=== PATIENT | male | born 1955 | race Hispanic/Latino ===

== ENCOUNTER 2020-09-18 20:52 | Emergency (ER) | payer OTHER ==
--- OUTSIDE RECORDS SUMMARY | 2020-09-18 20:58 | XMS REPORT | Continuity of Care Document ---
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 CHEST 1 VW PORTABLE 2020-04-02 12:15:00 Fabi Harveyist Aiden Olivares HC COMPLETE BLD COUNT 2020-04-02 11:36:00 Amelie Harvey [facility] W/AUTO DIFF Aiden Olivares PROTHROMBIN TIME WITH INR 2020-04-02 11:36:00 Rashel Harvey COMPREHENSIVE METABOLIC 2020-04-02 11:36:00 Lane Harvey PANEL Aiden Olivares TROPONIN 2020-04-02 11:36:00 Earle Harvey LIPASE LEVEL 2020-04-02 11:36:00 Earle Harvey B NATRIURETIC PEPTIDE 2020-04-02 11:36:00 Amelie Harvey ESTIMATED GFR 2020-04-02 11:36:00 Earle Harvey ECG ED PRELIMINARY 2020-04-02 11:29:05 Earle Harvey ethodist INTERPRETATION Aiden Olivares ECG 12-LEAD 2020-04-02 11:26:30 Earle Harvey COVID-19 ANTI-SPIKE IGG 2020-03-24 14:19:00 Efren Sepulveda ANTIBODY TITER HC COMPLETE BLD COUNT 2020-03-24 14:19:00 Efren Sepulveda [facility] W/AUTO DIFF DONOR SPECIFIC ANTIBODY 2020-03-24 14:19:00 Efren Sepulveda [facility] CBC WITH PLATELET AND 2019-12-31 09:56:00 Laya Turner [facility] DIFFERENTIAL COMPREHENSIVE METABOLIC 2019-12-31 09:56:00 Yue, Laya Og [facility] PANEL HEMOGLOBIN A1C 2019-12-31 09:56:00 Yue, Laya Og [facility] T4, FREE 2019-12-31 09:56:00 Yue, Laya Og [facility] THYROID STIMULATING HORMONE 2019-12-31 09:56:00 Laya Turner [place] [facility] VITAMIN D 25 HYDROXY LEVEL 2019-12-31 09:56:00 Yue, Laya sierra Og [facility] PARATHYROID HORMONE 2019-12-31 09:56:00 Laya Turner [facility] PROSTATE SPECIFIC ANTIGEN 2019-10-21 13:16:00 Lucy Torres [facility] CBC WITH PLATELET AND 2019-09-20 11:06:00 Lucy Torres n [facility] DIFFERENTIAL COMPREHENSIVE METABOLIC 2019-09-20 11:06:00 Lucy Torres [facility] PANEL HEMOGLOBIN A1C 2019-09-20 11:06:00 Lucy Torres odtere LIPID PANEL 2019-09-20 11:06:00 Lucy Torres odtere THYROID STIMULATING HORMONE 2019-09-20 11:06:00 Lucy Torres MICROALBUMIN / CREATININE 2019-09-20 11:06:00 Lucy Torres [facility] URINE RATIO PROSTATE SPECIFIC ANTIGEN 2019-09-20 11:06:00 Lucy Torres [facility] T4, FREE 2019-09-20 11:06:00 Lucy Torres odtere CBC WITH PLATELET AND 2019-09-20 11:03:00 Laya Turner [facility] DIFFERENTIAL COMPREHENSIVE METABOLIC 2019-09-20 11:03:00 Laya Turner [facility] PANEL FRUCTOSAMINE 2019-09-20 11:03:00 Laya Turner [facility] HEMOGLOBIN A1C 2019-09-20 11:03:00 Laya Turner [facility] LIPID PANEL 2019-09-20 11:03:00 Laya Turner MICROALBUMIN / CREATININE 2019-09-20 11:03:00 Laya Turner URINE RATIO T4, FREE 2019-09-20 11:03:00 Kei Turnerana Costa Da Silva THYROID STIMULATING HORMONE 2019-09-20 11:03:00 Laya Turner minaleah Da Silva Plan of Care Planned Activity Planned Date Details Comments Source Future Scheduled 2027-02-28 COLONOSCOPY Og [facility] Test 00:00:00 SCREENING [code = COLONOSCOPY SCREENING] Future Scheduled 2022-07-16 DIABETES: RETINAL [place] [facility] Test 00:00:00 EYE EXAM [code = DIABETES: RETINAL EYE EXAM] Future Scheduled 2021-06-21 SHINGLES VACCINES Postponed from [place] [facility] Test 00:00:00 (#1) [code = 2003 (Not SHINGLES VACCINES Indicated) (#1)] Future Scheduled 2020-10-20 DIABETIC FOOT EXAM [place] [facility] Test 00:00:00 [code = DIABETIC FOOT EXAM] Future Scheduled 2020-09-27 INFLUENZA VACCINE [place] [facility] Test 00:00:00 [code = INFLUENZA VACCINE] Encounters Start End Encounter Admission Attending Care Care Encounter Source Date/Time Date/Time Type Type Clinicians Facility Department ID 2020-09-18 2020-09-18 Outpatient ELO, [facility] [id number] [place] 00:00:00 00:00:00 LUCY [address] 2020-08-25 2020-08-25 Outpatient SALOMÓN, [facility] [id number] [place] 00:00:00 00:00:00 EFREN [address] 2020-08-19 2020-08-19 Outpatient CHANDLER, [facility] [id number] [place] 00:00:00 00:00:00 LAYA [address] 2020-08-19 2020-08-19 Outpatient VIVEK, [facility] [id number] [place] 00:00:00 00:00:00 PRITESH [address] 2020-08-19 2020-08-19 Outpatient LUCRECIA, [facility] [id number] [place] 00:00:00 00:00:00 RENETTA [address] 2020-08-19 2020-08-19 Outpatient GALATI, [facility] [id number] [place] 00:00:00 00:00:00 PRITESH 833 Method i 2020-08-19 2020-08-19 Outpatient GALATI, [facility] [id number] [place] 00:00:00 00:00:00 PRITESH 214 [facility] i 2020-08-19 2020-08-19 Outpatient GALATI, [facility] [id number] [place] 00:00:00 00:00:00 PRITESH 269 [facility] i 2020-08-19 2020-08-19 Outpatient SADHU, [facility] [id number] [place] 00:00:00 00:00:00 LAYA 709 Method i 2020-08-03 2020-08-03 Outpatient GALATI, [facility] [id number] [place] 00:00:00 00:00:00 PRITESH 335 [facility] i 2020-08-03 2020-08-03 Outpatient GALATI, [facility] [id number] [place] 00:00:00 00:00:00 PRITESH 204 Method i 2020-08-03 2020-08-03 Outpatient GALATI, [facility] [id number] [place] 00:00:00 00:00:00 PRITESH 206 Method i 2020-08-03 2020-08-03 Outpatient GALATI, [facility] [id number] [place] 00:00:00 00:00:00 PRITESH 207 Method i 2020-07-06 2020-07-06 Office MILY Momin [id number] 12:46:59 13:35:30 Visit Claudio Post AMBULATOR 350.1.13.21 Y [id number] [id number] 2020-04-22 2020-04-22 Outpatient ELO, [facility] [id number] [place] 00:00:00 00:00:00 LUCY 806 Method i 2020-04-17 2020-04-17 Outpatient SALOMÓN, [facility] [id number] [place] 00:00:00 00:00:00 RAFIK 810 Method i 2020-04-17 2020-04-17 Outpatient SALOMÓN, [facility] [id number] [place] 00:00:00 00:00:00 RAFIK 807 Method i 2020-04-02 2020-04-04 Outpatient TABITHA, [facility] [id number] [place] 00:00:00 00:00:00 SINCERE [address] 2020-04-02 2020-04-02 Outpatient CASTLE-VAREL [facility] [id number] [place] 00:00:00 00:00:00 RENETTA Flores 928 Met hodi 2020-03-26 2020-03-26 Outpatient SALOMÓN, [facility] [id number] [place] 00:00:00 00:00:00 RAFIK 086 Method i 2020-03-24 2020-03-24 Outpatient SALOMÓN, [facility] [id number] [place] 00:00:00 00:00:00 RAFIK 353 Method i 2020-03-24 2020-03-24 Outpatient SALOMÓN, [facility] [id number] [place] 00:00:00 00:00:00 RAFIK 082 Method i 2020-01-06 2020-01-06 Outpatient SADHU, [facility] [id number] [place] 00:00:00 00:00:00 LAYA 183 Method i 2019-11-06 2019-11-06 Outpatient WOODY, [facility] [id number] [place] 00:00:00 00:00:00 JAMAL 429 Method i 2019-10-21 2019-10-21 Outpatient ELO, [facility] [id number] [place] 00:00:00 00:00:00 LUCY 598 Method i 2019-10-21 2019-10-21 Outpatient ELO, [facility] [id number] [place] 00:00:00 00:00:00 LUCY 893 Method i 2019-09-30 2019-09-30 Outpatient SADHU, [facility] [id number] [place] 00:00:00 00:00:00 LAYA 285 Method i 2019-07-17 2019-07-17 Outpatient WOODY, [facility] [id number] [place] 00:00:00 00:00:00 JAMAL 920 Method i 2019-04-26 2019-04-26 Outpatient ELO [facility] [id number] [place] 00:00:00 00:00:00 LUCY [address] 2019-04-26 2019-04-26 Outpatient ELO [facility] [id number] [place] 00:00:00 00:00:00 LUCY [address] 2019-04-26 2019-04-26 Outpatient ELO [facility] [id number] [place] 00:00:00 00:00:00 LUCY [address] Results Test Description Test Time Test Comments Results Result Sourc e Comments CT Abdomen 2020-07-29 [facility], [place] Pelvis Wo [address] Contrast 14:43:38 Incoming - 08/25/2020 2:46 PM CDT EXAMINATION: CT ABDOMEN PELVIS WO CONTRASTCLINICAL HISTORY: Z94.4 Liver transplant status, 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 Sagittal and coronal computerized reformatted images were also obtained. All CT images were acquired using radiation dose lowering technique with automated exposure control and / or iterative reconstruction.COMPAR BREN: MRI abdomen 08/19/[address] 02/06/2018IMPRESSION: ABDOMEN:Evaluation of solid abdominal organs is limited without IV contrast.1. The finding seen on the MRI corresponds to a small focus of fat necrosis along the posterior margin of hepatic segment 6, 1.9 cm in size. Retrospectively, this has been present even from old exams back to 2017, though it is more discrete since that time, as expected with the passage of time. Transplant liver shows no focal lesion on this noncontrast CT.2.AICD wires partially seen. The heart upper normal. Lung bases are clear.3.Gallbladder absent post transplant. Pancreas grossly unremarkable. Splenic artery tortuous and calcified. The spleen mildly enlarged. Perisplenic and paraesophageal collaterals, and embolization coils in the gastrohepatic ligament. Adrenals, abdominal aorta grossly unremarkable without contrast. The kidneys are atrophic indicating end-stage renal disease. No hydronephrosis.4.A right iliac fossa transplant kidney with no hydronephrosis or fluid collection. The cortical thickness is well-maintained.PELVI S:1. Spontaneous splenorenal shunt, as before. No free fluid or definite lymphadenopathy detected in the abdomen or pelvis on this limited noncontrast study. Sensitivity for detection is decreased due to the paucity of intra-abdominal fat.2.Prostate upper normal. Seminal vesicles grossly unremarkable. The urinary bladder is incompletely distended otherwise unremarkable.3.Coloni c diverticulosis most pronounced distally. Bowel loops including the appendix show no evidence of obstruction or acute inflammation otherwise grossly unremarkable without contrast.4.Focal zones of reticulation of the superficial subcutaneous fat in the abdominal pannus has been present back to 2017, though has gradually increased since prior. This suggest a chronic inflammatory condition.5.Visualize d bones show no suspicious lesion.SUMMARY:Small focus of fat necrosis corresponds to the MRI. No suspicious liver lesion detected.Incidental findings as [id number] Cv stress test 2020-08-20 05:38:01 Test Item Value Reference Range Interpretation Comme nts Resting HR (test code = 0561768919) 83 Resting BP (test code = 4746116739) 125&58 Peak MET Achieved (test code = 3 8056936869) Protocol Name (test code = 5492299311) DOBUT/ECHO Time in Exercise Phase (test code = 00:08:40 0735099487) Max Systolic BP (test code = 155 7124969522) Max Diastolic BP (test code = 55 6380155926) Max Heart Rate (test code = 196 6153364195) Max Predicted Heart Rate (test code = 153 4317107044) Target HR Formula (test code = (220 - Age)*100% 6830784271) Test Indication (test code = A.S 2001159993) Arrhy During Ex (test code = 5002020361) ECG Interp Before EX (test code = 5199185042) ECG Interp During Ex (test code = 5963460866) Ex Summary Comment (test code = 4662813050) Overall HR Response to Exercise (test code = 5504997426) Overall BP Response To Exercise (test code = 1461056473) Reason for Termination (test code = Protocol Complete 4708068548) Stress Test Impression (test code = Waveform interpreted in report associated 0766761848) with image study. No interpretation is provided as part of this Stress ECG report.-Electronically Signed By Clem Castro MD ([id number]), purchase request editor Aurea Casey ([id number]) on 08/20/2020 5:37:57 AM [place] MethodistTransthoracic Echocardiogram Stress, (w Doppler, w Contrast if needed)2020-08-19 19:41:00Interface, Radiology Results In - 08/19/2020 7:42 PM CDT Stress Echocardiography Report [address], [address], [place], [place] [address] Stress ECG tracings are available in [employer] and [employer] All ECG interpretations are included in this report Pat.Name: ALONZO FIGUEROA Pat.ID: [id number] St.Date: 08/19/2020 Refer.MD: RENETTA SINGER MDExam Time: 10:33:00 AM Study Type:Stress Echo Height: 70in Weight: 212lb BSA: 2.14 m2 Age: 12 1955,65Y Sex: MALE BP: 125/58 HR: 82 bpm Sonogrphr: ERYN De La Torre, RD, Raquel MOSLEY, [facility]; MD Falguni; Tom Dolan. Stat.:Outpatient Room: [facility] 16 Study Status:Final Echo Event ID:[id number] Order ID: [id number] Reason for Study:Chronic Valvular Disease (Asymptomatic) - Moderateaortic stenosis; EVal aortic stenosis and LV FunctionHistory / Clinical:Diabetes, Congestive Heart Failure, Hyperlipidemia,Hypertension, CKD, Shortness of Breath, Hepatitis CProcedures: Stress Echo/Dobutamine and Colorflow DopplerRace: Z [place] MMARY: Low flow, low gradient, severe aortic valve stenosis. Meangradientincreased to 42.6 from 23.4 mmHg with 10mcg/min of Dobutamine Diastolic dysfunction Grade II(Moderate): Impaired relaxation withelevated LV filling pressures. -FINDINGS: Resting FindingsLV: There is severe eccentric LVhypertrophy. LV EF is severely depressed. Estimated EF is 25-29%.RV: A pacemaker wireis seen in the RV. RV systolic function is normal. LA: LA volume is severely enlarged.RA: RA size is normal.AO: Aortic root diameter is normal.JANEL: No pericardial effusion.AV: Moderate thickening and calcification of AV leaflets. Mild aortic regurgitation. Low flow, low gradient, severe aortic valve stenosis. Mean gradient increased to 42.6 from23.4 mmHg with 10mcg/min of DobutaminneMV: Mild calcification of mitral leaflets. Thickened and/or calcified chordae. Mild to moderate mitral regurgitation.PV: No structural PV abnormalities noted. A trace of pulmonic regurgitation. TV: No structural TV abnormalities noted.Butler: Diastolic dysfunction Grade II (Moderate): Impaired relaxation with elevated LV filling pressures.Stress FindingsLV: LV EF is moderately to severely depressed. E stimated EF is 30-34%. STRESS: Baseline Vital Signs: Intervention DobutamineECG Normal sinus Peak Dose 10 mcg/kg/minHR 82 Atropine 0Rest BP: 125/58 Duration 11:11Stress Test Results:Max HR 93 Target HR 153 % Target: 61 % MaxBP 127/59 Max RPP 00817 Symptoms and Complications:Arrhythmias SVT, PVCsReason for Stopping Test: positive test and patient developedventricular bigeminy and SVTsSymptoms headacheComplications noneStress ECG Interp Normal Blood Pressure response to Stress, NormalStress ECG. No ST changes occurred during stress., runs of SVT in [id number] CAIKZFTRMIOF: 2DParasternal Long [place] Ao An 2.4 cm LVPWd 0.8 cm Ao Rtd 3 cm Index 1.4 cm/m2 LADs 5.2 cm IVSd 1.4 cm RWT 0.3 LVIDd6.5 cm Index 3 cm/m2 LV Mass 328.4 g (122-174)* LVIDs 6.1 cm LVOT 2.2 cm LV%fs 6.3 % Left VentricleLVM Index 153.5 g/m2 LA Sng Plane LA Area 32.2 cm2 (8.8-23.4)* LA Vol 126.9 ml Index 59.3 ml/m2 LA LngAx 6.9 cm LVOT LVOT Area 3.7 cm2 DOPPLERAV For Flow/DARRIN AV pkVel 408.3 cm/s (100-170)* AV AC/ET 0.2 AV mnVel 304.4 cm/s AV TVI 69.1 cm AV pkPG 66.7 mmHg AVpkAcRt 20064.6 cm/s2 AV Mean G 42.6 mmHg AV DeRt 1797.2 cm/s2 AV ET 227 msec AV AC 53 msec (83-118)*Aortic Valve AV DI 0.3 AV Area 1.2 cm2 (3-5)*LVOT For Flow LVOT TVI 22.1 cm LVOTmnPG 3 mmHg LVOTpkVel 112.9 cm/s HR 92 bpm LVOTpkPG 5.1 mmHg LVOT LVOT SV 81.6 ml LVOT CO 7.5 l/min SVi 38.1 ml/m2 LVOT CI 3.5 l/m/m2 WALL MOTION: RESTING WALL MOTION:Basal Inferoseptal, Basal Inferior,Basal Inferolateral, Mid Inferior,Mid Inferolateral larson are akinetic. Basal Anterior, BasalAnteroseptal, Basal Anterolateral, Mid Anterior, Mid Anteroseptal, MidInferoseptal, Mid Anterolateral, Apical Anterior, Apical Septal,Apical Inferior, Apical Lateral, Apical larson are hypokinetic. Wall Index= 2.3STRESS WALL MOTION:Basal Inferoseptal, Basal Inferior, Basal Inferolateral, Mid Inferior,Mid Inferolateral larson are akinetic. Basal Anterior, BasalAnteroseptal, Basal Anterolateral, Mid Anterior, Mid Anteroseptal, MidInferoseptal, Mid Anterolateral, Apical Anterior, Apical Septal,Apical Inferior, Apical Lateral, Apical larson are hypokinetic. Stress Wall Index = 2.3Signed 08/19/2020 07:41 PMGerry Norris M.D.[place] MethodistMRI Abdomen Wo [id number] 13:55:58Hm Interface, Radiology Results 08/19/2020 1:59 PM CDT EXAMINATION: MRI ABDOMEN WO CONTRASTCLINICAL HISTORY: Z85.05 Personal history of malignant neoplasm of liver, Z94.4 Liver transplant status, hcc screening post transplantTECHNIQUE: Multiplanar multisequence MR images of the abdomen were obtained without contrast.COMPARISON: MRI abdomen 09/30/[address] 02/06/2018IMPRESSION:Evaluation of solid abdominal organs limited without IV contrast.1.Motion artifact degrades image quality and decreases sensitivity of exam. Interval development of a 0.9 cm cystic lesion in the uncinate process of pancreas, series 9 image 21. The relationship to the main PD is difficult to determine, due to the marked motion artifact. This may be postinflammatory or a branch duct IPMN.2.A 1.1 cm cyst along the anterior margin of the tail of pancreasis unchanged from 2017, and likely postinflammatory3.The pancreas atrophic otherwise grossly remarkable on motion limited noncontrast exam4.Status post liver transplant. Atrophy of the lateral left hepatic lobe as before, without definite focal hepatic lesion detected.5.A exophytic 1.9 cm focus along the posterior margin of hepatic segment 6, is seen only on the single shot images, series 8 image 23 and series 9 image 10. This is likely artifactual, though sensitivity is reduced by the substantial motion artifact. Confirmation with a noncontrast CT abdomen is advised.6.Gallbladder absent. Bile ducts are nondilated. The spleen enlarged to prior without focal lesion. Perisplenic collaterals and paraesophageal varices.7.Adrenals, abdominal aorta grossly unremarkable without contrast. The bill moore's slough kidneys are atrophic from end-stage renal disease. Right iliac fossa transplant kidney with mild fullnessof the renal collecting system partially seen. No adjacent fluid collection8.No free fluid or definite lymphadenopathy detected on motion limited noncontrast exam. Upper normal periaortic lymph nodes are likely reactive.9.Visualized bones show no suspicious lesion.SUMMARY: Exophytic 1.9 cm focus along the posterior subcapsular margin of hepatic segment 6 only seen on the SSFSE images, suggests that it is motion artifact. Confirmation with a noncontrast CT abdomen is advised.A 0.9 cm cystic lesion in the uncinate process of pancreas is new from prior, though expected to demonstrate long-term stability. 6-12 month follow-up MRI is advised.No definite suspicious lesion is identified. Details and other findings as [id number] [facility]CT Chest Wo [id number] 17:54:58Hm Interface, Radiology Results 08/03/2020 5:58 PM CDT EXAMINATION: CT CHEST WO CONTRASTCLINICAL HISTORY: Z48.23 Encounter for aftercare following liver transplant, Z94.4 Liver transplant status, post transplant HCC recurrence screeningTECHNIQUE: Axial images of the chest were obtained without intravenous contrast. The lack of intravenous contrast reduces the sensitivity of the exam and evaluating vasculature. CT imaging was performed with iterative reconstruction technique and/or automated exposure control to reduce radiation dose.COMPARISON: 01/11/2017 CT.FINDINGS:Lungs and airways: No acute airspace disease or suspicious pulmonary nodules. A 2 mm apical right upper lobe nodule is unchanged since 09/06/2013 CT, considered benign. Tiny peripheral nodule at the left lung base is unchanged and compatible with the sequela of previous inflammatory disease. Minimal subsegmental atelectasis bibasally.Pleura: No pleural effusionor pneumothorax.Mediastinum and lymph nodes: No lymphadenopathy. Multiple paraesophageal varices, similar to 2017. Atrophic thyroid.Cardiovascular: Prior coronary arterial bypass. Heart size is normal w ith left ventricular dilatation. Aortic valvular and mitral valvular calcifications. Aortic arch andaortic calcifications, no aneurysm. Redemonstrated left subclavian approach cardiac device with leadterminating in the right ventricle.Upper abdomen: Redemonstrated partially imaged transplant liver with anastomotic clips in the IVC, splenomegaly, varices and embolization coils and prominent gastrohepatic nodes without significant change since 2017 CT.Musculoskeletal: Prior sternotomy. Osseous structures are intact otherwise, without suspicious lesion.Soft tissues: Gynecomastia.IMPRESSION:1.No evidence of metastatic disease.2.Status post CABG. Mild left ventricular dilatation. Aortic and mitral valvular disease.3.Partly imaged transplant liver and stigmata of portal hypertension.[facility]-[id number] and approved by vice president digital strategist/fellow: Kena Jesus, Khoa Barajas MD, personally reviewed the images and resident's/fellow's findings and agree with the final report.Og Roman CatholicAK Bone Scan Whole [id number] 13:02:05Hm Interface, Radiology Results 08/03/2020 1:05 PM CDTFormatting of this note might be di fferent from the original.PROCEDURE: NM BONE SCAN WHOLE BODYINDICATION: Status post liver transplant. Malignant neoplasm of liver. COMPARISON: Bone scan on 09/06/2013, MRI bone survey 09/30/2016, chest CT performed on same day. TECHNIQUE: Approximately three hours after the IV administration of 25 mCi of Tc-99m labeled MDP, routine whole body planar bone scanning was performed in the anterior and posterior projections. FINDINGS: No suspicious uptake is seen to suggest the presence of osseous metastatic disease. Prior midline sternotomy. Transplant kidney in the right pelvis. DJD in the shoulders and knees. IMPRESSION: 1. No scintigraphic evidence of osseous metastatic disease.[facility]-[id number] MethodistMicroalbumin / creatinine urine ratio 2020-04-23 19:51:00 Test Item Value Reference Interpretation Comments Range Creatinine, urine, 18 mg/dL 20-320 L random (test code = 2161-8) Microalbumin, urine 0.3 mg/dL See Note: Referenc e (test code = Range:Reference 10894-2) RangeNot establ ished Microalbumin/creati 17 See_Comment The ADA defines nine ratio (test abnormaliti es in code = 9318-7) albuminexcret ion as follows: Catego ry Result (mc g/mg creatinine) Nor mal <30Microalbumin uria 30-299 Clinical albumi rodolfo > OR = 300 Th e ADA recommends that at least two of threespecimens collected withi n a 3-6 month perio d beabnormal befo re considering a patient to bewi thin a diagnostic category. [Automated mess age] The system [employer] generated this result transmit anthony reference range : <30 mcg/mg creat. T he reference range was not used to interpret this result as normal/abnormal . RAC (test code = Performing RAC) Organization Information: Site ID: [id number] [facility] Address: [address] [place] [id number] Director: [place] [facility]ling [facility] Interpretation Abnormal (test code = 88275-4) [facility] (COVID-19) IgG+IgM Ab [Presence] in Serum or Plasma by [id number] 18:46:00 Test Item Value Reference Range Interpretation Comments SARS-CoV-2 (COVID-19) IgG+IgM Ab Not detected [Presence] in Serum or Plasma by Immunoassay (test code = 77146-4) SARS-CoV-2 (COVID-19) IgG Ab [Presence] in Serum or Plasma by Immunoassay 2020-04-17 18:46:00 Test Item Value Reference Range Interpretation Comments SARS-CoV-2 (COVID-19) IgG Ab Not detected [Presence] in Serum or Plasma by Immunoassay (test code = 09129-7) CV pacemaker defib or ilr [id number] 06:09:00Interface, Radiology Results In - 04/06/2020 5:09 PM CSTFormatting of this note might be different f rom the original.Authorization Number [id number] Physician: JOSS CORNEJO;Provider ID: ;: [id number]: 0Date Processed: 1Esign: 1Device Model: Visia AF MRI VR [id number] [employer] Director: MedtronicDevice Serial Number: [id number] Type: ICDImplant Physician: Dr. Cornejo 713Implant Date: [id number] Date: 2020-04-03 14:24:16Session Type: ProgrammerReason Interrogated: Device CheckupAtrial Indication: nullAVNode Indication: nullVentricular Indication: nullPatient Substrate: nullEF Method: nullPresenting Rhythm: VSPacemaker Dependent: NoBattery Life: 7.8 yearsBattery Last Measured Date: 1446-59-28[place] Voltage: 3.00Battery Magnet Rate: nullBattery Longevity Remaining: nullCapacitor Reform Charge Energy: nullPace Impedance RA: nullPace Threshold Amplitude RA: nullPace Threshold PulseWidth RA: nullIntrinsic Amplitude RV: 16.5Pace Impedance RV: 380Pace Threshold Amplitude RV: 0.625Pace Threshold PulseWidth RV: 0.40Shock Impedance: 57SVC Shock Impedance: NoneIntrin sic Amplitude LV: nullPace Threshold Amplitude LV: nullPace Threshold PulseWidth LV: nullBrady Mode:VVILower Rate Limit: 40Pacing Polarity RA: nullPacing Sensitivity RA: nullPacing Polarity RV: nullPacing Sensitivity RV: 0.30Pacing Amplitude RV: 2.00Pacing Pulse Width RV: 0.40Pacing Polarity LV: nullPacing Sensitivity LV: nullPacing Amplitude LV: nullPacing Pulse Width LV: nullPercent Paced RA: nullPercent Paced RV: 0.0Percent Paced LV: nullShocks Delivered: nullShock Diverted: 0Minimum Duration: nullATR Switch Mode: nullBrady Counter Clear Date: nullTachy Counter Clear Date: nullRecent VF Episodes: 0Recent VT1 Episodes: 0Recent NonSustained Episodes: 12Tachy Mode: nullHook-up Pot Maker: Tsering Coker;Hook-up Pot Maker: Tsering Coker;Treating Physician: TEETEE FAJARDO;Diagnostic comments for Reports Bedside interrogation done in [place] [address]. Since last device check 04/02/20-- 12 VT-NS episodes. OptiVol is low. RV capture and sensing threshold testing performed. Capture and sensing thresholds have adequate safety margins. Histogram shows QUALITY REVIEWER <0.1%. Lead impedance is stable. Battery status good@ 3.0V with a charge time of 3.8 seconds and an estimated longevity of 7.8 years. No changes made this session.City: [facility] Name: Marsha Fitzpatrick Type: ICD FollowupMR #: [id number] Name: Melia Ioubytu: [address] [facility] FState: TXGender: MaleZip: [id number]: [address] MethodistCv cta coronary arteries w contrast and ffr if iwkqpb9344-18-44 07:57:00Interface, Radiology Results In - 04/04/2020 7:58 AM CST [facility] [address] [place] [address] Department Number: [phone] CTA Coronary Arteries ReportPat.Name: ALONZO FIGUEROA.ID: [id number] St.Date: 04/03/2020 Refer.MD: GURVINDER ABAD MD Exam Time: 4:36:00 PM Study Type:CTA Coronary Arteries Height: 70in Weight: 210lb BSA: 2.13 m2 Age: 12 1955,65Y Sex: MALE BP: 130/71 HR: 60 bpm Nuclear Tech:Roxanna Grossman,RT(R)(CT),BS,MSPat. Stat.:Inpatient Tape Vol: 31.13, CPT - 4: CTA Coronary Arteries - 83021 (Please add FFR Charges ifPerformed)Nuclear Event ID:[id number] Order ID: [id number] Reason for Study:CAD, prior CABG History / Clinical:Diabetes, HypertensionProcedures: CT Prospective (Intervals), CT Flash Mode with PlanningScanRace: SUMMARY: Technique: IV contrast was administered and sequential 0.[address] cutswere obtained through the chest using the Siemens Somatom Force CTscanner. Image post-processing consisting of multiplanar and 3Dreconstructions were performed using the Idea Deviceworkstation. Interactive image viewing, volumetric display andanalysis were also performed. 3D coronary artery calcium scoring wasdone in accordance with a standardized protocol.CTA RESULTSLeft Main: A normal sized 4.8 mm artery which arises normally from the left sinusof Valsalva and divides into the left anterior descending andcircumflex coronary arteries. No significant atherosclerotic plaqueis present.Left anterior descending (LAD): A normal sized 4.5 mm artery which wraps around the apex and gives offthree diagonal branches. Severe calcified and non-calcifiedatherosclerotic plaque is present in the proximal and mid segmentswith subtotal occlusion in the mid segment followed by subtotalocclusion more distally prior to the left internal mammary arterygraft insertion. Patent left internal mammary graft to the distal left anteriordescending coronary artery which has a widely patent anastomosis andno significant stenosis beyond the graft insertion. The first diagonal is a small 1.5 mm artery which has severe subtotalostial occlusion.The second diagonal is a 1.5 mm artery which has no significantatherosclerotic plaque present. The third diagonal is a 1.7 mm artery which has no significantatherosclerotic plaque present.Left circumflex: A normal sized 4.5 mm non-dominant artery which arises normally fromthe left main and gives off three major obtuse marginal arteriesb efore terminating in the AV groove. Moderate calcified andnon-calcified atherosclerotic plaque is present in the proximal andmid segments with moderate approximately 60% proximal and mild 40%distal stenosis.The first obtuse marginal is a <1.5 mm artery which has no significantatherosclerotic plaquepresent. The second obtuse marginal is a 1.5 mm bifurcating artery which has nosignificant atherosclerotic plaque present.The third obtuse marginal is a 2 mm quadfurcated artery which hassevere calcified and non-calcified atherosclerotic plaque present withtotal occlusion prior to insertion of the saphenous vein graft. Patent saphenous vein graft to the third obtuse marginal coronaryartery which has a widely patent anastomosis and no significantstenosis beyond the graft insertion. Right coronary artery: A normal sized 4.2 mm dominant artery which arises normally from theright sinus of Valsalva and gives off several right ventricularbranches, the posterior descending artery and the posterolateralartery. Severe calcified and non-calcified atherosclerotic plaque ispresent in the proximal, mid and distal segments with subtotal vs.total occlusion along its entire length.Occluded saphenous vein graft to the distal right coronary artery.The posterior descending is a 1.8 mm bifurcating artery which hassevere calcified and non-calcified atherosclerotic plaque present withsubtotal vs. total ostial occlusion and only very faint distalcollateral filling.The posterolateral is a 1.7 mm artery which has no s ignificantatherosclerotic plaque present and fills retrograde via collaerals. Ramus: None Stents:None.Bypass Grafts: Patent left internal mammary graft to the distal left anteriordescending coronary artery which has a widely patent anastomosis andno significant stenosis beyond the graft insertion.Patent saphenous vein graft to the third obtuse marginal coronaryartery which has a widely patent anastomosis and no significantstenosis beyond the graft insertion. Occluded saphenous vein graft to thedistal right coronary artery.Pulmonary Arteries:Normal pulmonary artery sizes with no proximal thrombus identified.Left Atrial and Pulmonary Vein Dimensions:Left atrial size (A-P diameter) 4.7 cm.Left atrial volume 124 ml.Variant PV anatomy Left superior PV 19 mm. Left inferior PV 19 mm. Right superior PV 19 mm. Right middle PV 9 mm. Right inferior PV 17 mm.There is no evidence of the left atrial appendage clot.There is a patent foramen ovale.Left Ventricular Valve Morphology/Function:Aortic booker ve is tri-leaflet with mild calcification and mild aorticstenosis (DARRIN 1.55 cm2.).Mitral valve is normal without evidence of significant regurgitation. Thoracic Aortic Dimensions:No aortic aneurysm or dissection is seen. Aortic root 3.5 cm.Sinotubular junction 2.7 cm.Mid ascending aorta 3.0 cm.Distal ascending aorta 2.6 cm.Aortic arch 2.5 cm. There is normal takeoff of the great vesselsexcept for the left carotid which arises from the rightbrachiocephalic trunk as a variant; there is mild 30% ostial stenosisof the left subclavian artery. Aortic Isthmus 2.4 cm. Descending thoracic aorta 2.6 cm.Pericardium:No pericardial effusion or pericardial thickening.Non-Cardiac Findings:Gynecomastia.Singlechamber pacemaker with lead in the right ventricular apex.Prominent gastroesophageal varices.CONCLUSIONCoronary CTA shows severe coronary atherosclerosis with: subtotalocclusion of the left anterior descending and first diagonal coronaryarteries; moderate stenosis of the circumflex coronary artery;occlusion of the third obtuse marginal coronary artery; and subtotalvs. total occlusion of the rightand posterior descending coronaryarteries. Patent left internal mammary graft to the distal left ante riordescending coronary artery which has a widely patent anastomosis andno significant stenosis beyond the graft insertion. Patent saphenous vein graft to the third obtuse marginal coronaryartery whichhas a widely patent anastomosis and no significantstenosis beyond the graft insertion. Occluded saphenous vein graft to the distal right coronary artery.No aortic aneurysm or dissection is seen. The left carotid arises from the right brachiocephalic trunk as avariant; there is mild 30% ostial stenosis of the left subclavianartery. Aortic valve is tri-leaflet with mild calcification and mild aorticstenosis (DARRIN 1.55 cm2.).Mitral valve is normal without evidence of significant regurgitation. VariantPV anatomy. There is no evidence of the left atrial appendage clot.There is a patent foramen ovale.Please refer to the separate radiology report in [facility] for anyadditional non-cardiovascular findings. STUDY QUALITYThe study quality is good.COMMENTSNone. FINDINGS:----- Signed 04/04/2020 07:57 Emeka Garcia MD [facility] Cardiac [id number] 17:40:13Hm Interface, Radiology Results Incoming - 04/03/2020 5:43 PM CSTFormatting of this note might be di fferent from the original.EXAMINATION: CT CARDIAC OVERREADCLINICAL HISTORY: Radiology overread of imaging performed in the cardiology department. Only extracardiac structures are assessed. cad TECHNIQUE: Please refer to cardiology note for details on the acquisition technique.COMPARISON: None.FINDINGS: Extracardiac findings:Lungs and airways: No acute airspace disease or suspicious pulmonary nodules. Pleura: No pleural effusion or pneumothorax.Mediastinum and lymph nodes: No lymphadenopathy. Smallnoncontrast incidentally noted azygous veinUpper abdomen: No suspicious abnormalities. Embolization coils are noted in the upper abdomen with large gastroesophageal varices. Cirrhotic configuration theliver noted.Musculoskeletal: No suspicious osseous lesions. Moderate bilateral gynecomastia is present. Left-sided pacing device noted with lead extending to the right ventricle. 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 Other incidental findings as described.[place] [facility] 12 [id number] 16:32:37 Test Item Value Reference Range Interpretation Comments Ventricular rate 83 (test code = 253) Atrial rate (test 75 code = 255) [place] interval (test 160 code = 266) QRSD interval (test 112 code = 260) QT interval (test 394 code = 264) QTC interval (test 462 code = 265) P axis 1 (test code 56 = 267) QRS axis 1 (test 73 code = 268) T wave axis (test 122 code = 270) EKG impression (test Sinus rhythm with code = 273) premature supraventricular complexes-Nonspecific T wave abnormality-Prolonged QT-Abnormal ECG-In automated comparison with ECG of 02-APR-2020 20:50,-premature ventricular complexes are no longer present-premature supraventricular complexes are now present- [place] MethodistTransthoracic Echocardiogram Complete, (w Contrast, Strain and 3D if needed)2020-04-03 10:43:00Interface, Radiology Results In - 04/03/2020 10:43 AM CST Echocardiography Report [address]Name: ALONZO FIGUEROA [facility].ID: [id number] .Date: 04/03/2020 Refer.MD: NIGEL MARTELL MD Exam Time: 6:03:00 AM Study Type:Routine Echo Height: 70in Weight: 210lb BSA: 2.13 m2 Age: 12 1955,65Y Sex: MALE BP: 135/71 HR: 72 bpm Sonogrphr: Guillermina Mcguire RDCS, RVTPat. Stat.:Inpatient Room: [facility] Study Status:Final Echo Event ID:[id number] Order ID: [id number] Reason for Study:Syncope and Collapse; HF - Re-eval of known HF(systolic or diastolic) to guide therapyHistory / Clinical:Diabetes, Congestive Heart Failure, Hyperlipidemia,Hypertension, CKD, Shortness of Breath, Hepatitis CProcedures: 2D Echo, Colorflow Doppler, Portable, Intravenous DefinityContrastRace: Z FINDINGS: LV: LV size is upper limits of normal. There is mild concentric LV hypertrophy. LV EF is moderately to severely depressed. Estimated EF is 30-34%.RV: RV size is normal. RV systolic function is normal.LA: LA volume is severely enlarged.RA: RA size is normal.AO: Aortic root diameter is normal.JANEL: No pericardial effusion.AV: Moderate thickening and calcification of AV leaflets. A trace of aortic regurgitation. Moderate aortic valve stenosis. Estimated mean aortic valve gradient 18 mmHg with a valve area of 1.0 cm2.MV: Mild mitral annular calcification. Mild mitral regurgitation. PV: No structural PV abnormalities noted.TV: No structural TV abnormalities noted. Mild tricuspid regurgitation Butler: LV relaxation is impaired. LV filling pressure is elevated, mean PCWP is 15-20mmHg.Other: Estimated PA systolic pressure is 47 mmHg, assuming a mean RAP of 10 mmHg. -------MEASUREMENTS: 2DParasternal Long [place] IVSd 1.3 cm LV Mass 325.9 g (122-174) LVIDd5.5 cm Index 2.6 cm/m2 LVM Index 153 g/m2 LVPWd 1.4 cm LVOT 2 cm RWT 0.5 LA Sng Plane LA Area 34.1 cm2 (8.8- 23.4) LA Vol 131.8 ml Index 61.9 ml/m2 LA LngAx 7.4 cm LVOT For Flow LVOT 2 cm LVOT Area 3.1 cm2 LVOT LVOT Area 3 cm2 DOPPLERAV For Flow/DARRIN AV pkVel 269.2 cm/s (100-170) AV TVI 62 cm AV mnVel 197.1 cm/s AVpkAcRt 7631.4 cm/s2 AVpkPG 29 mmHg AV DeRt 856.2 cm/s2 AV Mean G 17.8 mmHg AV Area 1 cm2 (3-5) AV ET 314 msec AV AC 120 msec (83-118) AV AC/ET 0.4 Aortic Valve AV DI 0.3 LVOT For Flow LVOT TVI 19.5 cm LVOT CI 2.2 l/m/m2 LVOT SV 61.4 ml LVOTpkPG 2.7 mmHg LVOTpkVel 82.5 cm/s LVOTmnPG 1.5 mmHg LVOT CO 4.6 l/min HR 75 bpm LVOT SVi 28.8 ml/m2 WALL MOTION: RESTING WALL MOTION:Basal Inferoseptal, Basal Inferior, Basal Inferolateral, MidInferoseptal, Mid Inferior, Mid Inferolateral, Apical Anterior, ApicalSeptal, Apical Inferior, Apical Lateral, Apical larson are akinetic. Normal wall motion in all other larson.Wall Index = 2.3Signed 04/03/2020 10:43 Harshad Canas [facility] SARS-CoV-2 (COVID-19) RNA [Presence] in Respiratory specimen by RUDDY with probe [id number] 04:51:37 Test Item Value Reference Range Interpretation Comments SARS-CoV-2 (COVID-19) RNA Not detected Not-Detected [Presence] in Respiratory specimen by RUDDY with probe detection (test code = 33630-4) CT Head Wo [id number] 22:47:19Hm Interface, Radiology Results 04/02/2020 10:50 PM CST EXAMINATION: CT HEAD WO CONTRASTCLINICAL HISTORY: Dizziness non-specificCOMPARISON: CT brain dated May 13, 2012TECHNIQUE: Noncontrast enhanced images of the brain were obtained from the skull base to the vertex. Both soft tissue and bone reconstruction algorithms were performed. CT imaging was performed with iterative reconstruction technique and/or automated exposure control to reduce radiation dose.FINDINGS:The brain parenchyma has no acute lesion. The lewis-white matter differentiation is preserved. No evidence of acute intra or extra-axial hemorrhage, mass, mass effect or acute territorial infarction. There is no acute hydrocephalus. Basal cisterns are patent. There are atherosclerotic calcifications in the carotid siphons and vertebral arteries. Sulci and ventricles are prominent from age-related volume loss. There is a chronic insult in the right middle frontal gyrus measuring 2 cm. This has developed since the 2013 exam but appears chronic with encephalomalacia. No acute parenchymal changes are identified.No acute soft tissue hematoma or laceration.Paranasal sinuses shows no acute air-fluid levels. Mastoid air cells are clear. No skull fractures or aggressive bony lesions. IMPRESSION:There are involutional changes as detailed above with no acute intracranial abnormality.HMRM-WPHYJWPHouston MethodistECG ED Preliminary Interpretation - Not an [id number] 21:43:56Cheng Kohler MD 04/03/2020 3:46 AMECG ED Preliminary Interpretation - Not an OrderPerformed by: Cheng Kohler MDAuthorized by: Cheng Kohler MD ECG reviewed by ED Physician in the absence of a turntable worker: yes Interpretation: Interpretation: normal Rate:ECG rate: 76 ECG rate assessment: normal Rhythm: Rhythm: sinus rhythm Ectopy: Ectopy: none QRS: QRS axis: NormalConduction: Conduction: normal ST segments: ST segments: NormalT waves: T waves: normalHouston MethodistXR Chest 1 Vw [id number] 12:21:40Hm Interface, Radiology Results Incoming - 04/02/2020 12:24 PM CST Study:XR CHEST 1 VW PORTABLEHistory: chest painCOMPARISON: 04/26/2019IMPRESSION:A single view of the chest. Left chest pacer and lead in stable position. Cardiac silhouette is n ormal. Visualized osseous structures are stable.[id number] [facility] SARS-CoV-2 (COVID-19) IgG+IgM Ab [Presence] in Serum or Plasma by Immunoassay 2020-03-25 06:44:00 Test Item Value Reference Range Interpretation Comments SARS-CoV-2 (COVID-19) IgG+IgM Ab Not detected [Presence] in Serum or Plasma by Immunoassay (test code = 54245-8) SARS-CoV-2 (COVID-19) IgG Ab [Presence] in Serum or Plasma by Immunoassay 2020-03-25 06:44:00 Test Item Value Reference Range Interpretation Comments SARS-CoV-2 (COVID-19) IgG Ab Not detected [Presence] in Serum or Plasma by Immunoassay (test code = 57843-4) Parathyroid [id number] 09:33:00 Test Item Value Reference Interpretation Comments Range PTH (test 42 pg/mL 14-64 Interpretive G uide Intact code = PTH 2731-8) Calcium-------- -------Normal P arathyroid Normal NormalHypoparat hyroidism Low or Low Norm al LowHyperparathy roidism Primary Normal or High High Secondary High Normal or Low Tertiary High HighNon-Parathy roid Hypercalcemia Low or Low Normal High NILDA (test FASTING:YESFASTIN code = G: YES NILDA) RAC (test Performing code = Organization RAC) Information: Site ID: [id number] Name: [facility] Address: [address] [place] [id number] Director: Dr. Boston Og MethodistProstate specific [id number] 08:34:00 Test Item Value Reference Range Interpretation Comments PSA (test 0.6 ng/mL See_Comment The total PSA v alue code = from this assay system 2857-1) is standardized against the WHO standar d. The test result ojhn l be approximately 2 0% lower when compared t o the equimolar-stand ardized total PSA (Reclip.It Nancy). Benjy rison of serial PSA resu lts should be inter preted with this fact in mind. This test was p erformed using the [employer] chemiluminescen t method. Values obtained from different assay methods cannot be usedinterchange ably. PSA levels, reg ardless ofvalue, should not be interpreted as absoluteevidenc e of the presence or abs ence of disease. [Auto mated message] The sy stem which generated this result transmit anthony reference range : < OR = 4.0. The refere nce range was not u sed to interpret this result as normal/abnor mal. RAC (test Performing code = RAC) Organization Information: Site ID: [id number] Name: [facility] Address: [address] [place] [id number] Director: Boston Da Silva
--- NOTE | 2020-09-19 00:20 | EDPHYS ---
Physician Documentation [facility] Name: Bay Montano Age: 65 yrs Sex: Male : 1955 Arrival Date: 09/18/2020 Time: 20:55 Bed 17 Private MD: SIRI Physician Jack Chau HPI: 09/18 23:58 This 65 yrs old Male presents to ER via Ambulatory with complaints of Cough, kb Fever. 23:58 The patient or guardian reports cough, that is intermittent, described as mild, flu kb symptoms, low-grade fever. Onset: The symptoms/episode began/occurred 3 day(s) ago. Severity of symptoms: At their worst the symptoms were mild, in the emergency department the symptoms are unchanged. Modifying factors: The symptoms are alleviated by nothing, the symptoms are aggravated by nothing. Associated signs and symptoms: Pertinent positives: fever, Pertinent negatives: chest pain, diarrhea, ear ache, nausea, rhinorrhea, sore throat, vomiting. The patient has not experienced similar symptoms in the past. The patient has not recently seen a physician. Patient reports cough since Monday, fever started yesterday and slight fever this morning. Patient called his transplant doctor at [facility] and told them about symptoms. Patient was advised to come to the ER for Covid test and chest x-ray. Patient states he feels ok.. Historical: - Allergies: 21:47 Iodine; kg 21:47 Latex, Natural Rubber; kg 21:49 hypothroid; kg - PMHx: 21:47 Diabetes mellitus; Hypertensive disorder; kg 21:49 CHF; Aortic Stenosis; kg - PSHx: 21:49 defibulator; Coronary artery bypass graft; kidney transplant; liver transplant; kg - Immunization history:: Adult Immunizations up to date, Client reports receiving the 2nd dose of the Covid vaccine. - Social history:: Smoking status: Patient denies any tobacco usage or history of. ROS: 23:57 Abdomen/GI: Negative for abdominal pain, nausea, vomiting, diarrhea, and constipation. kb 23:57 Constitutional: Positive for fever, Negative for body aches, chills, fatigue, malaise, poor PO intake, weight loss. 23:57 Respiratory: Positive for cough, Negative for dyspnea on exertion, hemoptysis, orthopnea, pleurisy, shortness of breath, sputum production, wheezing. 23:57 All other systems are negative. Exam: 23:58 Constitutional: This is a well developed, well nourished patient who is awake, alert, kb and in no acute distress. Head/Face: Normocephalic, atraumatic. ENT: Moist Mucous membranes Respiratory: Respirations even and unlabored. No increased work of breathing, no retractions or nasal flaring. Abdomen/GI: Soft, non-tender. No distention Skin: Warm, dry with normal turgor. Normal color. MS/ Extremity: Pulses equal, no cyanosis. Neurovascular intact. Full, normal range of motion. Neuro: Awake and alert, GCS 15, oriented to person, place, time, and situation. Moves all extremities. Normal gait. Psych: Awake, alert, with orientation to person, place and time. Behavior, mood, and affect are within normal limits. 23:58 Cardiovascular: Rate: normal, Heart sounds: murmur, S1, S2. Vital Signs: 21:42 BP 118 / 65; Pulse 84; Resp 20; Temp 98.3(O); Pulse Ox 99% on R/A; Weight 95.25 kg (R); kg Height 5 ft. 10 in. (177.80 cm) (R); Pain 0/10; 21:42 Body Mass Index 30.13 (95.25 kg, 177.80 cm) kg MDM: 23:18 Patient medically screened. kb 23:57 Data reviewed: vital signs, nurses notes. Data interpreted: Pulse oximetry: on room air kb is 99 %. Interpretation: normal. Counseling: I had a detailed discussion with the patient and/or guardian regarding: the historical points, exam findings, and any diagnostic results supporting the discharge/admit diagnosis, lab results, radiology results, the need for outpatient follow up, a family practitioner, to return to the emergency department if symptoms worsen or persist or if there are any questions or concerns that arise at home. 09/18 21:49 Order name: Flu; Complete Time: 23:17 kg 09/18 23:34 Order name: SARS-COV-2 RT PCR; Complete Time: 23:34 EDMS 09/18 23:38 Order name: Chest Single View XRAY kb Administered Medications: No medications were administered Disposition Summary: 09/19/20 00:20 Discharge Ordered Location: Home kb Condition: Stable kb Diagnosis - Coronavirus infection, unspecified kb Followup: kb - With: Emergency Department - When: As needed - Reason: Worsening of condition Followup: kb - With: Private Physician - When: 2 - 3 days - Reason: Recheck today's complaints, Continuance of care, Re-evaluation by your physician Discharge Instructions: - Discharge Summary Sheet kb - Viral Respiratory Infection, [id number]-Tczy kb - COVID-19 kb Forms: - Medication Reconciliation Form kb - Thank You Letter kb - Antibiotic Education kb - Prescription Opioid Use kb Addendum: 09/20/2020 05:55 Co-signature as Attending Physician, Jack Chau MD. [facility] Signatures: Dispatcher [employer] EDMS Denice Prince, SHELTERED WORKSHOP WORKER-C SHELTERED WORKSHOP WORKER-Jack Solomon MD MD [id number] Lola Zeng RN RN kg Corrections: (The following items were deleted from the chart) 09/18 22:14 21:50 CORONAVIRUS+MR.LAB.BRZ ordered. EDMS EDMS 23:46 21:50 Chest Pa And Lat (2 Views)+RAD.RAD.BRZ ordered. EDMS EDMS
--- NOTE | 2020-09-19 00:20 | ER ---
Nurse's Notes [facility] [place], [place] Name: Bay Montano Age: 65 yrs Sex: Male : 1955 Arrival Date: 09/18/2020 Time: 20:55 Bed 17 Private MD: Diagnosis: Coronavirus infection, unspecified Presentation: 09/18 21:42 Chief complaint: Patient states: Pt stated, " My Dr. at [facility] told me to kg come to ER. I've been coughing and they wanted me to me to get a chest x-ray and get checked for covid." Pt stated I've had a Cough since Monday and fever of 101.5. 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 Coronavirus screen: Client denies travel out of the [place] in the last 14 days. At this time, unable to obtain information related to travel outside the [place] At this time, the client does not indicate any symptoms associated with coronavirus-19. Ebola Screen: Patient negative for fever greater than or equal to 101.5 degrees Fahrenheit, and additional compatible Ebola Virus Disease symptoms Patient denies exposure to infectious person. Patient denies travel to an Ebola-affected area in the 21 days before illness onset. Initial Sepsis Screen: Does the patient meet any 2 criteria? No. Patient's initial sepsis screen is negative. Does the patient have a suspected source of infection? No. Patient's initial sepsis screen is negative. Risk Assessment: Do you want to hurt yourself or someone else? Patient reports no desire to harm self or others. Onset of symptoms was September 16, 2020. 21:42 Method Of Arrival: Ambulatory kg 21:42 Acuity: ELIO 4 kg Historical: - Allergies: 21:47 Iodine; kg 21:47 Latex, Natural Rubber; kg 21:49 hypothroid; kg - PMHx: 21:47 Diabetes mellitus; Hypertensive disorder; kg 21:49 CHF; Aortic Stenosis; kg - PSHx: 21:49 defibulator; Coronary artery bypass graft; kidney transplant; liver transplant; kg - Immunization history:: Adult Immunizations up to date, Client reports receiving the 2nd dose of the Covid vaccine. - Social history:: Smoking status: Patient denies any tobacco usage or history of. Screenin:46 Abuse screen: Denies threats or abuse. Denies injuries from another. Nutritional kg screening: No deficits noted. Tuberculosis screening: No symptoms or risk factors identified. Fall Risk None identified. No fall in past 12 months (0 pts). No secondary diagnosis (0 pts). No IV (0 pts). Ambulatory Aid- None/Bed Rest/Nurse Assist (0 pts). Gait- Normal/Bed Rest/Wheelchair (0 pts) Mental Status- Oriented to own ability (0 pts). Total Yanez Fall Scale indicates No Risk (0-24 pts). Assessment: 09/19 00:30 Reassessment: Patient and/or family updated on plan of care and expected duration. Pain ea level reassessed. Patient is alert, oriented x 3, equal unlabored respirations, skin warm/dry/pink. Discharge instruction given to patient verbalized the understanding of instruction. Pt left ED ambulatory tolerating well. Vital Signs: 09/18 21:42 BP 118 / 65; Pulse 84; Resp 20; Temp 98.3(O); Pulse Ox 99% on R/A; Weight 95.25 kg (R); kg Height 5 ft. 10 in. (177.80 cm) (R); Pain 0/10; 21:42 Body Mass Index 30.13 (95.25 kg, 177.80 cm) kg ED Course: 20:55 Patient arrived in ED. ds1 21:46 Triage completed. kg 21:46 Patient has correct armband on for positive identification. kg 21:46 No provider procedures requiring assistance completed. kg 23:12 Shannen Jonas RN is Primary Nurse. zb 23:17 Denice Prince FNP-C [facility]. kb 23:17 Jack Chau MD is Attending Physician. kb 23:48 Chest Single View XRAY In Process Unspecified. EDMS Administered Medications: No medications were administered Outcome: 09/19 00:20 Discharge ordered by . kb 00:31 Discharged to home ambulatory. ea 00:31 Condition: stable 00:31 Discharge instructions given to patient, Instructed on discharge instructions, follow up and referral plans. Demonstrated understanding of instructions, follow-up care. 00:31 Patient left the ED. ea Signatures: Dispatcher [employer] EDMS Denice Prince FNP-C FNP-Ckb Sanford, Demi ds1 Milka Fuentes RN RN ea Brown, Shannen, RN RN zb Lola Zeng, RN RN kg
[2020-09-19 01:06] VITALS: BP 118/65; TEMP 98.3; O2SAT 99
--- NOTE | 2020-09-19 04:57 | RAD REPORT ---
EXAM DESCRIPTION: [place] Single View09/18/2020 11:49 pm CLINICAL HISTORY: Cough COMPARISON: 2011 FINDINGS: The lungs appear clear of acute infiltrate. The heart is normal size. Pacemaker leads in place. Postsurgical changes involve chest IMPRESSION: No acute abnormalities displayed
== END 2020-09-19 00:31 | disposition home or self-care (01) ==
LOC: ER 20:52
DX: U07.1 COVID-19 (principal); I10 Essential (primary) hypertension; I50.9 Heart failure, unspecified; Z94.0 Kidney transplant status; Z94.4 Liver transplant status; Z95.1 Presence of aortocoronary bypass graft; Z95.810 Presence of automatic (implantable) cardiac defibrillator; Z91.040 Latex allergy status; Z91.048 Other nonmedicinal substance allergy status
CPT/HCPCS: 87804 ×2; 71045; 99283; U0003

== ENCOUNTER 2021-10-14 07:58 | Emergency (ER) | payer OTHER ==
--- OUTSIDE RECORDS SUMMARY | 2021-10-14 08:07 | XMS REPORT | Continuity of Care Document ---
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 [facility] day. BD 2020- No USE 6 Methodi ULTRA-FINE 09-24 07-[address] HODAN PEN 00:00: 00:00 DAY Hospita NEEDLE 32 00 :00 l gauge x 5/32" needle pen needle, 2020- No USE 6 Meth walter diabetic 09-24 02-[address] (BD 00:00: 00:00 DAILY Hospita ULTRA-FINE 00 :00 l HODAN PEN NEEDLE) 32 gauge x 5/32" needle atorvastati 2020- No TAKE 1 [place] avril n (LIPITOR) 06-25 05-10 TABLET BY Co llege 80 MG 00:00: 00:00 MOUTH of tablet 00 :00 EVERY DAY Medicin e olmesartan 2020- No TAKE 1 [facility] (BENICAR) 5 4-23 05-10 TABLET BY Co llege MG tablet 00:00: 00:00 MOUTH of 00 :00 EVERY DAY Medicin e olmesartan 2020- No TAKE 1 Meth walter (BENICAR) 5 06-19 02-[address] MG tablet 00:00: 00:00 MOUTH Hospit a 00 :00 EVERY DAY l furosemide Yes 40mg Take 1 Tab B aylor (LASIX) 40 1-14 by mouth Colle ge MG tablet 00:00: two times of 00 daily. Medicin e furosemide 2020- No 40mg Take 1 Tab Mekhi (LASIX) 40 1-14 12-16 by mouth Lacho ege MG tablet 00:00: 00:00 two times of 00 :00 daily. Medicin e flash 2017-02 Yes [id number] 1{devic 1 Device Methodi glucose 1-12 e} as needed st scanning 00:00: (scan as Hospi ta reader 00 needed). l (FREESTYLE TIERNEY 10 DAY READER) misc tamsulosin Yes 1{tbl} QD Take 1 Met hodi (FLOMAX) 3-[address] 0.4 mg 00:00: mouth Hospita capsule,ext 00 daily. l ended release 24hr blood-gluco 2016-02 Yes Use as Meth walter se meter 0-[address] (ACCU-CHEK 00:00: Dx:Dm Type H ospita VEDA PLUS 00 2 Dx l METER) mis Code:E11.9 metoprolol Yes 1{tbl} QD Take 1 Met hodi succinate 5-[address] XL 00:00: mouth Hospita (TOPROL-XL) 00 daily. l 50 mg 24 hr tablet furosemide Yes .5{tbl} QD Take 0.5 Methodi (LASIX) 40 5-[address] mg tablet 00:00: mouth Hospita 00 daily. l digOXIN 2020- No 1{tbl} QD Take 1 Metho di (LANOXIN) 5-09 06-[address] 125 mcg 00:00: 00:00 mouth Hospita tablet 00 :00 daily. l Immunizations Ordered Immunization Filled Immunization Date Status Commen ts Source Name Name PFIZER COVID-19 MRNA 2020-04-17 Completed [facility] VACCINATION 00:00:00 [facility] PFIZER COVID-19 MRNA 2020-03-26 Completed [facility] VACCINATION 00:00:00 Hospital Influenza 2019-11-11 Completed [facility] Quadrivalent 3YRS+ 00:00:00 of Med icine Influenza 2019-11-11 Completed [facility] Quadrivalent 3YRS+ 00:00:00 of Med icine Influenza 2019-11-11 Completed [facility] Quadrivalent 3YRS+ 00:00:00 of Med icine FLUZONE QUAD 2019-11-11 [facility]pleted [facility] Pneumococcal 2019-04-26 Completed [facility] Colle ge Polysaccharide 00:00:00 of Medicin e Pneumococcal 2019-04-26 Completed [facility] Colle ge Polysaccharide 00:00:00 of Medicin e Pneumococcal 2019-04-26 Completed [facility] Colle ge Polysaccharide 00:00:00 of Medicin e Pneumococcal 2019-04-26 Completed [facility] Polysaccharide 00:00:00 Hospital FLUZONE QUAD PF 2019-01-15 Completed [facility] 00:[facility]:00 Hospital Pneumococcal 2018-02-06 Completed [facility] ge 13-valent Conjugate 00:00:00 of Me dicine Vaccine Pneumococcal 2018-02-06 Completed [facility] ge 13-valent Conjugate 00:00:00 of Me dicine Vaccine Pneumococcal 2018-02-06 Completed [facility] ge 13-valent Conjugate 00:00:00 of Me dicine Vaccine Pneumococcal 2018-02-06 Completed [facility] Conjugate 13-Valent 00:00:00 Hospi [place] Influenza 2017-12-13 Completed [facility] Quadrivalent 3YRS+ 00:00:00 of Med icine Influenza 2017-12-13 Completed [facility] Quadrivalent 3YRS+ 00:00:00 of Med icine Influenza 2017-12-13 Completed [facility] Quadrivalent 3YRS+ 00:00:00 of Med icine FLUZONE QUAD 2017-12-13 Completed [facility] 00:[facility] Influenza 2017-12-12 Completed [facility] Quadrivalent 3YRS+ 00:00:00 of Med icine Influenza (whole) 2017-12-12 Completed [facility] 00:00:00 of Medicine Influenza 2017-12-12 Completed [facility] Quadrivalent 3YRS+ 00:00:00 of Med icine Influenza (whole) 2017-12-12 Completed [facility] 00:00:00 of Medicine Influenza 2017-12-12 Completed [facility] Quadrivalent 3YRS+ 00:00:00 of Med icine Influenza (whole) 2017-12-12 Completed [facility] 00:00:00 of Medicine FLUZONE QUAD 2017-12-12 Completed [facility] Influenza 2016-11-15 Completed [facility] Quadrivalent 3YRS+ 00:00:00 of Med icine Influenza 2016-11-15 Completed [facility] Quadrivalent 3YRS+ 00:00:00 of Med icine Influenza 2016-11-15 Completed [facility] Quadrivalent 3YRS+ 00:00:00 of Med icine FLUZONE QUAD 2016-11-15 Completed [facility] 00:[facility]:00 Hospital Influenza 2016 Completed [facility] Quadrivalent 3YRS+ 00:00:00 of Med icine Influenza 2016 Completed [facility] Quadrivalent 3YRS+ 00:00:00 of Med icine Influenza 2016 Completed [facility] Quadrivalent 3YRS+ 00:00:00 of Med icine FLUZONE QUAD 2016 Completed [facility] 00:[facility] Influenza Trivalent 2014-12-02 Completed [facility] 00:00:00 Hospital Influenza, 2014-03-23 Completed [facility] Unspecified 00:00:00 Hospital Influenza Trivalent 2007-12-12 Completed [facility] 00:00:00 Hospital Influenza Trivalent 2007-11-28 Completed [facility] 00:00:00 Hospital Vital Signs Vital Name Observation Time Observation Value Comments Source Systolic blood 2021-07-05 19:00:00 121 mm[Hg] [facility] Medicine Diastolic blood 2021-07-05 19:00:00 71 mm[Hg] [facility] Heart rate 2021-07-05 19:00:00 75 /min [facility] Body height 2021-07-05 19:00:00 177.8 cm [facility] Body weight 2021-07-05 19:00:00 99.791 kg [facility] BMI 2021-07-05 19:00:00 31.57 kg/m2 [facility] Systolic blood 2021-02-11 17:28:00 104 mm[Hg] [facility] Medicine Diastolic blood 2021-02-11 17:28:00 64 mm[Hg] [facility] Medicine Heart rate 2021-02-11 17:28:00 76 /min [facility] Respiratory rate 2021-02-11 17:28:00 16 /min [facility] Systolic blood 2020-07-06 18:06:00 118 mm[Hg] [facility] Medicine Diastolic blood 2020-07-06 18:06:00 74 mm[Hg] [facility] Medicine Heart rate 2020-07-06 18:06:00 69 /min [facility] Body temperature 2020-07-06 18:06:00 36.56 Francesca [facility] Respiratory rate 2020-07-06 18:06:00 17 /min [facility] Systolic blood 2020-07-06 18:06:00 118 mm[Hg] [facility] pressure Medicine Diastolic blood 2020-07-06 18:06:00 74 mm[Hg] [facility] Medicine Heart rate 2020-07-06 18:06:00 69 /min [facility] Body temperature 2020-07-06 18:06:00 36.56 Francesca [facility] Respiratory rate 2020-07-06 18:06:00 17 /min [facility] Systolic blood 2020-12-14 17:30:00 113 mm[Hg] [facility] pressure Diastolic blood 2020-12-14 17:30:00 61 mm[Hg] [facility] pressure Heart rate 2020-12-14 17:30:00 65 /min [facility] Respiratory rate 2020-12-14 17:30:00 16 /min [facility] Body height 2020-10-20 13:44:00 177.8 cm [facility] Body weight 2020-10-20 13:44:00 95.528 kg [facility] BMI 2020-10-20 13:44:00 30.22 kg/m2 [facility] Oxygen saturation in 2020-10-20 13:44:00 98 /min [facility] Arterial blood by Pulse oximetry Body temperature 2020-09-24 17:49:00 36.56 Francesca [facility] Procedures Procedure Date / Time Performing Clinician Source Performed URINALYSIS W REFLEX MICRO 2021-07-05 16:29:37 [facility] SATISH,POST-VOID 2021-07-05 00:00:00 Tory Burris [facility] Co llege of [facility],,NON-IMG Medicine SATISH,POST-VOID 2021-07-05 00:00:00 [facility] Colle samara of [facility],US,NON-IMG Medicine POCT URINALYSIS DIPSTICK 2021-07-05 00:00:00 [facility] AMYLASE LEVEL 2021-03-25 16:16:00 [facility] CBC WITH PLATELET AND 2021-03-25 16:16:00 [facility] DIFFERENTIAL COMPREHENSIVE METABOLIC 2021-03-25 16:16:00 [facility] PANEL HEMOGLOBIN A1C 2021-03-25 16:16:00 [facility] LIPASE LEVEL 2021-03-25 16:16:00 [facility] LIPID PANEL 2021-03-25 16:16:00 [facility] MICROALBUMIN / CREATININE 2021-03-25 16:16:00 [facility] URINE RATIO T4, FREE 2021-03-25 16:16:00 [facility] THYROID STIMULATING HORMONE 2021-03-25 16:16:00 [facility] VITAMIN D 25 HYDROXY LEVEL 2021-03-25 16:16:00 [facility] POCT URINALYSIS DIPSTICK 2021-02-11 00:00:00 Tory Burris [facility] UROFLOWMETRY 2021-02-11 00:00:00 Tory Burris [facility] CBC WITH PLATELET AND 2020-11-13 14:07:00 [facility] DIFFERENTIAL COMPREHENSIVE METABOLIC 2020-11-13 14:07:00 [facility] PANEL HEMOGLOBIN A1C 2020-11-13 14:07:00 [facility] LIPASE LEVEL 2020-11-13 14:07:00 [facility] AMYLASE LEVEL 2020-11-13 14:07:00 [facility] MICROALBUMIN / CREATININE 2020-11-13 14:07:00 [facility] URINE RATIO T4, FREE 2020-11-13 14:07:00 [facility] THYROID STIMULATING HORMONE 2020-11-13 14:07:00 [facility] VITAMIN D 25 HYDROXY LEVEL 2020-11-13 14:07:00 [facility] PROSTATE SPECIFIC ANTIGEN 2020-10-20 14:16:00 Lucy Torres [facility] CT ABDOMEN PELVIS WO 2020-08-25 17:05:00 CocoEfren lizarraga [facility] CONTRAST BONE DENSITY 2020-08-19 19:41:11 Michaelaimee Laya [facility] MRI ABDOMEN WO CONTRAST 2020-08-19 18:39:00 [facility] CV STRESS TEST 2020-08-19 16:42:30 [facility] TTE STRESS DOBUTAMINE 2020-08-19 16:42:30 [facility] ([id number]) MISCELLANEOUS REFERRAL TEST 2020-08-03 19:13:00 [facility] NM BONE SCAN WHOLE BODY 2020-08-03 17:58:31 [facility] CT CHEST WO CONTRAST 2020-08-03 15:46:01 Clarissa [facility] HC COMPLETE BLD COUNT 2020-08-03 15:00:00 [facility] W/AUTO DIFF COMPREHENSIVE METABOLIC 2020-08-03 15:00:00 [facility] PANEL MAGNESIUM LEVEL 2020-08-03 15:00:00 [facility] HEMOGLOBIN A1C 2020-08-03 15:00:00 [facility] LIPID PANEL 2020-08-03 15:00:00 [facility] ALPHA FETOPROTEIN 2020-08-03 15:00:00 [facility] CARCINOEMBRYONIC ANTIGEN 2020-08-03 15:00:00 [facility] (CEA) VITAMIN D 1,25 DIHYDROXY 2020-08-03 15:00:00 [facility] LEVEL, SERUM CYTOMEGALOVIRUS BY PCR 2020-08-03 15:00:00 [facility] VITAMIN D 25 HYDROXY LEVEL 2020-08-03 15:00:00 [facility] THYROID STIMULATING HORMONE 2020-08-03 15:00:00 [facility] ALCOHOL LEVEL, BLOOD 2020-08-03 15:00:00 [facility] GGT 2020-08-03 15:00:00 [facility] PROTEIN, URINE, RANDOM 2020-08-03 15:00:00 [facility] CREATININE LEVEL, URINE, 2020-08-03 15:00:00 [facility] RANDOM [id number] TACROLIMUS LEVEL, 2020-08-03 15:00:00 [facility] RANDOM HEPATOCELLULAR CARCINOMA 2020-08-03 15:00:00 [facility] MARKER PANEL CANCER ANTIGEN 19-9 2020-08-03 15:00:00 [facility] ESTIMATED GFR 2020-08-03 15:00:00 [facility] POCT URINALYSIS DIPSTICK 2020-07-06 00:00:00 Tory Burris [facility] MICROALBUMIN / CREATININE 2020-04-22 17:36:00 Lucy Torres [facility] URINE RATIO [id number] N 2020-04-17 21:14:00 [facility] (NUCLEOCAPSID PROTEIN) ANTIBODY HC COMPLETE BLD COUNT 2020-04-17 21:14:00 [facility] W/AUTO DIFF DONOR SPECIFIC ANTIBODY 2020-04-17 21:14:00 [facility] POC GLUCOSE 2020-04-04 16:17:00 [facility] POC GLUCOSE 2020-04-04 14:04:00 Nigel Lopez [facility] POC GLUCOSE 2020-04-04 11:28:00 Jessica Nigel [facility] POC GLUCOSE 2020-04-04 05:49:00 Jessica Nigel [facility] POC GLUCOSE 2020-04-03 23:44:00 [facility] CV CTA CORONARY ARTERIES W 2020-04-03 23:12:46 Gurvinder Perez [facility] CONTR[facility] CT CARDIAC OVERREAD 2020-04-03 22:17:11 Gurvinder Perez [facility] POC GLUCOSE 2020-04-03 22:08:00 [facility] DEFIB[facility]LLATOR 2020-04-03 19:27:51 Maddie [facility] PROGRAMMING SINGLE POC GLUCOSE 2020-04-03 18:31:00 [facility] POC GLU[facility]SE 2020-04-03 14:30:00 [facility] TTE COMPLETE, W CONTRAST, W 2020-04-03 12:45:00 [facility] DOPPLER ([id number]) TROPONIN 2020-04-03 12:00:00 [facility] ECG 12-LEAD 2020-04-03 11:35:06 [facility] Michael LIPID PANEL 2020-04-03 10:00:00 [facility] THYROID STIMULATING HORMONE 2020-04-03 10:00:00 [facility] T4, FREE 2020-04-03 10:00:00 [facility] ESTIMATED GFR 2020-04-03 10:00:00 [facility] Silva spital COMPREHENSIVE METABOLIC 2020-04-03 10:00:00 [facility] PANEL BILIRUBIN DIRECT 2020-04-03 10:00:00 Alejandro Hunterkiera Da Silva ospital HC COMPLETE BLD COUNT 2020-04-03 09:30:00 [facility] W/AUTO DIFF [id number] TACROLIMUS LEVEL, 2020-04-03 09:30:00 [facility] TROUGH DIGOXIN LEVEL 2020-04-03 09:02:00 [facility] TROPONIN 2020-04-03 09:00:00 [facility] Michael POC GLUCOSE 2020-04-03 08:09:00 [facility] TROPONIN, I-STAT 2020-04-03 05:50:00 [facility] Michael CT HEAD WO CONTRAST 2020-04-03 04:38:05 [facility] Michael ECG ED PRELIMINARY 2020-04-03 03:43:56 [facility] INTERPRETATION Michael COVID-19 QUALITATIVE RT-PCR 2020-04-03 03:00:00 [facility] Michael COMPREHENSIVE METABOLIC 2020-04-03 03:00:00 [facility] PANEL Michael B NATRIURETIC PEP, I-STAT 2020-04-03 03:00:00 [facility] Michael TROPONIN, I-STAT 2020-04-03 03:00:00 [facility] Michael HC COMPLETE BLD COUNT 2020-04-03 03:00:00 [facility] W/AUTO DIFF Michael ESTIMATED GFR 2020-04-03 03:00:00 [facility] Michael ECG 12-LEAD 2020-04-03 02:50:19 [facility] Michael XR CHEST 1 VW PORTABLE 2020-04-02 18:15:00 [facility] Aiden Olivares HC COMPLETE BLD COUNT 2020-04-02 17:36:00 [facility] W/AUTO DIFF Aiden Olivares PROTHROMBIN TIME WITH INR 2020-04-02 17:36:00 Paige [facility] Aiden Olivares COMPREHENSIVE METABOLIC 2020-04-02 17:36:00 Paige [facility] PANEL Aiden Olivares TROPONIN 2020-04-02 17:36:00 Rekha Harvey LIPASE LEVEL 2020-04-02 17:36:00 Rekha Harvey B NATRIURETIC PEPTIDE 2020-04-02 17:36:00 [facility] Aiden Olivares ESTIMATED GFR 2020-04-02 17:36:00 Rekha Harvey ECG ED PRELIMINARY 2020-04-02 17:29:05 Rekha Harvey [facility] INTERPRETATION Aiden Marshall ECG 12-LEAD 2020-04-02 17:26:30 Rekha Harvey Ho spital Aiden Olivares Plan of Care Planned Activity Planned Date Details Comments Source Future Scheduled 2021-07-05 TETANUS SHOT [facility] [employer] Test 14:22:46 (ADULT) [code = of Medicine TETANUS SHOT (ADULT)] Future Scheduled 2021-07-05 ZOSTER VACCINE (1 [facility] College Test 14:22:46 of 2) [code = of Medicine ZOSTER VACCINE (1 of 2)] Future Scheduled 2021-07-05 MEDICARE AWV [facility] Test 14:22:46 (Initial) [code = of Medicin e MEDICARE AWV (Initial)] Future Scheduled 2021-07-05 FALL SCREEN [code = [employer] Test 14:22:46 FALL SCREEN] of Medicine Future Scheduled 2021-07-05 COVID-19 Vaccine (3 [employer] Test 14:22:46 - Booster for of Medicine Pfizer series) [code = COVID-19 Vaccine (3 - Booster for Pfizer series)] Future Scheduled 2021-07-05 FLU VACCINE > 6 [facility] C [facility]lege Test 14:22:46 MONTHS [code = FLU of Medici ne VACCINE > 6 MONTHS] Future Scheduled 2021-07-05 Screening for [facility] Col lege Test 14:22:46 malignant neoplasm of Medici ne of colon (procedure) [code = 644830032] Future Scheduled 2021-03-29 COVID-19 VACCINE (3 Meth [facility]ist Test 08:58:26 - Pfizer risk Hospital 4-dose series) [code = COVID-19 VACCINE (3 - Pfizer risk 4-dose series)] Future Scheduled 2021-03-29 INFLUENZA VACCINE Method ist Test 08:58:26 [code = INFLUENZA Hospital VACCINE] Future Scheduled 2021-03-29 SHINGLES VACCINES Postponed from [facility]ist Test 08:58:26 (#1) [code = 2003 (Not Hospital SHINGLES VACCINES Indicated) (#1)] Future Scheduled 2021-03-29 DIABETIC FOOT EXAM [facility] Test 08:58:26 [code = DIABETIC Hospital FOOT EXAM] Future Scheduled 2021-03-29 DIABETES: RETINAL Method ist Test 08:58:26 EYE EXAM [code = Hospital DIABETES: RETINAL EYE EXAM] Future Scheduled 2021-03-29 COLONOSCOPY [facility] Test 08:58:26 SCREENING [code = Hospital COLONOSCOPY SCREENING] Future Scheduled 2021-02-11 Screening for [facility] Col lege Test 12:30:49 malignant neoplasm of Medici ne of colon (procedure) [code = 778320718] Future Scheduled 2021-02-11 TETANUS SHOT Mekhi [facility] Test 12:30:49 (ADULT) [code = of Medicine TETANUS SHOT (ADULT)] Future Scheduled 2021-02-11 ZOSTER VACCINE (1 [facility] [employer] Test 12:30:49 of 2) [code = of Medicine ZOSTER VACCINE (1 of 2)] Future Scheduled 2021-02-11 MEDICARE AWV Mekhi [facility] Test 12:30:49 (Initial) [code = of Medicin e MEDICARE AWV (Initial)] Future Scheduled 2021-02-11 FALL SCREEN [code = [employer] Test 12:30:49 FALL SCREEN] of Medicine Future Scheduled 2021-02-11 FLU VACCINE > 6 [facility] C [facility]lege Test 12:30:49 MONTHS [code = FLU of Medici ne VACCINE > 6 MONTHS] Future Scheduled 2021-02-11 COVID-19 Vaccine (3 [employer] Test 12:30:49 - Booster for of Medicine Pfizer series) [code = COVID-19 Vaccine (3 - Booster for Pfizer series)] Future Scheduled 2021-02-11 VIDEO URODYNAMICS 1 Occurrences [employer] Test 12:04:01 [code = 43710] starting of Medicine 02/11/2021 until 02/11/2022 Future Scheduled 2021-02-11 CYSTOSCOPY [code = 1 Occurrences [employer] Test 12:04:01 [id number]] starting of Medicine 02/11/2021 until 02/11/2022 Future Scheduled 2020-07-06 Screening for [facility] Col [facility]ge Test 17:53:45 malignant neoplasm of Medici ne of colon (procedure) [code = 498901146] Future Scheduled 2020-07-06 TETANUS SHOT [facility] [employer] Test 17:53:45 (ADULT) [code = of Medicine TETANUS SHOT (ADULT)] Future Scheduled 2020-07-06 ZOSTER VACCINE (1 [facility] [employer] Test 17:53:45 of 2) [code = of Medicine ZOSTER VACCINE (1 of 2)] Future Scheduled 2020-07-06 MEDICARE AWV [facility] [employer] Test 17:53:45 (Initial) [code = of Medicin e MEDICARE AWV (Initial)] Future Scheduled 2020-07-06 FALL SCREEN [code = [employer] Test 17:53:45 FALL SCREEN] of Medicine Future Scheduled 2020-07-06 FLU VACCINE > 6 [facility] C [facility]lege Test 17:53:45 MONTHS [code = FLU of Medici ne VACCINE > 6 MONTHS] Future Scheduled 2020-07-06 URINALYSIS W REFLEX Ordered: [employer] Test 13:23:19 MICRO [code = 07/06/2020 of Medicine NOCPT] Encounters Start End Encounter Admission Attending Care Care Encounter Source Date/Time Date/Time Type Type Clinicians Facility Department ID 2021-09-28 2021-09-28 Outpatient [facility] [id number] [address] 00:00:00 00:00:00 LAYA 922 Method i 2021-09-22 2021-09-22 [facility] [id number] [address] 00:00:00 00:00:00 PRITESH 706 Method i 2021-09-03 2021-09-03 [facility] [id number] [address] [place] 00:00:00 00:00:00 PRITESH 315 Method i 2021-09-03 2021-09-03 [facility] [id number] 7[address] [place] 00:00:00 00:00:00 PRITESH 141 Method i 2021-09-03 2021-09-03 [facility] [id number] 791 [place] 00:00:00 00:00:00 PRITESH 139 Method i 2021-09-03 2021-09-03 [facility] [id number] 791 [place] 00:00:00 00:00:00 PRITESH 140 Method i 2021-08-24 2021-08-24 Outpatient [facility] [id number] 119 [place] 00:00:00 00:00:00 LAYA 805 Method i 2021-07-21 2021-07-21 Outpatient [facility] [id number] 873 [place] 00:00:00 00:00:00 452 Method i 2021-07-05 2021-07-05 Office DANIEL BURRIS 1.2.840.114 [id number] 76 [facility] 13:04:53 14:02:13 Visit TORY AMBULATOR 350.1.13.21 College Y 0.2.7.2.686 of [id number] [facility] 300 e 2021-06-09 2021-06-09 Outpatient ELO, [facility] [id number] 090 [place] 00:00:00 00:00:00 LUCY [address] 2021-04-20 2021-04-20 [facility] [id number] 059 [place] 00:00:00 00:00:00 LUCY [address] 2021-04-14 2021-04-14 Outpatient [facility], [facility] [id number] 280 [place] 00:00:00 00:00:00 LAYA [address] 2021-03-14 2021-03-14 Refill [facility], 1.2.840.1 [id number] 9723 [facility]i 00:00:00 00:00:[address] [place] 3.430.2.7 Hospit a .3.737349 l .8 2021-03-12 2021-03-12 Refill [facility], 1.2.840.1 [id number] 4050 Methodi 00:00:00 00:00:[address] [place] 3.430.2.7 Hospit a .3.243504 l .8 2021-03-09 2021-03-09 Refill Elo, 1.2.840.1 [id number] 1089 Methodi 00:00:00 00:00:[address] 3.430.2.7 Hospit a .3.174897 l .8 2021-02-23 2021-02-23 Orders Savage, 1.2.840.1 [id number] 880999 2975 Methodi 00:00:00 00:00:00 Only Kym 12972.1.[address] 3.430.2.7 Hospit a .3.209040 l .8 2021-02-11 2021-02-11 Office DANIEL Burris 1.2.840.114 [id number] 23 [facility] 11:15:00 12:09:37 Visit Tory Post AMBULATOR 350.1.13.21 College Y 0.2.7.2.686 of 940.2618178 Medi [facility] 300 e 2021-02-01 2021-02-01 Refill Yue, 1.2.840.1 [id number] 1583 Methodi 00:00:00 00:00:[address] [place] 3.430.2.7 Hospit a .3.813467 l .8 2021-02-01 2021-02-01 Orders Savage, 1.2.840.1 [id number] 2020 Methodi 00:00:00 00:00:00 Only Kym 63723.1.[address] 3.430.2.7 Hospit a .3.698814 l .8 2021-02-01 2021-02-01 Orders Savage, 1.2.840.1 [id number] 693503 8524 Methodi 00:00:00 00:00:00 Only Kym 00719.1.[address] 3.430.2.7 Hospit a .3.711099 l .8 2021-01-29 2021-01-29 Orders Savage, 1.2.840.1 [id number] 036679 3364 Methodi 00:00:00 00:00:00 Only Kym 31724.1.[address] 3.430.2.7 Hospit a .3.195817 l .8 2021-01-29 2021-01-29 Orders Savage, 1.2.840.1 [id number] 0889 Methodi 00:00:00 00:00:00 Only Kym 74379.1.[address] 3.430.2.7 Hospit a .3.651416 l .8 2020-12-30 2020-12-30 Patient Stephen, 1.2.840.1 [id number] 2100 003593 Methodi 00:00:00 00:00:00 Outreach Jocelynn 57929.1.[address] 3.430.2.7 Hospit a .3.380860 l .8 2020-12-23 2020-12-23 Patient Stephen, 1.2.840.1 [id number] 2100 [id number] Methodi 00:00:00 00:00:00 Outreach Jocelynn 97308.1.[address] 3.430.2.7 Hospit a .3.841402 l .8 2020-12-16 2020-12-16 Patient Stephen, 1.2.840.1 [id number] 2100 708497 Methodi 00:00:00 00:00:00 Outreach Jocelynn 57440.1.[address] 3.430.2.7 Hospit a .3.623076 l .8 2020-12-15 2020-12-15 Patient Junaid, 1.2.840.1 [id number] Methodi 00:00:00 00:00:00 Outreach Renee 93514.1.[address] 3.430.2.7 Hospit a .3.550330 l .8 2020-12-14 2020-12-14 Infusion 1.2.840.1 [id number] 14946 Methodi 11:29:30 11:59:[address] 3.430.2.7 Hospit a .3.889293 l .8 2020-12-14 2020-12-14 Travel 1.2.840.1 1.2.540.219 6744 438549 Methodi 00:00:00 00:00:[address] 3.430.2.7 0.2.7.3.698 Ho spita .3.730161 084.8 l .8 2020-12-09 2020-12-09 Patient Stephen, 1.2.840.1 [id number] Methodi 00:00:00 00:00:00 Outreach Jocelynn 92161.1.[address] 3.430.2.7 Hospit a .3.291888 l .8 2020-12-03 2020-12-03 Refill Yue, 1.2.840.1 [id number] 771374 5472 [facility]i 00:00:00 00:00:[address] [place] 3.430.2.7 Hospit a .3.946624 l .8 2020-12-02 2020-12-02 Patient Stephen, 1.2.840.1 [id number] 2099 [id number] Methodi 00:00:00 00:00:00 Outreach Jocelynn 96742.1.[address] 3.430.2.7 Hospit a .3.199717 l .8 2020-11-27 2020-11-27 Orders Savage, 1.2.840.1 [id number] 6817 Methodi 00:00:00 00:00:00 Only Kym 30740.1.[address] 3.430.2.7 Hospit a .3.340496 l .8 2020-11-25 2020-11-25 Patient Stephen, 1.2.840.1 [id number] 2099 825619 Methodi 00:00:00 00:00:00 Outreach Jocelynn 23473.1.[address] 3.430.2.7 Hospit a .3.049941 l .8 2020-11-20 2020-11-20 Telephone Sayago, 1.2.840.1 [id number] 2100 586493 Methodi 00:00:00 00:00:[address] 3.430.2.7 Hospit a .3.038951 l .8 2020-11-19 2020-11-19 Orders Sayago, 1.2.840.1 [id number] 811454 7159 Methodi 00:00:00 00:00:00 Only Kaila 26840.1.[address] 3.430.2.7 Hospit a .3.057392 l .8 2020-11-18 2020-11-18 Telemedici [facility], 1.2.840.1 [id number] 638 [id number] Methodi 08:17:31 10:34:48 ne Laya 91985.1.[address] [place] 3.430.2.7 Hospit a .3.205153 l .8 2020-11-18 2020-11-18 Patient Stephen, 1.2.840.1 [id number] 2100 059742 Methodi 00:00:00 00:00:00 Outreach Jocelynn 82136.1.[address] 3.430.2.7 Hospit a .3.745903 l .8 2020-11-11 2020-11-11 Patient Stephen, 1.2.840.1 [id number] 2100 288309 Methodi 00:00:00 00:00:00 Outreach Jocelynn 72900.1.[address] 3.430.2.7 Hospit a .3.221842 l .8 2020-11-10 2020-11-10 Refill Michaelaimee, 1.2.840.1 [id number] 983087 4853 Methodi 00:00:00 00:00:[address] [place] 3.430.2.7 Hospit a .3.079079 l .8 2020-10-28 2020-10-28 Patient Stephen, 1.2.840.1 [id number] 2100 940610 Methodi 00:00:00 00:00:00 Outreach Jocelynn 79556.1.[address] 3.430.2.7 Hospit a .3.478616 l .8 2020-10-21 2020-10-21 Patient Stephen, 1.2.840.1 [id number] 2100 862382 Methodi 00:00:00 00:00:00 Outreach Jocelynn 76309.1.[address] 3.430.2.7 Hospit a .3.920219 l .8 2020-10-20 2020-10-20 Office Elo, 1.2.840.1 [id number] 004771 6635 Methodi 08:37:17 09:13:19 Visit Lucy 75550.1.[address] 3.430.2.7 Hospit a .3.034352 l .8 2020-10-20 2020-10-20 Travel 1.2.840.1 1.2.119.970 2073 081578 Methodi 00:00:00 00:00:[address] 3.430.2.7 0.2.7.3.698 Ho spita .3.603554 084.8 l .8 2020-10-14 2020-10-14 Patient Stephen, 1.2.840.1 [id number] 2100 647596 Methodi 00:00:00 00:00:00 Outreach Jocelynn 76596.1.[address] 3.430.2.7 Hospit a .3.172307 l .8 2020-10-07 2020-10-07 Patient Junaid, 1.2.840.1 [id number] 248 Methodi 00:00:00 00:00:00 Outreach Renee 06615.1.[address] 3.430.2.7 Hospit a .3.002848 l .8 2020-10-07 2020-10-07 Patient Stephen, 1.2.840.1 [id number] 2100 968198 Methodi 00:00:00 00:00:00 Outreach Jocelynn 11584.1.[address] 3.430.2.7 Hospit a .3.073737 l .8 2020-10-05 2020-10-05 Refill Yue, 1.2.840.1 [id number] [id number] 1912 Methodi 00:00:00 00:00:[address] [place] 3.430.2.7 Hospit a .3.403193 l .8 2020-09-24 2020-09-24 Infusion Elo, 1.2.840.1 [id number] 02665 Methodi 10:00:24 12:50:[address] 3.430.2.7 Hospit a .3.864651 l .8 2020-09-24 2020-09-24 Travel 1.2.840.1 1.2.665.524 1009 381453 Methodi 00:00:00 00:00:[address] 3.430.2.7 0.2.7.3.698 Ho spita .3.910185 084.8 l .8 2020-09-23 2020-09-23 Orders Elo, 1.2.840.1 [id number] 7318 Methodi 00:00:00 00:00:00 Only Lucy 04570.1.[address] 3.430.2.7 Hospit a .3.208641 l .8 2020-09-23 2020-09-23 Travel 1.2.840.1 1.2.618.474 3893 673323 Methodi 00:00:00 00:00:[address] 3.430.2.7 0.2.7.3.698 Ho spita .3.062731 084.8 l .8 2020-09-21 2020-09-21 Orders Elo, 1.2.840.1 [id number] 056629 7572 Methodi 00:00:00 00:00:00 Only Lucy 35610.1.[address] 3.430.2.7 Hospit a .3.733105 l .8 2020-09-18 2020-09-18 Telemedici lEo, 1.2.840.1 [id number] 309 [id number] Methodi 14:15:22 14:27:25 ne Lucy 30427.1.[address] 3.430.2.7 Hospit a .3.739554 l .8 2020-09-17 2020-09-17 Travel 1.2.840.1 1.2.728.025 4904 725211 Methodi 00:00:00 00:00:[address] 3.430.2.7 0.2.7.3.698 Ho spita .3.626204 084.8 l .8 2020-09-05 2020-09-05 Refill [facility], 1.2.840.1 [id number] 167425 3313 [facility]i 00:00:00 00:00:[address] [place] 3.430.2.7 Hospit a .3.951113 l .8 2020-09-05 2020-09-05 Refill [facility], 1.2.840.1 [id number] 120558 0774 Methodi 00:00:00 00:00:[address] [place] 3.430.2.7 Hospit a .3.035994 l .8 2020-08-25 2020-08-25 [facility], 1.2.840.1 [id number] 362 [id number] Methodi 10:41:55 23:59:00 Encounter Efren Ng 29404.1.[address] 3.430.2.7 Hospit a .3.939456 l .8 2020-08-25 2020-08-25 Travel 1.2.840.1 1.2.033.641 6609 097639 Methodi 00:00:00 00:00:[address] 3.430.2.7 0.2.7.3.698 Ho spita .3.275644 084.8 l .8 2020-08-20 2020-08-20 [facility], 1.2.840.1 [id number] 287190 5272 Methodi 00:00:00 00:00:00 Only Starr 25965.1.[address] 3.430.2.7 Hospit a .3.078355 l .8 2020-08-19 2020-08-19 [facility], 1.2.840.1 [id number] 62388 99983 Methodi 13:41:05 23:59:00 Encounter Pritesh Ko 98177.1.[address] 3.430.2.7 Hospit a .3.632856 l .8 2020-08-19 2020-08-19 [facility], 1.2.840.1 [id number] 965027 0852 Methodi 15:02:40 15:22:40 Visit Laya 55640.1.[address] [place] 3.430.2.7 Hospit a .3.875604 l .8 2020-08-19 2020-08-19 [facility], 1.2.840.1 [id number] 23826 53188 Methodi 13:00:00 13:40:00 Encounter Pritesh Ko 50788.1.[address] 3.430.2.7 Hospit a .3.102558 l .8 2020-08-19 2020-08-19 [facility], 1.2.840.1 [id number] 21377 27446 Methodi 11:40:00 12:59:00 Encounter Pritesh Ko 37189.1.[address] 3.430.2.7 Hospit a .3.721745 l .8 2020-08-19 2020-08-19 [facility], 1.2.840.1 [id number] 28497 Methodi 10:00:00 11:39:00 Encounter Brandin Suero50.1.[address] 3.430.2.7 Hospit a .3.222764 l .8 2020-08-19 2020-08-19 [facility], 1.2.840.1 [id number] 920405 9740 Methodi 07:43:04 07:58:04 Visit Pritesh Suero50.1.[address] 3.430.2.7 Hospit a .3.078814 l .8 2020-08-19 2020-08-19 Travel 1.2.840.1 1.2.007.595 7858 569240 Methodi 00:00:00 00:00:[address] 3.430.2.7 0.2.7.3.698 spita .3.403977 084.8 l .8 2020-08-19 2020-08-19 [facility] 1943005 [address] [place] [address] 00:00:00 00:00:00 LAYA [address] 2020-08-11 2020-08-11 [facility], 1.2.840.1 [id number] 2100 055163 Methodi 00:00:00 00:00:00 Orders Brandin Suero50.1.[address] 3.430.2.7 Hospit a .3.122453 l .8 2020-08-07 2020-08-07 [facility], 1.2.840.1 [id number] 1739 Methodi 00:00:00 00:00:[address] [place] 3.430.2.7 Hospit a .3.000646 l .8 2020-08-05 2020-08-05 [facility], 1.2.840.1 [id number] 251226 3795 Methodi 00:00:00 00:00:[address] [place] 3.430.2.7 Hospit a .3.417555 l .8 2020-08-05 2020-08-05 Orders Savage, 1.2.840.1 [id number] 497498 6985 Methodi 00:00:00 00:00:00 Only Kym 23014.1.[address] 3.430.2.7 Hospit a .3.257506 l .8 2020-08-04 2020-08-04 [facility], 1.2.840.1 [id number] 668742 6756 Methodi 00:00:00 00:00:[address] [place] 3.430.2.7 Hospit a .3.495663 l .8 2020-08-03 2020-08-03 [facility], 1.2.840.1 [id number] 98600 38847 Methodi 11:00:00 23:59:00 Encounter Pritesh Ko 89639.1.[address] 3.430.2.7 Hospit a .3.339625 l .8 2020-08-03 2020-08-03 [facility], 1.2.840.1 [id number] 92908 42591 Methodi 09:17:35 10:59:00 Encounter Pritesh Ko 27014.1.[address] 3.430.2.7 Hospit a .3.543608 l .8 2020-08-03 2020-08-03 [facility], 1.2.840.1 [id number] 59698 99742 Methodi 09:00:00 09:16:00 Encounter Pritesh Ko 65213.1.[address] 3.430.2.7 Hospit a .3.315284 l .8 2020-08-03 2020-08-03 Travel 1.2.840.1 1.2.953.987 3068 028674 Methodi 00:00:00 00:00:[address] 3.430.2.7 0.2.7.3.698 Ho spita .3.202491 084.8 l .8 2020-08-03 2020-08-03 Refill Sad, 1.2.840.1 [id number] 330707 3338 Methodi 00:00:00 00:00:[address] [place] 3.430.2.7 Hospit a .3.052155 l .8 2020-08-03 2020-08-03 [facility] [id number] [place] [address] 00:00:00 00:00:00 PRITESH [address] 2020-07-28 2020-07-28 Orders Stephan, 1.2.840.1 [id number] 346 [id number] Methodi 00:00:00 00:00:00 Only Jana 81219.1.[address] 3.430.2.7 Hospit a .3.964955 l .8 2020-07-20 2020-07-20 Orders Brandon, 1.2.840.1 [id number] 929507 8263 Methodi 00:00:00 00:00:00 Only Starr 78144.1.[address] 3.430.2.7 Hospit a .3.371274 l .8 2020-07-15 2020-07-15 Refill [facility], 1.2.840.1 [id number] 478430 4028 Methodi 00:00:00 00:00:[address] [place] 3.430.2.7 Hospit a .3.887473 l .8 2020-07-06 2020-07-06 Office DANIEL Burris 1.2.840.114 [id number] 77 12:46:59 13:35:30 Visit Tory Post AMBULATOR 350.1.13.21 Y 0.2.7.2.686 879.8408943 300 2020-07-06 2020-07-06 Office DANIEL Burris 1.2.840.[address] [place] [address] 12:46:59 13:35:30 Visit Tory Post AMBULATOR 350.1.13.21 College Y 0.2.7.2.686 of 928.9062545 Medi [facility] 300 e 2020-06-08 2020-06-08 Orders Savage, 1.2.840.1 [id number] 067278 0817 Methodi 00:00:00 00:00:00 Only Kym 27909.1.[address] 3.430.2.7 Hospit a .3.316102 l .8 2020-05-08 2020-05-08 Patient Sob[place]esana 1.2.840.1 [id number] 21 [id number] Methodi 00:00:00 00:00:00 Outreach , Deborah 03521.1.[address] 3.430.2.7 Hospit a .3.469131 l .8 2020-04-29 2020-04-29 Patient [place] 1.2.840.1 [id number] 21 [id number] Methodi 00:00:00 00:00:00 Outreach , Deborah 53210.1.[address] 3.430.2.7 Hospit a .3.810847 l .8 2020-04-22 2020-04-22 Office Elo 1.2.840.1 [id number] 167892 6244 Methodi 11:06:19 11:37:30 Visit Lucy 25619.1.[address] 3.430.2.7 Hospit a .3.761044 l .8 2020-04-22 2020-04-22 Travel 1.2.840.1 1.2.484.827 5386 571351 Methodi 00:00:00 00:00:[address] 3.430.2.7 0.2.7.3.698 spita .3.060428 084.8 l .8 2020-04-202020-04-20 Patient Benjamin, 1.2.840.1 [id number] 770081 2283 Methodi 00:00:00 00:00:00 Outreach Reny 82802.1.1 535 s t 3.430.2.7 Hospit a .3.752418 l .8 2020-04-17 2020-04-17 Clinical Coco, 1.2.840.1 [id number] 882 [id number] Methodi 14:55:17 15:10:17 Support Efren Ng 83948.1.1 810 s t 3.430.2.7 Hospit a .3.382216 l .8 2020-04-17 2020-04-17 Outpatient [facility] 86776 18571 [place] 00:00:00 00:00:00 EFREN [address] 2020-04-09 2020-04-09 Patient [place] 1.2.840.1 [id number] 21 [id number] Methodi 00:00:00 00:00:00 Outreach , Deborah 97410.1.[address] 3.430.2.7 Hospit a .3.244844 l .8 2020-04-07 2020-04-07 Patient [place] 1.2.840.1 [id number] 21 [id number] Methodi 00:00:00 00:00:00 Outreach Pawnee 06519.1.[address] 3.430.2.7 Hospit a .3.352471 l .8 2020-04-02 2020-04-04 Emergency Cheng Kohler 1.2.840 .1 [id number] Methodi 20:22:00 13:58:00 Nigel Lopez 49078.1.[address] [facility] 3.430.2.7 Hospita .3.510950 l .8 2020-04-02 2020-04-02 Emergency Aiden Harvey 1.2.840.1 [id number] Methodi 11:23:00 16:44:00 Cornelio Norris 28050.1.[address] 3.430.2.7 Hospit a .3.926846 l .8 2020-03-30 2020-03-30 Refill [facility], 1.2.840.1 [id number] 501372 1649 Methodi 00:00:00 00:00:[address] [place] 3.430.2.7 Hospit a .3.956876 l .8 2020-03-26 2020-03-26 Outpatient COCO, [facility] 55819 96096 [place] 00:00:00 00:00:00 RAFIK [address] 2020-03-24 2020-03-24 Outpatient C[facility], [facility] 95307 81872 [place] 00:00:00 00:00:00 RAFIK [address] 2020-03-24 2020-03-24 Outpatient COCO, [facility] 77291 30536 [place] 00:00:00 00:00:00 RAFIK [address] 2020-01-06 2020-01-06 Outpatient SADHU, [facility] [id number] 357 [place] 00:00:00 00:00:00 LAYA [address] 2019-11-06 2019-11-06 Outpatient CLAREM[place], [facility] [id number] 516 [place] 00:00:00 00:00:00 JAMAL [address] 2019-10-21 2019-10-21 Outpatient ELO, [facility] [id number] 781 [place] 00:00:00 00:00:00 LUCY [address] 2019-10-21 2019-10-21 Outpatient ELO, [facility] [id number] 165 [place] 00:00:00 00:00:00 LUCY [address] 2019-09-30 2019-09-30 Outpatient SADHU, [facility] [id number] 357 [place] 00:00:00 00:00:00 LAYA [address] 2019-07-17 2019-07-17 Outpatient WOODY, [facility] [id number] 763 [place] 00:00:00 00:00:00 JAMAL [address] 2019-04-26 2019-04-26 Outpatient ELO, [facility] [id number] 713 [place] 00:00:00 00:00:00 LUCY [address] 2019-04-26 2019-04-26 Outpatient ELO [facility] [id number] 646 [place] 00:00:00 00:00:00 LUCY [address] 2019-04-26 2019-04-26 Outpatient ELO [facility] [id number] 715 [place] 00:00:00 00:00:00 LUCY [address] Results Test Description Test Time Test Comments Results Result Comments Source SATISH,POST-VOID RES,US,NON-IMG 2021-07-05 00:00:00 Test Item Value Reference Range Interpretation Comme nts PVR (test code = 6116) 13 ml [facility] 21:26:00 Test Item Value Reference Interpretation Comments Range Glucose (test code 167 mg/dL 65-99 H Fasting reference = 2345-7) interval For so meone without known diabetes, a glucosevalue >1 25 mg/dL indicates that they may havediabetes an d this should be confirmed with afollow-up test . BUN (test code = 21 mg/dL 7 3094-0) Creatinine (test 1.03 mg/dL 0.70-1.25 For patient s >49 code = 2160-0) years of age, the reference limit for Creatinine is approximately 1 3% higher for peopleidentifie d as -Malena n. EGFR Non-Afr. See_Comment [Automated me ssage] Kazakh (test code The syst em which = 1125) generated this result transmit anthony reference range : > OR = 60 mL/min/1.73m2. The reference range was not used to interpret this result as normal/abnormal . EGFR See_Comment [Automated mes sawyer] Kazakh (test code The syst em which = 0709) generated this result transmit anthony reference range : > OR = 60 mL/min/1.73m2. The reference range was not used to interpret this result as normal/abnormal . BUN/creatinine NOT APPLICABLE See_Comment [Automated message] ratio (test code = The syste m which 3097-3) generated this result transmit anthony reference range : 6 - 22 (calc). The reference range was not used to interpret this result as normal/abnormal . Sodium (test code = 140 mmol/L 108-208 2161-2) Potassium (test 4.1 mmol/L 3.5-5.3 code = 2823-3) Chloride (test code 104 mmol/L 98-110 = 2075-0) CO2 (test code = 29 mmol/L 20-32 2027-10) Calcium (test code 9.2 mg/dL 8.6-10.3 = 14758-8) Protein (test code 7.0 g/dL 6.1-8.1 = 2885-2) Albumin, S (test 4.4 g/dL 3.6-5.1 code = 1751-7) Globulin, total See_Comment [Automated message] (test code = The [place] h 067[address]-2) generated this result transmit anthony reference range : 1.9 - 3.7 g/dL (jihan c). The reference r ermelinda was not used to interpret this result as normal/abnormal . Albumin/globulin See_Comment [Automated message] ratio (test code = The syste m which 1758-0) generated this result transmit anthony reference range : 1.0 - 2.5 (calc). T he reference range was not used to interpret this result as normal/abnormal . Total bilirubin 1.0 mg/dL 0.2-1.2 (test code = 1974-) Alkaline 103 U/L 35-144 phosphatase (test code = 6768-6) AST (test code = 24 U/L 10-35 1920-8) ALT (test code = 36 U/L 9-46 1742-6) NILDA (test code = FASTING:YES NILDA) FASTING: YES RAC (test code = Performing RAC) Organization Information: Site ID: [facility] Address: [address] [place] [phone] Director: [place] Darling [facility] Interpretation Abnormal (test code = 94351-5) [id number] 21:[facility]00 Test Item Value Reference Interpretation Comments Range Cholesterol, total 109 mg/dL <200 (test code = 2092-3) HDL cholesterol 42 mg/dL See_Comment [Automated (test code = 2084-10) message ] The system which generated this result transmitted reference range : > OR = 40. The reference range was not used to interpret this result as normal/abnormal . Triglycerides (test 212 mg/dL <150 H If a no n-fasting code = 2571-8) specimen was collected, considerrepeat triglyceride testing on a fasting specime nif clinically indicated. Librado garduno al. J. of Cl in. Lipidol. 2015;9:129-169. LDL cholesterol mg/dL (calc) Reference ra nge: calculated (test <100 Desira ble code = 89439-9) range <100 m g/dL for primary prevention; <70 mg/dL for patie nts with CHD or diabetic patien ts with > or = 2 C HD risk factors. L DL-C is now calculat ed using the [place] calculation, wh ich is a validated novel method providing clifton r accuracy than t he Teresa equa tion in the estimati on of LDL-C. Vilma n SS et al. SREEKANTH. 2013;310(19): 1887-0488 ([email or web address]) Cholesterol/HDL See_Comment [Automated ratio (test code = message] The system 9830-1) which generated this result transmitted reference range : <5.0 (calc). Th e reference range was not used to interpret this result as normal/abnormal . Non-HDL cholesterol See_Comment For sharon ents with (test code = diabetes plus 1 43321-2) major ASCVD ris k factor, treatin g to a non-HDL-C goa l of <100 mg/dL (LDL -C of <70 mg/dL) i s considered a therapeutic opt ion. [Automated mess age] The system whic h generated this result transmit anthony reference range : <130 mg/dL (jihan c). The reference r ermelinda was not used to interpret this result as normal/abnormal . NILDA (test code = FASTING:YES NILDA) FASTING: YES RAC (test code = Performing RAC) Organization Information: Site ID: [facility] Address: [address] [place] [phone] Director: [place] Darling [facility] Interpretation Abnormal (test code = 36648-4) [facility] [id number] 21:26:00 Test Item Value Reference Range Interpretation Comments Amylase (test code = 52 U/L 21-101 1798-8) NILDA (test code = FASTING:YES FASTING: YES NILDA) RAC (test code = Performing Organization RAC) Information: [facility] ID: [facility]IDE [facility] Address: [address] [place] [phone] Director: [place] Darling [facility] [id number] 21:26:00 Test Item Value Reference Interpretation Comments Range Hemoglobin A1C See_Comment H For someone w thong (test code = known diabetes, a 4548-4) hemoglobin A1c value between 5.7% an d 6.4% is consist ent withprediabetes and should be confi rmed with a follow-u p test. For someo ne with known diab etes, a value <7%indicates that their diabetes is well controlled . A5ghxephfw shou ld be individualized based on duration ofdiabetes, age , comorbid condit ions, and otherconsiderat ions. This assay resu lt is consistent with an increased risko f diabetes. Curre ntly, no consensus ex ists regarding use ofhemoglobin A1 c for diagnosis of diabetes for children. [Auto mated message] The sy stem which generated this result transmit anthony reference range : <5.7 % of total Hgb. The reference r ermelinda was not used to interpret this result as normal/abnormal . NILDA (test code = FASTING:YES NILDA) FASTING: YES RAC (test code = Performing RAC) Organization Information: [facility] ID: [facility]IDE [facility] Address: [address] [place] [phone] Director: [place] [facility]ling [facility] Interpretation Abnormal (test code = 74525-3) [facility] [id number] 21:26:00 Test Item Value Reference Range Interpretation Comments Lipase (test code = 45 U/L 7-60 3040-3) NILDA (test code = FASTING:YES FASTING: YES NILDA) RAC (test code = Performing Organization RAC) Information: [facility] ID: [facility] Address: [address] [place], [place] [phone] Director: [place] Darling [facility] Rock[facility], [id number] 21:26:00 Test Item Value Reference Range Interpretation Comments T4, free (test code 1.1 ng/dL 0.8-1.8 = 3024-7) NILDA (test code = FASTING:YES FASTING: YES NILDA) RAC (test code = Performing Organization RAC) Information: Site ID: [facility] Address: [address] [place] [address] Director: [place] Darling [facility] RockThyroid stimulating [id number] 21:26:00 Test Item Value Reference Range Interpretation Comments TSH (test code = See_Comment H [Automated 3016-3) message] The system which generated this result transmitted reference range : 0.40 - 4.50 mIU/L. The reference range was not used to interpret this result as normal/abnormal . NILDA (test code = FASTING:YES NILDA) FASTING: YES RAC (test code = Performing RAC) Organization Information: Site ID: [facility] Address: [address] [place] [address] Director: Boston Darling Lab Interpretation Abnormal (test code = 01170-5) [facility] Rock[facility] with platelet and [id number] 21:26:00 Test Item Value Reference Range Interpretation Comments WBC (test code = See_Comment [Automated 1352-2) message] The system which generated this result transmitted reference range : 3.8 - 10.8 Thousand/uL. Th e reference range was not used to interpret this result as normal/abnormal . RBC (test code = See_Comment [Automated 676-8) message] The system which generated this result transmitted reference range : 4.20 - 5.80 Million/uL. The reference range was not used to interpret this result as normal/abnormal . HGB (test code = 16.4 g/dL 13.2-17.1 718-7) HCT (test code = 48.4 % 38.5-50.0 4544-3) MCV (test code = 88.0 fL 80.0-100.0 787-2) MCH (test code = 29.8 pg 27.0-33.0 785-6) MCHC (test code = 33.9 g/dL 32.0-36.0 786-4) RDW (test code = 13.6 % 11.0-15.0 788-0) Platelet count (test See_Comment L [Autom ated code = 777-3) message] The system which generated this result transmitted reference range : 140 - 400 Thousand/uL. Th e reference range was not used to interpret this result as normal/abnormal . MPV (test code = 10.4 fL 7.5-12.5 776-5) Neutrophils, See_Comment [Automated absolute (test code message] The = 751-8) system which generated this result transmitted reference range : 1,500 - 7,800 cells/uL. The reference range was not used to interpret this result as normal/abnormal . Lymphocytes, See_Comment [Automated absolute (test code message] The = 731-0) system which generated this result transmitted reference range : 850 - 3,900 cells/uL. The reference range was not used to interpret this result as normal/abnormal . Monocytes, absolute See_Comment [Automa anthony (test code = 742-7) message] The system which generated this result transmitted reference range : 200 - 950 cells/uL. The reference range was not used to interpret this result as normal/abnormal . Eosinophils, See_Comment [Automated absolute (test code message] The = 711-2) system which generated this result transmitted reference range : 15 - 500 cells/uL. The reference range was not used to interpret this result as normal/abnormal . Basophils, absolute See_Comment [Automa anthony (test code = 704-7) message] The system which generated this result transmitted reference range : 0 - 200 cells/u L. The reference range was not used to interpr et this result as normal/abnormal . Neutrophils (test 73.5 % code = 770-8) Lymphocytes (test 17.3 % code = 736-9) Monocytes (test code 5.9 % = 5905-5) Eosinophils (test 3.0 % code = 713-8) Basophils + RC (test 0.3 % code = 706-2) NILDA (test code = FASTING:YES NILDA) FASTING: YES RAC (test code = Performing RAC) Organization Information: Site ID: RGA Name: [facility] Address: [address] [place] [phone] Director: Boston Darling Lab Interpretation Abnormal (test code = 85841-4) [facility] RockVitamin D 25 hydroxy [id number] 21:26:00 Test Item Value Reference Range Interpretation Comments Vitamin D, 51 ng/mL 30-100 Vitamin D Statu s 25-hydroxy (test 25-OH Vitam in D: code = 1989-) Deficiency: < 20 ng/mLInsufficie ncy : 20 - 29 ng/mLOptimal: > or = 30 ng/mL F or 25-OH Vitamin D testing on patients on D2-supplementat ion and patients fo r whom quantitati on of D2 and D3 fractions is required, the QuestAssureD(TM )25 -OH VIT D, (D2,D3), LC/MS/ MS is recommended: order code 9288 8 (patients >2yrs).See Note 1 Note 1 For additional information, please refer to [email or web address] [email or web address] uestDiagnostics .co m/faq/CGM054 (T his link is being provided for informational/e [place] ational purpose s only.) NILDA (test code = FASTING:YES FASTING: NILDA) YES RAC (test code = Performing RAC) Organization Information: Site ID: [facility]GA [facility] Address: [address] [place] [phone] Director: Boston Darling [facility] RockMicroalbumin / creatinine urine [id number] 21:26:00 Test Item Value Reference Interpretation Comments Range Creatinine, urine 61 mg/dL 20-320 (mg/dL) (test code = 2161-8) Microalbumin, urine 1.8 mg/dL See Note: Referenc e Range: (test code = [place] [address]-9) established Microalbumin/creati See_Comment H The ADA defines nine ratio (test abnormaliti es in code = 9318-7) albuminexcret ion as follows: Albumi rodolfo Category Result (mcg/mg creatin ine) Normal to Mildl y increased <30Moderately increased 30-29 9 Severely increa sed > OR = 300 The AD A recommends that at least two of threespecimens collected withi n a 3-6 month perio d beabnormal befo re considering a patient to bewi thin a diagnostic category. [Auto mated message] The sy stem which generated this result transmit anthony reference range : <30 mcg/mg creat. T he reference range was not used to interpret this result as normal/abnormal . NILDA (test code = FASTING:YES NILDA) FASTING: YES RAC (test code = Performing RAC) Organization Information: Site ID: [facility]GA Name: [facility] Address: [address] [place] [phone] Director: Boston Darling Lab Interpretation Abnormal (test code = 67124-2) [facility] [id number] 00:00:00 Test Item Value Reference Range Interpretation Comments PVR (test code = 6116) cc/ml PEAK FLOW (test code = 6120) cc/sec VOIDED VOLUME (test code = 6144) 76t cc [facility] [id number] 00:00:00 Test Item Value Reference Range Interpretation Comments COLOR UA (test code = 5778-6) Yellow YELLOW/STRAW CLARITY UA (test code = 07363-7) Clear CLEAR GLUCOSE UA (test code = 5792-7) 4+ NEGATIVE BILIRUBIN UA (test code = 5770-3) Negative NEGATIVE KETONES UA (test code = 50930-4) Negative NEGATIVE SPECIFIC GRAVITY UA (test code = 1.005-1.035 5811-5) BLOOD UA (test code = 5794-3) Negative NEGATIVE PH UA (test code = 5803-2) 5-9 PROTEIN UA (test code = 5804-0) Negative NEGATIVE UROBILINOGEN UA (test code = 0.02 E.U/DL NORMAL MG/DL 5818-0) LEUKOCYTE ESTERASE UA (test code Negative NEGATIVE = 5799-2) NITRITE UA (test code = 5802-4) Negative NEGATIVE REDUCING SUBSTANCES URINE (test code = 10515-2) [facility] specific [id number] 06:35:00 Test Item Value Reference Range Interpretation Comments PSA (test 0.5 ng/mL See_Comment The total PSA v alue code = from this assay system 2857-1) is standardized against the WHO standar d. The test result john l be approximately 2 0% lower when compared t o the equimolar-stand ardized total PSA ([employer] Nancy). Benjy rison of serial PSA resu lts should be inter preted with this fact in mind. This test was p erformed using the [employer] ns chemiluminescen t method. Values obtained from different assay methods cannot be usedinterchange ably. PSA levels, reg ardless ofvalue, should not be interpreted as absoluteevidenc e of the presence or abs ence of disease. [Autom ated message] The sy stem which generated this result transmit anthony reference range : < OR = 4.0. The refere nce range was not u sed to interpret this result as normal/abnor mal. RAC (test Performing code = RAC) Organization Information: Site ID: [facility]GA [facility] Address: [address] [place] [phone] Director: Boston WeaverMount [facility] HospitalCv stress [id number] 10:38:01 Test Item Value Reference Range Interpretation Comments Resting HR (test code = 9523792664) Resting BP (test code 125&58 = 5686296627) Peak MET Achieved (test code = 4617623629) Protocol Name (test DOBUT/ECHO code = 6270800983) Time in Exercise 00:08:40 Phase (test code = 6206248788) Max Systolic BP (test code = 7803128993) Max Diastolic BP (test code = 6148871917) Max Heart Rate (test code = 9331727429) Max Predicted Heart Rate (test code = 0909122621) Target HR Formula (220 - Age)*100% (test code = 7563819102) Test Indication (test A.S code = 3903884018) Arrhy During Ex (test code = 1729210269) ECG Interp Before EX (test code = 3998705581) ECG Interp During Ex (test code = 6356629562) Ex Summary Comment (test code = 7741499864) Overall HR Response to Exercise (test code = 1100785607) Overall BP Response To Exercise (test code = 8537268845) Reason for Protocol Complete Termination (test code = 9449665562) Stress Test Waveform interpreted in Impression (test code report associated with = 9276551735) image study. No interpretation is provided as part of this Stress ECG report.-Electronically Signed By Clem Castro MD ([id number]), film and video editor Aurea Casey ([id number]) on 08/20/2020 5:37:57 AM [facility] URINALYSIS [id number] 00:00:00 Test Item Value Reference Range Interpretation Comments COLOR UA (test code = 5778-6) Yellow YELLOW/STRAW CLARITY UA (test code = Clear CLEAR 42990-9) GLUCOSE UA (test code = Negative NEGATIVE 5792-7) BILIRUBIN UA (test code = Negative NEGATIVE 5770-3) KETONES UA (test code = Negative NEGATIVE 93631-9) SPECIFIC GRAVITY UA (test 1.005-1.035 code = 5811-5) BLOOD UA (test code = 5794-3) Hemolyzed Trace NEGATIVE PH UA (test code = 5803-2) 5.0-9.0 PROTEIN UA (test code = Negative NEGATIVE 5804-0) UROBILINOGEN UA (test code = 0.02 E.U/DL NORMAL MG/DL 5818-0) LEUKOCYTE ESTERASE UA (test Negative NEGATIVE code = 5799-2) NITRITE UA (test code = Negative NEGATIVE 5802-4) REDUCING SUBSTANCES URINE (test code = 17990-8) [facility] IgG+IgM Ab [Presence] in Serum or Plasma by [id number] 18:46:00 Test Item Value Reference Range Interpretation Comments SARS-CoV-2 (COVID-19) IgG+IgM Ab Not detected [Presence] in Serum or Plasma by Immunoassay (test code = 85577-9) SARS-CoV-2 (COVID-19) IgG Ab [Presence] in Serum or Plasma by Immunoassay 2020-04-17 18:46:00 Test Item Value Reference Range Interpretation Comments SARS-CoV-2 (COVID-19) IgG Ab Not detected [Presence] in Serum or Plasma by Immunoassay (test code = 37405-1) ECG 12 [id number] 22:32:37 Test Item Value Reference Range Interpretation Comments Ventricular rate (test code = 253) Atrial rate (test code = 255) MA interval (test code = 266) QRSD interval (test code = 260) QT interval (test code = 264) QTC interval (test code = 265) P axis 1 (test code = 267) QRS axis 1 (test code = 268) T wave axis (test code = 270) EKG impression (test Sinus rhythm with code = 273) premature supraventricular complexes-Nonspecific T wave abnormality-Prolonged QT-Abnormal ECG-In automated comparison with ECG of 02-APR-2020 20:50,-premature ventricular complexes are no longer present-premature supraventricular complexes are now present- [facility]-CoV-2 (COVID-19) RNA [Presence] in Respiratory specimen by RUDDY with probe [id number] 04:51:37 Test Item Value Reference Range Interpretation Comments SARS-CoV-2 (COVID-19) RNA Not detected Not-Detected [Presence] in Respiratory specimen by RUDDY with probe detection (test code = 82783-4) SARS-CoV-2 (COVID-19) IgG+IgM Ab [Presence] in Serum or Plasma by Immunoassay 2020-03-25 06:44:00 Test Item Value Reference Range Interpretation Comments SARS-CoV-2 (COVID-19) IgG+IgM Ab Not detected [Presence] in Serum or Plasma by Immunoassay (test code = 15963-4) SARS-CoV-2 (COVID-19) IgG Ab [Presence] in Serum or Plasma by Immunoassay 2020-03-25 06:44:00 Test Item Value Reference Range Interpretation Comments SARS-CoV-2 (COVID-19) IgG Ab Not detected [Presence] in Serum or Plasma by Immunoassay (test code = 18268-2)
[2021-10-14 08:52] LABS: Absolute Lymphocytes (CBC) 0.9 K/uL (0.7-4.9); Hematocrit 46.7 % (39.6-49.0); Lymphocytes % 16.8 % (15.3-44.8); MCV 88.8 fL (80-100); MPV 8.1 fL (7.6-11.3); RBC Red Blood Cell Count 5.26 M/uL (4.33-5.43)
--- NOTE | 2021-10-14 08:56 | RAD REPORT ---
EXAM DESCRIPTION: Darby Single View10/14/2021 8:48 am CLINICAL HISTORY: Syncope COMPARISON: 2020 FINDINGS: The lungs appear clear of acute infiltrate. The heart is mildly enlarged. Post surgical c hanges involve chest. Pacemaker leads in place IMPRESSION: No acute abnormalities displayed
[2021-10-14] MEDS ORDERED: METOPROLOL TAR 50 MG TAB ONE (08:59)
[2021-10-14] MEDS ORDERED: METOPROLOL TARTRATE 5 MG/5 ML INJ IV ONE (09:00)
[2021-10-14 09:01] LABS: Protime INR 1.32
[2021-10-14 09:17] LABS: Albumin 3.7 g/dL (3.4-5.0); Bilirubin Direct 0.3 mg/dL (0-0.2); Bilirubin Total 1.3 mg/dL (0.2-1.0); Potassium 3.7 mmol/L (3.5-5.1); Protein, Total 6.9 g/dL (6.4-8.2); Troponin High Sensitivity 22.3 pg/mL (<58.9)
[2021-10-14 09:32] LABS: SARS-CoV-2 Antigen Rapid Res Negative (Negative)
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
[2021-10-14 13:23] VITALS: BP 122/79; TEMP 97.1; O2SAT 99
--- NOTE | 2021-10-18 08:18 | EKG ---
Test Date: 2021-10-14 Test Time: 08:21:36 Collating Machine Operator: GARLAND MEASUREMENT RESULTS: Intervals: Rate: 114 [place]: QRSD: 108 QT: 380 QTc: 523 [place]: P: [place]: QRS: 60 T: -79 INTERPRETIVE STATEMENTS: Atrial fibrillation with rapid ventricular response Possible Inferior infarct, age undetermined Cannot rule out Anterior infarct, age undetermined Prolonged QT Abnormal ECG Compared to ECG 09/18/2014 14:56:27 Myocardial infarct finding now present Prolonged QT interval now present Sinus rhythm no longer present Electronically Signed On 10-18-21 08:07:28 CDT by Vinay Andrews
== END 2021-10-14 13:02 | disposition home or self-care (01) ==
LOC: ER 07:58
DX: R55 Syncope and collapse (principal); I48.19 Other persistent atrial fibrillation; I10 Essential (primary) hypertension; E11.9 Type 2 diabetes mellitus without complications; Z20.822 Contact with and (suspected) exposure to COVID-19; Z95.1 Presence of aortocoronary bypass graft; Z94.4 Liver transplant status; Z94.0 Kidney transplant status; Z95.810 Presence of automatic (implantable) cardiac defibrillator; Z91.040 Latex allergy status; Z91.048 Other nonmedicinal substance allergy status
CPT/HCPCS: 36415; 71045; 80048; 80076; 82550; 83735; 83880; 84484; 85025; 85610; 87811; 93005; 96374; 99284

== ENCOUNTER 2022-04-28 19:39 | Emergency (ER) | payer OTHER ==
--- OUTSIDE RECORDS SUMMARY | 2022-04-28 19:48 | XMS REPORT | Continuity of Care Document ---
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 MOUTH 2 (TWO) TIMES A DAY WITH MEALS. clotrimazol Yes [facility]PL[facility] e-betametha 1-[address] sone 00:00: AREA TWICE Hospita (LOTRISONE) 00 A DAY l 1-0.05 % cream insulin 2020-02 Yes Patient Methodi ASPART 2-[address] (NovoLOG 00:00: ratio. Max Hos jerome Flexpen 00 dose per l U-100 day is 150 Insulin) 100 unit/mL (3 mL) insulin pen Insulin 2020-02 Yes 76U Inject 76 Baylo [...] pen insulin 2020-02 Yes Patient Methodi ASPART 04-[address] (NovoLOG 00:00: ratio. Max Hos jerome Flexpen 00 dose per l U-100 day is 150 Insulin) 100 unit/mL (3 mL) insulin pen insulin 2020-02 2022- No 76U QD Inject Methodi degludec 04-26 07-[address] (Tresiba 00:00: 00:00 (76 Units Hos jerome FlexTouch 00 :00 total) l U-200) 200 under the unit/mL (3 skin mL) daily. subcutaneou s pen Oyster 2020-02 Yes Take by [facility] Shell 500 2-16 mouth. [place] MG TABS 11:36: of 40 Medicin e Multiple 2020-02 Yes Take by [facility] Vitamins-Mi 2-16 mouth. [facility] e nerals 11:36: of (MULTIVITAM 40 Medicin IN ADULT e OR) Ergocalcife 2020-02 Yes Take by [facility] rol 2-16 mouth. [place] (VITAMIN D2 11:36: of OR) 40 Medicin e pregabalin 2020-02 Yes 100mg Take 100 Ba [facility]lor (LYRICA) 2-16 mg by [place] 100 MG 11:36: mouth 3 of capsule 40 times Medicin daily. e digoxin 2020-02 Yes 125ug Take 125 [facility] (LANOXIN) 2-16 mcg by [place] 0.125 MG 11:36: mouth of tablet 40 daily. Medicin e Insulin 2020-02 Yes 40U Inject 40 [facility] r Glargine 2-16 Units into [facility] (LANTUS 11:36: the skin of SOLOSTAR 40 two times Medici n [place]) daily. e Insulin 2020-02 Yes [facility] Aspart 2-16 [place] (NOVOLOG 11:36: of [place]) 40 Medicin e bimatoprost 2020-02 Yes [facility] (LUMIGAN) 2-16 [place] 0.01 % 11:36: of ophthalmic 40 Medicin solution e atorvastati 2020-02 Yes 40mg Take 40 mg [facility] n (LIPITOR) 2-16 by mouth. Col lege 40 MG 11:36: of tablet 40 Medicin e Metoprolol 2020-02 Yes Take by [facility] Tartrate 75 2-16 mouth. Colleg e MG TABS 11:36: of 40 Medicin e aspirin 81 2020-02- No 81mg Take 81 mg [facility] MG tablet 04-1416 by mouth Colle ge 11:36: 00:00 daily. [...] 2 (two) times a day with meals. metFORMIN 2020-02- No 500mg Q.5D Take 1 Meth walter (GLUCOPHAGE 04-04-[address] ) 500 mg 00:00: 00:00 (500 mg Hospi ta tablet 00 :00 total) by l mouth 2 (two) times a day with meals. atorvastati 2020-02- No 80mg QD Take 2 Met hodi n (LIPITOR) 04-04 03-[address] 40 mg 00:00: 00:00 (80 mg Hospita tablet 00 :00 total) by l mouth daily. atorvastati 2020-02- No 40mg QD Take 40 mg Methodi n (LIPITOR) 04-[address] 40 mg 15:52: 00:00 daily. Hospita tablet 53 :00 l metFORMIN 2020-02- No 500mg Q.5D Take 1 Meth walter (GLUCOPHAGE 04-[address] ) 500 mg 00:00: 00:00 [...] mouth l daily. ELIQUIS 5 2020-02 Yes [facility] MG TABS 03-27 College 00:00: of 00 Medicin e ELIQUIS 5 2020-02 Yes [facility] MG TABS 03-27 [place] 00:00: of 00 Medicin e Victoza 2020-02 Yes [id number] INJECT 0.3 Methodi 3-Sha 0.6 0-[address] mg/0.1 mL 00:00: S Hospita (18 mg/3 00 SUBCUTANEO l mL) pen USLY EVERY injector DAY WITH BREAKFAST Victoza 2020-02 No [id number] INJECT 0.3 Methodi 3-Sha 0.6 0-07 08-[address] mg/0.1 mL 00:00: 00:00 S Hospita (18 mg/3 00 :00 SUBCUTANEO l mL) pen USLY EVERY injector DAY WITH BREAKFAST finasteride Yes TAKE 1 [facility] (PROSCAR) 5 11-23 TABLET BY Col lege MG tablet 00:00: MOUTH of 00 EVERY DAY Medicin e levothyroxi Yes [facility] 22 [place] (SYNTHROID) 00:00: of 150 MCG 00 Medicin tablet e levothyroxi Yes [facility] 22 [place] (SYNTHROID) 00:00: of 150 MCG 00 Medicin tablet e levothyroxi Yes 150ug QD Take 1 Met hodi ne 11-[address] (SYNTHROID) 00:00: (150 mcg Ho spita 150 mcg 00 total) by l tablet mouth daily. empaglifloz 2021- No 25mg QD Take 1 Met hodi in 25 mg 11-18- tablet (25 st tablet 00:00: 04:59 mg total) Hospi ta 00 :00 by mouth l daily. empaglifloz 2021- No 25mg QD Take 1 Met hodi in 25 mg -18 06-22 tablet (25 st tablet 00:00: 00:00 mg total) Hospi ta 00 :00 by mouth l daily. levothyroxi 2021- No 150ug QD Take 1 Me thodi ne 11-18 03- tablet st (SYNTHROID) 00:00: 00:00 (150 mcg H ospita 150 mcg 00 :00 total) by l tablet mouth daily. levothyroxi 2020- No 175ug QD Take 1 Me thodi ne -11-[address] (SYNTHROID) 00:00: 00:00 (175 mcg H ospita 175 mcg 00 :00 total) by l tablet mouth daily. CALCIUM Yes 500mg Q.[id number] Take 500 Methodi CARBONATE [id number] (OYSTER 08:44: 3D mouth 3 Hospita SHELL 26 (three) l CALCIUM 500 times a ORAL) day. bimatoprost Yes 1[drp] QD Administer Methodi (LUMIGAN) 10-[address] 0.01 % 08:44: both eyes Hospit a ophthalmic 26 nightly. l drops multivitami Yes 1{tbl} QD Take 1 Me thodi n with 10-[address] minerals 08:44: mouth Hospita tablet 26 daily. l aspirin Yes 81mg QD Take 81 mg Meth walter (ECOTRIN) [address] 81 MG 08:44: daily. Hospita enteric 26 l coated tablet finasteride Yes 5mg QD Take 5 mg M ethodi (PROSCAR) 5 -[address] mg tablet 08:44: daily. Hospit a 26 l pregabalin 2021- No [id number] 100mg Q.[id number] Take 1 Methodi (LYRICA) 10-05 [id number] capsule s t 100 MG 00:00: 04:59 3D (100 mg Hospita capsule 00 :00 total) by l mouth 3 (three) times a day for 363 days. pregabalin 2021- No [id number] 100mg Q.[id number] Take 1 Methodi (LYRICA) 10-05 [id number] capsule s t 100 MG 00:00: 00:00 3D (100 mg Hospita capsule 00 :00 total) by l mouth 3 (three) times a day for 363 days. pen needle, Yes USE 6 Metho di diabetic 7-[address] (BD 00:00: DAY Hospita Ultra-Fine 00 l [place] Pen Needle) 32 gauge x 5/32" needle pen needle, Yes USE 6 Metho di diabetic 7-[address] (BD 00:00: DAY Hospita Ultra-Fine 00 l [place] Pen Needle) 32 gauge x 5/32" needle pregabalin 2020- No [id number] 100mg Q.[id number] Take 1 Methodi (LYRICA) 7-13 08-09 [id number] capsule s t 100 MG 00:00: 00:00 [...] 1 Ba ylor Valsartan 6-23 Tablet by Qoopl (ENTRESTO) 00:00: mouth of 24-26 MG 00 daily. Medicin TABS e Sacubitril- Yes 1{tbl} Take 1 Ba ylor Valsartan 6-23 Tablet by Qoopl (ENTRESTO) 00:00: mouth of 24-26 MG 00 daily. Medicin TABS e sacubitriL- 0 Yes 1{tbl} QD Take 1 Me thodi valsartan 6-[address] (Entresto) 00:00: mouth Hospit a 24-26 mg 00 daily. l tablet per tablet tacrolimus Yes .5mg QD Take 1 Metho di (PROGRAF) 6-[address] 0.5 MG 00:00: (0.5 mg Hospita capsule 00 total) by l mouth every evening. tacrolimus Yes [id number] 1mg QD Take 1 M ethodi (PROGRAF) 1 6-23 capsule (1 st MG capsule 00:00: mg total) Ho spita 00 by mouth l every morning. tacrolimus 2021- No .5mg QD Take 1 Meth walter (PROGRAF) 08-19 08-[address] 0.5 MG 00:00: 00:00 (0.5 mg Hospita capsule 00 :00 total) by l mouth every evening. tacrolimus No [id number] 1mg QD Take 1 Methodi (PROGRAF) 1 08-19 08-03 capsule (1 s t MG capsule 00:00: 00:00 mg total) H ospita 00 :00 by mouth l every morning. sacubitriL- 2021- No 1{tbl} QD Take 1 M ethodi valsartan 08-19 05-[address] (Entresto) 00:00: 00:00 mouth Hospi ta 24-26 mg 00 :00 daily. l tablet per tablet empaglifloz No 10mg QD Take 1 Met hodi in 10 mg 08-19 tablet (10 st tablet 00:00: 00:00 mg total) Hospi ta tablet 00 :00 by mouth l daily. Vascepa 1 No TAKE 2 Metho di gram 08-10 01-[address] capsule 00:00: 00:00 (2 G Hospita 00 :00 TOTAL) BY l MOUTH 2 (TWO) TIMES A DAY WITH MEALS. ezetimibe Yes 10mg QD Take 1 Method i (ZETIA) 10 08-05 tablet (10 st mg tablet 00:00: mg total) Hos jerome 00 by mouth l daily. ezetimibe No 10mg QD Take 1 Metho di (ZETIA) 10 08-05 03-09 tablet (10 st mg tablet 00:00: 00:00 mg total) Ho spita 00 :00 by mouth l daily. insulin 2020- No 150U QD Inject Methodi degludec 08-[address] (Tresiba 00:00: 00:00 (150 Units Ho spita FlexTouch 00 :00 total) l U-200) 200 under the unit/mL (3 skin mL) daily. subcutaneou s pen metFORMIN 2020- No TAKE 1 Metho di (GLUCOPHAGE 6-07 12-[address] ) 500 mg 00:00: 00:00 MOUTH Hospita tablet 00 :00 TWICE A l DAY WITH FOOD levothyroxi 2020- No TAKE 1 Met shell ne 08-03 09-[address] (SYNTHROID) 00:00: 00:00 MOUTH Hosp bucky 175 mcg 00 :00 EVERY DAY l tablet atorvastati 2020- No 80mg QD Take 1 Met shell n (Lipitor) 07-28 tablet (80 s t 80 MG 00:00: 00:00 mg total) Hospit a tablet 00 :00 by mouth l daily. ezetimibe 2020- No TAKE 1 Metho di (ZETIA) 10 20 08-05 TABLET BY mg tablet 00:00: 00:00 MOUTH Hospit a 00 :00 EVERY DAY l Oyster Yes Take by [facility] Shell 500 5-10 mouth. [place] MG TABS 13:06: of 37 Medicin e Multiple Yes Take by [facility] Vitamins-Mi 5-10 mouth. Colleg e nerals 13:06: of (MULTIVITAM 37 Medicin IN ADULT e OR) Ergocalcife Yes Take by [facility] rol 5-10 mouth. [place] (VITAMIN D2 13:06: of OR) 37 Medicin e pregabalin Yes 100mg Take 100 Ba ylor (LYRICA) 5-10 mg by [place] 100 MG 13:06: mouth 3 of capsule 37 times Medicin daily. e digoxin Yes 125ug Take 125 [facility] (LANOXIN) 5-10 mcg by [place] 0.125 MG 13:06: mouth of tablet 37 daily. Medicin e aspirin 81 Yes 81mg Take 81 mg B aylor MG tablet 5-10 by mouth Colleg e 13:06: daily. of 37 Medicin e Insulin Yes 40U Inject 40 [facility] r Glargine 5-10 Units into [facility] (LANTUS 13:06: the skin of SOLOSTAR 37 two times Medici n [place]) daily. e Insulin Yes [facility] Aspart 5-10 [place] (NOVOLOG 13:06: of [place]) 37 Medicin e bimatoprost Yes [facility] (LUMIGAN) 5-10 [place] 0.01 % 13:06: of ophthalmic 37 Medicin solution e atorvastati Yes 40mg Take 40 mg [facility] n (LIPITOR) 5-10 by mouth. Col lege 40 MG 13:06: of tablet 37 Medicin e Linolenic 2020- No Take by [facility] Acid (OMEGA 5-10 05-10 mouth. Colle ge 3 OR) 13:05: 00:00 of 52 :00 Medicin e metoprolol 2020- No 50mg Take 50 mg Mekhi (TOPROL-XL) 5-10 05-10 by mouth Col lege 50 MG XL 13:05: 00:00 daily. of tablet 52 :00 Medicin e Tacrolimus 2020- No Take by Romel avril 1 MG CP24 5-10 05-10 mouth two [place] ege 13:05: 00:00 times of 52 :00 daily. Medicin e Levothyroxi 2020- No Take by Jean Marie rider Sodium 5-10 05-10 mouth. [place] 150 MCG 13:05: 00:00 of CAPS 52 :00 Medicin e Tamsulosin Yes TAKE [...] 1 [facility]l or ne 3-15 TABLET BY [place] (SYNTHROID) 00:00: MOUTH of 175 MCG 00 EVERY DAY Medicin tablet e levothyroxi 2020- No TAKE 1 Hoffman avril ne 3-15 12-16 TABLET BY [place] (SYNTHROID) 00:00: 00:00 MOUTH of 175 MCG [...] No TAKE 1 Metho di (ZETIA) 10 2-02 05-[address] mg tablet 00:00: 00:00 MOUTH Hospit a 00 :00 EVERY DAY l Victoza 2020- No [id number] INJECT 0.3 Methodi 3-Sha 0.6 1-18 10-[address] mg/0.1 mL 00:00: 00:00 S Hospita (18 mg/3 00 :00 SUBCUTANEO l mL) pen USLY EVERY injector DAY WITH BREAKFAST Metoprolol Yes [facility] Succinate 02-27 [place] 50 MG CS24 00:00: of 00 Medicin e Metoprolol 2020- No [facility] Succinate 02-27-16 [place] 50 MG CS24 00:00: 00:00 of 00 :00 Medicin e tacrolimus 2019-02- No [id number] 1mg Q.5D Take 1 Methodi (PROGRAF) 1 04-22-23 capsule (1 s t MG capsule 00:00: 00:00 mg total) H ospita 00 :00 by mouth 2 l (two) times a day. levothyroxi 2019-02- No TAKE 1 Met hodi ne 2-17 06-07 TABLET BY (SYNTHROID) 00:00: 00:00 MOUTH Hosp bucky 175 [...] l Tierney 14 E11.65 Day Sensor) kit flash 2019-02- No 1{piece Q14D 1 Piece Metho di glucose 1-04 06-03 } every 14 st sensor 00:00: 00:00 (fourteen) Hosp bucky (FreeStyle 00 :00 days. DX l Tierney 14 E11.65 Day Sensor) kit ezetimibe 2019-02- No TAKE 1 Metho di (ZETIA) 10 1- 02-[address] mg tablet 00:00: 00:00 MOUTH Hospit a 00 :00 EVERY DAY l Vascepa 1 2019-02- No TAKE 2 Metho di gram 0-28 06-[address] capsule 00:00: 00:00 (2 G Hospita 00 :00 TOTAL) BY l MOUTH 2 (TWO) TIMES A DAY WITH MEALS. Accu-Chek 2019-02 Yes [id number] USE 1 Met hodi SmartView 0-[address] Test Strip 00:00: TIMES A Hosp bucky strip test 00 DAY ( l strips E11.65) Accu-Chek 2019-02- No [id number] USE 1 Me thodi SmartView 0-21 08-[address] Test Strip 00:00: 00:00 TIMES A Hos jerome strip test 00 :00 DAY ( l strips E11.65) atorvastati 2020- No TAKE 1 Met hodi n (LIPITOR) 11-14 02-[address] 80 MG 00:00: 00:00 MOUTH Hospita tablet 00 :00 EVERY DAY l clotrimazol 2020- No Q.5D Apply Meth walter e-betametha 10-20 02-[address] sone 00:00: 00:00 2 (two) Hospita (Lotrisone) 00 :00 times a l 1-0.05 % day. cream metFORMIN 2020- No TAKE 1 Metho di (GLUCOPHAGE 08-18 06-[address] ) 500 mg 00:00: 00:00 MOUTH Hospita tablet 00 :00 TWICE A l DAY WITH FOOD pregabalin 2020- No [id number] TAKE 1 Methodi (LYRICA) 08-11 07-[address] 100 MG 00:00: 00:00 MOUTH 3 Hospita capsule 00 :00 TIMES A l DAY ergocalcife 2020- No TAKE 1 Met hodi rol 07-18 02-[address] (VITAMIN 00:00: 00:00 (50,000 Hospi ta D2) 50,000 00 :00 UNITS l unit TOTAL) BY capsule MOUTH ONCE A WEEK FOR 84 DAYS. TAKE EVERY MONDAY ergocalcife 2020- No [id number] 38926M Q7D Take 1 Methodi rol 07-11-[address] (VITAMIN 00:00: 00:00 (50,000 Hospi ta D2) 50,000 00 :00 Units l unit total) by capsule mouth once a week. insulin 2020- No 25U Q.[id number] Inject 25 Methodi ASPART 2-14 02-[id number] (NovoLOG 00:00: 05:59 3D under the Hos jerome Flexpen 00 :00 skin 3 l U-100 (three) Insulin) times a 100 unit/mL day with (3 mL) meals. insulin pen TRESIBA 2020- No INJECT 150 Met hodi FLEXTOUCH 1-10 06-[address] U-200 200 00:00: 00:00 UNDER THE Ho spita unit/mL (3 00 :00 SKIN l mL) insulin DAILY. pen lancets Yes [id number] DX: E11.65 Methodi (ACCU-CHEK 8-[address] FASTCLIX 00:00: testing 3 Hosp bucky LANCING 00 times a l DEV) [facility] [place]. lancets Yes [id number] DX: E11.65 Methodi (ACCU-CHEK 8-[address] FASTCLIX 00:00: testing 3 Hosp bucky LANCING 00 times a l DEV) [facility] [place] day. BD 2020- No USE 6 Methodi ULTRA-FINE 09-24 07-[address] HODAN PEN 00:00: 00:00 DAY Hospita NEEDLE 32 00 :00 l gauge x 5/32" needle pen needle, 2020- No USE 6 Meth walter diabetic 7-29 02-[address] (BD 00:00: 00:00 DAILY Hospita ULTRA-FINE 00 :00 l HODAN PEN NEEDLE) 32 gauge x 5/32" needle atorvastati 2020- No TAKE 1 [place] varil n (LIPITOR) 06-25 05-10 TABLET BY Co llege 80 MG 00:00: 00:00 MOUTH of tablet 00 :00 EVERY DAY Medicin e olmesartan 2020- No TAKE 1 [facility] (BENICAR) 5 06-19 05-10 TABLET BY Co llege MG tablet 00:00: 00:00 MOUTH of 00 :00 EVERY DAY Medicin e olmesartan 2020- No TAKE 1 Meth walter (BENICAR) 5 06-[address] MG tablet 00:00: 00:00 MOUTH Hospit a 00 :00 EVERY DAY l furosemide Yes 40mg Take 1 Tab B aylor (LASIX) 40 1-14 by mouth Colle ge MG tablet 00:00: two times of 00 daily. Medicin e furosemide 2020- No 40mg Take 1 Tab [facility] (LASIX) 40 1-14 12-16 by mouth [place] ege MG tablet 00:00: 00:00 two times of 00 :00 daily. Medicin e flash 2017-02 Yes [id number] 1{devic 1 Device Methodi glucose 1-12 e} as needed st scanning 00:00: (scan as Hospi ta reader 00 needed). l (FREESTYLE TIERNEY 10 DAY READER) [facility] [place] flash 2017-02- No [id number] 1{devic 1 Device Methodi glucose 1-12 10-03 e} as needed st scanning 00:00: 00:00 (scan as Hosp bucky reader 00 :00 needed). l (FREESTYLE TIERNEY 10 DAY READER) [facility] [place] tamsulosin Yes 1{tbl} QD Take 1 Met hodi (FLOMAX) 3-[address] 0.4 mg 00:00: mouth Hospita capsule,ext 00 daily. l ended release 24hr tamsulosin Yes 1{tbl} QD Take 1 Met hodi (FLOMAX) 3-[address] 0.4 mg 00:00: mouth Hospita capsule,ext 00 daily. l ended release 24hr blood-gluco 2016-02 Yes Use as Meth walter se meter 0-[address] (ACCU-CHEK 00:00: Dx:Dm Type H ospita VEDA PLUS 00 2 Dx l METER) mis Code:E11.9 blood-gluco 2016-02- No Use as Met hodi se meter 0-04 08-[address] (ACCU-CHEK 00:00: 00:00 Dx:Dm Type Hospita VEDA PLUS 00 :00 2 Dx l METER) mis Code:E11.9 metoprolol Yes 1{tbl} QD Take 1 Met hodi succinate -[address] XL 00:00: mouth Hospita (TOPROL-XL) 00 daily. l 50 mg 24 hr tablet metoprolol No 75mg QD Take 75 mg Methodi succinate 07-[address] XL 00:00: 00:00 daily. Hospita (TOPROL-XL) 00 :00 l 50 mg 24 hr tablet furosemide Yes .5{tbl} QD Take 0.5 Methodi (LASIX) 40 5-[address] mg tablet 00:00: mouth Hospita 00 daily. l digOXIN 2020- No 1{tbl} QD Take 1 Metho di (LANOXIN) 5-09 06-[address] 125 mcg 00:00: 00:00 mouth Hospita tablet 00 :00 daily. l furosemide 2015-02 No 40mg QD Take 1 Meth walter (LASIX) 40 0-23 12-23 tablet (40 st MG tablet 00:00: 00:00 mg total) Ho spita 00 :00 by mouth l daily for 30 days. furosemide 2021- No 40mg Q.5D Take 1 Meth walter (LASIX) 40 9-16 12-23 tablet (40 st MG tablet 00:00: 00:00 mg total) Ho spita 00 :00 by mouth 2 l (two) times a day for 30 days. Immunizations Ordered Immunization Filled Immunization Date Status Commen ts Source Name Name FLUZONE HIGH-DOSE PF 2022-01-27 Completed Meth odist 00:00:00 [facility] FLUZONE HIGH-DOSE PF 2021-04-20 Completed [facility] 00:00:00 Hospital PFIZER COVID-19 MRNA 2020-04-17 Completed Meth odist VACCINATION 00:00:00 Hospital PFIZER COVID-19 MRNA 2020-04-17 Completed Meth odist VACCINATION 00:00:00 Hospital PFIZER COVID-19 MRNA 2020-03-26 Completed Meth odist VACCINATION 00:00:00 Hospital PFIZER COVID-19 MRNA 2020-03-26 Completed Meth odist VACCINATION 00:00:00 Hospital FLUZONE QUAD 2019-11-11 Completed [facility] 00:00:00 Hospital Influenza 2019-11-11 Completed [facility] Quadrivalent 3YRS+ 00:00:00 of Med icine Influenza 2019-11-11 Completed [facility] Quadrivalent 3YRS+ 00:00:00 of Med icine Influenza 2019-11-11 Completed [facility] Quadrivalent 3YRS+ 00:00:00 of Med icine FLUZONE QUAD 2019-11-11 Completed [facility] 00:00:00 Hospital Pneumococcal 2019-04-26 Completed [facility] Polysaccharide 00:00:00 Hospital Pneumococcal 2019-04-26 Completed [facility] Colle ge Polysaccharide 00:00:00 of Medicin e Pneumococcal 2019-04-26 Completed [facility] Colle ge Polysaccharide 00:00:00 of Medicin e Pneumococcal 2019-04-26 Completed [facility] Colle ge Polysaccharide 00:00:00 of Medicin e Pneumococcal 2019-04-26 Completed [facility] Polysaccharide 00:00:00 Hospital FLUZONE QUAD PF 2019-01-15 Completed [facility] 00:00:00 Hospital FLUZONE QUAD PF 2019-01-15 Completed [facility] 00:00:00 Hospital Pneumococcal 2018-02-06 Completed [facility] Conjugate 13-Valent 00:00:00 [facility]pi [place] Pneumococcal 2018-02-06 Completed [facility] Colle ge 13-valent Conjugate 00:00:00 of Me dicine Vaccine Pneumococcal 2018-02-06 Completed [facility] Colle ge 13-valent Conjugate 00:00:00 of Me dicine Vaccine Pneumococcal 2018-02-06 Completed [facility] Colle ge 13-valent Conjugate 00:00:00 of Me dicine Vaccine Pneumococcal 2018-02-06 Completed [facility] Conjugate 13-Valent 00:00:00 [facility] [place] FLUZONE QUAD 2017-12-13 Completed [facility] 00:00:00 Hospital Influenza 2017-12-13 Completed [facility] Quadrivalent 3YRS+ 00:00:00 of Med icine Influenza 2017-12-13 Completed [facility] Quadrivalent 3YRS+ 00:00:00 of Med icine Influenza 2017-12-13 Completed [facility] Quadrivalent 3YRS+ 00:00:00 of Med icine FLUZONE QUAD 2017-12-13 Completed [facility] 00:00:00 Hospital FLUZONE QUAD 2017-12-12 Completed [facility] 00:00:00 Hospital Influenza 2017-12-12 Completed [facility] 00:00:00 of Medicine FLUZONE QUAD 2017-12-12 Completed [facility] 00:00:00 Hospital FLUZONE QUAD 2016-11-15 Completed [facility] 00:00:00 Hospital FLUZONE QUAD 2016-11-15 Completed [facility] 00:00:00 Hospital Influenza 2016-11-15 Completed [facility] Quadrivalent 3YRS+ 00:00:00 of Med icine Influenza 2016-11-15 Completed [facility] Quadrivalent 3YRS+ 00:00:00 of Med icine Influenza 2016-11-15 Completed [facility] Quadrivalent 3YRS+ 00:00:00 of Med icine FLUZONE QUAD 2016 Completed [facility] 00:00:00 Hospital FLUZONE QUAD 2016 Completed [facility] 00:00:00 Hospital Influenza 2016 Completed [facility] Quadrivalent 3YRS+ 00:00:00 of Med icine Influenza 2016 Completed [facility] Quadrivalent 3YRS+ 00:00:00 of Med icine Influenza 2016 Completed [facility] Quadrivalent 3YRS+ 00:00:00 of Med icine Influenza Trivalent 2014-12-02 Completed [facility] 00:00:00 Hospital Influenza Trivalent 2014-12-02 Completed [facility] 00:00:00 Hospital Influenza, 2014-03-23 Completed [facility] Unspecified 00:00:00 Hospital Influenza, 2014-03-23 Completed [facility] Unspecified 00:00:00 Hospital FLUZONE QUAD 2014-03-23 Completed [facility] 00:00:00 Hospital Influenza Trivalent 2007-12-12 Completed [facility] 00:00:00 Hospital Influenza Trivalent 2007-12-12 Completed [facility] 00:00:00 Hospital Influenza Trivalent 2007-11-28 Completed [facility] 00:00:00 Hospital Influenza Trivalent 2007-11-28 Completed [facility] 00:00:00 Hospital Vital Signs Vital Name Observation Time Observation Value Comments Source Systolic blood 2021-07-05 19:00:00 121 mm[Hg] [facility] Medicine Diastolic blood 2021-07-05 19:00:00 71 mm[Hg] [facility] Medicine Heart rate 2021-07-05 19:00:00 75 /min [facility] Body height 2021-07-05 19:00:00 177.8 cm [facility] Body weight 2021-07-05 19:00:00 99.791 kg [facility] BMI 2021-07-05 19:00:00 31.57 kg/m2 [facility] Systolic blood 2021-02-11 17:28:00 104 mm[Hg] [facility] Medicine Diastolic blood 2021-02-11 17:28:00 64 mm[Hg] [facility] Medicine Heart rate 2021-02-11 17:28:00 76 /min [facility] Respiratory rate 2021-02-11 17:28:00 16 /min [facility] Systolic blood 2020-07-06 18:06:00 118 mm[Hg] [facility] Medicine Diastolic blood 2020-07-06 18:06:00 74 mm[Hg] [facility] Medicine Heart rate 2020-07-06 18:06:00 69 /min [facility] Body temperature 2020-07-06 18:06:00 36.56 [facility] Respiratory rate 2020-07-06 18:06:00 17 /min [facility] Systolic blood 2020-07-06 18:06:00 118 mm[Hg] [facility] pressure Medicine Diastolic blood 2020-07-06 18:06:00 74 mm[Hg] [facility] Medicine Heart rate 2020-07-06 18:06:00 69 /min [facility] Body temperature 2020-07-06 18:06:00 36.56 [facility] Respiratory rate 2020-07-06 18:06:00 17 /min [facility] Systolic blood 2022-03-23 17:37:00 130 mm[Hg] Method [facility] pressure Diastolic blood 2022-03-23 17:37:00 72 mm[Hg] [facility] pressure Heart rate 2022-03-23 17:37:00 78 /min [facility] Respiratory rate 2022-03-23 17:37:00 16 /min [facility] Body weight 2022-03-23 17:37:00 92.987 kg [facility] BMI 2022-03-23 17:37:00 29.41 kg/m2 [facility] Body height 2022-03-10 16:45:00 177.8 cm [facility] [facility] Oxygen saturation in 2022-03-03 16:56:00 99 /min [facility] Arterial blood by Pulse oximetry Body temperature 2022-01-10 17:10:00 36.11 Francesca [facility] Systolic blood 2020-12-14 17:30:00 113 mm[Hg] Method [facility] pressure Diastolic blood 2020-12-14 17:30:00 61 mm[Hg] [facility] pressure Heart rate 2020-12-14 17:30:00 65 /min [facility] Respiratory rate 2020-12-14 17:30:00 16 /min [facility] Body height 2020-10-20 13:44:00 177.8 cm [facility] Body weight 2020-10-20 13:44:00 95.528 kg [facility] BMI 2020-10-20 13:44:00 30.22 kg/m2 [facility] Oxygen saturation in 2020-10-20 13:44:00 98 /min [facility] Arterial blood by Pulse oximetry Body temperature 2020-09-24 17:49:00 36.56 [facility] Procedures Procedure Date / Time Performing Clinician Source Performed AMYLASE LEVEL 2022-03-18 14:16:00 [facility] HEMOGLOBIN A1C 2022-03-18 14:16:00 [facility] LIPASE LEVEL 2022-03-18 14:16:00 [facility] LIPID PANEL 2022-03-18 14:16:00 [facility] ALBUMIN WITH CREATININE AND 2022-03-18 14:16:00 [facility] RATIO, RANDOM URINE T4, FREE 2022-03-18 14:16:00 [facility] THYROID STIMULATING HORMONE 2022-03-18 14:16:00 [facility] VITAMIN D 25 HYDROXY LEVEL 2022-03-18 14:16:00 [facility] CBC WITH PLATELET AND 2022-03-07 15:06:00 Ramirez [facility] DIFFERENTIAL COMPREHENSIVE METABOLIC 2022-03-07 15:06:00 [facility] PANEL PHOSPHORUS LEVEL 2022-03-07 15:06:00 Ramirez [facility] PARATHYROID HORMONE 2022-03-07 15:06:00 Ramirez [facility] [id number] TACROLIMUS LEVEL, 2022-03-07 15:06:00 [facility] RANDOM POC GLUCOSE 2022-01-10 17:15:00 Renee Mitchell ospital CV RIGHT HEART CATH 2022-01-10 16:55:00 [facility] 2022-01-10 13:45:00 Renee Mitchell [facility] POC PANEL 2022-01-10 13:45:00 Renee Mitchell o[facility]ital COVID-19 QUALITATIVE RT-PCR 2022-01-10 13:28:00 [facility] CBC WITH PLATELET AND 2022-01-10 13:28:00 [facility] DIFFERENTIAL PROTHROMBIN TIME WITH INR 2022-01-10 13:28:00 [facility] CV TREADMILL STRESS TEST 2022-01-07 22:39:32 [facility] CARDIOPULMONARY STRESS 2022-01-05 19:02:26 [facility] EXERCISE ECG 12-LEAD 2021-12-22 20:03:03 [facility] CV PACEMAKER DEFIB ILR 2021-12-22 00:00:00 Nick Flores [facility] INTERROGATION ECG 12-LEAD 2021-12-02 19:42:00 Renetta Perkins [facility] ECG 12-LEAD 2021-11-25 18:42:59 Ankit Felder spital Christian[facility] CBC WITH PLATELET AND 2021-11-24 13:03:00 [facility] DIFFERENTIAL COMPREHENSIVE METABOLIC 2021-11-24 13:03:00 [facility] PANEL PHOSPHORUS LEVEL 2021-11-24 13:03:00 [facility] URINE PROTEIN/CREATININE 2021-11-24 13:03:00 [facility] RATIO, RANDOM PARATHYROID HORMONE 2021-11-24 13:03:00 [facility] [id number] TACROLIMUS LEVEL, 2021-11-24 13:03:00 [facility] RANDOM URINALYSIS, AUTOMATED WITH 2021-11-24 13:03:00 [facility] MICROSCOPY ECG 12-LEAD 2021-11-04 19:55:33 Ankit Felder spital Christian[facility] POC GLUCOSE 2021-10-27 17:12:00 Anay Glasgow [facility] POC GLUCOSE 2021-10-27 12:51:00 Anay Glasgow spital CBC WITH PLATELET AND 2021-10-27 10:50:00 [facility] DIFFERENTIAL COMPREHENSIVE METABOLIC 2021-10-27 10:50:00 Emery Coyle [facility] PANEL MAGNESIUM LEVEL 2021-10-27 10:50:00 Emery Coyle spital AMMONIA LEVEL 2021-10-27 10:50:00 [facility] HEMOGLOBIN A1C 2021-10-27 10:50:00 [facility] VITAMIN B12 LEVEL 2021-10-27 10:50:00 [facility] T4, FREE 2021-10-27 10:50:00 [facility] VITAMIN D 25 HYDROXY LEVEL 2021-10-27 10:50:00 [facility] FOLATE LEVEL 2021-10-27 10:50:00 [facility] ESTIMATED GFR 2021-10-27 10:50:00 Emery Coyle spital POC GLUCOSE 2021-10-27 02:02:00 Anay Glasgowist Ho spital POC GLUCOSE 2021-10-26 23:31:00 Anay Glasgow Ho spital B NATRIURETIC PEPTIDE 2021-10-26 21:39:00 [facility] LACTIC ACID LEVEL 2021-10-26 21:39:00 [facility] HEAD WO CONTRAST 2021-10-26 20:45:12 Noah Garcia [facility] POC GLUCOSE 2021-10-26 18:20:00 Anay Glasgow spital MAGNESIUM LEVEL 2021-10-26 15:59:00 Anay Glasgow [facility] PHOSPHORUS LEVEL 2021-10-26 15:59:00 Anay Glasgow H ospital COMPREHENSIVE METABOLIC 2021-10-26 15:59:00 Anay Glasgow [facility] PANEL CBC WITH PLATELET AND 2021-10-26 15:59:00 Anay Glasgow [facility] DIFFERENTIAL BILIRUBIN DIRECT 2021-10-26 15:59:00 Anay Glasgow H ospital ESTIMATED GFR 2021-10-26 15:59:00 Anay Glasgow [facility] POC GLUCOSE 2021-10-26 02:47:00 Anay Glasgow [facility] POC GLUCOSE 2021-10-25 22:27:00 Anay Glasgow [facility] POC GLUCOSE 2021-10-25 17:35:00 Anay Glasgow [facility] POC GLUCOSE 2021-10-25 13:19:00 Anay Glasgow spital CBC WITH PLATELET AND 2021-10-25 10:48:00 Emery Coyle [facility] DIFFERENTIAL COMPREHENSIVE METABOLIC 2021-10-25 10:48:00 Jonna [facility] PANEL MAGNESIUM LEVEL 2021-10-25 10:48:00 Emery Coyle spital ESTIMATED GFR 2021-10-25 10:48:00 Emery Coyle spital [id number] TACROLIMUS LEVEL, 2021-10-25 10:48:00 Jonna [facility] TROUGH POC GLUCOSE 2021-10-25 03:22:00 Emery Coyle spital POC GLUCOSE 2021-10-24 23:07:00 Emery Coyle spital POC GLUCOSE 2021-10-24 17:43:00 Emery Coyle spital COMPREHENSIVE METABOLIC 2021-10-24 15:11:00 Emery Coyle [facility] PANEL ESTIMATED GFR 2021-10-24 15:11:00 Emery Coyle spital POC GLUCOSE 2021-10-24 14:02:00 Emery Coyle spital CBC WITH PLATELET AND 2021-10-24 11:28:00 Emery Coyle [facility] DIFFERENTIAL COMPREHENSIVE METABOLIC 2021-10-24 11:28:00 Jonna [facility] PANEL MAGNESIUM LEVEL 2021-10-24 11:28:00 Emery Coyle spital ESTIMATED GFR 2021-10-24 11:28:00 Emery Coyle spital [id number] TACROLIMUS LEVEL, 2021-10-24 11:28:00 Jonna [facility] TROUGH POC GLUCOSE 2021-10-24 06:08:00 Emery Coyle spital POC GLUCOSE 2021-10-24 02:11:00 Emery Coyle spital POC GLUCOSE 2021-10-23 22:35:00 Emery Coyle spital POC GLUCOSE 2021-10-23 17:49:00 Emery Coyle spital POC GLUCOSE 2021-10-23 12:54:00 Emery Coyle spital [id number] TACROLIMUS LEVEL, 2021-10-23 10:40:00 Emery Coyle [facility] TROUGH CBC WITH PLATELET AND 2021-10-23 10:37:00 Emery Coyle [facility] DIFFERENTIAL COMPREHENSIVE METABOLIC 2021-10-23 10:37:00 Emery Coyle [facility] PANEL MAGNESIUM LEVEL 2021-10-23 10:37:00 Emery Coyle spital ESTIMATED GFR 2021-10-23 10:37:00 Emery Coyle spital POC GLUCOSE 2021-10-23 02:41:00 Emery Coyle spital POC GLUCOSE 2021-10-22 23:18:00 Emery Coyle spital POC GLUCOSE 2021-10-22 21:09:00 Emery Coyle spital CV STRESS TEST 2021-10-22 20:20:00 Logan Robertson spital TTE STRESS DOBUTAMINE 2021-10-22 20:20:00 Logan Robertson [facility] ([id number]) POC GLUCOSE 2021-10-22 14:10:00 Emery Coyle spital [id number] TACROLIMUS LEVEL, 2021-10-22 10:50:00 Emery Coyle [facility] RANDOM CBC WITH PLATELET AND 2021-10-22 10:41:00 Emery Coyle [facility] DIFFERENTIAL COMPREHENSIVE METABOLIC 2021-10-22 10:41:00 Emery Coyle [facility] PANEL MAGNESIUM LEVEL 2021-10-22 10:41:00 Emery Coyle spital ESTIMATED GFR 2021-10-22 10:41:00 Emery Coyle spital POC GLUCOSE 2021-10-22 03:56:00 Emery Coyle spital ECG 12-LEAD 2021-10-22 02:29:02 Yudelka Dominguez [facility] POC GLUCOSE 2021-10-21 23:32:00 Emery Coyle spital POC GLUCOSE 2021-10-21 17:18:00 GiveEmery pandey Ho spital POC GLUCOSE 2021-10-21 13:14:00 Emery Coyle spital CBC WITH PLATELET AND 2021-10-21 09:44:00 Emery Coyle [facility] DIFFERENTIAL COMPREHENSIVE METABOLIC 2021-10-21 09:44:00 Jonna [facility] PANEL MAGNESIUM LEVEL 2021-10-21 09:44:00 GiveEmery pandey spital PHOSPHORUS LEVEL 2021-10-21 09:44:00 Tashi Ramesh [facility] ESTIMATED GFR 2021-10-21 09:44:00 Emery Coyle spital [id number] TACROLIMUS LEVEL, 2021-10-21 09:44:00 Jonna [facility] TROUGH POC GLUCOSE 2021-10-21 07:48:00 Emery Coyle Ho spital POC GLUCOSE 2021-10-21 06:31:00 Emery Coyle Ho spital POC GLUCOSE 2021-10-21 04:17:00 GiveEmery pandey spital POC GLUCOSE 2021-10-21 02:37:00 GiveEmery pandey Ho spital POC GLUCOSE 2021-10-21 01:51:00 Emery Coyle spital POTASSIUM LEVEL 2021-10-20 [facility] 2021-10-20 22:13:00 GiveEmery pandey Ho spital POC GLUCOSE 2021-10-20 21:09:00 GiveEmery pandey Ho spital POC GLUCOSE 2021-10-20 17:41:00 GiveEmery pandey spital ECG 12-LEAD 2021-10-20 17:20:17 Emery Coyle Ho spital POC GLUCOSE 2021-10-20 14:41:00 Emery Coyle spital CV CTA TAVR WORKUP (CTA 2021-10-20 14:09:13 Logan Robertson [facility] CORONARY,CTA THORACIC AORTA,CTA ABDOMEN PELVIS) W CONTRAST POTASSIUM LEVEL 2021-10-20 12:25:00 [facility] WITH PLATELET AND 2021-10-20 10:17:00 Emery Coyle [facility] DIFFERENTIAL COMPREHENSIVE METABOLIC 2021-10-20 10:17:00 Emery Coyle [facility] PANEL MAGNESIUM LEVEL 2021-10-20 10:17:00 Emery Coyle spital ESTIMATED GFR 2021-10-20 10:17:00 Emery Coyle spital [id number] TACROLIMUS LEVEL, 2021-10-20 10:17:00 Emery Coyle [facility] TROUGH MANUAL DIFFERENTIAL 2021-10-20 10:17:00 Emery Coyle [facility] ECG 12-LEAD 2021-10-20 04:47:19 Emery Coyle spital POC GLUCOSE 2021-10-20 00:45:00 Emery Coyle Ho spital POC GLUCOSE 2021-10-19 22:23:00 Emery Coyle Ho spital POC GLUCOSE 2021-10-19 17:47:00 Emery Coyle spital ECG 12-LEAD 2021-10-19 16:47:14 Emery Coyle Ho spital POC GLUCOSE 2021-10-19 14:25:00 Emery Coyle Ho spital CBC WITH PLATELET AND 2021-10-19 10:43:00 Kaleb Nguyen [facility] DIFFERENTIAL COMPREHENSIVE METABOLIC 2021-10-19 10:43:00 Kaleb Nguyen [facility] PANEL MAGNESIUM LEVEL 2021-10-19 10:43:00 Kaleb Nguyen Ho spital LDH 2021-10-19 10:43:00 Maria Isabel Taylor [facility] [id number] TACROLIMUS LEVEL, 2021-10-19 10:43:00 Maria Isabel Taylor [facility] TROUGH BILIRUBIN DIRECT 2021-10-19 10:43:00 Maria Isabel Taylor [facility] ESTIMATED GFR 2021-10-19 10:43:00 Kaleb Nguyen Ho spital ECG 12-LEAD 2021-10-19 03:47:37 Kaleb Nguyenist Ho spital POC GLUCOSE 2021-10-19 01:44:00 Kaleb Nguyen Ho spital POC GLUCOSE 2021-10-18 22:15:00 NeKaleb barrett [facility] spital POC GLUCOSE 2021-10-18 18:00:00 NeKaleb barrett [facility] ECG 12-LEAD 2021-10-18 15:57:03 NeKaleb barrett [facility] POC GLUCOSE 2021-10-18 14:00:00 NeKaleb barrett [facility]ital MAGNESIUM LEVEL 2021-10-18 09:54:00 Lawrence Carmen Ho spital CBC WITH PLATELET AND 2021-10-18 09:54:00 NeasonKaleb Method [facility] DIFFERENTIAL COMPREHENSIVE METABOLIC 2021-10-18 09:54:00 NeasonKaleb [facility] PANEL [id number] TACROLIMUS LEVEL, 2021-10-18 09:54:00 NeKaleb barrett [facility] RANDOM ESTIMATED GFR 2021-10-18 09:54:00 Kaleb Nguyen [facility] ECG 12-LEAD 2021-10-18 04:13:14 NeKaleb barrett [facility] POC GLUCOSE 2021-10-18 00:53:00 NeasonKaleb [facility] POC GLUCOSE 2021-10-17 22:07:00 NeKaleb barrett [facility] POC GLUCOSE 2021-10-17 17:46:00 NeKaleb barrett [facility] POC GLUCOSE 2021-10-17 13:34:00 NeKaleb barrett [facility] CBC WITH PLATELET AND 2021-10-17 10:57:00 NeKaleb barrett Method [facility] DIFFERENTIAL BASIC METABOLIC PANEL 2021-10-17 10:57:00 Lawrence Carmen [facility] MAGNESIUM LEVEL 2021-10-17 10:57:00 Tashi Ramesh [facility] ESTIMATED GFR 2021-10-17 10:57:00 Lawrence Carmen Ho spital ECG 12-LEAD 2021-10-17 04:18:16 NeKaleb barrett [facility] BASIC METABOLIC PANEL 2021-10-17 03:42:00 Tashi Ramesh [facility] MAGNESIUM LEVEL 2021-10-17 03:42:00 Amado Rameshteresa Ortiz [facility] PHOSPHORUS LEVEL 2021-10-17 03:42:00 Gadiel jayla [facility] ESTIMATED GFR 2021-10-17 03:42:00 GadielTashi granado [facility] POC GLUCOSE 2021-10-16 22:52:00 Kaleb Nguyen spital ECG 12-LEAD 2021-10-16 21:19:46 Anselmo Kay ospital [place] POC GLUCOSE 2021-10-16 17:19:00 Kaleb Nguyen spital BASIC METABOLIC PANEL 2021-10-16 15:53:00 Lawrence Carmen [facility] MAGNESIUM LEVEL 2021-10-16 15:53:00 Lawrence Carmen spital ESTIMATED GFR 2021-10-16 15:53:00 Lawrence Carmen spital TROPONIN T 2021-10-16 15:50:00 Anselmo Kay XR CHEST 1 VW PORTABLE 2021-10-16 15:47:39 Anselmo Kay [facility] [place] ECG 12-LEAD 2021-10-16 15:05:22 Anselmo Kay POC GLUCOSE 2021-10-16 13:48:00 Kaleb Nguyen spital CBC WITH PLATELET AND 2021-10-16 10:09:00 Kaleb Nguyen [facility] DIFFERENTIAL [id number] TACROLIMUS LEVEL, 2021-10-16 10:09:00 Kaleb Nguyen [facility] TROUGH BASIC METABOLIC PANEL 2021-10-16 10:09:00 Nieves Reyes [facility] [place] MAGNESIUM LEVEL 2021-10-16 10:09:00 Andry Reyes PHOSPHORUS LEVEL 2021-10-16 10:09:00 Andry Reyes IONIZED CALCIUM 2021-10-16 10:09:00 Andry Reyes ESTIMATED GFR 2021-10-16 10:09:00 Andry Reyes TTE COMPLETE, W CONTRAST, W 2021-10-16 07:40:00 [facility] DOPPLER ([id number]) LACTIC ACID LEVEL, SEPSIS - 2021-10-16 04:36:00 Rehrer, [facility] NOW AND REPEAT 2X EVERY 3 HOURS TROPONIN T 2021-10-16 04:36:00 Rehrer, [facility] POC GLUCOSE 2021-10-15 23:30:00 [facility] L[facility] ACID LEV[facility], SEPSIS - 2021-10-15 21:58:00 Rehrer, [facility] NOW AND REPEAT 2X EVERY 3 HOURS TROPONIN T 2021-10-15 21:58:00 Rehrer, [facility] COVID-19 QUALITATIVE RT-PCR 2021-10-15 21:54:00 Nhnena [facility] ECG 12-LEAD 2021-10-15 21:12:13 [facility] spital URINE CULTURE 2021-10-15 21:07:00 Rehrer, [facility] URINALYSIS SCREEN AND 2021-10-15 21:07:00 Rehrer, [facility] MICROSCOPY, WITH REFLEX TO CULTURE XR CHEST 1 VW PORTABLE 2021-10-15 20:45:00 Rehrer, [facility] CBC WITH PLATELET AND 2021-10-15 20:29:00 Rehrer, [facility] DIFFERENTIAL PROTHROMBIN TIME WITH INR 2021-10-15 20:29:00 Rehrer, [facility] PARTIAL THROMBOPLASTIN TIME 2021-10-15 20:29:00 Rehrer, [facility] (PTT) COMPREHENSIVE METABOLIC 2021-10-15 20:29:00 Rehrer, [facility] PANEL MAGNESIUM LEVEL 2021-10-15 20:29:00 Rehrer, [facility] PHOSPHORUS LEVEL 2021-10-15 20:29:00 Rehrer, [facility] LACTIC ACID LEVEL, SEPSIS - 2021-10-15 20:29:00 Rehrer, [facility] NOW AND REPEAT 2X EVERY 3 HOURS TROPONIN T 2021-10-15 20:29:00 Rehrer, [facility] B NATRIURETIC PEPTIDE 2021-10-15 20:29:00 Rehrer, [facility] HEMOGLOBIN A1C 2021-10-15 20:29:00 WendyCharissepradip Fay [facility] THYROID STIMULATING HORMONE 2021-10-15 20:29:00 Rehrer, [facility] ESTIMATED GFR 2021-10-15 20:29:00 Rehrer, [facility] VENOUS BLOOD GAS 2021-10-15 20:24:00 Rehrer, [facility] NE CRITICAL CARE 2021-10-15 20:21:52 Rehrer, [facility] ILL/INJURED PATIENT INIT 30-74 MIN ECG ED PRELIMINARY 2021-10-15 20:21:52 Rehrer, [facility] INTERPRETATION ECG 12-LEAD 2021-10-15 18:57:56 Rehrer, [facility] CBC WITH PLATELET AND 2021-09-23 18:28:[address] [facility] DIFFERENTIAL COMPREHENSIVE METABOLIC 2021-09-23 18:28:00 [facility] PANEL HEMOGLOBIN A1C 2021-09-23 18:28:00 [facility] AMYLASE LEVEL 2021-09-23 18:28:00 [facility] LIPASE LEVEL 2021-09-23 18:28:00 [facility] LIPID PANEL 2021-09-23 18:28:00 [facility] MICROALBUMIN / CREATININE 2021-09-23 18:28:00 [facility] URINE RATIO T4, FREE 2021-09-23 18:28:00 [facility] THYROID STIMULATING HORMONE 2021-09-23 18:28:00 [facility][Note 3] Cherie [facility] VITAMIN D 25 HYDROXY LEVEL 2021-09-23 18:28:00 SadLaya yu [facility] US HEPATIC 2021-09-03 15:25:00 [facility] US ABDOMINAL DOPPLER 2021-09-03 15:00:00 Clarissa, [facility] XR CHEST 2 VW 2021-09-03 13:50:00 [facility] CBC WITH PLATELET AND 2021-09-03 12:58:00 [facility], [facility] DIFFERENTIAL COMPREHENSIVE METABOLIC 2021-09-03 12:58:00 [facility] PANEL MAGNESIUM LEVEL 2021-09-03 12:58:00 [facility], [facility] HEMOGLOBIN A1C 2021-09-03 12:58:00 [facility] LIPID PANEL 2021-09-03 12:58:00 [facility] PROTHROMBIN TIME WITH INR 2021-09-03 12:58:00 [facility] CYTOMEGALOVIRUS BY PCR 2021-09-03 12:58:00 [facility] GGT 2021-09-03 12:58:00 [facility] [id number] TACROLIMUS LEVEL, 2021-09-03 12:58:00 [facility], [facility] RANDOM HEPATOCELLULAR CARCINOMA 2021-09-03 12:58:00 [facility], [facility] MARKER PANEL CANCER ANTIGEN 19-9 2021-09-03 12:58:00 [facility], [facility] HEPATITIS C VIRUS (HCV), 2021-09-03 12:58:00 [facility], [facility] QUANTITATIVE PCR ESTIMATED GFR 2021-09-03 12:58:00 [facility], [facility] PHOSPHORUS LEVEL 2021-09-03 12:58:00 [facility], [facility] BONE DENSITY 2021-08-24 16:08:13 Laya Turner [facility] URINALYSIS W REFLEX MICRO 2021-07-05 16:29:37 [facility] SATISH,POST-VOID 2021-07-05 00:00:00 Tory Momin [facility],US,NON-IMG Medicine SATISH,POST-VOID 2021-07-05 00:00:00 [facility],US,NON-IMG Medicine POCT URINALYSIS DIPSTICK 2021-07-05 00:00:00 [facility] AMYLASE LEVEL 2021-03-25 16:16:00 [facility] CBC WITH PLATELET AND 2021-03-25 16:16:[address] [facility] DIFFERENTIAL COMPREHENSIVE METABOLIC 2021-03-25 16:16:00 [facility] PANEL HEMOGLOBIN A1C 2021-03-25 16:16:00 [facility] LIPASE LEVEL 2021-03-25 16:16:00 [facility] LIPID PANEL 2021-03-25 16:16:00 [facility] MICROALBUMIN / CREATININE 2021-03-25 16:16:00 [facility] URINE RATIO T4, FREE 2021-03-25 16:16:00 [facility] THYROID STIMULATING HORMONE 2021-03-25 16:16:00 [facility] VITAMIN D 25 HYDROXY LEVEL 2021-03-25 16:16:00 [facility] POCT URINALYSIS DIPSTICK 2021-02-11 00:00:00 Tory Momin [facility] UROFLOWMETRY 2021-02-11 00:00:00 Tory Momin [facility] CBC WITH PLATELET AND 2020-11-13 14:07:[address] [facility] DIFFERENTIAL COMPREHENSIVE METABOLIC 2020-11-13 14:07:00 [facility] PANEL HEMOGLOBIN A1C 2020-11-13 14:07:00 [facility] LIPASE LEVEL 2020-11-13 14:07:00 [facility] AMYLASE LEVEL 2020-11-13 14:07:00 [facility] MICROALBUMIN / CREATININE 2020-11-13 14:07:00 [facility] URINE RATIO T4, FREE 2020-11-13 14:07:00 [facility] THYROID STIMULATING HORMONE 2020-11-13 14:07:00 [facility] VITAMIN D 25 HYDROXY LEVEL 2020-11-13 14:07:00 [facility] Kristin [facility] PROSTATE SPECIFIC ANTIGEN 2020-10-20 14:16:00 Lucy Torres [facility] CT ABDOMEN PELVIS WO 2020-08-25 17:05:00 Efren Sepulveda [facility] CONTRAST BONE DENSITY 2020-08-19 19:41:11 [facility] MRI ABDOMEN WO CONTRAST 2020-08-19 18:39:00 [facility] CV STRESS TEST 2020-08-19 16:42:30 [facility] TTE STRESS DOBUTAMINE 2020-08-19 16:42:30 [facility] ([id number]) MISCELLANEOUS REFERRAL TEST 2020-08-03 19:13:00 [facility] NM BONE SCAN WHOLE BODY 2020-08-03 17:58:[address] [facility] [address] CHEST WO CONTRAST 2020-08-03 15:46:01 [facility] HC COMPLETE BLD COUNT 2020-08-03 15:00:00 [facility] W/AUTO DIFF COMPREHENSIVE METABOLIC 2020-08-03 15:00:00 [facility] PANEL MAGNESIUM LEVEL 2020-08-03 15:00:00 [facility] HEMOGLOBIN A1C 2020-08-03 15:00:00 [facility] LIPID PANEL 2020-08-03 15:00:00 [facility] ALPHA FETOPROTEIN 2020-08-03 15:00:00 [facility] CARCINOEMBRYONIC ANTIGEN 2020-08-03 15:00:00 [facility] (CEA) VITAMIN D 1,25 DIHYDROXY 2020-08-03 15:00:00 [facility] LEVEL, SERUM CYTOMEGALOVIRUS BY PCR 2020-08-03 15:00:00 [facility] VITAMIN D 25 HYDROXY LEVEL 2020-08-03 15:00:00 [facility] THYROID STIMULATING HORMONE 2020-08-03 15:00:00 [facility] ALCOHOL LEVEL, BLOOD 2020-08-03 15:00:00 [facility] GGT 2020-08-03 15:00:00 [facility] PROTEIN, URINE, RANDOM 2020-08-03 15:00:00 [facility] CREATININE LEVEL, URINE, 2020-08-03 15:00:00 [facility] RANDOM [id number] TACROLIMUS LEVEL, 2020-08-03 15:00:00 [facility] RANDOM HEPATOCELLULAR CARCINOMA 2020-08-03 15:00:00 [facility] MARKER PANEL CANCER ANTIGEN 19-9 2020-08-03 15:00:00 [facility] ESTIMATED GFR 2020-08-03 15:00:00 [facility] POCT URINALYSIS DIPSTICK 2020-07-06 00:00:00 Tory Momin [facility] MICROALBUMIN / CREATININE 2020-04-22 17:36:00 Lucy Torres [facility] URINE RATIO LIVS-BPLK-JGL-2 N 2020-04-17 21:14:00 [facility] (NUCLEOCAPSID PROTEIN) ANTIBODY HC COMPLETE BLD COUNT 2020-04-17 21:14:00 [facility] W/AUTO DIFF DONOR SPECIFIC ANTIBODY 2020-04-17 21:14:00 [facility] POC GLUCOSE 2020-04-04 16:17:00 [facility] GLU[facility] 2020-04-04 14:04:00 Jessica, [facility] POC GLUCOSE 2020-04-04 11:28[facility]00 [facility] 2020-04-04 05:49:00 Jessica [facility] POC GLUCOSE 2020-04-03 23:44:00 [facility] CV CTA CORONARY ARTERIES W 2020-04-03 23:12:46 [facility] CONTRAST CT CARDIAC OVERREAD 2020-04-03 22:17:11 [facility]SE 2020-04-03 22:08:00 [facility] DEFIBRILLATOR 2020-04-03 19:27:51 Madd[facility] [place] [facility] SINGLE POC GLUCOSE 2020-04-03 18:31:00 [facility] POC GLUCOSE 2020-04-03 14:30:00 [facility] TTE COMPLETE, W CONTRAST, W 2020-04-03 12:45:00 [facility] DOPPLER ([id number]) TROPONIN 2020-04-03 12:00:00 [facility] ECG 12-LEAD 2020-04-03 11:35:06 [facility] Michael LIPID PANEL 2020-04-03 10:00:00 [facility] THYROID STIMULATING HORMONE 2020-04-03 10:00:00 [facility] T4, FREE 2020-04-03 10:00:00 [facility] ESTIMATED GFR 2020-04-03 10:00:00 [facility] COMPREHENSIVE METABOLIC 2020-04-03 10:00[facility]00 [facility] PANEL BILIRUBIN DIRECT 2020-04-03 10:00:00 [facility] HC COMPLETE BLD COUNT 2020-04-03 09:30[facility]00 [facility]FF [id number] TACROLIMUS LEVEL, 2020-04-03 09:30:00 [facility] TROUGH DIGOXIN LEVEL 2020-04-03 09:02:00 [facility] TROP[facility]IN 2020-04-03 09:00:00 [facility] Michael POC GLUCOSE 2020-04-03 08:09:00 Nigel Martell [facility] TROPONIN, I-STAT 2020-04-03 05:50:00 [facility] Michael CT HEAD WO CONTRAST 2020-04-03 04:38:05 [facility] Michael ECG ED PRELIMINARY 2020-04-03 03:43:56 [facility] INTERPRETATION Michael COVID-19 QUALITATIVE RT-PCR 2020-04-03 03:00:00 [facility] Michael COMPREHENSIVE METABOLIC 2020-04-03 03:00:00 [facility] PANEL Michael B NATRIURETIC PEP, I-STAT 2020-04-03 03:00:00 [facility] Michael TROPONIN, I-STAT 2020-04-03 03:00:00 [facility] Michael HC COMPLETE BLD COUNT 2020-04-03 03:00:00 [facility] W/AUTO DIFF Michael ESTIMATED GFR 2020-04-03 03:00:00 [facility] Michael ECG 12-LEAD 2020-04-03 02:50:19 [facility] Michael XR CHEST 1 VW PORTABLE 2020-04-02 18:15:00 [facility] Tiff Olivares HC COMPLETE BLD COUNT 2020-04-02 17:36:00 [facility] W/AUTO DIFF Tiff Olivares PROTHROMBIN TIME WITH INR 2020-04-02 17:36:00 [facility] Tiff Olivares [facility] METABOLIC 2020-04-02 17:36:00 Paige Porras [facility] PANEL Tiff Olivares TROPONIN 2020-04-02 17:36:00 [facility] Tiff Olivares LIPASE LEVEL 2020-04-02 17:36:00 [place] [facility] B NATRIURETIC PEPTIDE 2020-04-02 17:36:00 [facility] Tiff Olivares ESTIMATED GFR 2020-04-02 17:36:00 [place] [facility] Tiff [facility] ECG ED PRELIMINARY 2020-04-02 17:29:05 [facility] Tiff Marshall ECG 12-LEAD 2020-04-02 17:26:30 [place] [facility] Tiff Oliv[facility] Plan of Care Planned Activity Planned Date Details Comments Source Future Scheduled 2022-04-25 SHINGLES VACCINES Method ist Test 11:24:09 (1 of 2) [code = Hospital SHINGLES VACCINES (1 of 2)] Future Scheduled 2022-04-25 HEPATITIS B [facility] Test 11:24:09 VACCINES (1 of 3 - Hospital Risk 3-dose series) [code = HEPATITIS B VACCINES (1 of 3 - Risk 3-dose series)] Future Scheduled 2022-04-25 COVID-19 VACCINE (3 Meth odist Test 11:24:09 - Pfizer risk Hospital series) [code = COVID-19 VACCINE (3 - Pfizer risk series)] Future Scheduled 2022-04-25 DIABETIC FOOT EXAM [facility] Test 11:24:09 [code = DIABETIC Hospital FOOT EXAM] Future Scheduled 2022-04-25 DIABETES: RETINAL Method ist Test 11:24:09 EYE EXAM [code = Hospital DIABETES: RETINAL EYE EXAM] Future Scheduled 2022-04-25 COLONOSCOPY [facility] Test 11:24:09 SCREENING [code = Hospital COLONOSCOPY SCREENING] Future Scheduled 2021-07-05 Screening for [facility] Test 14:22:46 malignant neoplasm of Medici ne of colon (procedure) [code = 806615053] Future Scheduled 2021-07-05 TETANUS SHOT [facility]acho [facility] Test 14:22:46 (ADULT) [code = of Medicine TETANUS SHOT (ADULT)] Future Scheduled 2021-07-05 ZOSTER VACCINE (1 [facility] Test 14:22:46 of 2) [code = of Medicine ZOSTER VACCINE (1 of 2)] Future Scheduled 2021-07-05 MEDICARE AWV [facility] Test 14:22:46 (Initial) [code = [...] Future Scheduled 2021-07-05 FLU VACCINE > 6 [facility] Test 14:22:46 MONTHS [code = FLU of Medici ne VACCINE > 6 MONTHS] Future Scheduled 2021-03-29 COVID-19 VACCINE (3 Meth [...] RETINAL EYE EXAM] Future Scheduled 2021-03-29 COLONOSCOPY [facility] Test 08:58:26 SCREENING [code = Hospital COLONOSCOPY SCREENING] Future Scheduled 2021-02-11 Screening for [facility] Test 12:30:49 malignant neoplasm of Medici ne of colon (procedure) [code = 752540618] Future Scheduled 2021-02-11 TETANUS SHOT [facility] Test 12:30:49 (ADULT) [code = of Medicine TETANUS SHOT (ADULT)] Future Scheduled 2021-02-11 ZOSTER VACCINE (1 [facility] Test 12:30:49 of 2) [code = of Medicine ZOSTER VACCINE (1 of 2)] Future Scheduled 2021-02-11 MEDICARE AWV [facility] Test 12:30:49 (Initial) [code = of Medicin e MEDICARE AWV (Initial)] Future Scheduled 2021-02-11 FALL SCREEN [code = [employer] Test 12:30:49 FALL SCREEN] of Medicine Future Scheduled 2021-02-11 FLU VACCINE > 6 [facility] Test 12:30:49 MONTHS [code = FLU of Medici ne VACCINE > 6 MONTHS] Future Scheduled 2021-02-11 COVID-19 Vaccine (3 [employer] Test 12:30:49 - Booster for of Medicine Pfizer series) [code = COVID-19 Vaccine (3 - Booster for Pfizer series)] Future Scheduled 2021-02-11 VIDEO URODYNAMICS 1 Occurrences [employer] Test 12:04:01 [code = 26647] starting of Medicine 02/11/2021 until 02/11/2022 Future Scheduled 2021-02-11 CYSTOSCOPY [code = 1 Occurrences [employer] Test 12:04:01 [id number]] starting of Medicine 02/11/2021 until 02/11/2022 Future Scheduled 2020-07-06 Screening for [facility] Test 17:53:45 malignant neoplasm of Medici ne of colon (procedure) [code = 754140194] Future Scheduled 2020-07-06 TETANUS SHOT [facility] Test 17:53:45 (ADULT) [code = of Medicine TETANUS SHOT (ADULT)] Future Scheduled 2020-07-06 ZOSTER VACCINE (1 [facility] Test 17:53:45 of 2) [code = of Medicine ZOSTER VACCINE (1 of 2)] Future Scheduled 2020-07-06 MEDICARE AWV [facility] Test 17:53:45 (Initial) [code = of Medicin e MEDICARE AWV (Initial)] Future Scheduled 2020-07-06 FALL SCREEN [code = [employer] Test 17:53:45 FALL SCREEN] of Medicine Future Scheduled 2020-07-06 FLU VACCINE > 6 [facility] Test 17:53:45 MONTHS [code = FLU of Medici ne VACCINE > 6 MONTHS] Future Scheduled 2020-07-06 URINALYSIS W REFLEX Ordered: [employer] Test 13:23:19 MICRO [code = 07/06/2020 of Medicine NOCPT] Encounters Start End Encounter Admission Attending Care Care Encounter Source Date/Time Date/Time Type Type Clinicians Facility Department ID 2021-10-15 Hospital Neason, 1.2.840.1 [id number] Methodi 11:33:00 Encounter Kaleb Fay 06118.1.[address] 3.430.2.7 Hospit a .3.318717 l .8 2022-05-05 2022-05-05 Outpatient DANIEL MOMIN [facility] [id number] [address] [place] [address] 00:00:00 00:00:00 TORY Arroyo Medicin e 2022-04-21 2022-04-21 Refill Galati, 1.2.840.1 [id number] Methodi 00:00:00 00:00:00 [address]rit[address] 3.430.2.7 Hospit a .3.953089 l .8 2022-04-14 2022-04-14 Telephone Pritesh, 1.2.840.1 [id number] 2099 [id number] Methodi 00:00:00 00:00:00 Linda Garcia 43201.1.[address] 3.430.2.7 Hospit a .3.996133 l .8 2022-03-30 2022-03-30 Patient Jewel, 1.2.840.1 [id number] 2099 [id number] Methodi 00:00:00 00:00:00 Outreach Salome 60182.1.[address] 3.430.2.7 Hospit a .3.797761 l .8 2022-03-29 2022-03-29 Refill Maddie, 1.2.840.1 [id number] 2100 [id number] Methodi 00:00:00 00:00:00 Renetta FloresMireille [address]22.1.[address] 3.430.2.7 Hospit a .3.985283 l .8 2022-03-23 2022-03-23 Infusion 1.2.840.1 [id number] 66916 Methodi 10:15:00 10:45:[address] 3.430.2.7 Hospit a .3.884684 l .8 2022-03-23 2022-03-[address] [facility], 1.2.840.1 [id number] 773 [id number] Methodi 09:20:00 09:21:19 ne Laya [address]7571.1.[address] [place] 3.430.2.7 Hospit a .3.130645 l .8 2022-03-23 2022-03-23 Travel 1.2.840.1 1.2.067.921 5044 [id number] Methodi 00:00:00 00:00:[address] 3.430.2.7 0.2.7.3.698 Ho spita .3.290845 084.8 l .8 2022-03-23 2022-03-[address] [facility], [facility] [id number] 443 [place] 00:00:00 00:00:00 LAYA [address] 2022-03-23 2022-03-23 Outpatient [facility] [id number] 454 [place] 00:00:00 00:00:[address] 2022-02-16 2022-03-11 Telephone Paula, 1.2.840.1 [id number] 2 [id number] Methodi 16:00:00 10:54:31 Consult Renee 36024.1.[address] 3.430.2.7 Hospit a .3.386312 l .8 2022-03-10 2022-03-10 Office Arin, 1.2.840.5 [id number] [id number] Methodi 10:45:00 11:16:41 Visit Petra Mc 39750.1.1 131 [address] t 3.430.2.7 Hospit a .3.795235 l .8 2022-03-10 2022-03-10 Travel 1.2.840.1 1.2.426.140 5708 [id number] Methodi 00:00:00 00:00:[address] 3.430.2.7 0.2.7.3.698 Ho spita .3.463616 084.8 l .8 2022-03-10 2022-03-10 Outpatient ARIN, [facility] [id number] 673 [place] 00:00:00 00:00:00 PETRA [address] 2022-03-09 2022-03-09 Refill Maddie, 1.2.840.1 [id number] 2099 [id number] Methodi 00:00:00 00:00:00 Renetta FloresMireille [address].1.[address] 3.430.2.7 Hospit a .3.005412 l .8 2022-03-03 2022-03-03 Office Maddie, 1.2.840.1 [id number] 2099 [id number] Methodi 10:20:00 11:24:52 Visit Renetta FloresMireille 93051.1.[address] 3.430.2.7 Hospit a .3.795819 l .8 2022-03-03 2022-03-03 Travel 1.2.840.1 1.2.876.248 2533 [id number] Methodi 00:00:00 00:00:[address] 3.430.2.7 0.2.7.3.698 Ho spita .3.480737 084.8 l .8 2022-03-03 2022-03-03 Outpatient MADDIE, [facility] [id number] 023 [place] 00:00:00 00:00:00 RENETTA [address] 2022-02-16 2022-02-16 Telephone Cedeno, 1.2.840.1 [id number] 2099 [id number] Methodi 00:00:00 00:00:[address] 3.430.2.7 Hospit a .3.695382 l .8 2022-02-16 2022-02-16 Outpatient PAULA, [facility] 2100 [id number] [place] 00:00:00 00:00:00 RENEE [facility] 2022-02-15 2022-02-15 Travel 1.2.840.1 1.2.211.938 1463 360833 Methodi 00:00:00 00:00:[address] 3.430.2.7 0.2.7.3.698 Ho spita .3.782265 084.8 l .8 2022-02-09 2022-02-09 Telephone Yen Desai 1.2.840.5 [id number] 2 [id number] Methodi 00:00:00 00:00:[address] 3.430.2.7 Hospit a .3.796514 l .8 2022-01-27 2022-01-27 Patient Jewel, 1.2.840.1 [id number] 2100 [id number] Methodi 00:00:00 00:00:00 Outreach Salome 67307.1.[address] 3.430.2.7 Hospit a .3.561807 l .8 2022-01-26 2022-01-26 Telemedici Varghesevandana, 1.2.840.1 [id number] Methodi 16:20:00 16:35:38 [address]686.1.[address] 3.430.2.7 Hospit a .3.943093 l .8 2022-01-26 2022-01-26 Outpatient [facility] 2100 [id number] [place] 00:00:00 00:00:00 RENEE [address] 2022-01-17 2022-01-17 Travel 1.2.840.1 1.2.274.838 3301 [id number] Methodi 00:00:00 00:00:[address] 3.430.2.7 0.2.7.3.698 Ho spita .3.359735 084.8 l .8 2022-01-14 2022-01-14 Patient Jewel, 1.2.840.1 [id number] 2100 [id number] Methodi 00:00:00 00:00:00 Outreach Salome 16424.1.[address] 3.430.2.7 Hospit a .3.317466 l .8 2022-01-13 2022-01-13 Patient Jewel, 1.2.840.1 [id number] 2100 [id number] Methodi 00:00:00 00:00:00 Outreach Salome 45611.1.[address] 3.430.2.7 Hospit a .3.059947 l .8 2022-01-12 2022-01-12 Orders Nicolette, 1.2.840.1 [id number] 85391 96337 Methodi 00:00:00 00:00:00 Only Yolanda 71706.1.[address] 3.430.2.7 Hospit a .3.375489 l .8 2022-01-10 2022-01-10 [facility], 1.2.840.1 [id number] 21 [id number] Methodi 06:11:00 13:47:00 Encounter Renee 47105.1.[address] 3.430.2.7 Hospit a .3.840233 l .8 2022-01-10 2022-01-10 [facility], 1.2.840.1 [id number] 846 [id number] Methodi 10:28:00 11:38:[address] 3.430.2.7 Hospit a .3.245602 l .8 2022-01-10 2022-01-10 Travel 1.2.840.1 1.2.765.474 0232 997635 Methodi 00:00:00 00:00:[address] 3.430.2.7 0.2.7.3.698 Ho spita .3.785819 084.8 l .8 2022-01-10 2022-01-10 Outpatient [facility] 021 2099 [id number] [place] 00:00:00 00:00:00 RAYAN [address] 2022-01-07 2022-01-07 Travel 1.2.840.1 1.2.571.118 3900 189781 Methodi 00:00:00 00:00:[address] 3.430.2.7 0.2.7.3.698 Ho spita .3.734026 084.8 l .8 2022-01-07 2022-01-07 Outpatient KEYONNADOC, [facility] 2100 [id number] [place] 00:00:00 00:00:00 RENEE [address] 2022-01-06 2022-01-06 Refill Jason, 1.2.840.1 [id number] 2099 [id number] Methodi 00:00:00 00:00:[address] 3.430.2.7 Hospit a .3.137781 l .8 2022-01-05 2022-01-05 Outpatient KEYONNADOC, [facility] 2100 [id number] [place] 00:00:00 00:00:00 RENEE [address] 2022-01-05 2022-01-05 Travel 1.2.840.1 1.2.621.138 6042 [id number] Methodi 00:00:00 00:00:[address] 3.430.2.7 0.2.7.3.698 Ho spita .3.695231 084.8 l .8 2021-12-31 2021-12-31 Patient Jewel, 1.2.840.1 [id number] 2100 [id number] Methodi 00:00:00 00:00:00 Outreach Salome 44847.1.[address] 3.430.2.7 Hospit a .3.915683 l .8 2021-12-30 2021-12-30 Patient Jewel, 1.2.840.1 [id number] 2100 [id number] Methodi 00:00:00 00:00:00 Outreach Salome 08648.1.[address] 3.430.2.7 Hospit a .3.161761 l .8 2021-12-22 2021-12-23 Office Paula, 1.2.840.1 [id number] Methodi 13:40:00 09:52:29 Visit Renee 06005.1.[address] 3.430.2.7 Hospit a .3.449769 l .8 2021-12-23 2021-12-23 Orders Yousefzai, 1.2.840.1 [id number] 005 [id number] Methodi 00:00:00 00:00:00 Only Renee 46230.1.[address] 3.430.2.7 Hospit a .3.284876 l .8 2021-12-22 2021-12-23 [facility] 2100 [id number] [place] 00:00:00 00:00:00 RAYAN [address] 2021-12-22 2021-12-22 Office Sad, 1.2.840.1 [id number] 1082 Methodi 15:00:00 15:20:00 Visit Laya 29535.1.[address] [place] 3.430.2.7 Hospit a .3.271291 l .8 2021-12-22 2021-12-22 Travel 1.2.840.1 1.2.332.681 3140 026972 Methodi 00:00:00 00:00:[address] 3.430.2.7 0.2.7.3.698 Ho spita .3.617805 084.8 l .8 2021-12-22 2021-12-22 Outpatient [facility] [id number] 065 [place] 00:00:00 00:00:00 LAYA [address] 2021-12-17 2021-12-17 Patient Jewel, 1.2.840.1 [id number] 2099 [id number] Methodi 00:00:00 00:00:00 Outreach Salome 79807.1.[address] 3.430.2.7 Hospit a .3.953570 l .8 2021-12-15 2021-12-15 Refill Sadhu, 1.2.840.1 [id number] 0234 Methodi 00:00:00 00:00:[address] [place] 3.430.2.7 Hospit a .3.188299 l .8 2021-12-15 2021-12-15 Refill Younis, 1.2.840.1 [id number] 2099 046210 Methodi 00:00:00 00:00:00 Ren[address].1.[address] 3.430.2.7 Hospit a .3.793772 l .8 2021-12-10 2021-12-10 Patient Jewel, 1.2.840.1 [id number] 2099 [id number] Methodi 00:00:00 00:00:00 Outreach Salome 02448.1.[address] 3.430.2.7 Hospit a .3.602214 l .8 2021-12-06 2021-12-06 Orders Sayago, 1.2.840.1 [id number] 7502 Methodi 00:00:00 00:00:00 Only Kaila 15453.1.[address] 3.430.2.7 Hospit a .3.075192 l .8 2021-12-03 2021-12-03 Refill Feliciacaleb, 1.2.840.1 [id number] 2099 [id number] Methodi 00:00:00 00:00:00 Ren[address] L[address] 3.430.2.7 Hospit a .3.992204 l .8 2021-12-03 2021-12-03 Orders Savage, 1.2.840.1 [id number] 5743 Methodi 00:00:00 00:00:00 Only Kym 94245.1.[address] 3.430.2.7 Hospit a .3.856869 l .8 2021-12-02 2021-12-02 Office Younis, 1.2.840.1 [id number] 2099 [id number] Methodi 14:00:00 15:58:42 Visit Renetta Loo 23750.1.[address] 3.430.2.7 Hospit a .3.863190 l .8 2021-12-02 2021-12-02 Travel 1.2.840.1 1.2.663.137 4415 [id number] Methodi 00:00:00 00:00:[address] 3.430.2.7 0.2.7.3.698 Ho spita .3.376002 084.8 l .8 2021-12-02 2021-12-02 Outpatient MADDIE, [facility] [id number] 858 [place] 00:00:00 00:00:00 RENETTA [address] 2021-11-30 2021-11-30 Refill Yue, 1.2.840.1 [id number] 6514 Methodi 00:00:00 00:00:[address] [place] 3.430.2.7 Hospit a .3.238031 l .8 2021-11-29 2021-11-29 Office Arin, 1.2.840.7 [id number] 17281 Methodi 09:45:00 10:24:16 Visit Petra Alexandro 45808.1.1 150 [address] 3.430.2.7 Hospit a .3.846432 l .8 2021-11-29 2021-11-29 Travel 1.2.840.1 1.2.203.474 7707 639027 Methodi 00:00:00 00:00:[address] 3.430.2.7 0.2.7.3.698 Ho spita .3.943509 084.8 l .8 2021-11-29 2021-11-29 [facility] [id number] 348 [place] 00:00:00 00:00:00 PETRA Garza [facility] 2021-11-25 2021-11-25 Multidisci Joseph, 1.2.840.1 [id number] 21 [id number] Methodi 13:30:00 14:26:05 plinary Ankit 65785.1.[address] Visit Christiano 3.430.2.7 Hospit a .3.497475 l .8 2021-11-25 2021-11-25 Telephone Nicolette, 1.2.840.1 [id number] 047 [id number] Methodi 00:00:00 00:00:[address] 3.430.2.7 Hospit a .3.379746 l .8 2021-11-25 2021-11-25 Orders Yeh, Selene 1.2.840.1 [id number] 92727 95959 Methodi 00:00:00 00:00:00 Only Ling 30880.1.[address] 3.430.2.7 Hospit a .3.177598 l .8 2021-11-25 2021-11-25 Travel 1.2.840.1 1.2.539.291 5940 952756 Methodi 00:00:00 00:00:[address] 3.430.2.7 0.2.7.3.698 Ho spita .3.835585 084.8 l .8 2021-11-25 2021-11-25 [facility] [id number] 3110 [place] 00:00:00 00:00:00 ANKIT [address] 2021-11-24 2021-11-24 Telephone Raman, 1.2.840.1 [id number] Methodi 00:00:00 00:00:[address] 3.430.2.7 Hospit a .3.654026 l .8 2021-11-24 2021-11-24 Orders Raman, 1.2.840.1 [id number] 2099 [id number] Methodi 00:00:00 00:00:00 Only Caryn 31326.1.[address] 3.430.2.7 Hospit a .3.737458 l .8 2021-11-23 2021-11-23 Orders Hung, 1.2.840.1 [id number] 87910 Methodi 00:00:00 00:00:00 Only Renee 62413.1.[address] 3.430.2.7 Hospit a .3.040865 l .8 2021-11-19 2021-11-19 Orders Chon, 1.2.840.8 [id number] Methodi 00:00:00 00:00:00 Only Mary Jane E 89609.1.[address] 3.430.2.7 Hospit a .3.887732 l .8 2021-11-19 2021-11-19 Telephone Joseph, 1.2.840.1 [id number] 068 [id number] Methodi 00:00:00 00:00:[address] Christiano 3.430.2.7 Hospit a .3.581841 l .8 2021-11-18 2021-11-18 Patient Jewel, 1.2.840.1 [id number] 2099 [id number] Methodi 00:00:00 00:00:00 Outreach Salome 14575.1.[address] 3.430.2.7 Hospit a .3.009956 l .8 2021-11-17 2021-11-17 Refill Yue, 1.2.840.1 [id number] 6196 Methodi 00:00:00 00:00:[address] [place] 3.430.2.7 Hospit a .3.466585 l .8 2021-11-15 2021-11-15 Telephone Hamlet, 1.2.840.1 [id number] 2099 [id number] Methodi 00:00:00 00:00:00 Mel R [address]388.1.[address] 3.430.2.7 Hospit a .3.385270 l .8 2021-11-11 2021-11-11 Telephone Sandra, 1.2.840.1 [id number] 2099 [id number] Methodi 00:00:00 00:00:[address] 3.430.2.7 Hospit a .3.278625 l .8 2021-11-11 2021-11-11 Orders Sandra, 1.2.840.1 [id number] 2720 Methodi 00:00:00 00:00:00 Only Giovanna 03860.1.[address] 3.430.2.7 Hospit a .3.404634 l .8 2021-11-08 2021-11-08 Telemedici Kat, 1.2.840.1 [id number] Methodi 14:15:00 14:15:00 ne Tiff 36760.1.[address] Prit[place] 3.430.2.7 Hospit a .3.271021 l .8 2021-11-08 2021-11-08 Outpatient KAT, [facility] [id number] 2704 [place] 00:00:00 00:00:00 TIFF [address] 2021-11-04 2021-11-04 Multidisci Joseph, 1.2.840.1 [id number] 21 [id number] Methodi 14:30:00 16:09:41 plinary Ankit 55847.1.[address] Visit Christiano 3.430.2.7 Hospit a .3.161169 l .8 2021-11-04 2021-11-04 Telephone Sandra, 1.2.840.1 [id number] 2099 [id number] Methodi 00:00:00 00:00:[address] 3.430.2.7 Hospit a .3.367274 l .8 2021-11-04 2021-11-04 Travel 1.2.840.1 1.2.612.635 7662 [id number] Methodi 00:00:00 00:00:[address] 3.430.2.7 0.2.7.3.698 Ho spita .3.645673 084.8 l .8 2021-11-04 2021-11-04 [facility] [id number] 5490 [place] 00:00:00 00:00:00 ANKIT [address] 2021-10-30 2021-10-30 Orders Elo, 1.2.840.1 [id number] 3700 Methodi 00:00:00 00:00:00 Only Lucy 09747.1.[address] 3.430.2.7 Hospit a .3.076800 l .8 2021-10-29 2021-10-29 Patient Jewel, 1.2.840.1 [id number] 2099 [id number] Methodi 00:00:00 00:00:00 Outreach Salome [address]8412.1.[address] 3.430.2.7 Hospit a .3.691302 l .8 2021-10-29 2021-10-29 Telephone Elo, 1.2.840.1 [id number] 2099 [id number] Methodi 00:00:00 00:00:[address] 3.430.2.7 Hospit a .3.416434 l .8 2021-10-28 2021-10-28 Telephone Joseph, 1.2.840.1 [id number] 914 [id number] Methodi 00:00:00 00:00:[address] Christiano 3.430.2.7 Hospit a .3.836721 l .8 2021-10-28 2021-10-28 Patient Jewel, 1.2.840.1 [id number] 2099 [id number] Methodi 00:00:00 00:00:00 Outreach Salome 83915.1.[address] 3.430.2.7 Hospit a .3.475503 l .8 2021-10-28 2021-10-28 Patient Laurie, 1.2.840.1 [id number] 579689 1192 Methodi 00:00:00 00:00:00 Outreach Bárbara [address]81.1.[address] 3.430.2.7 Hospit a .3.296322 l .8 2021-10-28 2021-10-28 Patient Av Vázquez 1.2.840.1 [id number] 21 [id number] Methodi 00:00:00 00:00:[address] 3.430.2.7 Hospit a .3.695088 l .8 2021-10-28 2021-10-28 Telephone Jonna, 1.2.840.1 [id number] 21 [id number] Methodi 00:00:00 00:00:[address] 3.430.2.7 Hospit a .3.124202 l .8 2021-10-15 2021-10-[facility] 1.2.840.1 104 [id number] Methodi 13:56:00 18:06:00 Encounter Kaleb Nguyen 20996.1.[address] Jonna Emery 3.430.2.7 Ho Seth Foxshon .3.480966 l .8 2021-10-15 2021-10-27 Inpatient PING [facility] 064 [id number] 64 [place] 00:00:00 00:00:[address] 2021-10-24 2021-10-24 Refill Yue, 1.2.840.1 [id number] 3796 Methodi 00:00:00 00:00:[address] [place] 3.430.2.7 Hospit a .3.664411 l .8 2021-10-22 2021-10-22 Telephone Adam 1.2.840.1 [id number] 21 [id number] Methodi 00:00:00 00:00:00 Jacki Brady 88216.1.[address] 3.430.2.7 Hospit a .3.834906 l .8 2021-10-20 2021-10-20 Hospital Logan Robertson 1.2.840.1 [id number] 2 [id number] Methodi 08:32:32 23:59:00 Encounter Ali 44518.1.[address] 3.430.2.7 Hospit a .3.064762 l .8 2021-10-20 2021-10-20 [facility] [facility] 2100 [id number] [place] 00:00:00 00:00:[address] 2021-10-19 2021-10-19 [facility] 1.2.840.1 [id number] 2 [id number] Methodi 23:59:00 23:59:00 Encounter Ali 85994.1.[address] 3.430.2.7 Hospit a .3.583001 l .8 2021-10-19 2021-10-19 Outpatient ROBERTSONLOGAN SANCHEZ [facility] 503 [id number] [place] 00:00:00 00:00:[address] 2021-10-15 2021-10-15 Office Younis, 1.2.840.1 [id number] 2099 [id number] Methodi 10:20:00 11:47:57 Visit Renetta Loo 67868.1.[address] 3.430.2.7 Hospit a .3.219406 l .8 2021-10-15 2021-10-15 Patient Jared, 1.2.840.1 [id number] 456446 7178 Methodi 00:00:00 00:00:00 Outreach Rosalia Ta 08560.1.[address] 3.430.2.7 Hospit a .3.953329 l .8 2021-10-15 2021-10-15 Travel 1.2.840.1 1.2.189.503 9010 440429 Methodi 00:00:00 00:00:[address] 3.430.2.7 0.2.7.3.698 Ho spita .3.939314 084.8 l .8 2021-10-15 2021-10-15 Outpatient YOUN, [facility] [id number] 597 [place] 00:00:00 00:00:00 RENETTA [address] 2021-10-14 2021-10-14 Travel 1.2.840.1 1.2.021.192 1942 952457 Methodi 00:00:00 00:00:[address] 3.430.2.7 0.2.7.3.698 Ho spita .3.283501 084.8 l .8 2021-10-14 2021-10-14 Telephone Maddie, 1.2.840.1 [id number] Methodi 00:00:00 00:00:00 Ren[address] Loo [address]47.1.[address] 3.430.2.7 Hospit a .3.302877 l .8 2021-10-14 2021-10-14 Orders Savage, 1.2.840.1 [id number] 998891 2417 Methodi 00:00:00 00:00:00 Only Kym 95381.1.[address] 3.430.2.7 Hospit a .3.657496 l .8 2021-09-29 2021-09-29 Refill [facility], 1.2.840.1 [id number] 493475 0680 Methodi 00:00:00 00:00:[address] 3.430.2.7 Hospit a .3.432419 l .8 2021-09-28 2021-09-[address] [facility], 1.2.840.1 [id number] 634732 2635 Methodi 11:00:00 11:20:00 Visit Laya 94474.1.[address] [place] 3.430.2.7 Hospit a .3.025635 l .8 2021-09-28 2021-09-28 Travel 1.2.840.1 1.2.309.253 1771 268028 Methodi 00:00:00 00:00:[address] 3.430.2.7 0.2.7.3.698 Ho spita .3.424640 084.8 l .8 2021-09-28 2021-09-[address] [facility], [facility] [id number] [address] [place] [address] 00:00:00 00:00:00 LAYA [address] 2021-09-23 2021-09-[address] [facility], 1.2.840.1 [id number] 2487 Methodi 00:00:00 00:00:[address] [place] 3.430.2.7 Hospit a .3.394657 l .8 2021-09-23 2021-09-23 Orders Savage, 1.2.840.1 [id number] 026431 5231 Methodi 00:00:00 00:00:00 Only Kym 29763.1.[address] 3.430.2.7 Hospit a .3.382192 l .8 2021-09-22 2021-09-22 [facility] [id number] 6837 Methodi 10:30:00 10:45:00 Visit Pritesh Ko 60293.1.[address] 3.430.2.7 Hospit a .3.594414 l .8 2021-09-22 2021-09-22 Travel 1.2.840.1 1.2.817.192 4080 342009 Methodi 00:00:00 00:00:[address] 3.430.2.7 0.2.7.3.698 Ho spita .3.691083 084.8 l .8 2021-09-22 2021-09-22 Outpatient [facility] [id number] 791 [place] 00:00:00 00:00:00 PRITESH [address] 2021-09-14 2021-09-14 [facility], 1.2.840.1 [id number] [id number] 9535 Methodi 00:00:00 00:00:[address] [place] 3.430.2.7 Hospit a .3.960400 l .8 2021-09-03 2021-09-03 [facility], 1.2.840.1 [id number] 63898 89857 Methodi 09:29:39 23:59:00 Encounter Pritesh KeyonMireille 62532.1.[address] 3.430.2.7 Hospit a .3.295884 l .8 2021-09-03 2021-09-03 [facility], 1.2.840.1 [id number] 43582 64458 Methodi 09:29:24 23:59:00 Encounter Pritesh S. 32089.1.[address] 3.430.2.7 Hospit a .3.997483 l .8 2021-09-03 2021-09-03 [facility], 1.2.840.1 [id number] 50414 70142 Methodi 08:19:02 09:28:00 Encounter Pritesh S. 29733.1.[address] 3.430.2.7 Hospit a .3.130114 l .8 2021-09-03 2021-09-03 Travel 1.2.840.1 1.2.157.640 5402 704864 Methodi 00:00:00 00:00:[address] 3.430.2.7 0.2.7.3.698 Ho spita .3.319294 084.8 l .8 2021-09-03 2021-09-03 Outpatient GALATI, [facility] [id number] 791 [place] 00:00:00 00:00:00 PRITESH [address] 2021-09-03 2021-09-03 Outpatient GALATI, [facility] [id number] 791 [place] 00:00:00 00:00:00 PRITESH [address] 2021-09-03 2021-09-03 Outpatient GALATI, [facility] [id number] 791 [place] 00:00:00 00:00:00 PRITESH [address] 2021-09-03 2021-09-03 Outpatient GALATI, [facility] [id number] 791 [place] 00:00:00 00:00:00 PRITESH [address] 2021-08-31 2021-08-31 Yola Lara, 1.2.840.1 [id number] 2100 418351 Methodi 00:00:00 00:00:[address] 3.430.2.7 Hospit a .3.597243 l .8 2021-08-24 2021-08-24 Travel 1.2.840.1 1.2.432.671 3792 019083 Methodi 00:00:00 00:00:[address] 3.430.2.7 0.2.7.3.698 Ho spita .3.809716 084.8 l .8 2021-08-24 2021-08-[address] [facility], [facility] [id number] 119 [place] 00:00:00 00:00:00 LAYA [address] 2021-08-10 2021-08-10 Triston Ray, 1.2.840.1 [id number] 769769 5345 Methodi 00:00:00 00:00:00 Only Margaret 87610.1.[address] 3.430.2.7 Hospit a .3.285662 l .8 2021-08-07 2021-08-07 Refill Coco, 1.2.840.1 [id number] 2099 175321 Methodi 00:00:00 00:00:00 Efren Ng 64396.1.1 804 s t 3.430.2.7 Hospit a .3.550939 l .8 2021-07-30 2021-07-30 Orders Savage, 1.2.840.1 [id number] 359787 5175 Methodi 00:00:00 00:00:00 Only Kym 80467.1.[address] 3.430.2.7 Hospit a .3.505201 l .8 2021-07-21 2021-07-21 Telephone Nery, 1.2.840.1 [id number] 2099 452459 Methodi 09:15:00 09:57:33 Consult Amalia 87780.1.[address] 3.430.2.7 Hospit a .3.062605 l .8 2021-07-21 2021-07-21 Travel 1.2.840.1 1.2.741.661 1315 288715 Methodi 00:00:00 00:00:[address] 3.430.2.7 0.2.7.3.698 Ho spita .3.860230 084.8 l .8 2021-07-21 2021-07-21 Outpatient [facility] [id number] 873 [place] 00:00:00 00:00:[address] 2021-07-14 2021-07-14 Refill Yue, 1.2.840.1 [id number] 996501 6963 Methodi 00:00:00 00:00:[address] [place] 3.430.2.7 Hospit a .3.046891 l .8 2021-07-14 2021-07-14 Refill Maddie, 1.2.840.1 [id number] 2099 815068 Methodi 00:00:00 00:00:00 [address]ireille [address]89.[address] 3.430.2.7 Hospit a .3.326573 l .8 2021-07-08 2021-07-08 Refill Jewel, 1.2.840.1 [id number] 2100 618993 Methodi 00:00:00 00:00:[address] 3.430.2.7 Hospit a .3.330993 l .8 2021-07-08 2021-07-08 Refill Maddie, 1.2.840.1 [id number] 2099 884755 Methodi 00:00:00 00:00:00 Renetta Loo 80004.1.[address] 3.430.2.7 Hospit a .3.822523 l .8 2021-07-05 2021-07-05 Office DANIEL MOMIN 1.2.840.114 [id number] 76 [facility] 13:04:53 14:02:13 Visit [place] AMB[employer] 350.1.13.21 College Y 0.2.7.2.686 of 529.6447967 Medi steve 300 e 2021-06-18 2021-06-18 Refill Yue, 1.2.840.1 [id number] 897242 2499 Methodi 00:00:00 00:00:[address] [place] 3.430.2.7 Hospit a .3.763481 l .8 2021-06-09 2021-06-09 Telemedici Elo, 1.2.840.1 [id number] 102 7618325 Methodi 14:30:00 15:43:14 ne Lucy 43750.1.[address] 3.430.2.7 Hospit a .3.207882 l .8 2021-06-09 2021-06-09 Outpatient ELO, [facility] [id number] 090 [place] 00:00:00 00:00:[address] LUCY [address] 2021-06-08 2021-06-08 Telephone Elo, 1.2.840.1 [id number] 2100 385341 Methodi 00:00:00 00:00:[address] 3.430.2.7 Hospit a .3.800334 l .8 2021-05-18 2021-05-18 Orders Savage, 1.2.840.1 [id number] 802153 9096 Methodi 00:00:00 00:00:00 Only Kym 68141.1.[address] 3.430.2.7 Hospit a .3.499355 l .8 2021-05-18 2021-05-18 Orders Savage, 1.2.840.1 [id number] 952909 4136 Methodi 00:00:00 00:00:00 Only Kym 97145.1.[address] 3.430.2.7 Hospit a .3.344433 l .8 2021-05-11 2021-05-11 Refill Sadhu, 1.2.840.1 [id number] 433898 7394 Methodi 00:00:00 00:00:[address] [place] 3.430.2.7 Hospit a .3.265967 l .8 2021-05-04 2021-05-04 Refill Sadhu, 1.2.840.1 [id number] 011305 5495 Methodi 00:00:00 00:00:[address] [place] 3.430.2.7 Hospit a .3.190118 l .8 2021-04-20 2021-04-20 Outpatient ELO, [facility] [id number] 059 [place] 00:00:00 00:00:00 LUCY [address] 2021-04-14 2021-04-14 Outpatient [facility] [id number] 280 [place] 00:00:00 00:00:00 LAYA [address] 2021-03-14 2021-03-14 Refill Sadhu, 1.2.840.1 [id number] 147808 0625 Methodi 00:00:00 00:00:[address] [place] 3.430.2.7 Hospit a .3.436772 l .8 2021-03-12 2021-03-12 Refill Sadhu, 1.2.840.1 [id number] 040361 3185 Methodi 00:00:00 00:00:[address] [place] 3.430.2.7 Hospit a .3.023323 l .8 2021-03-09 2021-03-09 Refill Elo, 1.2.840.1 [id number] 126417 9195 Methodi 00:00:00 00:00:[address] 3.430.2.7 Hospit a .3.095442 l .8 2021-02-23 2021-02-23 Orders Savage, 1.2.840.1 [id number] 903718 3757 Methodi 00:00:00 00:00:00 Only Kym 81446.1.[address] 3.430.2.7 Hospit a .3.559467 l .8 2021-02-11 2021-02-11 Office Merrill DANIEL 1.2.840.[address] [place] [address] 11:15:00 12:09:37 Visit [employer] AM[employer] 350.1.13.21 College Y 0.2.7.2.686 of 496.3205920 Medi steve 300 e 2021-02-01 2021-02-01 Refill Yue, 1.2.840.1 [id number] 848929 4215 Methodi 00:00:00 00:00:[address] [place] 3.430.2.7 Hospit a .3.011114 l .8 2021-02-01 2021-02-01 Orders Savage, 1.2.840.1 [id number] 170657 2903 Methodi 00:00:00 00:00:00 Only Kym 72649.1.[address] 3.430.2.7 Hospit a .3.657965 l .8 2021-02-01 2021-02-01 Orders Savage, 1.2.840.1 [id number] 462987 7485 Methodi 00:00:00 00:00:00 Only Kym 42760.1.[address] 3.430.2.7 Hospit a .3.914966 l .8 2021-01-29 2021-01-29 Orders Savage, 1.2.840.1 [id number] 168834 6804 Methodi 00:00:00 00:00:00 Only Kym 66005.1.[address] 3.430.2.7 Hospit a .3.800851 l .8 2021-01-29 2021-01-29 Orders Hussein, 1.2.840.1 [id number] 281446 8510 Methodi 00:00:00 00:00:00 Only Kym 74209.1.[address] 3.430.2.7 Hospit a .3.263300 l .8 2020-12-30 2020-12-30 Patient Stephen, 1.2.840.1 [id number] 2100 623448 Methodi 00:00:00 00:00:00 Outreach Jocelynn 37869.1.[address] 3.430.2.7 Hospit a .3.751506 l .8 2020-12-23 2020-12-23 Patient Stephen, 1.2.840.1 [id number] 2100 331083 Methodi 00:00:00 00:00:00 Outreach Jocelynn 56020.1.[address] 3.430.2.7 Hospit a .3.505348 l .8 2020-12-16 2020-12-16 Patient Stephen, 1.2.840.1 [id number] 2100 906533 Methodi 00:00:00 00:00:00 Outreach Jocelynn 39859.1.[address] 3.430.2.7 Hospit a .3.283233 l .8 2020-12-15 2020-12-15 Patient Junaid, 1.2.840.1 [id number] Methodi 00:00:00 00:00:00 Outreach Renee 69477.1.[address] 3.430.2.7 Hospit a .3.155104 l .8 2020-12-14 2020-12-14 Infusion 1.2.840.1 [id number] 24513 Methodi 11:29:30 11:59:[address] 3.430.2.7 Hospit a .3.917857 l .8 2020-12-14 2020-12-14 Travel 1.2.840.1 1.2.548.649 8964 788909 Methodi 00:00:00 00:00:[address] 3.430.2.7 0.2.7.3.698 Ho spita .3.208701 084.8 l .8 2020-12-09 2020-12-09 Patient Stephen, 1.2.840.1 [id number] 2100 264802 Methodi 00:00:00 00:00:00 Outreach Jocelynn 56021.1.[address] 3.430.2.7 Hospit a .3.291752 l .8 2020-12-03 2020-12-03 Refill Yue, 1.2.840.1 [id number] 840036 1939 Methodi 00:00:00 00:00:[address] [place] 3.430.2.7 Hospit a .3.662458 l .8 2020-12-02 2020-12-02 Patient Stephen, 1.2.840.1 [id number] 2100 526128 Methodi 00:00:00 00:00:00 Outreach Jocelynn 23508.1.[address] 3.430.2.7 Hospit a .3.320397 l .8 2020-11-27 2020-11-27 Orders Savage, 1.2.840.1 [id number] 063199 3649 Methodi 00:00:00 00:00:00 Only Kym 32978.1.[address] 3.430.2.7 Hospit a .3.834159 l .8 2020-11-25 2020-11-25 Patient Stephen, 1.2.840.1 [id number] 2100 029425 Methodi 00:00:00 00:00:00 Outreach Jocelynn 34076.1.[address] 3.430.2.7 Hospit a .3.656118 l .8 2020-11-20 2020-11-20 Telephone Shavonne, 1.2.840.1 [id number] 2100 454025 Methodi 00:00:00 00:00:[address] 3.430.2.7 Hospit a .3.414283 l .8 2020-11-19 2020-11-19 Orders [facility], 1.2.840.1 [id number] 867340 2692 Methodi 00:00:00 00:00:00 Only Kaila 80326.1.[address] 3.430.2.7 Hospit a .3.216776 l .8 2020-11-18 2020-11-[address] [facility], 1.2.840.1 [id number] 532 2860382 Methodi 08:17:31 10:34:48 ne Laya 97727.1.[address] [place] 3.430.2.7 Hospit a .3.607283 l .8 2020-11-18 2020-11-18 Patient Stephen, 1.2.840.1 [id number] 2100 314716 Methodi 00:00:00 00:00:00 Outreach Jocelynn 95868.1.[address] 3.430.2.7 Hospit a .3.167065 l .8 2020-11-11 2020-11-11 Patient Stephen, 1.2.840.1 [id number] 2100 524165 Methodi 00:00:00 00:00:00 Outreach Jocelynn 50773.1.[address] 3.430.2.7 Hospit a .3.520972 l .8 2020-11-10 2020-11-[address] [facility], 1.2.840.1 [id number] 512639 4983 Methodi 00:00:00 00:00:[address] [place] 3.430.2.7 Hospit a .3.733841 l .8 2020-10-28 2020-10-28 Patient Stephen, 1.2.840.1 [id number] 2099 276246 Methodi 00:00:00 00:00:00 Outreach Jocelynn 15289.1.[address] 3.430.2.7 Hospit a .3.679448 l .8 2020-10-212020-10-21 Patient Stephen, 1.2.840.1 [id number] 2100 926112 Methodi 00:00:00 00:00:00 Outreach Jocelynn 57833.1.[address] 3.430.2.7 Hospit a .3.115930 l .8 2020-10-20 2020-10-20 Office Elo, 1.2.840.1 [id number] 759689 0276 Methodi 08:37:17 09:13:19 Visit Lucy 81070.1.[address] 3.430.2.7 Hospit a .3.076628 l .8 2020-10-20 2020-10-20 Travel 1.2.840.1 1.2.461.982 8275 033326 Methodi 00:00:00 00:00:[address] 3.430.2.7 0.2.7.3.698 Ho spita .3.350437 084.8 l .8 2020-10-14 2020-10-14 Patient Stephen, 1.2.840.1 [id number] 2100 972529 Methodi 00:00:00 00:00:00 Outreach Jocelynn 93738.1.[address] 3.430.2.7 Hospit a .3.576160 l .8 2020-10-07 2020-10-07 Patient Junaid, 1.2.840.1 [id number] 91967 14340 Methodi 00:00:00 00:00:00 Outreach Renee 81086.1.[address] 3.430.2.7 Hospit a .3.689456 l .8 2020-10-07 2020-10-07 Patient Stephen, 1.2.840.1 [id number] 2100 881506 Methodi 00:00:00 00:00:00 Outreach Jocelynn 44173.1.[address] 3.430.2.7 Hospit a .3.041744 l .8 2020-10-05 2020-10-05 Refill Yue, 1.2.840.1 [id number] 477167 5630 Methodi 00:00:00 00:00:[address] [place] 3.430.2.7 Hospit a .3.955109 l .8 2020-09-24 2020-09-24 Infusion Elo, 1.2.840.1 [id number] 99791 75520 Methodi 10:00:24 12:50:[address] 3.430.2.7 Hospit a .3.473562 l .8 2020-09-24 2020-09-24 Travel 1.2.840.1 1.2.034.111 2946 963304 Methodi 00:00:00 00:00:[address] 3.430.2.7 0.2.7.3.698 Ho spita .3.503332 084.8 l .8 2020-09-23 2020-09-23 Orders Elo, 1.2.840.1 [id number] 259542 9161 Methodi 00:00:00 00:00:00 Only Lucy 03523.1.[address] 3.430.2.7 Hospit a .3.438279 l .8 2020-09-23 2020-09-23 Travel 1.2.840.1 1.2.761.096 1132 536502 Methodi 00:00:00 00:00:[address] 3.430.2.7 0.2.7.3.698 Ho spita .3.093325 084.8 l .8 2020-09-21 2020-09-21 Orders Elo, 1.2.840.1 [id number] 284122 1591 Methodi 00:00:00 00:00:00 Only Lucy 22945.1.[address] 3.430.2.7 Hospit a .3.055138 l .8 2020-09-18 2020-09-18 Telemedici Elo, 1.2.840.1 [id number] 408 4788621 Methodi 14:15:22 14:27:25 ne Lucy 90850.1.[address] 3.430.2.7 Hospit a .3.501801 l .8 2020-09-17 2020-09-17 Travel 1.2.840.1 1.2.683.809 3812 564958 Methodi 00:00:00 00:00:[address] 3.430.2.7 0.2.7.3.698 Ho spita .3.107973 084.8 l .8 2020-09-05 2020-09-05 [facility] 1.2.840.1 [id number] 338661 5807 Methodi 00:00:00 00:00:[address] [place] 3.430.2.7 Hospit a .3.881435 l .8 2020-09-05 2020-09-05 [facility], 1.2.840.1 [id number] 120674 1506 Methodi 00:00:00 00:00:[address] [place] 3.430.2.7 Hospit a .3.467686 l .8 2020-08-25 2020-08-25 [facility], 1.2.840.1 [id number] 979 0064238 Methodi 10:41:55 23:59:00 Encounter Efren Ng 62890.1.[address] 3.430.2.7 Hospit a .3.199341 l .8 2020-08-25 2020-08-25 Travel 1.2.840.1 1.2.903.096 7090 325776 Methodi 00:00:00 00:00:[address] 3.430.2.7 0.2.7.3.698 Ho spita .3.053460 084.8 l .8 2020-08-20 2020-08-20 [facility], 1.2.840.1 [id number] 264899 1184 Methodi 00:00:00 00:00:00 Only Starr 96543.1.[address] 3.430.2.7 Hospit a .3.246014 l .8 2020-08-19 2020-08-19 [facility], 1.2.840.1 [id number] 05588 41440 Methodi 13:41:05 23:59:00 Encounter Pritesh Suero50.1.[address] 3.430.2.7 Hospit a .3.189439 l .8 2020-08-19 2020-08-19 [facility], 1.2.840.1 [id number] 702370 5047 Methodi 15:02:40 15:22:40 Visit Laya Smiley.1.[address] [place] 3.430.2.7 Hospit a .3.342543 l .8 2020-08-19 2020-08-19 [facility], 1.2.840.1 [id number] 53301 26106 Methodi 13:00:00 13:40:00 Encounter Pritesh Smiley.1.[address] 3.430.2.7 Hospit a .3.027470 l .8 2020-08-19 2020-08-19 [facility], 1.2.840.1 [id number] 96603 74012 Methodi 11:40:00 12:59:00 Encounter Pritesh Smiley.1.[address] 3.430.2.7 Hospit a .3.430633 l .8 2020-08-19 2020-08-19 [facility], 1.2.840.1 [id number] 18830 14751 Methodi 10:00:00 11:39:00 Encounter Renetta Suero50.1.[address] 3.430.2.7 Hospit a .3.739179 l .8 2020-08-19 2020-08-19 [facility], 1.2.840.1 [id number] 773269 1300 Methodi 07:43:04 07:58:04 Visit Pritesh Suero50.1.[address] 3.430.2.7 Hospit a .3.017963 l .8 2020-08-19 2020-08-19 Travel 1.2.840.1 1.2.002.769 5829 551431 Methodi 00:00:00 00:00:[address] 3.430.2.7 0.2.7.3.698 Ho spita .3.264265 084.8 l .8 2020-08-19 2020-08-19 [facility], [facility] [id number] 283 [place] 00:00:00 00:00:00 LAYA [address] 2020-08-11 2020-08-11 [facility], 1.2.840.1 [id number] 2099 238334 Methodi 00:00:00 00:00:00 Orders Renetta A. 57994.1.[address] 3.430.2.7 Hospit a .3.640318 l .8 2020-08-07 2020-08-07 [facility].840[facility]1 [id number] 098530 9081 Methodi 00:00:00 00:00:[address] [place] 3.430.2.7 Hospit a .3.123676 l .8 2020-08-05 2020-08-[address] [facility], 1.2.840.1 [id number] 805910 9600 Methodi 00:00:00 00:00:[address] [place] 3.430.2.7 Hospit a .3.209320 l .8 2020-08-05 2020-08-05 Orders Savage, 1.2.840.1 [id number] 864220 8616 Methodi 00:00:00 00:00:00 Only Kym 98399.1.[address] 3.430.2.7 Hospit a .3.074666 l .8 2020-08-04 2020-08-[address] [facility], 1.2.840.1 [id number] 725828 2896 Methodi 00:00:00 00:00:[address] [place] 3.430.2.7 Hospit a .3.775738 l .8 2020-08-03 2020-08-03 [facility], 1.2.840.1 [id number] 64274 80616 Methodi 11:00:00 23:59:00 Encounter Pritesh Ko 72195.1.[address] 3.430.2.7 Hospit a .3.182315 l .8 2020-08-03 2020-08-03 [facility] 1.2.840.1 [id number] 30490 89613 Methodi 09:17:35 10:59:00 Encounter Pritesh Ko 72657.1.[address] 3.430.2.7 Hospit a .3.438723 l .8 2020-08-03 2020-08-03 [facility] 1.2.840.1 [id number] 67992 Methodi 09:00:00 09:16:00 Encounter Pritesh Ko 01210.1.[address] 3.430.2.7 Hospit a .3.096861 l .8 2020-08-03 2020-08-03 Travel 1.2.840.1 1.2.659.087 2244 038442 Methodi 00:00:00 00:00:[address] 3.430.2.7 0.2.7.3.698 Ho spita .3.732146 084.8 l .8 2020-08-03 2020-08-03 Kallie Turner, 1.2.840.1 [id number] 095750 3620 Methodi 00:00:00 00:00:[address] [place] 3.430.2.7 Hospit a .3.653326 l .8 2020-08-03 2020-08-03 Outpatient [facility] [id number] 407 [place] 00:00:00 00:00:00 PRITESH [address] 2020-07-28 2020-07-28 Triston Rothman 1.2.840.1 [id number] Methodi 00:00:00 00:00:00 Only Jana 84702.1.[address] 3.430.2.7 Hospit a .3.152210 l .8 2020-07-20 2020-07-20 Triston Taylor 1.2.840.1 [id number] 832195 6998 Methodi 00:00:00 00:00:00 Only Starr 86398.1.[address] 3.430.2.7 Hospit a .3.016539 l .8 2020-07-15 2020-07-15 Refill Yue, 1.2.840.1 [id number] 052074 7262 Methodi 00:00:00 00:00:[address] [place] 3.430.2.7 Hospit a .3.432001 l .8 2020-07-06 2020-07-06 Office DANIEL Momin 1.2.840.114 [id number] 12:46:59 13:35:30 Visit Tory Post AMBULATOR 350.1.13.21 Y 0.2.7.2.686 [id number] 300 2020-07-06 2020-07-06 Office DANIEL Momin 1.2.840.[id number] [place] [address] 12:46:59 13:35:30 Visit Tory Post AMBULATOR 350.1.13.21 College Y 0.2.7.2.686 of [id number] [facility] 300 e 2020-06-08 2020-06-08 Orders Savage, 1.2.840.1 [id number] 832138 0320 Methodi 00:00:00 00:00:00 Only Kym 32885.1.[address] 3.430.2.7 Hospit a .3.697672 l .8 2020-05-08 2020-05-08 Patient [place] 1.2.840.1 [id number] 21 [id number] Methodi 00:00:00 00:00:00 Outreach , Deborah 20057.1.[address] 3.430.2.7 Hospit a .3.982909 l .8 2020-04-29 2020-04-29 Patient [place] 1.2.840.1 [id number] 21 [id number] Methodi 00:00:00 00:00:00 Outreach , Deborah 38609.1.[address] 3.430.2.7 Hospit a .3.614555 l .8 2020-04-22 2020-04-22 Office Elo, 1.2.840.1 [id number] 311789 1161 Methodi 11:06:19 11:37:30 Visit Lucy 69148.1.[address] 3.430.2.7 Hospit a .3.015142 l .8 2020-04-22 2020-04-22 Travel 1.2.840.1 1.2.598.981 2794 011293 Methodi 00:00:00 00:00:[address] 3.430.2.7 0.2.7.3.698 Ho spita .3.027128 084.8 l .8 2020-04-20 2020-04-20 Patient Sourav, 1.2.840.1 [id number] 6707 Methodi 00:00:00 00:00:00 Outreach Reny 70514.1.1 [address] 3.430.2.7 Hospit a .3.982950 l .8 2020-04-17 2020-04-17 Clinical Coco, 1.2.840.1 [id number] 219 0120098 Methodi 14:55:17 15:10:17 Support Efren Ng 04356.1.1 810 s t 3.430.2.7 Hospit a .3.009331 l .8 2020-04-17 2020-04-[address] [facility] 64128 19394 [place] 00:00:00 00:00:00 EFREN Hagen7 [facility] [address] 2020-04-09 2020-04-09 Patient [place] 1.2.840.1 [id number] 21 [id number] Methodi 00:00:00 00:00:00 Outreach Deborah 12331.1.[address] 3.430.2.7 Hospit a .3.691593 l .8 2020-04-07 2020-04-07 Patient [place] 1.2.840.1 [id number] Methodi 00:00:00 00:00:00 Outreach Deborah 13588.1.[address] 3.430.2.7 Hospit a .3.070593 l .8 2020-04-02 2020-04-04 Emergency Cheng Kohler 1.2.840 .1 [id number] Methodi 20:22:00 13:58:00 Nigel [address]Jagdeep [address] [facility] 3.430.2.7 Hospita .3.918918 l .8 2020-04-02 2020-04-02 Emergency Tiff Harvey 1.2.840.1 [id number] Methodi 11:23:00 16:44:00 Cornelio Norris 11397.1.[address] 3.430.2.7 Hospit a .3.962524 l .8 2020-03-30 2020-03-30 Refill Yue, 1.2.840.1 [id number] 4277 Methodi 00:00:00 00:00:[address] [place] 3.430.2.7 Hospit a .3.642597 l .8 2020-03-26 2020-03-26 Outpatient COCO, [facility] [id number] 66225 [place] 00:00:00 00:00:00 RAFIK 086 Method i 2020-03-24 2020-03-24 Outpatient COCO, [facility] 62101 34078 [place] 00:00:00 00:00:00 RAFIK 353 Method i 2020-03-24 2020-03-24 Outpatient COCO, [facility] 77175 42019 [place] 00:00:00 00:00:00 RAFIK 082 Method i 2020-01-06 2020-01-[address] [facility], [facility] [id number] 357 [place] 00:00:00 00:00:00 LAYA 183 Method i 2019-11-06 2019-11-06 Outpatient HASTINGS, [facility] [id number] 516 [place] 00:00:00 00:00:00 JAMAL 429 Method i 2019-10-21 2019-10-21 Outpatient ELO, [facility] [id number] 781 [place] 00:00:00 00:00:00 LUCY 598 Method i 2019-10-21 2019-10-21 Outpatient ELO, [facility] [id number] 165 [place] 00:00:00 00:00:00 LUCY 893 Method i 2019-09-30 2019-09-30 Outpatient UYE, [facility] [id number] 357 [place] 00:00:00 00:00:00 LAYA 285 Method i 2019-07-17 2019-07-17 Outpatient TABITHA, [facility] [id number] 763 [place] 00:00:00 00:00:00 JAMAL 920 Method i 2019-04-26 2019-04-26 Outpatient ELO, [facility] [id number] 713 [place] 00:00:00 00:00:00 LUCY 301 Method i 2019-04-26 2019-04-26 Outpatient ELO [facility] [id number] 646 [place] 00:00:00 00:00:00 LUCY 898 Method i 2019-04-26 2019-04-26 Outpatient ELO [facility] [id number] 715 [place] 00:00:00 00:00:00 LUCY [address] Results Test Description Test Time Test Comments Results Result Comments Source Lipid panel 2022-03-19 22:48:00 Test Item Value Reference Range Interpretation Comme nts Cholesterol, total (test 94 mg/dL <=200 code = 2093-3) HDL cholesterol (test 45 mg/dL See_Comment [Auto mated message] code = 2085-9) The system [facility] generated this result transmitted ref erence range: > OR = 4 0. The reference range was not used to int erpret this result as normal/abnormal . Triglycerides (test code 116 mg/dL <=150 = 2571-8) LDL cholesterol 29 mg/dL (calc) Reference ra nge: <100 calculated (test code = Amy rable range <100 64999-3) mg/dL for prima ry prevention; <70 mg/dL for patients wi th CHD or diabetic pat ients with > or = 2 C HD risk factors. LDL-C is now calculated alexis raman the Wale-[place] calculation, wh ich is a validated nov el method providin g better accuracy than the Friedewald equation in the estimation of L DL-C. Wale SS et al . SREEKANTH. 2013;310(19): 3940-0184 (http://educati on.Ques tDiagnostics.co m/faq/F AQ164) Cholesterol/HDL ratio 2.1 See_Comment [Auto mated message] (test code = 9830-1) The sys tem which generated this result transmitted ref erence range: <5.0 (ca lc). The reference r ermelinda was not used to interpret this result as normal/abnor mal. Non-HDL cholesterol (test 49 See_Comment Fo r patients with code = 13302-1) diabetes plu s 1 major ASCVD risk fact or, treating to a non-HDL-C goal of <100 mg/dL (LDL-C of <70 mg/dL) is consi dered a therapeutic opt ion. [Automated mess age] The system [facility] h generated this result transmitted ref erence range: <130 mg/ dL (calc). The ref erence range was not u sed to interpret this result as normal/abnor mal. NILDA (test code = NILDA) FASTING:YESAN UPDATE OR CORRECTION HAS BEEN MADE TO NAME MULTIPLE COLLE FASTING: YES RAC (test code = RAC) Performing Organization Information: Site ID: [facility] Address: [address] [place] [address] Director[facility] [id number] 22:48:00 Test Item Value Reference Range Interpretation Comments Amylase (test code = 43 U/L 1798-8) NILDA (test code = FASTING:YESAN UPDATE OR NILDA) CORRECTION HAS BEEN MADE TO NAME MULTIPLE COLLE FASTING: YES RAC (test code = Performing Organization RAC) Information: Site ID: [facility] Name: [facility] Address: [address] [place] [address] Director: [facility] CenterHemoglobin [id number] 22:48:00 Test Item Value Reference Interpretation Comments Range Hemoglobin A1C 6.2 See_Comment H For someone w ithout (test code = known diabetes, a 4548-4) hemoglobin A1c value between 5.7% an d 6.4% is consist ent withprediabetes and should be confi rmed with a follow-u p test. For someo ne with known diab etes, a value <7%indicates that their diabetes is well controlled . K5knvqbfid shou ld be individualized based on duration [...] as normal/abnormal . NILDA (test code = FASTING:YESAN NILDA) UPDATE OR CORRECTION HAS BEEN MADE TO NAME MULTIPLE COLLE FASTING: YES RAC (test code = Performing RAC) Organization Information: Site ID: [facility] Address: [address] [place] [address] Director: Boston Darling Lab Interpretation Abnormal (test code = 54984-8) [facility] Hospital[facility] [id number] 22:48:00 Test Item Value Reference Range Interpretation Comments Lipase (test code = 34 U/L 760 3040-3) NILDA (test code = FASTING:YESAN UPDATE OR NILDA) CORRECTION HAS BEEN MADE TO NAME MULTIPLE COLLE FASTING: YES RAC (test code = Performing Organization RAC) Information: Site ID: [facility] Name: [facility] Address: [address] [place] [address] Director: Boston Darling [place] [address], [id number] 22:48:00 Test Item Value Reference Range Interpretation Comments T4, free (test code 1.6 ng/dL 0.8-1.8 = 3024-7) NILDA (test code = FASTING:YESAN UPDATE OR NILDA) CORRECTION HAS BEEN MADE TO NAME MULTIPLE COLLE FASTING: YES RAC (test code = Performing Organization RAC) Information: Site ID: [facility] Name: [facility] Address: [address] [place] [address] Director: [place] L De YoungProtestant Deacon[facility] HospitalThyroid stimulating [id number] 22:48:00 Test Item Value Reference Range Interpretation Comments TSH (test 1.03 See_Comment [Automated mes sawyer] code = The system whic h 3016-3) generated this result transmit anthony reference range : 0.40 - 4.50 mIU /L. The reference r ermelinda was not used to interpret this result as normal/abnormal . NILDA (test FASTING:YESAN UPDATE code = NILDA) OR CORRECTION HAS BEEN MADE TO NAME MULTIPLE COLLE FASTING: YES RAC (test Performing code = RAC) Organization Information: Site ID: [facility] Name: [facility] Address: [address] [place] [address] Director: [facility] CenterVitamin D 25 hydroxy [id number] 22:48:00 Test Item Value Reference Range Interpretation Comments Vitamin D, 49 ng/mL 30-100 Vitamin D Statu s 25-hydroxy (test 25-OH Vitam in D: code = 1988-) Deficiency: < 20 ng/mLInsufficie ncy : 20 - 29 ng/mLOptimal: > or = 30 ng/mL For 25-OH Vitamin D testing on patients on D2-supplementat ion and patients fo r whom quantitati on of D2 and D3 fractions is required, the QuestAssureD(TM )25 -OH VIT D, (D2,D3), LC/MS/ MS is recommended: order code 9288 8 (patients >2yrs).See Note 1 Note 1 For additional information, please refer to http://educatio n.Q uestDiagnostics .co m/faq/OGP545 (T his link is being provided for informational/e [place] ational purpose s only.) NILDA (test code = FASTING:YESAN UPDATE NILDA) OR CORRECTION HAS BEEN MADE TO NAME MULTIPLE COLLE FASTING: YES RAC (test code = Performing RAC) Organization Information: Site ID: A Name: [facility] Address: [address] [place] [address] Director: [facility] CenterAlbumin with creatinine and ratio, random [id number] 22:48:00 Test Item Value Reference Range Interpretation Comments Creatinine, 101 mg/dL 20-320 urine (mg/dL) (test code = 2161-8) Microalbumin 0.3 mg/dL See Note: Reference Range : , urine Reference Range Not (test code = established 79834-8) Microalbumin 3 See_Comment The ADA define s /creatinine abnormalities i n ratio (test albuminexcretio n as code = follows: Albkim reynolds 9318-7) Category Result (mcg/mg creatinine) Nor mal to Mildly increase d <30Moderately i ncreased 30-299 Severely increased > OR = 300 The ADA recomme nds that at least two of threespecimens collected withi n a 3-6 month period be abnormal before consider ing a patient to bewi thin a diagnostic alejandra gory. [Automated mess age] The system which ge nerated this result tra nsmitted reference range : <30 mcg/mg creat. T he reference range was not used to interpr et this result as normal/abnormal . NILDA (test FASTING:YESAN code = NILDA) UPDATE OR CORRECTION HAS BEEN MADE TO NAME MULTIPLE COLLE FASTING: YES RAC (test Performing code = RAC) Organization Information: Site ID: RGA [facility]: [facility] Address: [address] [place] [address] Director: Boston Darling [facility] HospitalComprehensive metabolic [id number] 21:28:00 Test Item Value Reference Interpretation Comments Range Glucose (test code 120 mg/dL 65-99 H Fasting reference = 2345-7) interval For so meone without known diabetes, a glu cose valuebetween 10 0 and 125 mg/dL is consistent withprediabetes and should be confi rmed with afollow-up test. BUN (test code = 26 mg/dL 7-25 H 3094-0) Creatinine (test 1.40 mg/dL 0.70-1.35 H code = 2160-0) eGFR (test code = 54 See_Comment L [place] [address]-2) the CKD-EPI 202 1 equation. To calculate the n ew eGFR from a pre vious Creatinine or Cystatin Cresul t, go to https://www.kid odessa.o rg/professional s/kdo qi/gfr%5Fcalcul ator [Automated mess age] The system [employer] generated this result transmit anthony reference range : > OR = 60 mL/min/1.73m2. The reference range was not used to interpret this result as normal/abnormal . BUN/creatinine 19 See_Comment [Automated m essage] ratio (test code = The syste m which 3097-3) generated this result transmit anthony reference range : 6 - 22 (calc). The reference range was not used to interpret this result as normal/abnormal . Sodium (test code = 140 mmol/L 230-006 4910-2) Potassium (test 4.2 mmol/L 3.5-5.3 code = 2823-3) Chloride (test code 104 mmol/L 98-110 = 2075-0) CO2 (test code = 32 mmol/L 20-32 8-9) Calcium (test code 9.4 mg/dL 8.6-10.3 = 27127-2) Protein (test code 6.7 g/dL 6.1-8.1 = 2885-2) Albumin, S (test 4.3 g/dL 3.6-5.1 code = 1751-7) Globulin, total 2.4 See_Comment [Automated message] (test code = The system [facility] [place] [address]-8) generated this result transmit anthony reference range : 1.9 - 3.7 g/dL (kiki c). The reference r ermelinda was not used to interpret this result as normal/abnormal . Albumin/globulin 1.8 See_Comment [Automated message] ratio (test code = The syste which 1759-0) generated this result transmit anthony reference range : 1.0 - 2.5 (calc). T he reference range was not used to interpret this result as normal/abnormal . Total bilirubin 1.3 mg/dL 0.2-1.2 H (test code = 1974-) Alkaline 105 U/L 35-144 phosphatase (test code = 6768-6) AST (test code = 43 U/L 10-35 H 1920-8) ALT (test code = 62 U/L 9-46 H 1742-6) RAC (test code = Performing RAC) Organization Information: Site ID: RGA [facility] Address: [address] [place] [address] Director: [place] Darling Lab Interpretation Abnormal (test code = 29497-2) [facility] [id number] 21:28:00 Test Item Value Reference Interpretation Comments Range PTH (test 36 pg/mL 16-77 Interpretive G uide Intact code = PTH Calcium---- 2731-8) ---- ---Normal Parathyroid Nor mal NormalHypoparat hyroidism Low or Low Normal LowHyperparathy roidism Primary Normal or High High Secondary High Normal or Low Tertiary High HighNon-Parathy roid Hypercalcemia L ow or Low Normal High RAC (test Performing code = Organization RAC) Information: Site ID: RGA [facility] Address: [address] [place] [address] Director: [facility] CenterPhosphorus [id number] 21:28:00 Test Item Value Reference Range Interpretation Comments Phosphorus (test code 4.0 mg/dL 2.1-4.3 = 2777-1) RAC (test code = RAC) Performing Organization Information: Site ID: RGA [facility]: [facility] Address: [address] [place] [address] Director: [facility] with platelet and [id number] 21:28:00 Test Item Value Reference Range Interpretation Comments WBC (test code = 5.6 See_Comment [Automated 3905-2) message] The system which generated this result transmitted reference range : 3.8 - 10.8 Thousand/uL. Th e reference range was not used to interpret this result as normal/abnormal . RBC (test code = 5.03 See_Comment [Automated 403-8) message] The system which generated this result transmitted reference range : 4.20 - 5.80 Million/uL. The reference range was not used to interpret this result as normal/abnormal . HGB (test code = 16.3 g/dL 13.2-17.1 718-7) HCT (test code = 45.5 % 38.5-50.0 4544-3) MCV (test code = 90.5 fL 80.0-100.0 787-2) MCH (test code = 32.4 pg 27.0-33.0 785-6) MCHC (test code = 35.8 g/dL 32.0-36.0 786-4) RDW (test code = 13.0 % 11.0-15.0 788-0) Platelet count (test 120 See_Comment L [Autom ated code = 777-3) message] The system which generated this result transmitted reference range : 140 - 400 Thousand/uL. Th e reference range was not used to interpret this result as normal/abnormal . MPV (test code = 10.2 fL 7.5-12.5 776-5) Neutrophils, 3853 See_Comment [Automated absolute (test code message] The = 751-8) system which generated this result transmitted reference range : 1,500 - 7,800 cells/uL. The reference range was not used to interpret this result as normal/abnormal . Lymphocytes, 1215 See_Comment [Automated absolute (test code message] The = 731-0) system which generated this result transmitted reference range : 850 - 3,900 cells/uL. The reference range was not used to interpret this result as normal/abnormal . Monocytes, absolute 347 See_Comment [Automa anthony (test code = 742-7) message] The system which generated this result transmitted reference range : 200 - 950 cells/uL. The reference range was not used to interpret this result as normal/abnormal . Eosinophils, 162 See_Comment [Automated absolute (test code message] The = 711-2) system which generated this result transmitted reference range : 15 - 500 cells/uL. The reference range was not used to interpret this result as normal/abnormal . Basophils, absolute 22 See_Comment [Automa anthony (test code = 704-7) message] The system which generated this result transmitted reference range : 0 - 200 cells/u L. The reference range was not used to interpr et this result as normal/abnormal . Neutrophils (test 68.8 % code = 770-8) Lymphocytes (test 21.7 % code = 736-9) Monocytes (test code 6.2 % = 5905-5) Eosinophils (test 2.9 % code = 713-8) Basophils + RC (test 0.4 % code = 706-2) Platelet estimate DECREASED ADEQUATE A (test code = 9317-9) RAC (test code = Performing RAC) Organization Information: Site ID: A Name: [facility] Address: [address] [place] [address] Director: Boston Darling Lab Interpretation Abnormal (test code = 52462-0) [facility], [id number] 21:28:00 Test Item Value Reference Interpretation Comments Range Tacrolimus, highly 4.5 mcg/L L No defini tive sensitive, LC/MS/MS therapeu tic or toxic (test code = [place] [address]-7) beenestablished . Optimal blood d rug levels are influencedby ty pe of transplant, pat ient response, time post-transplant , co-administrati on of other drugs, an d drug formulatio n. The following t rough range is a sugg ested guideline: 5.0- 20.0 mcg/L. This master t was developed and i ts analytical performance characteristics have been determined by [employer]. It has not been cleared or appr nikhil by theFDA. This assay has been validated pursu ant to the CLIA regulations and is used for clinic al purposes. RAC (test code = Performing RAC) Organization Information: Site ID: IG Name: [facility] Address: [address] [place] [address] Director: Dr. Boston Darling Lab Interpretation Abnormal (test code = 16742-6) [facility] [id number] 17:20:00 Test Item Value Reference Range Interpretation Comments POC glucose (test 116 mg/dL 65-99 H Manufacturing Team Leader N darvin: [place] code = 80010-8) Iggy cabral ID: [id number] Lab Interpretation Abnormal (test code = 99690-0) [facility] [id number] 13:49:00 Test Item Value Reference Range Interpretation Comments POC sodium (test code = 143 mmol/L 675-289 6185-0) POC potassium (test 3.9 mmol/L 3.5-5.0 code = 6298-4) POC chloride (test code 106 mmol/L 99-109 = 2069-3) POC CO2 (test code = 23 mmol/L 24-31 L 16521-6) POC glucose (test code 122 mg/dL 65-99 H = 2339-0) POC BUN (test code = 21 mg/dL 8 6299-2) POC creatinine (test 1.2 mg/dl 0.7-1.2 code = 45351-4) POC hematocrit (test 43 % 41-51 code = 4544-3) POC anion gap (test 18 mmol/L 8 Manufacturing Team Leader Name: code = 4085784) Isac Conley ID: [id number] Lab Interpretation Abnormal (test code = 12468-9) [facility] HospitalEstimated [id number] 13:49:00 Test Item Value Reference Range Interpretation Comments Estimated GFR (test 61 mL/min/1.73 m2 Caterg ory Units code = 71177-8) Interpretati onG1 >=90 Normal or highG 2 60-89 Mildly decrease dG3a 45-59 Mildly to moder ately hebtvjdojQ6y 30 -44 Moderately to s everely decreasedG4 15- 29 Severely decreasedG5 <15 Kidney failureThe eGFR was calculated usin g the Chronic Kidney Disease Epidemiology Co llaboration (CKD-EPI) equat ion. Interpretation is based on recommendations of the National Kidney Foundation-Kidn ey Disease Outcomes Qualit y Initiative (NKF-KDOQI) pub lished in 2014. Andry LooneyARS-CoV-2 (COVID-19) RNA [Presence] in Respiratory specimen by RUDDY with probe [id number] 09:59:59 Test Item Value Reference Range Interpretation Comments SARS-CoV-2 (COVID-19) RNA Not detected [Presence] in Respiratory specimen by RUDDY with probe detection (test code = 73455-0) Whether patient is employed in a Unknown healthcare setting (test code = 18104-0) Whether the patient has symptoms Unknown related to condition of interest (test code = 46879-8) Whether the patient was Unknown hospitalized for condition of interest (test code = 47986-5) Whether the patient was admitted Unknown to intensive care unit (ICU) for condition of interest (test code = 75989-8) Whether patient resides in a Unknown congregate care setting (test code = 04723-1) status (test code = Unknown 18254-4) Date and time of symptom onset Unknown (test code = 56819-0) [facility] 12 [id number] 04:04:53 Test Item Value Reference Range Interpretation Comments Ventricular rate 61 (test code = 253) Atrial rate (test 61 code = 255) NE interval (test 166 code = 266) QRSD interval (test 116 code = 260) QT interval (test 482 code = 264) QTC interval (test 485 code = 265) P axis 1 (test code 53 = 267) QRS axis 1 (test 52 code = 268) T wave axis (test 130 code = 270) EKG impression (test Normal sinus code = 273) rhythm-Possible Inferior infarct (cited on or before 04-NOV-2021)-Cannot rule out Anterior infarct , age undetermined-ST & T wave abnormality, consider lateral ischemia-Abnormal ECG-In automated comparison with ECG of 25-NOV-2021 13:42,-premature supraventricular complexes are no longer present-Questionable change in QRS axis- [facility] HospitalUrinalysis, automated with [id number] 15:56:00 Test Item Value Reference Range Interpretation Comments Color, UA (test code YELLOW YELLOW = 5778-6) Appearance (test CLEAR CLEAR code = 5767-9) Specific gravity, 1.042 1.001-1.035 H urine (test code = 5811-5) pH, urine (test code 6.5 5.0-8.0 = 5803-2) Glucose, urine (test 3+ NEGATIVE A code = 91018-5) Bilirubin, UA (test NEGATIVE NEGATIVE code = 5770-3) Ketones, UA (test NEGATIVE NEGATIVE code = 2514-8) Occult blood, urine NEGATIVE NEGATIVE (test code = 5794-3) Protein, UA (test NEGATIVE NEGATIVE code = 94955-6) Nitrite, UA (test NEGATIVE NEGATIVE code = 5802-4) Leukocyte esterase, NEGATIVE NEGATIVE UA (test code = 5799-2) WBC, UA (test code = NONE SEEN See_Comment [Autom ated 5821-4) message] The system which generated this result transmitted reference range : < OR = 5 /HPF. The reference range was not used to interpr et this result as normal/abnormal . RBC, UA (test code = NONE SEEN See_Comment [Autom ated 98589-8) message] The system which generated this result transmitted reference range : < OR = 2 /HPF. The reference range was not used to interpr et this result as normal/abnormal . Squamous epithelial NONE SEEN See_Comment [Automa anthony cells, UA (test code message ] The = 76668-7) system which generated this result transmitted reference range : < OR = 5 /HPF. The reference range was not used to interpr et this result as normal/abnormal . Bacteria, UA (test NONE SEEN NONE SEEN /HPF code = 5769-5) Hyaline casts, UA NONE SEEN NONE SEEN /LPF (test code = 5796-8) Note: (test code = This urin e was 8251-1) analyzed for th e presence of WBC , RBC, bacteria, casts, and othe r formed elements . Only those elements seen were reported. NILDA (test code = FASTING:YES NILDA) FASTING: YES RAC (test code = Performing RAC) Organization Information: Site ID: [facility] Address: [address] [place] [address] Director: Boston Darling Lab Interpretation Abnormal (test code = 74883-8) [facility] protein/creatinine ratio, [id number] 15:56:00 Test Item Value Reference Range Interpretation Comments Creatinine, 86 mg/dL 20-320 urine (mg/dL) (test code = 2161-8) Protein/Creat 0.093 See_Comment [Automated Ratio (test message] The sy stem code = 2890-2) which generat ed this result transmitted reference range : 0.025 - 0.148 m g/mg creat. The reference range was not used to interpret this result as normal/abnormal . Protein, urine 8 mg/dL 5-25 random (test code = 2888-6) NILDA (test code FASTING:YES FASTING: = NILDA) YES RAC (test code Performing = RAC) Organization Information: Site ID: A [facility] Address: [address] [place] [address] Director: Boston Darling [facility] HospitalCv stress [id number] 10:05:41 Test Item Value Reference Range Interpretation Comments Resting HR (test code 54 = 6671967599) Resting BP (test code 91&65 = 7298047948) Peak MET Achieved 1 (test code = 1448668294) Protocol Name (test DOBU/ECHO- code = 6993122365) Time in Exercise 00:12:20 Phase (test code = 0255324352) Max Systolic BP (test 113 code = 7363043419) Max Diastolic BP 70 (test code = 5671504085) Max Heart Rate (test 169 code = 6731373450) Max Predicted Heart 152 Rate (test code = 2493526555) Target HR Formula (220 - Age)*100% (test code = 6688046800) Test Indication (test a fib code = 3308498407) Arrhy During Ex (test code = 2233693471) ECG Interp Before EX (test code = 5039170819) ECG Interp During Ex (test code = 0805271570) Ex Summary Comment (test code = 5159285045) Overall HR Response to Exercise (test code = 7458034790) Overall BP Response To Exercise (test code = 2031737313) Reason for Protocol Complete Termination (test code = 5276811675) Stress Test -Waveform interpreted in Impression (test code report associated with = 8074286094) image study. No interpretation is provided as part of this Stress ECG report.-Electronically Signed By Evens PENDLETON, Cas Richardson ([id number]), greeting card editor Aurea Casey ([id number]) on 10/25/2021 5:05:37 AM [facility] HospitalUrine [id number] 22:08:00 Test Item Value Reference Range Interpretation Comments Urine culture (test SEE COMMENT Bacter[facility] screen code = 2883618) negative. [facility]) RNA [Presence] in Respiratory specimen by RUDDY with probe liipktalm9851-93-19 20:45:04 Test Item Value Reference Range Interpretation Comments SARS-CoV-2 (COVID-19) RNA Not detected [Presence] in Respiratory specimen by RUDDY with probe detection (test code = 90727-7) Whether patient is employed in a Unknown healthcare setting (test code = 21176-7) Whether the patient has symptoms Unknown related to condition of interest (test code = 92123-5) Whether the patient was Unknown hospitalized for condition of interest (test code = 05558-5) Whether the patient was admitted Unknown to intensive care unit (ICU) for condition of interest (test code = 49532-6) Whether patient resides in a Unknown congregate care setting (test code = 20948-3) status (test code = Unknown 50600-2) Date and time of symptom onset Unknown (test code = 57955-2) [facility] ED Preliminary Interpretation - Not an [id number] 20:21:52 Test Item Value Reference Range Interpretation Comments NILDA (test code = NILDA) Adriano Cox DO 10/17/2021 11:25 [facility] ED Preliminary Interpretation - Not an OrderPerformed by: Adriano Cox DOAuthorized by: Adriano Cox DO ECG reviewed by ED Physician in the absence of a supervisor pleating: yes Previous ECG: Previous ECG: UnavailableInterpretat ion: Interpretation: abnormal Rate: ECG rate: 116 ECG rate assessment: tachycardic Rhythm: Rhythm: atrial fibrillation Rhythm comment: RVREctopy: Ectopy: PVCs QRS: QRS axis: Normal QRS intervals: NormalConduction: Conduction: normal ST segments: ST segments: NormalT waves: T waves: non-specific Lab Interpretation Abnormal (test code = 28115-4) [facility] HospitalMEAS,POST-VOID RES,US,[id number] 00:00:00 Test Item Value Reference Range Interpretation Comments PVR (test code = 6116) 13 ml cc/ml [facility] [id number] 21:26:00 Test Item Value Reference Interpretation Comments Range Glucose (test code 167 mg/dL 65-99 H Fasting reference = 2345-7) interval For so meone without known diabetes, a glucosevalue >1 25 mg/dL indicates that they may havediabetes an d this should be confirmed with afollow-up test . BUN (test code = 21 mg/dL 09-20 3094-0) Creatinine (test 1.03 mg/dL 0.70-1.25 For patient s >49 code = 2160-0) years of age, the reference limit for Creatinine is approximately 1 3% higher for peopleidentifie d as -Malena n. EGFR Non-Afr. See_Comment [Automated me ssage] [place] (test code The syst em which = 8880) generated this result transmit anthony reference range : > OR = 60 mL/min/1.73m2. The reference range was not used to interpret this result as normal/abnormal . EGFR See_Comment [Automated mes sawyer] [place]an (test code The syst em which = 2774) generated this result transmit anthony reference range [...] . Sodium (test code = 140 mmol/L 817-999 1424-2) Potassium (test 4.1 mmol/L 3.5-5.3 code = 2823-3) Chloride (test code 104 mmol/L 98-110 = 2075-0) CO2 (test code = 29 mmol/L 20-32 8-9) Calcium (test code 9.2 mg/dL 8.6-10.3 = 78456-9) Protein (test code 7.0 g/dL 6.1-8.1 = 2885-2) Albumin, S (test 4.4 g/dL 3.6-5.1 code = 1751-7) Globulin, total See_Comment [Automated message] (test code = The system [employer] h 25215-6) generated this result transmit anthony reference range : 1.9 - 3.7 g/dL (kiki c). The reference r ermelinda was not used to interpret this result as normal/abnormal . Albumin/globulin See_Comment [Automated message] ratio (test code = The [employer] which 1759-0) generated this result transmit anthony reference range : 1.0 - 2.5 (calc). T he reference range was not used to interpret this result as normal/abnormal . Total bilirubin 1.0 mg/dL 0.2-1.2 (test code = 1974-2) Alkaline 103 U/L 35-144 phosphatase (test code = 6768-6) AST (test code = 24 U/L 10-35 1920-8) ALT (test code = 36 U/L 9-46 1742-6) NILDA (test code = FASTING:YES NILDA) FASTING: YES RAC (test code = Performing RAC) Organization Information: Site ID: RGA Name: [facility] Address: [address] [place] [phone] Director: [facility]ling [facility] Interpretation Abnormal (test code = 47623-0) [facility] [id number] 21:26:00 Test Item Value Reference Interpretation Comments Range Cholesterol, total 109 mg/dL <200 (test code = 2093-3) HDL cholesterol 42 mg/dL See_Comment [Automated (test code = 2085-9) message ] The system which generated this result transmitted reference range : > OR = 40. The reference range was not used to interpret this result as normal/abnormal . Triglycerides (test 212 mg/dL <150 H If a no n-fasting code = 2571-8) specimen was collected, considerrepeat triglyceride testing on a fasting specime nif clinically indicated. Librado campos et al. J. of Cl in. Lipidol. 2015;9:129-169. LDL cholesterol mg/dL (calc) Reference ra nge: calculated (test <100 Desira ble code = 42718-2) range <100 m g/dL for primary prevention; <70 mg/dL for patie nts with CHD or diabetic patien ts with > or = 2 C HD risk factors. L DL-C is now calculat ed using the [place] calculation, wh ich is a validated novel method providing clifton r accuracy than t he Royerald equa tion in the estimati on of LDL-C. Vilma n SS et al. SREEKANTH. 2013;310(19): 8159-5775 (http://educati on.Q xMatters .com /faq/XWO091) Cholesterol/HDL See_Comment [Automated ratio (test code = message] The system 9530-1) which generated this result transmitted reference range : <5.0 (calc). Th e reference range was not used to interpret this result as normal/abnormal . Non-HDL cholesterol See_Comment For sharon ents with (test code = diabetes plus 1 35594-3) major ASCVD ris k factor, treatin g to a non-HDL-C goa l of <100 mg/dL (LDL -C of <70 mg/dL) i s considered a therapeutic opt ion. [Automated mess age] The system [employer] generated this result transmit anthony reference range : <130 mg/dL (kiki c). The reference r ermelinda was not used to interpret this result as normal/abnormal . NILDA (test code = FASTING:YES NILDA) FASTING: YES RAC (test code = Performing RAC) Organization Information: Site ID: [facility] Name: [facility] Address: [address] [place] [address] Director: [facility] Interpretation Abnormal (test code = 19528-1) [facility] [id number] 21:26:00 Test Item Value Reference Range Interpretation Comments Amylase (test code = 52 U/L 1798-8) NILDA (test code = FASTING:YES FASTING: YES NILDA) RAC (test code = Performing Organization RAC) Information: Site ID: [facility] Address: [address] [place] [phone] Director: [place] Darling [facility] [id number] 21:26:00 Test Item Value Reference Interpretation Comments Range Hemoglobin A1C See_Comment H For someone w ithout (test code = known diabetes, a 4548-4) hemoglobin A1c value between 5.7% an d 6.4% is consist ent withprediabetes and should be confi rmed with a follow-u p test. For someo ne with known diab etes, a value <7%indicates that their diabetes is well controlled . C4lxeskbsf shou ld be individualized based on duration [...] = Performing RAC) Organization Information: Site ID: [facility] Name: [facility] Address: [address] [place] [phone] Director: [facility] Interpretation Abnormal (test code = 03263-2) [facility] [id number] 21:26:00 Test Item Value Reference Range Interpretation Comments Lipase (test code = 45 U/L 7-60 3040-3) NILDA (test code = FASTING:YES FASTING: YES NILDA) RAC (test code = Performing Organization RAC) Information: Site ID: [facility]: [facility] Address: [address] [place] [address] Director: [place] Darling [facility] HospitalT4, [id number] 21:26:00 Test Item Value Reference Range Interpretation Comments T4, free (test code 1.1 ng/dL 0.8-1.8 = 3024-7) NILDA (test code = FASTING:YES FASTING: YES NILDA) RAC (test code = Performing Organization RAC) Information: Site ID: [facility]: [facility] Address: [address] [place] [address] Director: [place] Darling [facility] HospitalThyroid stimulating [id number] 21:26:00 Test Item Value Reference Range Interpretation Comments TSH (test code = See_Comment H [Automated 3016-3) message] The system which generated this result transmitted reference range : 0.40 - 4.50 mIU/L. The reference range was not used to interpret this result as normal/abnormal . NILDA (test code = FASTING:YES NILDA) FASTING: YES RAC (test code = Performing RAC) Organization Information: Site ID: [facility] Address: [address] [place] [address] Director: [facility] Interpretation Abnormal (test code = 46728-0) [facility] HospitalCB with platelet and [id number] 21:26:00 Test Item Value Reference Range Interpretation Comments WBC (test code = See_Comment [Automated 3890-2) message] The system which generated this result transmitted reference range : 3.8 - 10.8 Thousand/uL. Th e reference range was not used to interpret this result as normal/abnormal . RBC (test code = See_Comment [Automated 719-8) message] The system which generated this result [...] absolute See_Comment [Automa anthony (test code = 812-7) message] The system which generated this result [...] absolute See_Comment [Automa anthony (test code = 584-7) message] The system which generated this result [...] = Performing RAC) Organization Information: Site ID: [facility] Address: [address] [place] [address] Director: [facility] Interpretation Abnormal (test code = 20757-1) [facility] HospitalVitamin D 25 hydroxy [id number] 21:26:00 Test Item Value Reference Range Interpretation Comments Vitamin D, 51 ng/mL 30-100 Vitamin D Statu s 25-hydroxy (test 25-OH Vitam in D: code = 1988-) Deficiency: < 20 ng/mLInsufficie ncy : 20 - 29 ng/mLOptimal: > or = 30 ng/mL For 25-OH Vitamin D testing on patients on D2-supplementat ion and patients fo r whom quantitati on of D2 and D3 fractions is required, the QuestAssureD(TM )25 -OH VIT D, (D2,D3), LC/MS/ MS is recommended: order code 9288 8 (patients >2yrs).See Note 1 Note 1 For additional information, please refer to http://educatio n.Q uestDiagnostics .co m/faq/LWD770 (T his link is being provided for informational/e [place] ational purpose s only.) NILDA (test code = FASTING:YES FASTING: NILDA) YES RAC (test code = Performing RAC) Organization Information: Site ID: [facility] Name: [facility] Address: [address] [place] [address] Director: [place] Darling [facility] HospitalMicroalbumin / creatinine urine [id number] 21:26:00 Test Item Value Reference Interpretation Comments Range Creatinine, urine 61 mg/dL 20-320 (mg/dL) (test code = 2161-8) Microalbumin, urine 1.8 mg/dL See Note: Referenc e Range: (test code = Reference Range Not 28313-8) established Microalbumin/creati See_Comment H The ADA defines [...] RAC) Organization Information: Site ID: [facility]GA [facility] Address: [address] [place] [address] Director: [facility] Interpretation Abnormal (test code = 35622-5) [facility] H[id number] 00:00:00 Test Item Value Reference Range Interpretation Comments PVR (test code = 6116) cc/ml PEAK FLOW (test code = 6120) cc/sec VOIDED VOLUME (test code = 6144) 76t cc [facility] [id number] 00:00:00 Test Item Value Reference Range Interpretation Comments COLOR UA (test code = 5778-6) Yellow YELLOW/STRAW CLARITY UA (test code = 32284-9) Clear CLEAR GLUCOSE UA (test code = 5792-7) 4+ NEGATIVE BILIRUBIN UA (test code = 5770-3) Negative NEGATIVE KETONES UA (test code = 91210-5) Negative NEGATIVE SPECIFIC GRAVITY UA (test code [...] NEGATIVE REDUCING SUBSTANCES URINE (test code = 77159-6) [facility] HospitalProstate specific [id number] 06:35:00 Test Item Value Reference Range Interpretation Comments PSA (test 0.5 ng/mL See_Comment The total PSA v alue code = from this assay system 2857-1) is standardized against the WHO standar d. The test result john l be approximately 2 0% lower when compared t o the equimolar-stand ardized total PSA (JLGOV). Benjy rison of serial PSA resu lts should be inter preted with this fact in mind. This test was p erformed using the Disqus chemiluminescen t method. Values obtained from different [...] RAC) Organization Information: Site ID: [facility]GA [facility]: [facility] Address: [address] [place] [phone] Director: [place] Darling [facility] HospitalCv stress [id number] 10:38:01 Test Item Value Reference Range Interpretation Comments Resting HR (test code = 9509753308) Resting BP (test code 125&58 = 3469272138) Peak MET Achieved (test code = 1998316770) Protocol Name (test DOBUT/ECHO code = 7924054641) Time in Exercise 00:08:40 Phase (test code = 2458768451) Max Systolic BP (test code = 1390187402) Max Diastolic BP (test code = 6841794760) Max Heart Rate (test code = 5561515461) Max Predicted Heart Rate (test code = 3880849883) Target HR Formula (220 - Age)*100% (test code = 7535187817) Test Indication (test A.S code = 7865483570) Arrhy During Ex (test code = 8905028579) ECG Interp Before EX (test code = 1793164364) ECG Interp During Ex (test code = 8387166067) Ex Summary Comment (test code = 8034050652) Overall HR Response to Exercise (test code = 5438514145) Overall BP Response To Exercise (test code = 9011999425) Reason for Protocol Complete Termination (test code = 0994319163) Stress Test Waveform interpreted in Impression (test code report associated with = 5295165653) image study. No interpretation is provided as part of this Stress ECG report.-Electronically Signed By Clem Castro MD ([id number]), greeting card editor Aurea Casey ([id number]) on 08/20/2020 5:37:57 AM [facility] [id number] 00:00:00 Test Item Value Reference Range Interpretation Comments COLOR UA (test code = 5778-6) Yellow YELLOW/STRAW CLARITY UA (test code = Clear CLEAR 62159-6) GLUCOSE UA (test code = Negative NEGATIVE 5792-7) BILIRUBIN UA (test code = Negative NEGATIVE 5770-3) KETONES UA (test code = Negative NEGATIVE 88174-2) SPECIFIC GRAVITY UA (test 1.005-1.035 code = [...] 5802-4) REDUCING SUBSTANCES URINE (test code = 70175-9) [facility] IgG+IgM Ab [Presence] in Serum or Plasma by [id number] 18:46:00 Test Item Value Reference Range Interpretation Comments SARS-CoV-2 (COVID-19) IgG+IgM Ab Not detected [Presence] in Serum or Plasma by Immunoassay (test code = 84272-5) HASKELL ANDRY BWRRPZDR-SgS-3 (COVID-19) IgG Ab [Presence] in Serum or Plasma by [id number] 18:46:00 Test Item Value Reference Range Interpretation Comments SARS-CoV-2 (COVID-19) IgG Ab Not detected [Presence] in Serum or Plasma by Immunoassay (test code = 02863-9) ILEANA PARKER 12 [id number] 22:32:37 Test Item Value Reference Range Interpretation Comments Ventricular rate (test code = 253) Atrial rate (test code = 255) NE interval (test code = 266) QRSD interval [...] longer present-premature supraventricular complexes are now present- Andry Pavon-CoV-2 (COVID-19) RNA [Presence] in Respiratory specimen by RUDDY with probe [id number] 04:51:37 Test Item Value Reference Range Interpretation Comments SARS-CoV-2 (COVID-19) RNA Not detected Not-Detected [Presence] in Respiratory specimen by RUDDY with probe detection (test code = 70930-4) ILEANA MARTINESRS-CoV-2 (COVID-19) IgG+IgM Ab [Presence] in Serum or Plasma by [id number] 06:44:00 Test Item Value Reference Range Interpretation Comments SARS-CoV-2 (COVID-19) IgG+IgM Ab Not detected [Presence] in Serum or Plasma by Immunoassay (test code = 11462-6) ILEANA RAMOSSARS-CoV-2 (COVID-19) IgG Ab [Presence] in Serum or Plasma by [id number] 06:44:00 Test Item Value Reference Range Interpretation Comments SARS-CoV-2 (COVID-19) IgG Ab Not detected [Presence] in Serum or Plasma by Immunoassay (test code = 46822-7) ILEANA RAMOS
--- NOTE | 2022-04-28 23:42 | ER ---
Nurse's Notes [facility] Name: Bay Montano Age: 67 yrs Sex: Male : 1955 Arrival Date: 04/28/2022 Time: 19:41 Bed Treatment Private MD: Diagnosis: Injury of conjunctiva and corneal abrasion without foreign body, left eye Presentation: 04/28 20:41 Chief complaint: Patient states: "I was weedeating and something hit me in the left eye vc1 and it started bleeding.". Coronavirus screen: Vaccine status: Patient reports receiving the 2nd dose of the covid vaccine. pfizer Patient reports receiving the 1st dose of the Covid vaccine. Client denies travel out of the [place] in the last 14 days. Ebola Screen: Patient negative for fever greater than or equal to 101.5 degrees Fahrenheit, and additional compatible Ebola Virus Disease symptoms Patient denies exposure to infectious person. Patient denies travel to an Ebola-affected area in the 21 days before illness onset. No symptoms or risks identified at this time. The patient denies any loss of vision. Initial Sepsis Screen: Does the patient meet any 2 criteria? No. Patient's initial sepsis screen is negative. Does the patient have a suspected source of infection? No. Patient's initial sepsis screen is negative. Risk Assessment: Do you want to hurt yourself or someone else? Patient reports no desire to harm self or others. Onset of symptoms was April 28, 2022. 20:41 Method Of Arrival: Ambulatory vc1 20:41 Acuity: ELIO 4 vc1 21:00 Mechanism of Injury: unknown. eh3 Triage Assessment: 21:00 General: Appears in no apparent distress. uncomfortable, Behavior is calm, cooperative, eh3 appropriate for age. Historical: - Allergies: 20:46 Iodine; vc1 20:46 Latex, Natural Rubber; vc1 - PMHx: 20:46 Aortic Stenosis; CHF; diabetes mellitus; Hypertensive disorder; Atrial fibrillation; vc1 - PSHx: 20:46 Coronary artery bypass graft; defibulator; kidney transplant; liver transplant; eye vc1 implants to prevent glaucoma- durysta; - Immunization history:: Client reports receiving the 1st dose of the Covid vaccine. - Social history:: Smoking status: Patient denies any tobacco usage or history of. Screenin:46 Abuse screen: Denies threats or abuse. Nutritional screening: No deficits noted. vc1 Tuberculosis screening: No symptoms or risk factors identified. 21:00 [facility] ED Fall Risk Assessment (Adult) Score/Fall Risk Level 0 - 2 = Low Risk. eh3 Assessment: 21:00 General: Appears in no apparent distress. uncomfortable, Behavior is calm, cooperative, eh3 appropriate for age. Pain: Complains of pain in left eye. Neuro: Level of Consciousness is awake, alert, obeys commands, Oriented to person, place, time, situation. Cardiovascular: Capillary refill < 3 seconds Patient's skin is warm and dry. Respiratory: Airway is patent Respiratory effort is even, unlabored, Respiratory pattern is regular, symmetrical. GI: Abdomen is round non-distended. : No signs and/or symptoms were reported regarding the genitourinary system. EENT: Eyes are tearing on outer aspect of conjuctiva of left eye, iris of left eye and inner aspect of conjunctiva of left eye Sclera/Cornea are reddened in outer aspect of conjuctiva of left eye, iris of left eye and inner aspect of conjunctiva of left eye. Derm: Skin is pink, warm \\T\\ dry. Musculoskeletal: Circulation, motion, and sensation intact. Range of motion: intact in all extremities. Vital Signs: 20:41 BP 106 / 74; Pulse 62; Resp 16; Temp 97.7; Pulse Ox 99% ; Weight 91.63 kg; Height 5 ft. vc1 10 in. (177.80 cm); Pain 3/10; 20:41 Body Mass Index 28.98 (91.63 kg, 177.80 cm) vc1 Visual Acuity: 22:58 Left Eye Visual acuity 20/20, ; Right Eye Visual acuity 20/20, ; Both Eyes Visual pf1 acuity 20/20; Without Lenses; ED Course: 19:41 Patient arrived in ED. ja2 20:44 Norman Sharma NP is PHCP. pm1 20:44 Richard Coats MD is Attending Physician. pm1 20:45 Triage completed. vc1 20:45 Arm band placed on right wrist. vc1 21:00 Rosalia Edwards, BARRY is Primary Nurse. eh3 21:00 Patient has correct armband on for positive identification. Bed in low position. Call eh3 light in reach. 23:45 No provider procedures requiring assistance completed. Patient did not have IV access eh3 during this emergency room visit. Administered Medications: 23:35 Drug: Tetracaine Drops 0.5 % 1 drops {Note: per DIDIER edge.} Route: Ophthalmic; Site: pf1 left eye; 23:42 Drug: Tetanus-Diphtheria Toxoid Adult 0.5 ml {Fatback Trimmer: [employer] Exp: pf1 01/14/2023. Lot #: [id number]. } Route: IM; Site: left deltoid; 23:44 CANCELLED (Physician Discretion): Tobramycin Drops (0.3 %) 2 drops Ophthalmic once pm1 23:45 Drug: Tobramycin Ointment (0.3 %) 1 application Route: Ophthalmic; Site: left eye; pf1 Medication: 23:45 VIS not applicable for this client. eh3 Outcome: 23:42 Discharge ordered by MD. pm1 23:45 Discharged to home ambulatory. eh3 23:45 Condition: stable 23:45 Discharge instructions given to patient, Instructed on discharge instructions, follow up and referral plans. Demonstrated understanding of instructions, follow-up care. 23:57 Patient left the ED. eh3 Signatures: Norman Sharma, GAS METER CHECKER GAS METER CHECKER pm1 Veronica Stover 2 Caryn Platt RN RN 1 Rosalia Edwards RN RN 3 Jojo marte RN RN pf1 Corrections: (The following items were deleted from the chart) 03 00:36 03/02 21:29 Rosalia Edwards RN is Primary Nurse. eh3 eh3
--- NOTE | 2022-04-28 23:42 | EDPHYS ---
Physician Documentation [facility] Name: Bay Montano Age: 67 yrs Sex: Male : 1955 Arrival Date: 04/28/2022 Time: 19:41 Bed Treatment Private MD: ED Physician Richard Coats HPI: 04/28 23:41 This 67 yrs old Male presents to ER via Ambulatory with complaints of Eye pm1 Injury. 23:41 The patient is experiencing redness, The patient sustained an abrasion, to the left pm1 eye, caused by debris. Onset: The symptoms/episode began/occurred today. Aggravated by nothing. Alleviated by eye flush. Associated signs and symptoms: Pertinent negatives: None. Patient wears glasses. Severity of symptoms: in the emergency department the symptoms have improved. The patient has not experienced similar symptoms in the past. The patient has not recently seen a physician. Patient was weed eating and got debris to left eye. Patient reports sensation of foreign body flushed eye with NS and foreign body sensation resolved. When he was at the pharmacist pharmacist recommended he get evaluated due to the amount of redness to eye present. Historical: - Allergies: 20:46 Iodine; vc1 20:46 Latex, Natural Rubber; vc1 - PMHx: 20:46 Aortic Stenosis; CHF; diabetes mellitus; Hypertensive disorder; Atrial fibrillation; vc1 - PSHx: 20:46 Coronary artery bypass graft; defibulator; kidney transplant; liver transplant; eye vc1 implants to prevent glaucoma- durysta; - Immunization history:: Client reports receiving the 1st dose of the Covid vaccine. - Social history:: Smoking status: Patient denies any tobacco usage or history of. ROS: 23:41 Constitutional: Negative for fever, chills, and weight loss, Cardiovascular: Negative pm1 for chest pain, palpitations, and edema, Respiratory: Negative for shortness of breath, cough, wheezing, and pleuritic chest pain, MS/Extremity: Negative for injury and deformity, Skin: Negative for injury, rash, and discoloration. 23:41 Neuro: Negative for headache, weakness, numbness, tingling, and seizure. 23:41 Eyes: Positive for redness, Negative for swelling, vision loss, visual disturbance. 23:41 All other systems are negative. Exam: 23:41 Visual Acuity: I have reviewed the nursing documentation. pm1 23:41 Constitutional: This is a well developed, well nourished patient who is awake, alert, and in no acute distress. Head/Face: Normocephalic, atraumatic. 23:41 Eyes: Periorbital structures: no acute changes, Pupils: no acute changes, Extraocular movements: no acute changes, Conjunctiva: subconjunctival hemorrhage(s), seen in the left eye, from 4 to 8 o'clock, Corneas: abrasion, that is small, approximately 2 mm(s), on the left, at 3 o'clock, foreign body, is not appreciated, a fluorescein strip employed to appreciate the findings. Vital Signs: 20:41 BP 106 / 74; Pulse 62; Resp 16; Temp 97.7; Pulse Ox 99% ; Weight 91.63 kg; Height 5 ft. vc1 10 in. (177.80 cm); Pain 3/10; 20:41 Body Mass Index 28.98 (91.63 kg, 177.80 cm) vc1 Visual Acuity: 22:58 Left Eye Visual acuity 20/20, ; Right Eye Visual acuity 20/20, ; Both Eyes Visual pf1 acuity 20/20; Without Lenses; MDM: 20:49 Patient medically screened. pm1 23:41 Data reviewed: vital signs. pm1 23:41 Counseling: I had a detailed discussion with the patient and/or guardian regarding: the pm1 historical points, exam findings, and any diagnostic results supporting the discharge/admit diagnosis, the need for outpatient follow up, an opthalmologist, to return to the emergency department if symptoms worsen or persist or if there are any questions or concerns that arise at home. 04/28 20:49 Order name: Eye Tray; Complete Time: 23:39 pm1 04/28 20:49 Order name: Fluoresene Opth strip; Complete Time: 23:39 pm1 04/28 20:49 Order name: Visual Acuity; Complete Time: 22:58 pm1 Administered Medications: 23:35 Drug: Tetracaine Drops 0.5 % 1 drops {Note: per DIDIER edge.} Route: Ophthalmic; Site: pf1 left eye; 23:42 Drug: Tetanus-Diphtheria Toxoid Adult 0.5 ml {Lens Inspector: [employer] ([employer]). Exp: pf1 01/14/2023. Lot #: [id number]. } Route: IM; Site: left deltoid; 23:44 CANCELLED (Physician Discretion): Tobramycin Drops (0.3 %) 2 drops Ophthalmic once pm1 23:45 Drug: Tobramycin Ointment (0.3 %) 1 application Route: Ophthalmic; Site: left eye; pf1 Disposition: 04/29 06:01 Co-signature as Attending Physician, Richard Coats MD I reviewed the patient's care rt provided by the Advanced Practice Provider and agree with the diagnosis and treatment plan. Disposition Summary: 04/28/22 23:42 Discharge Ordered Location: Home pm1 Problem: new pm1 Symptoms: have improved pm1 Condition: Stable pm1 Diagnosis - Injury of conjunctiva and corneal abrasion without foreign body, left eye pm1 Followup: pm1 - With: Emergency Department - When: As needed - Reason: Worsening of condition Followup: pm1 - With: Private Physician - When: 2 - 3 days - Reason: Recheck today's complaints, Continuance of care, Re-evaluation by your physician Discharge Instructions: - Discharge Summary Sheet pm1 - Corneal Abrasion pm1 - Subconjunctival Hemorrhage pm1 Forms: - Medication Reconciliation Form pm1 - Thank You Letter pm1 - Antibiotic Education pm1 - Prescription Opioid Use pm1 Prescriptions: - Vigamox 0.5 % Ophthalmic Drops - instill 1 drop by OPHTHALMIC route every 8 hours for 7 days; 5 milliliter; pm1 Refills: 0, Product Selection Permitted Signatures: Norman Sharma NP [employer] pm1 Caryn Platt RN RN vc1 Richard Coats MD MD rt Jojo marte RN RN pf1 Corrections: (The following items were deleted from the chart) 04/28 23:44 23:41 Tobramycin Drops (0.3 %) 2 drops Ophthalmic once ordered. pm1 pm1
[2022-04-28] MEDS ORDERED: TDAP (DIPHTH,PERTUSS(ACELL),TET VAC) 0.5 ML VIAL IMVAC ONE (23:46)
[2022-04-28] MEDS ORDERED: TOBRAMYCIN SULF 0.3% OPTH OINT ONE (23:48)
[2022-04-29 01:23] VITALS: BP 106/74; TEMP 97.7; O2SAT 99
== END 2022-04-28 23:57 | disposition home or self-care (01) ==
LOC: ER 19:39
DX: S05.02XA Injury of conjunctiva and corneal abrasion without foreign body, left eye, initial encounter (principal); I10 Essential (primary) hypertension; Z23 Encounter for immunization; Z95.1 Presence of aortocoronary bypass graft; Z95.810 Presence of automatic (implantable) cardiac defibrillator; Z88.8 Allergy status to other drugs, medicaments and biological substances; Z91.040 Latex allergy status; Z91.048 Other nonmedicinal substance allergy status
CPT/HCPCS: 90471; 99283

== ENCOUNTER 2022-08-30 17:39 | Emergency (ER) | payer OTHER ==
--- OUTSIDE RECORDS SUMMARY | 2022-08-30 17:47 | XMS REPORT | Continuity of Care Document ---
:1955 Author Organization [facility] t Address [address] [place] [address] [place] [id number] Care Team Providers Name Role Phone Lucy Torres Primary Care Physician Wendy PENDLETON, Kaleb Fay Attending Clinician Catracho REDDY, Lola Attending Clinician Unavailable Yolanda Will MA Attending Clinician Unavailable Yue PENDLETON, Laya Skelton Attending Clinician Elaina Tao Attending Clinician Ankit Felder MD Attending Clinician Lucy Torres MD Attending Clinician Renetta Perkins MD Attending Clinician Pritesh Romo MD Attending Clinician Ashley PENDLETON, Iam cM Attending Clinician Loretta Mcgowan MD Attending Clinician Kym Savage MA Attending Clinician Unavailable Linda Jonas MA Attending Clinician Unavailable Salome Holloway Attending Clinician Unavailable Paula PENDLETON, Renee Attending Clinician Jigna Cedeno MA Attending Clinician Unavailable Yen Desai Attending Clinician Unavailable Yasemin Gomez Attending Clinician Unavailable Shavonne REDDY, Kaila Attending Clinician Unavailable Edith AVALOS, Selene Borjas Attending Clinician Raman REDDY, Caryn Attending Clinician Unavailable Renee Hung RN Attending Clinician Unavailable Mary Jane Givens MA Attending Clinician Unavailable Mel Mcnulty RN Attending Clinician Unavailable Sandra REDDY, Giovanna Attending Clinician Unavailable Aiden Stephens MD Attending Clinician [phone] Laurie REDDY, Bárbara Attending Clinician Unavailable Av Vázquez Attending Clinician Unavailable Cassy Coyle Attending Clinician Unavailable Kenny WORRELL, Adriano Costa Attending Clinician Emery Coyle MD Attending Clinician Pee WORRELL, Anay Attending Clinician Jacki Medina MA Attending Clinician Unavailable David Neri Attending Clinician Rosalia Coleman Attending Clinician Unavailable Margaret Ray RN Attending Clinician Unavailable Keely Lara Attending Clinician Unavailable Coco PENDLETON, Efren Ng Attending Clinician Amalia Gabriel NP Attending Clinician Kristie Holloway MA Attending Clinician Unavailable Jocelynn Mitchell RN Attending Clinician Unavailable Renee Quiroga Attending Clinician Unavailable Starr Taylor RN Attending Clinician Unavailable Jana Rothman MA Attending Clinician Unavailable Claudio Momin MD Attending Clinician Deborah Tang RN Attending Clinician Unavailable Reny Benjamin RN Attending Clinician Unavailable MD EFREN SEPULVEDA Attending Clinician Unavailable Cheng Kohler MD Attending Clinician [phone] Nigel Martell MD Attending Clinician Sinecre Lu MD Attending Clinician MD NIGEL MARTELL Attending Clinician Unavailable Aiden Harvey MD Attending Clinician [phone] Cornelio Norris MD Attending Clinician JAMAL LU Attending Clinician Unavailable RENEE MITCHELL Admitting Clinician Unavailable KALEB NGUYEN Admitting Clinician Unavailable MD EFREN SEPULVEDA Admitting Clinician Unavailable NIGEL MARTELL Admitting Clinician Unavailable MD NIGEL MARTELL Admitting Clinician Unavailable CORNELIO NORRIS Admitting Clinician Unavailable Payers Payer Name Policy Type Policy Number Effective Date Expiration Date S ource Problems Condition Condition Condition Status Onset Resolution [...] Added automatic ally from request for surgery [id number] (aortic (aortic Disease Active M ethodi stenosis) stenosis) 11-04 st 00:00: Hospita 00 l Atrial Atrial Disease Active Methodi fibrillati fibrillati 10-15 st on on 00:00: Hospita 00 l Non-pressu Non-pressu Disease Active Overview : Methodi re chronic re chronic 10-[address] ulcer of ulcer of 00:00: g of this [facility] other part other part 00 note l of right of right might be foot with foot with different fat layer fat layer from the exposed exposed original. 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 Previousl y Billed Thrombocyt Thrombocyt Disease Active Overview : Methodi openia, openia, -[address] unspecifie unspecifie 00:00: g of [...] bilateral bilateral 00:00: [facility] 00 l Dependence Dependence Disease Active Overview : Methodi on renal on renal 2-[address] dialysis dialysis 00:00: g of this [facility] 00 note l might be different from the original. 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 813 st mellitus mellitus 00:00: Hospit a with with 00 l hyperglyce hyperglyce violet, with violet, with long-term long-term current current use of use of insulin insulin Systolic Systolic Disease Recurre Meth walter CHF, acute CHF, acute nce 813 st EF 30-34% EF 30-34% 00:00: Hosp [...] nce 07-16 st 00:00: Hospita 00 l Left knee Left knee Disease Active Met hodi pain pain 04-22 st 00:00: Hospita 00 l Vitamin D Vitamin D Disease Recurre Me thodi deficiency deficiency nce 10-26 st 00:00: Hospita 00 l Anemia Anemia Disease Active Methodi 10-26 st 00:00: Hospita 00 l 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 00:00: Hospita 00 l Chronic Chronic Disease Recurre Method i idiopathic [...] Hospita reaction 00 l s to drug Iodine Propensi Active Hives Jaw Methodi And ty to 2-[address] Iodide adverse 00:00: Hospita Containi reaction 00 l ng s to Products drug Iodine Propensi Active Hives Jaw Methodi And ty to 2-[address] Iodide adverse 00:00: Hospita Containi reaction 00 l ng s to Products drug Family History Family Member Diagnosis Comments Start Date Stop Date Source Natural brother No Known Problems [facility] Cousin No Known Problems [facility] Natural daughter No Known Problems [facility] Natural father No Known Problems Met [facility] Maternal No Known Problems [facility] Maternal No Known Problems [facility] Paternal No Known Problems [facility] No Known Problems [facility] Natural sister No Known Problems Met [facility] Natural son No Known Problems [facility] member [facility] Family member Hyperlipidemia [facility] Family member Hypertension [facility] member Migraines [facility] Family member Osteoarthritis [facility] Family member Rashes / Skin [facility] t problems Hospital Family member Rheum arthritis [facility] Family member Seizures [facility] Family member Stroke [facility] Family member Thyroid disease [facility] Natural mother Cancer [facility] Social History Social Habit Start Date Stop Date Quantity Comments Source Gender identity 2019-09-30 Identifies as male M ethodist 03:22:54 gender (finding) Hospital Sexual orientation 2019-09-30 Heterosexual Meth odist 03:22:54 (finding) Hospital Alcohol intake 2022-06-30 2022-06-30 Ex-drinker [facility] 00:00:00 00:00:00 (finding) Hospital History of Social 2022-06-30 2022-06-[address] function 00:00:00 00:00:00 Hospital Tobacco use and 2021-12-22 2021-12-22 Smokeless tobacco Me [facility]ist exposure 00:00:00 00:00:00 non-user Hospital Tobacco Comment 2021-12-22 2021-12-22 Never used [facility] 00:00:00 00:00:00 Hospital History [facility] 2021-12-01 2021-12-01 1 [facility] Alcohol Frequency 00:00:00 00:00:00 Hospita l History [facility] 2021-12-01 2021-12-01 0 [facility] Alcohol Std Drinks 00:00:00 00:00:00 Hospit al History [facility] 2021-12-01 2021-12-01 1 [facility] Alcohol Binge 00:00:00 00:00:00 Hospital History [facility] 2021-12-01 2021-12-01 5 [facility] Social Connections 00:00:00 00:00:00 Hospit al Phone History [facility] 2021-12-01 2021-12-01 4 [facility]ctions 00:00:00 00:00:00 Hospit al Get Together History [facility] 2021-12-01 2021-12-01 3 [facility] 00:00:00 00:00:00 Hospit al Judaism History [facility] 2021-12-01 2021-12-01 1 [facility] 00:00:00 00:00:00 Hospit al Membership History [facility] 2021-12-01 2021-12-01 3 [facility] 00:00:00 00:00:00 Hospit al Meetings History [facility] 2021-12-01 2021-12-01 5 [facility]ctions 00:00:00 00:00:00 Hospit al Living History SDOH 2021-12-01 2021-12-01 4 [facility] Physical Activity 00:00:00 00:00:00 Hospita l DPW History SDOH 2021-12-01 2021-12-01 5 [facility] Physical Activity 00:00:00 00:00:00 Hospita l MPS History SDOH 2021-12-01 2021-12-01 3 [facility] Stress 00:00:00 00:00:00 Hospital History SDOH 2021-12-01 2021-12-01 5 [facility] Financial 00:00:00 00:00:00 Hospital History SDOH IPV [...] 00:00:00 Hospital History SDOH 2021-12-01 2021-12-01 2 [facility] Med 00:00:00 00:00:00 Hospital History SDOH 2021-12-01 2021-12-01 2 [facility] Non-Med 00:00:00 00:00:00 Hospita l History SDOH 2021-12-01 2021-12-01 2 [facility] Unable to 00:00:00 00:00:00 Hospita l Pay History SDOH 2021-12-01 2021-12-01 1 [facility] Places 00:00:00 00:00:00 Hospital Lived History SDOH 2021-12-01 2021-12-01 2 [facility] Homeless 00:00:00 00:00:00 Hospital Last Year Alcohol Comment 2020-04-09 2020-04-09 1 beer a [facility] 00:00:00 00:00:00 month--very rare Hospital Sex Ass[birth year] At [birth year] [facility] 00:00:00 [facility] Smoking Status Start Date Stop Date Source Never smoked tobacco [facility] Medications Ordered Filled Start Stop Current Ordering Indication Dosage Frequency Signature Comments Components Source Medication Medication Date Date Medication? Clinician (SIG) Name Name pregabalin Yes TAKE 1 Metho di (LYRICA) 5-[address] 100 MG 00:00: MOUTH 3 Hospita capsule 00 TIMES A l DAY levothyroxi Yes TAKE 1 Meth walter ne 5-[address] (SYNTHROID) 00:00: MOUTH Hospi ta 150 mcg 00 EVERY DAY l tablet levothyroxi Yes 150ug QD Take 1 Met hodi ne 5-[address] (SYNTHROID) 00:00: (150 mcg Ho spita 150 mcg 00 total) by l tablet mouth daily. BD Yes USE 6 Methodi Ultra-Fine 5-[address] Micro Pen 00:00: DAY Hospita Needle 32 00 l gauge x 1/4" needle multivitami Yes 1{tbl} QD Take 1 Me thodi n with 5-[address] minerals 13:11: mouth Hospita tablet 49 daily. l finasteride Yes 5mg QD Take 1 Meth walter (PROSCAR) 5 5-04 tablet (5 st mg tablet 13:11: mg total) [facility] 49 by mouth l daily. calcium Yes Q.5D Take 1 Methodi carbonate 5-[address] oyster 13:11: (500 mg of Hospi ta shell 49 elemental l (OS-KIKI) Ca total) 500 mg by mouth 2 calcium (two) (1,250 mg) times a tablet day. insulin Yes 75U QD Inject 75 Metho di degludec 5-[address] (Tresiba 13:11: under the Hosp [facility] FlexTouch 49 skin daily l U-200) 200 with unit/mL (3 breakfast. mL) subcutaneou s pen bimatoprost 0 Yes by Method i (DURYSTA 5-[address] CM) 13:11: al route. Hospita 49 Once every l 4 months cholecalcif 2022-0 Yes 2000U Take 1 Met hodi esther, 5-[address] vitamin D3, 13:11: (2,000 [facility] 50 mcg 49 Units l (2,000 total) by unit) mouth. capsule Every capsule other day apixaban 0 Yes [id number] TAKE 1 Me thodi (Eliquis) 5 5-[address] mg tablet 00:00: MOUTH Hospita 00 TWICE A l DAY pregabalin 0 2023- No 100mg Q.[id number] Take 1 Methodi (Lyrica) 05-18- [id number] capsule s t 100 MG 00:00: 04:59 3D (100 mg Hospita capsule 00 :00 total) by l mouth 3 (three) times a day. Accu-Chek 0 Yes [id number] USE 1 Met hodi SmartView 3-[address] Test Strip 00:00: TIMES A [facility] strip test 00 DAY ( l strips E11.65) Ozempic 2 0 Yes INJECT 2MG Me thodi mg/dose (8 2-[address] mg/3 mL) 00:00: USLY ONCE [facility] pen 00 EVERY 7 l injector DAYS amIODarone 2022-0 2022- No 200mg QD Take 1 Met hodi (PACERONE) 03-30- tablet st 200 MG 08:22: 00:00 (200 mg Hospita tablet 10 :00 total) by l mouth daily. amIODarone 2022-0 2022- No 200mg QD Take 1 Met hodi (PACERONE) 2- 02-[address] 200 MG 08:22: 00:00 (200 mg Hospita tablet 10 :00 total) by l mouth daily. amIODarone 0 Yes TAKE 1 Metho di (PACERONE) 2-[address] 200 MG 00:00: MOUTH Hospita tablet 00 DAILY FOR l 30 DAYS. atorvastati 0 Yes [id number] TAKE 1 Methodi n (LIPITOR) 2-[address] 40 mg 00:00: MOUTH Hospita tablet 00 EVERY DAY l amIODarone 0 Yes TAKE 1 Metho di (PACERONE) 2-[address] 200 MG 00:00: MOUTH Hospita tablet 00 DAILY FOR l 30 DAYS. atorvastati Yes [id number] TAKE 1 Methodi n (LIPITOR) 2-[address] 40 mg 00:00: MOUTH Hospita tablet 00 EVERY DAY l multivitami 0 Yes 1{tbl} QD Take 1 Me thodi n with 1-[address] minerals 09:20: mouth Hospita tablet 57 daily. l finasteride 0 Yes 5mg QD Take 1 Meth walter (PROSCAR) 5 1-25 tablet (5 st mg tablet 09:20: mg total) [facility] 57 by mouth l daily. calcium 0 Yes Q.5D Take 1 Methodi carbonate 1-[address] oyster 09:20: (500 mg of Hospi ta shell 57 elemental l (OS-KKII) Ca total) 500 mg by mouth 2 calcium (two) (1,250 mg) times a tablet day. insulin 0 Yes 75U QD Inject 75 Metho di degludec 1-[address] (Tresiba 09:20: under the [facility] FlexTouch 57 skin daily l U-200) 200 with unit/mL (3 breakfast. mL) subcutaneou s pen bimatoprost 0 Yes by Method i (DURYSTA 1-[address] CM) 09:20: al route. Hospita 57 Once every l 4 months cholecalcif 0 Yes 2000U Take 1 Met hodi esther, 1-[address] vitamin D3, 09:20: (2,000 [facility] 50 mcg 57 Units l (2,000 total) by unit) mouth. capsule Every capsule other day semaglutide 2023- No 1mg Q1W Inject Met hodi (OZEMPIC) 1 1-25 -26 0.75 mL (1 s t mg/dose (4 00:00: 05:59 mg total) H ospita mg/3 mL) 00 :00 under the l subcutaneou skin every s pen 7 days. semaglutide 0 2023- No 1mg Q1W Inject Met hodi (OZEMPIC) 1 03-23 05-03 0.75 mL (1 s t mg/dose (4 00:00: 00:00 mg total) H ospita mg/3 mL) 00 :00 under the l subcutaneou skin every s pen 7 days. empaglifloz 2021-02 Yes 25mg QD Take 1 Meth walter in 2-14 tablet (25 st (Jardiance) 00:00: mg total) H ospita 25 mg 00 by mouth l tablet daily. empaglifloz 2021-02 Yes 25mg QD Take 1 Meth walter in 2-14 tablet (25 st (Jardiance) 00:00: mg total) H ospita 25 mg 00 by mouth l tablet daily. metoprolol 2021-02 No 12.5mg QD Take 0.5 Methodi succinate 03-28- tablets st XL (Toprol 00:00: 05:59 (12.5 mg Ho spita XL) 25 mg 00 :00 total) by l 24 hr mouth tablet daily for 90 days. metoprolol 2021-02 No 12.5mg QD Take 0.5 Methodi succinate 03-28- tablets st XL (Toprol 00:00: 05:59 (12.5 mg Ho spita XL) 25 mg 00 :00 total) by l 24 hr mouth tablet daily for 90 days. furosemide 2021-02 Yes [id number] 40mg Take 1 Methodi (LASIX) 40 1-10 tablet (40 st mg tablet 00:00: mg total) [facility] 00 by mouth l as needed (edema). furosemide 2021-02 No [id number] 40mg Take 1 Methodi (LASIX) 40 1-10 04-10 tablet (40 st mg tablet 00:00: 00:00 mg total) Ho spita 00 :00 by mouth l as needed (edema). spironolact 2021-02 No 25mg QD Take 1 Met hodi one 0-26 10-27 tablet (25 st (ALDACTONE) 00:00: 04:59 mg total) Hospita 25 MG 00 :00 by mouth l tablet daily. spironolact 2021-02- No 25mg QD Take 1 [...] l mouth 2 (two) times a day. carvediloL 2021-02- No 6.25mg Q.5D Take 1 Me thodi (COREG) 0-26 12-[address] 6.25 MG 00:00: 00:00 (6.25 mg Hospi ta tablet 00 :00 total) by l mouth 2 (two) times a day. metFORMIN 2021-02 Yes TAKE 1 Method i (GLUCOPHAGE 0-[address] ) 500 mg 00:00: MOUTH Hospita tablet 00 TWICE A l DAY WITH MEALS metFORMIN 2021-02 Yes TAKE 1 Method i (GLUCOPHAGE 0-[address] ) 500 mg 00:00: MOUTH Hospita tablet 00 TWICE A l DAY WITH MEALS Entresto 2021-02 Yes [id number] TAKE 1 Me thodi 24-26 mg 0-[address] tablet per 00:00: MOUTH Hospit a tablet 00 TWICE A l DAY Entresto 2021-02 Yes [id number] TAKE 1 Me thodi 24-26 mg 0-[address] tablet per 00:00: MOUTH Hospit a tablet 00 TWICE A l DAY metoprolol 2021-02- No [id number] TAKE 1 Methodi tartrate 0-07 10-[address] (LOPRESSOR) 00:00: 00:00 MOUTH 2 Ho spita 50 mg 00 :00 TIMES A l tablet DAY FOR 30 DAYS. metoprolol 2021-02- No [id number] TAKE 1 [facility]i tartrate 0-07 10-[address] (LOPRESSOR) 00:00: 00:00 MOUTH 2 Ho spita 50 mg 00 :00 TIMES A l tablet DAY FOR 30 DAYS. semaglutide 2021-02- No 2mg Q7D Inject 1.5 Methodi (Ozempic) 1 0-07 10-26 mL ([address] mg/dose (4 00:00: 00:00 total) [facility] mg/3 mL) 00 :00 under the l subcutaneou skin once s pen a week. semaglutide 2021-02 No 2mg Q7D Inject 1.5 [...] 04 :00 by mouth l as needed. furosemide 2021-02 No 40mg Take 1 Meth walter (LASIX) 40 0-06 10-06 tablet (40 st mg tablet 15:15: 00:00 mg total) Ho spita 04 :00 by mouth l as needed. apixaban 2021-02 Yes [id number] 5mg Q.5D Take 1 Me thodi (Eliquis) 5 0-06 tablet (5 st mg tablet 00:00: mg total) [facility] 00 by mouth 2 l (two) times a day. ezetimibe 2021-02 Yes [id number] 10mg QD Take 1 M ethodi (ZETIA) 10 0-06 tablet (10 st mg tablet 00:00: mg total) [facility] 00 by mouth l daily. ezetimibe 2021-02 Yes [id number] 10mg QD Take 1 Me thodi (ZETIA) 10 0-06 tablet (10 st mg tablet 00:00: mg total) [facility] 00 by mouth l daily. apixaban 2021-02- No [id number] 5mg Q.5D Take 1 M ethodi (Eliquis) 5 0-06 05-01 tablet (5 st mg tablet 00:00: 00:00 mg total) Ho spita 00 :00 by mouth 2 l (two) times a day. atorvastati 2021-02- No [id number] 40mg QD Take 1 Methodi n (LIPITOR) 0-06 02-01 tablet (40 s t 40 mg 00:00: 00:00 mg total) Hospit a tablet 00 :00 by mouth l daily. atorvastati 2021-02- No [id number] 40mg QD Take 1 Methodi n (LIPITOR) 003-30 tablet (40 s t 40 mg 00:00: 00:00 mg total) Hospit a tablet 00 :00 by mouth l daily. empaglifloz 2021-02 No 25mg QD Take 1 Met hodi in 0 12-14 tablet (25 st (Jardiance) 00:00: 00:00 mg total) Hospita 25 mg 00 :00 by mouth l tablet daily. empaglifloz 2021-02 25mg QD Take 1 Met hodi in 0-14 tablet (25 st (Jardiance) 00:00: 00:00 mg total) Hospita 25 mg 00 :00 by mouth l tablet daily. furosemide 2021-02 No [id number] 40mg Take 1 Methodi (LASIX) 40 0- 11-10 tablet (40 st mg tablet 00:00: 00:00 mg total) Ho spita 00 :00 by mouth l as needed (edema). furosemide 2021-02 No [id number] 40mg Take 1 Methodi (LASIX) 40 0- 11-10 tablet (40 st mg tablet 00:00: 00:00 mg total) Ho spita 00 :00 by mouth l as needed (edema). amIODarone 2021-02- No [id number] 200mg QD Take 1 Methodi (PACERONE) 001-[address] 200 MG 00:00: 04:59 (200 mg Hospita tablet 00 :00 total) by l mouth daily for 30 days. amIODarone 2021-02 No [id number] 200mg QD Take 1 Method[facility] (PACERONE) 0- tablet st 200 MG 00:00: 04:59 (200 mg Hospita tablet 00 :00 total) by l mouth daily for 30 days. sacubitriL- 2021-02- No [id number] 1{tbl} Q.5D Take 1 Methodi valsartan 0-[address] (Entresto) 00:00: 00:00 mouth 2 [facility] 24-26 mg 00 :00 (two) l tablet per times a tablet day. sacubitriL- 2021-02- No [id number] 1{tbl} Q.5D Take 1 Methodi valsartan 0-06 10-[address] (Entresto) 00:00: 00:00 mouth 2 [facility] 24-26 mg 00 :00 (two) l tablet per times a tablet day. metoprolol 2021-02- No [id number] 50mg Q.5D Take 1 [facility]i tartrate 0-06 10-07 tablet (50 st (LOPRESSOR) 00:00: 00:00 mg total) Hospita 50 mg 00 :00 by mouth 2 l tablet (two) times a day for 30 days. metoprolol 2021-02- No [id number] 50mg Q.5D Take 1 [facility] tartrate 0-06 10-07 tablet (50 st (LOPRESSOR) 00:00: 00:00 mg total) Hospita 50 mg 00 :00 by mouth 2 l tablet (two) times a day for 30 days. liraglutide 2021-02- No 1.8mg QD Inject 1.8 Method[facility] (VICTOZA) 0-03 10-[address] 0.6 mg/0.1 14:03: 00:00 the skin Ho spita mL (18 mg/3 16 :00 daily with l mL) pen breakfast. injector liraglutide 2021-02- No 1.8mg QD Inject 1.8 [facility] (VICTOZA) 0-03 10-[address] 0.6 mg/0.1 14:03: 00:00 the skin Ho spita mL (18 mg/3 16 :00 daily with l mL) pen breakfast. injector amIODarone 2021- No 200mg QD Take 1 Met hodi (PACERONE) 11-24- tablet st 200 MG 00:00: 00:00 (200 mg Hospita tablet 00 :00 total) by l mouth daily for 30 days. amIODarone 2021- No 200mg QD Take 1 Met hodi (PACERONE) 11-24- tablet st 200 MG 00:00: 00:00 (200 mg Hospita tablet 00 :00 total) by l mouth daily for 30 days. amIODarone 2021- No 200mg QD Take 1 Met hodi (PACERONE) 11-[address] 200 MG 00:00: 00:00 (200 mg Hospita tablet 00 :00 total) by l mouth daily for 30 days. amIODarone 2021- No 200mg QD Take 1 Met hodi (PACERONE) 11-[address] 200 MG 00:00: 00:00 (200 mg Hospita tablet 00 :00 total) by l mouth daily for 30 days. empaglifloz 2021- No TAKE 1 Met hodi in 11-[address] (Jardiance) 00:00: 00:00 MOUTH [facility] 10 mg 00 :00 EVERY DAY l tablet tablet empaglifloz 2021- No TAKE 1 Met hodi in 11-[address] (Jardiance) 00:00: 00:00 MOUTH [facility] 10 mg 00 :00 EVERY DAY l tablet tablet lactulose Yes 20g Q.5D Take 30 mL Me thodi 20 gram/30 10-30 ([address] mL solution 00:00: total) by H ospita 00 mouth 2 l (two) times a day as needed (constipat ion). lactulose 0 Yes 20g Q.5D Take 30 mL Me thodi 20 gram/30 - ([address] mL solution 00:00: total) by H ospita 00 mouth 2 l (two) times a day as needed (constipat ion). predniSONE 2021-0 2021- No 10mg QD Take 1 Meth walter (DELTASONE) 10-28 tablet (10 s t 10 mg 00:00: 00:00 mg total) Hospit a tablet 00 :00 by mouth l daily. predniSONE 2021-0 2021- No 10mg QD Take 1 Meth walter (DELTASONE) 10-28 tablet (10 s t 10 mg 00:00: 00:00 mg total) Hospit a tablet 00 :00 by mouth l daily. amIODarone 2021-0 2021- No 200mg QD Take 1 Met hodi (PACERONE) 10-[address] 200 MG 00:00: 00:00 (200 mg Hospita tablet 00 :00 total) by l mouth daily for 30 days. amIODarone 2021- No 200mg QD Take 1 Met hodi (PACERONE) 10-[address] 200 MG 00:00: 00:00 (200 mg Hospita tablet 00 :00 total) by l mouth daily for 30 days. metoprolol 2021- No 50mg Q.5D Take 1 Meth walter tartrate 10-27 tablet (50 st (LOPRESSOR) 00:00: 00:00 mg total) Hospita 50 mg 00 :00 by mouth 2 l tablet (two) times a day for 30 days. metoprolol 2021- No 50mg Q.5D Take 1 Meth walter tartrate 10-27 tablet (50 st (LOPRESSOR) 00:00: 00:00 mg total) Hospita 50 mg 00 :00 by mouth 2 l tablet (two) times a day for 30 days. Vascepa 1 Yes TAKE 2 Method i gram 8-[address] capsule 00:00: (2 G Hospita 00 TOTAL) BY l MOUTH 2 (TWO) TIMES A DAY WITH MEALS. Vascepa 1 Yes TAKE 2 Method i gram 8-[address] capsule 00:00: (2 G Hospita 00 TOTAL) BY l MOUTH 2 (TWO) TIMES A DAY WITH MEALS. CALCIUM 2021- No 500mg [id number] Take 500 Methodi CARBONATE 10-[id number] (OYSTER 15:06: 00:00 3D mouth 3 Hospit a SHELL 35 :00 (three) l CALCIUM 500 times a ORAL) day. CALCIUM 2021- No 500mg Q.[id number] Take 500 [facility] CARBONATE 10-[id number] (OYSTER 15:06: 00:00 3D mouth 3 Hospit a SHELL 35 :00 (three) l CALCIUM 500 times a ORAL) day. aspirin 2021- No 81mg QD Take 81 mg Met hodi (ECOTRIN) 10-[address] 81 MG 11:16: 00:00 daily. Hospita enteric 21 :00 l coated tablet aspirin 2021- No 81mg QD Take 81 mg Met [facility] (ECOTRIN) 10-[address] 81 MG 11:16: 00:00 daily. Hospita enteric 21 :00 l coated tablet bimatoprost 2021- No 1[drp] QD Administer [facility] (LUMIGAN) 10-[address] 0.01 % 11:16: 00:00 both eyes Hospi ta ophthalmic 17 :00 nightly. l drops bimatoprost 2021- No 1[drp] QD Administer [facility] (LUMIGAN) 10-[address] 0.01 % 11:16: 00:00 both eyes Hospi ta ophthalmic 17 :00 nightly. l drops tacrolimus 2022- No [id number] .[id number] QD Take 1 [facility] (PROGRAF) 09-[address] 0.5 MG 00:00: 04:59 (0.5 mg Hospita capsule 00 :00 total) by l mouth every evening. tacrolimus 2022- No [id number] 1mg QD Take 1 [facility] (PROGRAF) 1 09-29- capsule (1 s t MG capsule 00:00: 04:59 mg total) H ospita 00 :00 by mouth l every morning. tacrolimus 2022- No [id number] .5mg QD Take 1 [facility] (PROGRAF) 09-[address] 0.5 MG 00:00: 04:59 (0.5 mg Hospita capsule 00 :00 total) by l mouth every evening. tacrolimus 2022- No [id number] 1mg QD Take 1 [facility] (PROGRAF) 1 09-29- capsule (1 s t MG capsule 00:00: 04:59 mg total) H [facility]spita 00 :00 by mouth l every morning. semaglutide 2022- No 2mg Q1W Inject 2 M ethodi (Ozempic) 2 09-28 01-[address] mg/dose (8 00:00: 00:00 the skin Ho spita mg/3 mL) 00 :00 every 7 l pen days. injector semaglutide No 2mg Q1W Inject 2 M ethodi (Ozempic) 2 09-28 01-[address] mg/dose (8 00:00: 00:00 the skin Ho [facility]ita mg/3 mL) 00 :00 every 7 l pen days. injector atorvastati 2021- No TAKE 1 Met hodi n (LIPITOR) 09-[address] 40 mg 00:00: 00:00 MOUTH Hospita tablet 00 :00 EVERY DAY l atorvastati 2021- No TAKE 1 Met hodi n (LIPITOR) 09-[address] 40 mg 00:00: 00:00 MOUTH Hospita tablet 00 :00 EVERY DAY l Tresiba 2021- No INJECT [facility] FlexTouch 09-[address] U-200 200 00:00: 00:00 (150 UNITS H [facility]spita unit/mL (3 00 :00 TOTAL) l mL) UNDER THE subcutaneou SKIN s pen DAILY. Tresiba 2021- No INJECT [facility] FlexTouch 09-23 08- 0.75 ML st U-200 200 00:00: 00:00 (150 UNITS H ospita unit/mL (3 00 :00 TOTAL) l mL) UNDER THE subcutaneou SKIN s pen DAILY. ezetimibe 2021- No TAKE 1 [facility] di (ZETIA) 10 09-14 10- TABLET BY st mg tablet 00:00: 00:00 MOUTH Hospit a 00 :00 EVERY DAY l ezetimibe 2021- No TAKE 1 [facility] (ZETIA) 10 09-14 10- TABLET BY st mg tablet 00:00: 00:00 MOUTH Hospit a 00 :00 EVERY DAY l pregabalin 2021- No [id number] TAKE 1 [facility] (LYRICA) 08-02- CAPSULE BY st 100 MG 00:00: 00:00 MOUTH 3 Hospita capsule 00 :00 TIMES A l DAY pregabalin 2021- No [id number] TAKE 1 [facility] (LYRICA) 08-[address] 100 MG 00:00: 00:00 MOUTH 3 Hospita capsule 00 :00 TIMES A l DAY flash 2021-0 Yes [id number] 1{piece Q14D 1 Piece Me thodi glucose 6-03 } every 14 st sensor 00:00: (fourteen) Hospi ta (FreeStyle 00 days. DX l Tierney 14 E11.65 Day Sensor) kit flash 2021-0 Yes [id number] 1{piece Q14D 1 Piece Me [facility] glucose 6-03 } every 14 st sensor 00:00: (fourteen) Hospi ta (FreeStyle 00 days. DX l Tierney 14 E11.65 Day Sensor) kit Entresto 2021- No TAKE 1 Method i 24-26 mg 5-18 10-[address] tablet per 00:00: 00:00 MOUTH Hospi ta tablet 00 :00 TWICE A l DAY Entresto 2021-2021- No TAKE 1 Method i 24-26 mg 5-18 10-[address] tablet per 00:00: 00:00 MOUTH Hospi ta tablet 00 :00 TWICE A l DAY Eliquis 5 2021-2021- No TAKE 1 [facility] di mg tablet -12 -[address] 00:00: 00:00 MOUTH Hospita 00 :00 TWICE A l DAY Eliquis 5 2021- No TAKE 1 [facility] di mg tablet 5-12 10-[address] 00:00: 00:00 MOUTH Hospita 00 :00 TWICE A l DAY pregabalin 2021-2021- No [id number] 100mg Q.[id number] Take 1 [facility] (LYRICA) -12 - [id number] capsule s t 100 MG 00:00: 00:00 3D (100 mg Hospita capsule 00 :00 total) by l mouth 3 (three) times a day for 363 days. tacrolimus 2021-2021- No [id number] TAKE ONE [facility] (PROGRAF) 1 5-12 03-27 CAPSULE BY s t MG capsule 00:00: 00:00 MOUTH Hospi ta 00 :00 TWICE A l DAY (Z94.4) tacrolimus 2021-2021- No [id number] TAKE ONE [facility] (PROGRAF) 1 5-12 03-27 CAPSULE BY s t MG capsule 00:00: 00:00 MOUTH Hospi ta 00 :00 TWICE A l DAY (Z94.4) Jardiance 2021- No TAKE 1 Metho di 25 mg 06-18- TABLET BY st tablet 00:00: 00:00 MOUTH Hospita 00 :00 EVERY DAY l Jardiance 2021- No TAKE 1 [facility]o di 25 mg 06-18- TABLET BY st tablet 00:00: 00:00 MOUTH Hospita 00 :00 EVERY DAY l levothyroxi Yes 150ug QD Take 1 Met hodi ne 05-[address] (SYNTHROID) 00:00: (150 mcg Ho spita 150 mcg 00 total) by l tablet mouth daily. levothyroxi 2022- No 150ug QD Take 1 Me thodi ne 05-18 05-[address] (SYNTHROID) 00:00: 00:00 (150 mcg H ospita 150 mcg 00 :00 total) by l tablet mouth daily. metFORMIN 2021- No 500mg Q.5D Take 1 Meth walter (GLUCOPHAGE 05-[address] ) 500 mg 00:00: 00:00 [...] 500mg Q.5D Take 1 Meth walter (GLUCOPHAGE 05-[address] ) 500 mg 00:00: 00:00 (500 mg Hospi ta tablet 00 :00 total) by l mouth 2 (two) times a day with meals. levothyroxi 2021-2021- No 150ug QD Take 1 Me thodi ne 05-18- tablet st (SYNTHROID) 00:00: 00:00 (150 mcg H ospita 150 mcg 00 :00 total) by l tablet mouth daily. atorvastati 2021- No TAKE 1 Met hodi n (LIPITOR) 3-15 07-[address] 40 mg 00:00: 00:00 MOUTH Hospita tablet 00 :00 EVERY DAY l atorvastati 2021- No TAKE 1 Met hodi n (LIPITOR) 05-[address] 40 mg 00:00: 00:00 MOUTH Hospita tablet 00 :00 EVERY DAY l ezetimibe 2021- No TAKE 1 [facility] di (ZETIA) 10 05-[address] mg tablet 00:00: 00:00 MOUTH Hospit a 00 :00 EVERY DAY l ezetimibe 2021- No TAKE 1 [facility] di (ZETIA) 10 05-[address] mg tablet 00:00: 00:00 MOUTH Hospit a 00 :00 EVERY DAY l semaglutide 2021- No 1mg Q1W Inject Met hodi (OZEMPIC) 1 04-14- 0.75 mL (1 s t mg/dose (4 00:00: 00:00 mg total) [facility]ita mg/3 mL) 00 :00 under the l subcutaneou skin every s pen 7 days. semaglutide 2021- No 1mg Q1W Inject Met hodi (OZEMPIC) 1 04-14- 0.75 mL (1 s t mg/dose (4 [...] WITH MEALS. clotrimazol Yes APPLY TO [facility] e-betametha 03-[address] sone 00:00: AREA TWICE Hospita (LOTRISONE) 00 A DAY l 1-0.05 % cream insulin 2020-02 Yes Patient [facility] ASPART 04-[address] (NovoLOG 00:00: ratio. Max Hos jerome Flexpen 00 dose per l U-100 day is 150 Insulin) 100 unit/mL (3 mL) insulin pen insulin 2020-02 Yes 76U QD Inject [facility] degludec 04-[address] (Tresiba 00:00: (76 Units Hosp bucky FlexTouch 00 total) l U-200) 200 under the unit/mL (3 skin mL) daily. subcutaneou s pen insulin 2020-02 Yes Patient [facility] ASPART 04-[address] (NovoLOG 00:00: ratio. Max Hos jerome Flexpen 00 dose per l U-100 day is 150 Insulin) 100 unit/mL (3 mL) insulin pen insulin 2020-02 Yes Patient [facility] ASPART 04-[address] (NovoLOG 00:00: ratio. Max Hos jerome Flexpen 00 dose per l U-100 day is 150 Insulin) 100 unit/mL (3 mL) insulin pen insulin 2020-02- No 76U QD Inject [facility] degludec 04-[address] (Tresiba 00:00: 00:00 (76 Units Hos jerome FlexTouch 00 :00 total) l U-200) 200 under the unit/mL (3 skin mL) daily. subcutaneou s pen insulin 2020-02- No 76U QD Inject [facility] degludec 04-[address] (Tresiba 00:00: 00:00 (76 Units Hos jerome FlexTouch 00 :00 total) l U-200) 200 under the unit/mL (3 skin mL) daily. subcutaneou s pen atorvastati 2020-02 Yes 80mg QD Take 2 Meth walter n (LIPITOR) 2-[address] 40 mg 00:00: (80 mg Hospita tablet 00 total) by l mouth daily. metFORMIN 2020-02 Yes 500mg Q.5D Take 1 Metho di (GLUCOPHAGE 2-[address] ) 500 mg 00:00: (500 mg Hospit a tablet 00 total) by l mouth 2 (two) times a day with meals. metFORMIN 2020-02 No 500mg Q.5D Take 1 Meth walter (GLUCOPHAGE 04-04- tablet st ) 500 mg 00:00: 00:00 (500 mg Hospi ta tablet 00 :00 total) by l mouth 2 (two) times a day with meals. atorvastati 2020-02 No 80mg QD Take 2 Met hodi n (LIPITOR) 04-04 03-[address] 40 mg 00:00: 00:00 (80 mg Hospita tablet 00 :00 total) by l mouth daily. atorvastati 2020-02 No 40mg QD Take 40 mg Methodi n (LIPITOR) 04-[address] 40 mg 15:52: 00:00 daily. Hospita tablet 53 :00 l metFORMIN 2020-02 No 500mg Q.5D Take 1 Meth walter (GLUCOPHAGE 04-[address] ) 500 mg 00:00: 00:00 (500 mg Hospi ta tablet 00 :00 total) by l mouth 2 (two) times a day with meals. atorvastati 2020-02 No 80mg QD Take 2 Met hodi n (LIPITOR) 04-[address] 40 mg 00:00: 00:00 (80 mg Hospita tablet 00 :00 total) by l mouth daily. atorvastati 2020-02 No 40mg QD Take 1 Met hodi n (LIPITOR) 04-01 tablet (40 s t 40 mg 00:00: 00:00 mg total) Hospit a tablet 00 :00 by mouth l daily. Victoza 2020-02 Yes [id number] INJECT 0.3 [facility] 3-Sha 0.6 0-[address] mg/0.1 mL 00:00: S Hospita (18 mg/3 00 SUBCUTANEO l mL) pen USLY EVERY injector DAY WITH BREAKFAST Victoza 2020-02- No [id number] INJECT 0.3 Method[facility] 3-Sha 0.6 0-07 08-[address] mg/0.1 mL 00:00: 00:00 S Hospita (18 mg/3 00 :00 SUBCUTANEO l mL) pen USLY EVERY injector DAY WITH BREAKFAST Victoza 2020-02- No [id number] INJECT 0.3 Method[facility] 3-Sha 0.6 0-07 08-[address] mg/0.1 mL 00:00: 00:00 S Hospita (18 mg/3 00 :00 SUBCUTANEO l mL) pen USLY EVERY injector DAY WITH BREAKFAST levothyroxi Yes 150ug QD Take 1 Met [...] mg 11-18- tablet (25 st tablet 00:00: 00:00 mg total) Hospi ta 00 :00 by mouth l daily. levothyroxi 2021- No 150ug QD Take 1 Me thodi ne 11-18- tablet st (SYNTHROID) 00:00: 00:00 (150 mcg H ospita 150 mcg 00 :00 total) by l tablet mouth daily. levothyroxi 2020- No 175ug QD Take 1 Me thodi ne 11-[address] (SYNTHROID) 00:00: 00:00 (175 mcg H ospita 175 mcg 00 :00 total) by l tablet mouth daily. CALCIUM Yes 500mg Q.[id number] Take 500 [facility] CARBONATE 8-[id number] (OYSTER 08:44: 3D mouth 3 Hospita SHELL 26 (three) l CALCIUM 500 times a ORAL) day. bimatoprost Yes 1[drp] QD Administer [facility] (LUMIGAN) 8-[address] 0.01 % 08:44: [...] Hospit a 26 l pregabalin 2021- No [id number] 100mg Q.[id number] Take 1 [facility] (LYRICA) 10-05 [id number] capsule s t 100 MG 00:00: 04:59 3D (100 mg Hospita capsule 00 :00 total) by l mouth 3 (three) times a day for 363 days. pregabalin 2021- No [id number] 100mg Q.[id number] Take 1 [facility] (LYRICA) 10-05 [id number] capsule s t 100 MG 00:00: 00:00 [...] gauge x 5/32" needle pregabalin 2020- No [id number] 100mg Q.[id number] Take 1 [facility] (LYRICA) 09-08 [id number] capsule s t 100 MG 00:00: 00:00 3D (100 mg Hospita capsule 00 :00 total) by l mouth 3 (three) times a day for 363 days. cholecalcif 2020- No 2000U QD Take 2,000 Methodi esther, 6-23 06-23 Units by vitamin D3, 15:09: 00:00 mouth Hosp bucky 50 mcg 55 :00 daily. l (2,000 unit) capsule capsule sacubitriL- 0 Yes 1{tbl} QD Take 1 Me thodi valsartan 6-[address] (Entresto) 00:00: mouth Hospit a 24-26 mg 00 daily. l tablet per tablet tacrolimus 2020-0 Yes .5mg QD Take 1 Metho di (PROGRAF) 08-[address] 0.5 MG 00:00: (0.5 mg Hospita capsule 00 total) by l mouth every evening. tacrolimus Yes [id number] 1mg QD Take 1 M ethodi (PROGRAF) 1 08-19 capsule (1 st MG capsule 00:00: mg total) Ho spita 00 by mouth l every morning. tacrolimus 2020-2021- No .5mg QD Take 1 Meth walter (PROGRAF) 08-19 08-[address] 0.5 MG 00:00: 00:00 (0.5 mg Hospita capsule 00 :00 total) by l mouth every evening. tacrolimus 2020-2021- No [id number] 1mg QD Take 1 [facility] (PROGRAF) 1 08-19 08-03 capsule (1 s t MG capsule 00:00: 00:00 mg total) H ospita 00 :00 by mouth l every morning. tacrolimus 2020-2- No .5mg QD Take 1 Meth walter (PROGRAF) 08-19 08-[address] 0.5 MG 00:00: 00:00 (0.5 mg Hospita capsule 00 :00 total) by l mouth every evening. tacrolimus 2020-2021- No [id number] 1mg QD Take 1 [facility] (PROGRAF) 1 08-19 08-03 capsule (1 s t MG capsule 00:00: 00:00 mg total) H ospita 00 :00 by mouth l every morning. sacubitriL- 2020-0 2021- No 1{tbl} QD Take 1 M [...] Take 1 Metho di (ZETIA) 10 08-05 tablet (10 st mg tablet 00:00: 00:00 mg total) Ho spita 00 :00 by mouth l daily. insulin No 150U QD Inject Method[facility] degludec 08-05 [...] No TAKE 1 Metho di (ZETIA) 10 -20 08-[address] mg tablet 00:00: 00:00 MOUTH Hospit a 00 :00 EVERY DAY l omega-3 2020- No 1000mg Q.5D Take 1,000 [...] :00 EVERY DAY l Victoza 2020- No [id number] INJECT 0.3 [facility] 3-Sha 0.6 1-18 10-[address] mg/0.1 mL 00:00: 00:00 S Hospita (18 mg/3 00 :00 SUBCUTANEO l mL) pen USLY EVERY injector DAY WITH BREAKFAST tacrolimus 2019-02 No [id number] 1mg Q.5D Take 1 [facility] (PROGRAF) 1 04-22 06-23 capsule (1 s t MG capsule 00:00: 00:00 mg total) H ospita 00 :00 by mouth 2 l (two) times a day. levothyroxi 2019-02- No TAKE 1 Met hodi ne 04-15 06- TABLET BY st (SYNTHROID) 00:00: 00:00 MOUTH Hosp bucky 175 mcg 00 :00 EVERY DAY l tablet traZODone 2019-02- No TAKE 1 Metho di (DESYREL) 03-15- TABLET BY st 50 MG 00:00: 00:00 [...] 2019-02- No TAKE 2 Metho di gram 028 06-[address] capsule 00:00: 00:00 (2 G Hospita 00 :00 TOTAL) BY l MOUTH 2 (TWO) TIMES A DAY WITH MEALS. Accu-Chek 2019-02 Yes [id number] USE 1 Met hodi SmartView 0-[address] Test Strip 00:00: TIMES A Hosp bucky strip test 00 DAY ( l strips E11.65) Accu-Chek 2019-02- No [id number] USE 1 Me thodi SmartView 0-21 08-[address] Test Strip 00:00: 00:00 TIMES A Hos jerome strip test 00 :00 DAY ( l strips E11.65) Accu-Chek 2019-02- No [id number] USE 1 Me thodi SmartView 0-21 08-03 [...] l DAY WITH FOOD pregabalin 2020- No [id number] TAKE 1 [facility] (LYRICA) 08-11 07-10 CAPSULE [...] DAYS. TAKE EVERY MONDAY ergocalcife 2020- No [id number] Q7D Take 1 Methodi rol 5-15 02-[address] (VITAMIN 00:00: 00:00 (50,000 Hospi ta D2) 50,000 00 :00 Units l unit total) by capsule mouth once a week. insulin 2020- No 25U Q.[id number] Inject 25 [facility] ASPART 2-14 -[id number] (NovoLOG 00:00: 05:59 3D under the Hos jerome Flexpen 00 :00 skin 3 l U-100 (three) Insulin) times a 100 unit/mL day with (3 mL) meals. insulin pen TRESIBA 2020- No INJECT 150 Met hodi FLEXTOUCH 1-10 06-[address] U-200 200 00:00: 00:00 UNDER THE Ho spita unit/mL (3 00 :00 SKIN l mL) insulin DAILY. pen lancets Yes [id number] DX: E11.65 Methodi (ACCU-CHEK 8-[address] FASTCLIX 00:00: testing 3 Hosp bucky LANCING 00 times a l DEV) [facility] day. lancets Yes [id number] DX: E11.65 [facility] (ACCU-CHEK 8-[address] FASTCLIX 00:00: testing 3 Hosp bucky LANCING 00 times a l DEV) [facility] day. lancets Yes [id number] DX: E11.65 Method[facility] (ACCU-CHEK 8-[address] FASTCLIX 00:00: testing 3 Hosp bucky LANCING 00 times a l DEV) [facility] day. BD 2020- No USE 6 [facility] ULTRA-FINE 7- 07-[address] HODAN PEN 00:00: 00:00 DAY Hospita NEEDLE 32 00 :00 l gauge x 5/32" needle pen needle, 2020- No USE 6 Meth walter diabetic 7- 02-[address] (BD 00:00: 00:00 DAILY Hospita ULTRA-FINE 00 :00 l HODAN PEN NEEDLE) 32 gauge x 5/32" needle olmesartan 2020- No TAKE 1 Meth walter (BENICAR) 5 4-23 02-[address] MG tablet 00:00: 00:00 MOUTH Hospit a 00 :00 EVERY DAY l flash 2017-02 Yes [id number] 1{devic 1 Device [facility] glucose 1-12 e} as needed st scanning 00:00: (scan as Hospi ta reader 00 needed). l (FREESTYLE TIERNEY 10 DAY READER) [facility] flash 2017-02- No [id number] 1{devic 1 Device [facility] glucose 1-12 10-03 e} as needed st scanning 00:00: 00:00 (scan as Hosp bucky reader 00 :00 needed). l (FREESTYLE TIERNEY 10 DAY READER) [facility] flash 2017-02- No [id number] 1{devic 1 Device [facility] glucose 1-12 10-03 e} as needed st scanning 00:00: 00:00 (scan as Hosp bucky reader 00 :00 needed). l (FREESTYLE TIERNEY 10 DAY READER) [facility] tamsulosin Yes 1{tbl} QD Take 1 Met [...] VEDA PLUS 00 2 Dx l METER) [facility] Code:E11.9 blood-gluco 2016-02- No Use as Met hodi se meter 0-04 08-[address] (ACCU-CHEK 00:00: 00:00 Dx:Dm Type Hospita VEDA PLUS 00 :00 2 Dx l METER) [facility] Code:E11.9 blood-gluco 2016-02- No Use as Met hodi se meter 0-04 08-[address] (ACCU-CHEK 00:00: 00:00 Dx:Dm Type Hospita VEDA PLUS 00 :00 2 Dx l METER) [facility] Code:E11.9 metoprolol Yes 1{tbl} QD Take 1 Met hodi succinate 5-[address] XL 00:00: mouth Hospita (TOPROL-XL) 00 daily. l 50 mg 24 hr tablet metoprolol 2021- No 75mg QD Take 75 mg [facility] succinate 07-22- by mouth st XL 00:00: 00:00 daily. Hospita (TOPROL-XL) 00 :00 l 50 mg 24 hr tablet metoprolol 2021- No 75mg QD Take 75 mg [facility] succinate 07-22- by mouth st XL 00:00: 00:00 daily. [...] Hospita tablet 00 :00 daily. l furosemide 2015-02- No 40mg QD Take 1 Meth walter (LASIX) 40 0-23 12-23 tablet (40 st MG tablet 00:00: 00:00 mg total) Ho spita 00 :00 by mouth l daily for 30 days. furosemide 2015-02- No 40mg QD Take 1 Meth walter [...] (two) times a day for 30 days. furosemide 40mg Q.5D Take 1 Meth walter (LASIX) 40 9-16 12-23 tablet (40 st MG tablet 00:00: 00:00 mg total) Ho spita 00 :00 by mouth 2 l (two) times a day for 30 days. Immunizations Ordered Immunization Filled Immunization Date Status Commen ts Source Name Name FLUZONE HIGH-DOSE PF 2022-01-27 Completed [facility] 00:00:00 [facility] FLUZONE HIGH-DOSE PF 2022-01-27 Completed [facility] 00:00:00 [facility] FLUZONE HIGH-DOSE PF 2021-04-20 Completed [facility] 00:00:00 [facility] FLUZONE HIGH-DOSE PF 2021-04-20 Completed [facility] 00:00:00 [facility] PFIZER COVID-19 MRNA 2020-04-17 Completed [facility]ist VACCINATION 00:00:00 [facility] PFIZER COVID-19 MRNA 2020-04-17 Completed [facility]ist VACCINATION 00:00:00 [facility] PFIZER COVID-19 MRNA 2020-04-17 Completed Meth [facility]ist VACCINATION 00:00:00 [facility] PFIZER COVID-19 MRNA 2020-03-26 Completed Meth odist VACCINATION 00:00:00 [facility] PFIZER COVID-19 MRNA 2020-03-26 Completed Meth [facility]ist VACCINATION 00:00:00 [facility] PFIZER COVID-19 MRNA 2020-03-26 Completed Meth odist VACCINATION 00:00:00 [facility] FLUZONE QUAD 2019-11-11 Completed [facility] 00:00:00 [facility] FLUZONE QUAD 2019-11-11 Completed [facility] 00:00:00 [facility] FLUZONE QUAD 2019-11-11 Completed [facility] 00:00:00 [facility] Pneumococcal 2019-04-26 Completed [facility] Polysaccharide 00:00:00 [facility] Pneumococcal 2019-04-26 Completed [facility] Polysaccharide 00:00:00 [facility] Pneumococcal 2019-04-26 Completed [facility] Polysaccharide 00:00:00 [facility] FLUZONE QUAD PF 2019-01-15 Completed [facility] 00:00:00 [facility] FLUZONE QUAD PF 2019-01-15 Completed [facility] 00:00:00 [facility] FLUZONE QUAD PF 2019-01-15 Completed [facility] 00:00:00 [facility] Pneumococcal 2018-02-06 Completed [facility] 2018-02-06 Completed [facility] Conjugate 13-[facility]ent 00:00:00 [facility] [place] Pneumococcal 2018-02-06 Completed [facility] Conjugate 13-[facility] 00:00:00 [facility] [place] FLUZONE QUAD 2017-12-13 Completed [facility] 00:00:00 Hospital FLUZONE QUAD 2017-12-13 Completed [facility] 00:00:00 Hospital FLUZONE QUAD 2017-12-13 Completed [facility] 00:00:00 Hospital FLUZONE QUAD 2017-12-12 Completed [facility] 00:00:00 Hospital FLUZONE QUAD 2017-12-12 Completed [facility] 00:00:00 Hospital FLUZONE QUAD 2017-12-12 Completed [facility] 00:00:00 Hospital FLUZONE QUAD 2016-11-15 Completed [facility] 00:00:00 Hospital FLUZONE QUAD 2016-11-15 Completed [facility] 00:00:00 Hospital FLUZONE QUAD 2016-11-15 Completed [facility] 00:00:00 Hospital FLUZONE QUAD 2016 Completed [facility] 00:00:00 Hospital FLUZONE QUAD 2016 Completed [facility] 00:00:00 Hospital FLUZONE QUAD 2016 Completed [facility] 00:00:00 Hospital Influenza Trivalent 2014-12-02 Completed [facility] 00:00:00 Hospital Influenza Trivalent 2014-12-02 Completed [facility] 00:00:00 Hospital Influenza Trivalent 2014-12-02 Completed [facility] 00:00:00 Hospital Influenza, 2014-03-23 Completed [facility] Unspecified 00:00:00 Hospital FLUZONE QUAD 2014-03-23 Completed [facility] 00:00:00 Hospital Influenza, 2014-03-23 Completed [facility] Unspecified 00:00:00 Hospital Influenza, 2014-03-23 Completed [facility] Unspecified 00:00:00 Hospital FLUZONE QUAD 2014-03-23 Completed [facility] 00:00:00 Hospital Influenza Trivalent 2007-12-12 Completed [facility] dist 00:00:00 Hospital Influenza Trivalent 2007-12-12 Completed [facility] dist 00:00:00 Hospital Influenza Trivalent 2007-12-12 Completed [facility] dist 00:00:00 Hospital Influenza Trivalent 2007-11-28 Completed [facility] 00:00:00 Hospital Influenza Trivalent 2007-11-28 Completed [facility] dist 00:00:00 Hospital Influenza Trivalent 2007-11-28 Completed [facility] 00:00:00 Hospital Vital Signs Vital Name Observation Time Observation Value Comments Source Systolic blood 2022-06-30 18:08:00 102 mm[Hg] [facility] pressure Diastolic blood 2022-06-30 18:08:00 65 [facility]Hg[facility] Hospital pressure Heart rate 2022-06-30 18:08:00 54 /min [facility] Body height 2022-06-30 18:08:00 177.8 cm [facility] Body weight 2022-06-30 18:08:00 94.167 kg [facility] BMI 2022-06-30 18:08:00 29.79 kg/m2 [facility] Oxygen saturation in 2022-06-30 18:08:00 97 /min [facility] Arterial blood by Pulse oximetry Respiratory rate 2022-06-06 16:00:00 12 /min [facility] Systolic blood 2022-03-23 17:37:00 130 mm[Hg] [facility] pressure Diastolic blood 2022-03-23 17:37:00 72 mm[Hg] [facility] Hospital pressure Heart rate 2022-03-23 17:37:00 78 /min [facility] Respiratory rate 2022-03-23 17:37:00 16 /min [facility] Body weight 2022-03-23 17:37:00 92.987 kg [facility] BMI 2022-03-23 17:37:00 29.41 kg/m2 [facility] Body height 2022-03-10 16:45:00 177.8 cm [facility] Oxygen saturation in 2022-03-03 16:56:00 99 /min [facility] Arterial blood by Pulse oximetry Body temperature 2022-01-10 17:10:00 36.11 Francesca [facility] Systolic blood 2020-12-14 17:30:00 113 mm[Hg] [facility] pressure Diastolic blood 2020-12-14 17:30:00 61 mm[Hg] [facility] pressure Heart rate 2020-12-14 17:30:00 65 /min [facility] Respiratory rate 2020-12-14 17:30:00 16 /min [facility] Body height 2020-10-20 13:44:00 177.8 cm [facility] Body weight 2020-10-20 13:44:00 95.528 kg [facility] BMI 2020-10-20 13:44:00 30.22 kg/m2 [facility] Oxygen saturation in 2020-10-20 13:44:00 98 /min [facility] Arterial blood by Pulse oximetry Body temperature 2020-09-24 17:49:00 36.56 Francesca [facility] Procedures Procedure Date / Time Performing Clinician Source Performed TTE COMPLETE, W CONTRAST, W 2022-06-30 17:35:28 Ankit Felder [facility] DOPPLER ([id number]) Christiano CBC WITH PLATELET AND 2022-06-07 13:38:00 Hinkle, [facility] DIFFERENTIAL COMPREHENSIVE METABOLIC 2022-06-07 13:38:00 [facility] PANEL PHOSPHORUS LEVEL 2022-06-07 13:38:00 [facility] PARATHYROID HORMONE 2022-06-07 13:38:00 [facility] PROTEIN, URINE, RANDOM 2022-06-07 13:38:00 [facility] CREATININE LEVEL, URINE, 2022-06-07 13:38:00 [facility] RANDOM URINALYSIS, AUTOMATED WITH 2022-06-07 13:38:00 [facility] MICROSCOPY [id number] TACROLIMUS LEVEL, 2022-06-07 13:38:00 [facility] RANDOM ECG 12-LEAD 2022-06-06 16:09:00 Renetta Perkins [facility] AMYLASE LEVEL 2022-03-18 14:16:00 [facility] HEMOGLOBIN A1C 2022-03-18 14:16:00 [facility] LIPASE LEVEL 2022-03-18 14:16:00 [facility] LIPID PANEL 2022-03-18 14:16:00 [facility] ALBUMIN WITH CREATININE AND 2022-03-18 14:16:00 [facility] [place] enriquez [facility] RATIO, RANDOM URINE T4, FREE 2022-03-18 14:16:00 [facility] THYROID STIMULATING HORMONE 2022-03-18 14:16:00 [facility] Cherie enriquez [facility] VITAMIN D 25 HYDROXY LEVEL 2022-03-18 14:16:00 [facility] Re y [facility] CBC WITH PLATELET AND 2022-03-07 15:06:[address] [facility] DIFFERENTIAL COMPREHENSIVE METABOLIC 2022-03-07 15:06:00 [facility] PANEL PHOSPHORUS LEVEL 2022-03-07 15:06:00 [facility] PARATHYROID HORMONE 2022-03-07 15:06:00 Hinkle [facility] [id number] TACROLIMUS LEVEL, 2022-03-07 15:06:00 [facility] RANDOM CBC WITH PLATELET AND 2022-03-07 15:06:[address] [facility] DIFFERENTIAL POC GLUCOSE 2022-01-10 17:15:00 Renee Mitchell [facility]ital CV RIGHT HEART CATH 2022-01-10 16:55:00 Renee Mitchell [facility] ESTIMATED GFR 2022-01-10 13:45:00 Renee Mitchell o[facility]ital POC PANEL 2022-01-10 13:45:00 Renee Mitchell [facility] ospital COVID-19 QUALITATIVE RT-PCR 2022-01-10 13:28:00 Varghesev[address] [facility] CBC WITH PLATELET AND 2022-01-10 13:28:00 Varghesevandana [facility] DIFFERENTIAL PROTHROMBIN TIME WITH INR 2022-01-10 13:28:00 Paula [facility] CV TREADMILL STRESS TEST 2022-01-07 22:39:32 Renee Mitchell [facility] CARDIOPULMONARY STRESS 2022-01-05 19:02:26 Renee Mitchell [facility] EXERCISE ECG 12-LEAD 2021-12-22 20:03:03 Renee Mitchell ospital CV PACEMAKER DEFIB ILR 2021-12-22 00:00:00 Sandra, Nick Pereira [facility] INTERROGATION ECG 12-LEAD 2021-12-02 19:42:00 Renetta Perkins [facility] ECG 12-LEAD 2021-11-25 18:42:59 Ankit Felder spital Christiano CBC WITH PLATELET AND 2021-11-24 13:03:[address] [facility] DIFFERENTIAL COMPREHENSIVE METABOLIC 2021-11-24 13:03:00 [facility] PANEL PHOSPHORUS LEVEL 2021-11-24 13:03:00 [facility] URINE PROTEIN/CREATININE 2021-11-24 13:03:00 [facility] RATIO, RANDOM PARATHYROID HORMONE 2021-11-24 13:03:00 Hinkle [facility] [id number] TACROLIMUS LEVEL, 2021-11-24 13:03:00 [facility] RANDOM URINALYSIS, AUTOMATED WITH 2021-11-24 13:03:00 [facility] MICROSCOPY CBC WITH PLATELET AND 2021-11-24 13:03:00 Hinlke, [facility] DIFFERENTIAL ECG 12-LEAD 2021-11-04 19:55:33 Ankit Felder spital Christiano POC GLUCOSE 2021-10-27 17:12:00 Anay Glasgow spital POC GLUCOSE 2021-10-27 12:51:00 Anay Glasgow spital CBC WITH PLATELET AND 2021-10-27 10:50:00 Emery Coyle [facility] DIFFERENTIAL COMPREHENSIVE METABOLIC 2021-10-27 10:50:00 DishaEmery [facility] PANEL MAGNESIUM LEVEL 2021-10-27 10:50:00 [facility] AMMON[facility] LEVEL 2021-10-27 10:50:00 [facility] HEMOGLOBIN A1C 2021-10-27 10:50:00 [facility] VITAMIN B12 LEVEL 2021-10-27 10:50:00 [facility] T4, FREE 2021-10-27 10:50:00 [facility] VITAMIN D 25 HYDROXY LEVEL 2021-10-27 10:50:00 [facility] FOLATE LEVEL 2021-10-27 10:50:00 [facility] ESTIMATED GFR 2021-10-27 10:50:00 Emery Coyle Ho spital POC GLUCOSE 2021-10-27 02:02:00 Anay Glasgow [facility] spital POC GLUCOSE 2021-10-26 23:31:00 Anay Glasgow Ho spital B NATRIURETIC PEPTIDE 2021-10-26 21:39:00 [facility] LACTIC ACID LEVEL 2021-10-26 21:39:00 [facility] CT HEAD WO CONTRAST 2021-10-26 20:45:12 Noah Garcia [facility] POC GLUCOSE 2021-10-26 18:20:00 Anay Glasgow Ho spital MAGNESIUM LEVEL 2021-10-26 15:59:00 Anay Glasgow Ho spital PHOSPHORUS LEVEL 2021-10-26 15:59:00 Anay Glasgow H ospital COMPREHENSIVE METABOLIC 2021-10-26 15:59:00 Anay Glasgow [facility] PANEL CBC WITH PLATELET AND 2021-10-26 15:59:00 Anay Glasgow [facility] DIFFERENTIAL BILIRUBIN DIRECT 2021-10-26 15:59:00 Anay Glasgow H ospital ESTIMATED GFR 2021-10-26 15:59:00 Anay Glasgow [facility] POC GLUCOSE 2021-10-26 02:47:00 Anay Glasgow [facility] POC GLUCOSE 2021-10-25 22:27:00 Anay Glasgow [facility] POC GLUCOSE 2021-10-25 17:35:00 Anay Glasgow [facility] POC GLUCOSE 2021-10-25 13:19:00 Anay Glasgow [facility] spital CBC WITH PLATELET AND 2021-10-25 10:48:00 Emery Coyle [facility] DIFFERENTIAL COMPREHENSIVE METABOLIC 2021-10-25 10:48:00 Jonna [facility] PANEL MAGNESIUM LEVEL 2021-10-25 10:48:00 Emery Coyle spital ESTIMATED GFR 2021-10-25 10:48:00 Emery Coyle spital [id number] TACROLIMUS LEVEL, 2021-10-25 10:48:00 Emery Coyle [facility] TROUGH POC GLUCOSE 2021-10-25 03:22:00 Emery Coyle spital POC GLUCOSE 2021-10-24 23:07:00 Emery Coyle spital POC GLUCOSE 2021-10-24 17:43:00 Emery Coyle spital COMPREHENSIVE METABOLIC 2021-10-24 15:11:00 Jonna [facility] PANEL ESTIMATED GFR 2021-10-24 15:11:00 mEery Coyle spital POC GLUCOSE 2021-10-24 14:02:00 Emery Coyle spital CBC WITH PLATELET AND 2021-10-24 11:28:00 Emery Coyle [facility] DIFFERENTIAL COMPREHENSIVE METABOLIC 2021-10-24 11:28:00 Jonna [facility] PANEL MAGNESIUM LEVEL 2021-10-24 11:28:00 Emery Coyle spital ESTIMATED GFR 2021-10-24 11:28:00 Emery Coyle spital [id number] TACROLIMUS LEVEL, 2021-10-24 11:28:00 Emery Coyle [facility] TROUGH POC GLUCOSE 2021-10-24 06:08:00 Emery Coyle Ho spital POC GLUCOSE 2021-10-24 02:11:00 Emery Coyle Ho spital POC GLUCOSE 2021-10-23 22:35:00 Emery Coyle Ho spital POC GLUCOSE 2021-10-23 17:49:00 Emery Coyle Ho spital POC GLUCOSE 2021-10-23 12:54:00 Emery Coyle spital [id number] TACROLIMUS LEVEL, 2021-10-23 10:40:00 Jonna [facility] TROUGH CBC WITH PLATELET AND 2021-10-23 10:37:00 Emery Coyle [facility] DIFFERENTIAL COMPREHENSIVE METABOLIC 2021-10-23 10:37:00 Emery Coyle [facility] PANEL MAGNESIUM LEVEL 2021-10-23 10:37:00 Emery Coyle spital ESTIMATED GFR 2021-10-23 10:37:00 Emery Coyle spital POC GLUCOSE 2021-10-23 02:41:00 Emery Coyle spital POC GLUCOSE 2021-10-22 23:18:00 Emery Coyle Ho spital POC GLUCOSE 2021-10-22 21:09:00 Emery Coyletal CV STRESS TEST 2021-10-22 20:20:00 David Neri TTE STRESS DOBUTAMINE 2021-10-22 20:20:00 David Neri [facility] ([id number]) POC GLUCOSE 2021-10-22 14:10:00 Emery Coyletal [id number] TACROLIMUS LEVEL, 2021-10-22 10:50:00 Emery Coyle [facility] RANDOM CBC WITH PLATELET AND 2021-10-22 10:41:00 Emery Coyle [facility] DIFFERENTIAL COMPREHENSIVE METABOLIC 2021-10-22 10:41:00 Emery Coyle [facility] PANEL MAGNESIUM LEVEL 2021-10-22 10:41:00 Emery Coyle spital ESTIMATED GFR 2021-10-22 10:41:00 Emery Coyle spital POC GLUCOSE 2021-10-22 03:56:00 Emery Coyle spital ECG 12-LEAD 2021-10-22 02:29:02 Yudelka Dominguez [facility] POC GLUCOSE 2021-10-21 23:32:00 Emery Coyle spital POC GLUCOSE 2021-10-21 17:18:00 Emery Coyle spital POC GLUCOSE 2021-10-21 13:14:00 Emery Coyle spital CBC WITH PLATELET AND 2021-10-21 09:44:00 Emery Coyle [facility] DIFFERENTIAL COMPREHENSIVE METABOLIC 2021-10-21 09:44:00 Giveon, [facility] PANEL MAGNESIUM LEVEL 2021-10-21 09:44:00 GiveEmery pandey spital PHOSPHORUS LEVEL 2021-10-21 09:44:00 Tashi Ramesh [facility] ESTIMATED GFR 2021-10-21 09:44:00 GiveEmery pandey spital [id number] TACROLIMUS LEVEL, 2021-10-21 09:44:00 Emery Coyle [facility] TROUGH POC GLUCOSE 2021-10-21 07:48:00 GiveEmery pandey Ho spital POC GLUCOSE 2021-10-21 06:31:00 GiveEmery pandey spital POC GLUCOSE 2021-10-21 04:17:00 GiveEmery pandey spital POC GLUCOSE 2021-10-21 02:37:00 GiveEmery pandey Ho spital POC GLUCOSE 2021-10-21 01:51:00 GiveEmery pandey spital POTASSIUM LEVEL 2021-10-20 23:04:00 [facility] POC GLUCOSE 2021-10-20 22:13:00 GiveEmery pandey Ho spital POC GLUCOSE 2021-10-20 21:09:00 GiveEmery pandey Ho spital POC GLUCOSE 2021-10-20 17:41:00 GiveEmery pandey spital ECG 12-LEAD 2021-10-20 17:20:17 GiveEmery pandey Ho spital POC GLUCOSE 2021-10-20 14:41:00 GiveEmery pandey spital CV CTA TAVR WORKUP (CTA 2021-10-20 14:09:13 David Neri [facility] CORONARY,CTA THORACIC AORTA,CTA ABDOMEN PELVIS) W CONTRAST POTASSIUM LEVEL 2021-10-20 12:25:00 [facility] CBC WITH PLATELET AND 2021-10-20 10:17:00 Emery Coyle [facility] DIFFERENTIAL COMPREHENSIVE METABOLIC 2021-10-20 10:17:00 Jonna [facility] PANEL MAGNESIUM LEVEL 2021-10-20 10:17:00 Emery Coyle spital ESTIMATED GFR 2021-10-20 10:17:00 GiveEmery pandey spital [id number] TACROLIMUS LEVEL, 2021-10-20 10:17:00 Emery Coyle [facility] TROUGH MANUAL DIFFERENTIAL 2021-10-20 10:17:00 Emery Coyle [facility] CBC WITH PLATELET AND 2021-10-20 10:17:00 Emery Coyle [facility] DIFFERENTIAL ECG 12-LEAD 2021-10-20 04:47:19 GiveEmery pandey [facility] POC GLUCOSE 2021-10-20 00:45:00 GiveonEmery [facility] POC GLUCOSE 2021-10-19 22:23:00 GiveonEmery [facility] POC GLUCOSE 2021-10-19 17:47:00 GiveonEmery Ho spital ECG 12-LEAD 2021-10-19 16:47:14 GiveonEmery [facility] POC GLUCOSE 2021-10-19 14:25:00 Emery Coyle spital CBC WITH PLATELET AND 2021-10-19 10:43:00 Kaleb Nguyen [facility] DIFFERENTIAL COMPREHENSIVE METABOLIC 2021-10-19 10:43:00 Kaleb Nguyen [facility] PANEL MAGNESIUM LEVEL 2021-10-19 10:43:00 Kaleb Nguyen Ho spital LDH 2021-10-19 10:43:00 [facility] [id number] TACROLIMUS LEVEL, 2021-10-19 10:43:00 [facility] TROUGH BILIRUBIN DIRECT 2021-10-19 10:43:00 [facility] 2021-10-19 10:43:00 Kaleb Nguyen [facility] ECG 12-LEAD 2021-10-19 03:47:37 Kaleb Nguyen [facility] POC GLUCOSE 2021-10-19 01:44:00 Kaleb Nguyen [facility] POC GLUCOSE 2021-10-18 22:15:00 Kaleb Nguyen [facility] POC GLUCOSE 2021-10-18 18:00:00 Kaleb Nguyen [facility] ECG 12-LEAD 2021-10-18 15:57:03 Kaleb Nguyen [facility] POC GLUCOSE 2021-10-18 14:00:00 NeKaleb barrett Ho spital MAGNESIUM LEVEL 2021-10-18 09:54:00 Lawrence Carmen Ho spital CBC WITH PLATELET AND 2021-10-18 09:54:00 NeKaleb barrett [facility] DIFFERENTIAL COMPREHENSIVE METABOLIC 2021-10-18 09:54:00 NeKaleb barrett [facility] PANEL [id number] TACROLIMUS LEVEL, 2021-10-18 09:54:00 NeKaleb barrett [facility] RANDOM ESTIMATED GFR 2021-10-18 09:54:00 NeKaleb barrett Ho spital ECG 12-LEAD 2021-10-18 04:13:14 NeKaleb barrettist Ho spital POC GLUCOSE 2021-10-18 00:53:00 NeKaleb barrettist Ho spital POC GLUCOSE 2021-10-17 22:07:00 NeKaleb barrett [facility] POC GLUCOSE 2021-10-17 17:46:00 NeKaleb barrettist Ho spital POC GLUCOSE 2021-10-17 13:34:00 NeKaleb barrett Ho spital CBC WITH PLATELET AND 2021-10-17 10:57:00 NeKaleb barrett [facility] DIFFERENTIAL BASIC METABOLIC PANEL 2021-10-17 10:57:00 Lawrence Carmen [facility] MAGNESIUM LEVEL 2021-10-17 10:57:[address] [facility] ESTIMATED GFR 2021-10-17 10:57:00 Lawrence Carmen Ho spital ECG 12-LEAD 2021-10-17 04:18:16 NeKaleb barrett Ho spital BASIC METABOLIC PANEL 2021-10-17 03:42:00 GadielTashi [facility] MAGNESIUM LEVEL 2021-10-17 03:42:00 [facility] PHOSPHORUS LEVEL 2021-10-17 03:42:00 [facility] 2021-10-17 03:42:[address] [facility] [address] [facility] POC GLUCOSE 2021-10-16 22:52:00 Kaleb Nguyen spital ECG 12-LEAD 2021-10-16 21:19:46 Anselmo Kay osayla Toribio POC GLUCOSE 2021-10-16 17:19:00 Kaleb Nguyen spital BASIC METABOLIC PANEL 2021-10-16 15:53:00 [facility] MAGNES[facility] 2021-10-16 15:53:00 Lawrence Carmen spital ESTIMATED GFR 2021-10-16 15:53:00 Lawrence Carmen spital TROPONIN T 2021-10-16 15:50:00 KikiacsAnselmo mustafa andrea Toribio XR CHEST 1 VW PORTABLE 2021-10-16 15:47:39 [facility] Catar[facility] ECG 12-LEAD 2021-10-16 15:05:22 Anselmo Kay andrea Toribio POC GLUCOSE 2021-10-16 13:48:00 Kaleb Nguyen spital CBC WITH PLATELET AND 2021-10-16 10:09:00 Kaleb Nguyen [facility] DIFFERENTIAL [id number] TACROLIMUS LEVEL, 2021-10-16 10:09:00 Kaleb Nguyen [facility] TROUGH BASIC METABOLIC PANEL 2021-10-16 10:09:00 Amy [facility] [place] MAGNESIUM LEVEL 2021-10-16 10:09:00 Rekha Reyes PHOSPHORUS LEVEL 2021-10-16 10:09:00 Rek[facility] Reyes [facility] IONIZED CALCIUM 2021-10-16 10:09:00 Rekha Reyes [place] ESTIMATED GFR 2021-10-16 10:09:00 Rekha Reyes TTE COMPLETE, W CONTRAST, W 2021-10-16 07:40:00 Jarett Portillo [facility] DOPPLER ([id number]) LACTIC ACID LEVEL, SEPSIS - 2021-10-16 04:36:00 RehrerAdriano [facility] NOW AND REPEAT 2X EVERY 3 HOURS TROPONIN T 2021-10-16 04:36:00 Rehrer, [facility] POC GLUCOSE 2021-10-15 23:30:00 [facility] LACTIC ACID LEVEL, SEPSIS - 2021-10-15 21:58:00 Rehrer, [facility] NOW AND REPEAT 2X EVERY 3 HOURS TROPONIN T 2021-10-15 21:58:00 Rehrer, [facility] COVID-19 QUALITATIVE RT-PCR 2021-10-15 21:54:00 [facility] ECG 12-LEAD 2021-10-15 21:12:13 Jarett Portillo spital URINE CULTURE 2021-10-15 21:07:00 Rehrer, [facility] URINALYSIS SCREEN AND 2021-10-15 21:07:00 Rehrer, [facility] MICROSCOPY, WITH REFLEX TO CULTURE XR CHEST 1 VW PORTABLE 2021-10-15 20:45:00 Rehrer, [facility] CBC WITH PLATELET AND 2021-10-15 20:29:00 Rehrer, [facility] DIFFERENTIAL PROTHROMBIN TIME WITH INR 2021-10-15 20:29:00 Rehrer, [facility] PARTIAL THROMBOPLASTIN TIME 2021-10-15 20:29:00 Rehrer, [facility] (PTT) COMPREHENSIVE METABOLIC 2021-10-15 20:29:00 Rehrer, [facility] PANEL MAGNESIUM LEVEL 2021-10-15 20:29:00 Rehrer, [facility] PHOSPHORUS LEVEL 2021-10-15 20:29:00 Rehrer, [facility] LACTIC ACID LEVEL, SEPSIS - 2021-10-15 20:29:00 Rehrer, [facility] NOW AND REPEAT 2X EVERY 3 HOURS TROPONIN T 2021-10-15 20:29:00 Rehrer, [facility] B NATRIURETIC PEPTIDE 2021-10-15 20:29:00 Rehrer, [facility] HEMOGLOBIN A1C 2021-10-15 20:29:00 WendyCharissepradip Fay [facility] THYROID STIMULATING HORMONE 2021-10-15 20:29:00 Rehrer, [facility] ESTIMATED GFR 2021-10-15 20:29:00 Rehrer, [facility] VENOUS BLOOD GAS 2021-10-15 20:24:00 Rehrer, [facility] CT CRITICAL CARE 2021-10-15 20:21:52 Rehrer, [facility] ILL/INJURED PATIENT INIT 30-74 MIN ECG ED PRELIMINARY 2021-10-15 20:21:52 Rehrer, [facility] INTERPRETATION ECG 12-LEAD 2021-10-15 18:57:56 Rehrer, [facility] CBC WITH PLATELET AND 2021-09-23 18:28:00 [facility] DIFFERENTIAL COMPREHENSIVE METABOLIC 2021-09-23 18:28:00 [facility] PANEL HEMOGLOBIN A1C 2021-09-23 18:28:00 [facility] AMYLASE LEVEL 2021-09-23 18:28:00 [facility] LIPASE LEVEL 2021-09-23 18:28:00 [facility] LIPID PANEL 2021-09-23 18:28:00 [facility] MICROALBUMIN / CREATININE 2021-09-23 18:28:00 [facility] URINE RATIO T4, FREE 2021-09-23 18:28:00 [facility] THYROID STIMULATING HORMONE 2021-09-23 18:28:00 [facility] VITAMIN D 25 HYDROXY LEVEL 2021-09-23 18:28:00 [facility] US HEPATIC 2021-09-03 15:25:00 [facility] US ABDOMINAL DOPPLER 2021-09-03 15:00:00 [facility] XR CHEST 2 VW 2021-09-03 13:50:00 [facility] CBC WITH PLATELET AND 2021-09-03 12:58:00 Clarissa [facility] DIFFERENTIAL COMPREHENSIVE METABOLIC 2021-09-03 12:58:00 Clarissa [facility] PANEL MAGNESIUM LEVEL 2021-09-03 12:58:00 [facility] HEMOGLOBIN A1C 2021-09-03 12:58:00 [facility] LIPID PANEL 2021-09-03 12:58:00 [facility] PROTHROMBIN TIME WITH INR 2021-09-03 12:58:00 [facility] CYTOMEGALOVIRUS BY PCR 2021-09-03 12:58:00 Clarissa [facility] GGT 2021-09-03 12:58:00 Clarissa [facility] [id number] TACROLIMUS LEVEL, 2021-09-03 12:58:00 Clarissa [facility] RANDOM HEPATOCELLULAR CARCINOMA 2021-09-03 12:58:00 [facility] MARKER PANEL CANCER ANTIGEN 19-9 2021-09-03 12:58:00 Clarissa [facility] HEPATITIS C VIRUS (HCV), 2021-09-03 12:58:00 [facility] QUANTITATIVE PCR ESTIMATED GFR 2021-09-03 12:58:00 [facility] PHOSPHORUS LEVEL 2021-09-03 12:58:00 [facility] BONE DENSITY 2021-08-24 16:08:13 Michael [facility] AMYLASE LEVEL 2021-03-25 16:16:00 [facility], [facility] CBC WITH PLATELET AND 2021-03-25 16:16:00 [facility] DIFFERENTIAL COMPREHENSIVE METABOLIC 2021-03-25 16:16:00 [facility], [facility] PANEL HEMOGLOBIN A1C 2021-03-25 16:16:00 [facility], [facility] LIPASE LEVEL 2021-03-25 16:16:00 [facility], [facility] LIPID PANEL 2021-03-25 16:16:00 [facility] MICROALBUMIN / CREATININE 2021-03-25 16:16:00 [facility] URINE RATIO T4, FREE 2021-03-25 16:16:00 [facility] THYROID STIMULATING HORMONE 2021-03-25 16:16:00 [facility] VITAMIN D 25 HYDROXY LEVEL 2021-03-25 16:16:00 [facility] CBC WITH PLATELET AND 2020-11-13 14:07:00 [facility] DIFFERENTIAL COMPREHENSIVE METABOLIC 2020-11-13 14:07:00 [facility] PANEL HEMOGLOBIN A1C 2020-11-13 14:07:00 [facility] LIPASE LEVEL 2020-11-13 14:07:00 [facility] AMYLASE LEVEL 2020-11-13 14:07:00 [facility] MICROALBUMIN / CREATININE 2020-11-13 14:07:00 [facility] URINE RATIO T4, FREE 2020-11-13 14:07:00 [facility] THYROID STIMULATING HORMONE 2020-11-13 14:07:00 [facility] VITAMIN D 25 HYDROXY LEVEL 2020-11-13 14:07:00 [facility] PROSTATE SPECIFIC ANTIGEN 2020-10-20 14:16:00 Lucy Torres [facility] CT ABDOMEN PELVIS WO 2020-08-25 17:05:00 Efren Sepulveda [facility] CONTRAST BONE DENSITY 2020-08-19 19:41:11 [facility] MRI ABDOMEN WO CONTRAST 2020-08-19 18:39:00 Pritesh Romo [facility] CV STRESS TEST 2020-08-19 16:42:30 [facility] TTE STRESS DOBUTAMINE 2020-08-19 16:42:30 [facility] ([id number]) MISCELLANEOUS REFERRAL TEST 2020-08-03 19:13:00 [facility] NM BONE SCAN WHOLE BODY 2020-08-03 17:58:31 [facility] CT CHEST WO CONTRAST 2020-08-03 15:46:01 [facility] HC COMPLETE BLD COUNT 2020-08-03 15:00:00 [facility] W/AUTO DIFF COMPREHENSIVE METABOLIC 2020-08-03 15:00:00 [facility] PANEL MAGNESIUM LEVEL 2020-08-03 15:00:00 [facility] HEMOGLOBIN A1C 2020-08-03 15:00:00 [facility] LIPID PANEL 2020-08-03 15:00:00 [facility] ALPHA FETOPROTEIN 2020-08-03 15:00:00 [facility] CARCINOEMBRYONIC ANTIGEN 2020-08-03 15:00:00 [facility] (CEA) VITAMIN D 1,25 DIHYDROXY 2020-08-03 15:00:00 [facility] LEVEL, SERUM CYTOMEGALOVIRUS BY PCR 2020-08-03 15:00:00 [facility] VITAMIN D 25 HYDROXY LEVEL 2020-08-03 15:00:00 [facility] THYROID STIMULATING HORMONE 2020-08-03 15:00:00 [facility] ALCOHOL LEVEL, BLOOD 2020-08-03 15:00:00 [facility] GGT 2020-08-03 15:00:00 [facility] PROTEIN, URINE, RANDOM 2020-08-03 15:00:00 [facility] CREATININE LEVEL, URINE, 2020-08-03 15:00:00 [facility] RANDOM [id number] TACROLIMUS LEVEL, 2020-08-03 15:00:00 [facility] RANDOM HEPATOCELLULAR CARCINOMA 2020-08-03 15:00:00 [facility] MARKER PANEL CANCER ANTIGEN 19-9 2020-08-03 15:00:00 [facility] ESTIMATED GFR 2020-08-03 15:00:00 [facility] MICROALBUMIN / CREATININE 2020-04-22 17:36:00 EloLucy raymond [facility] URINE RATIO [id number] N 2020-04-17 21:14:00 [facility] (NUCLEOCAPSID PROTEIN) ANTIBODY HC COMPLETE BLD COUNT 2020-04-17 21:14:00 [facility] W/AUTO DIFF DONOR SPECIFIC ANTIBODY 2020-04-17 21:14:00 [facility] POC GLUCOSE 2020-04-04 16:17:00 Sincere Lu [facility] spital POC GLUCOSE 2020-04-04 14:04[facility] 2020-04-04 11:28:00 [facility] POC GLUCOSE 2020-04-04 05:49:00 [facility] POC GLUCOSE 2020-04-03 23:44:00 [facility] CV CTA CORONARY ARTERIES W 2020-04-03 23:12:46 [facility] CONTRAST CT CARDIAC OVERREAD 2020-04-03 22:17:[facility] POC GLUCOSE 2020-04-03 22:08:00 [facility] CV DEFIBRILLATOR 2020-04-03 19:27:51 Renetta Perkins [facility] PROGRAMMING SINGLE POC GLUCOSE 2020-04-03 18:31:00 [facility] POC GLUCOSE 2020-04-03 14:30:00 [facility] TTE COMPLETE, W CONTRAST, W 2020-04-03 12:45:00 Hunter Banks [facility] DOPPLER ([id number]) TROPONIN 2020-04-03 12:00:00 [facility] Michael ECG 12-LEAD 2020-04-03 11:35:06 [facility] Michael LIPID PANEL 2020-04-03 10:00:00 [facility] THYROID STIMULATING HORMONE 2020-04-03 10:00:00 [facility] T4, FREE 2020-04-03 10:00:00 [facility] ESTIMATED GFR 2020-04-03 10:00:00 [facility] spital COMPREHENSIVE METABOLIC 2020-04-03 10:00:00 [facility] PANEL BILIRUBIN DIRECT 2020-04-03 10:00:00 [facility] HC COMPLETE BLD COUNT 2020-04-03 09:30:00 [facility] W/AUTO DIFF [id number] TACROLIMUS LEVEL, 2020-04-03 09:30:00 [facility] TROUGH DIGOXIN LEVEL 2020-04-03 09:02:00 [facility] spital TROPONIN 2020-04-03 09:00:00 [facility] Michael POC GLUCOSE 2020-04-03 08:09:00 [facility] 2020-04-03 05:50:00 [facility] Michael CT HEAD WO CONTRAST 2020-04-03 04:38:05 [facility] Michael ECG ED PRELIMINARY 2020-04-03 03:43:56 [facility] INTERPRETATION Michael COVID-19 QUALITATIVE RT-PCR 2020-04-03 03:00:00 [facility] Michael COMPREHENSIVE METABOLIC 2020-04-03 03:00:00 [facility] PANEL Michael B NATRIURETIC PEP, I-STAT 2020-04-03 03:00:00 [facility] Michael TROPONIN, I-STAT 2020-04-03 03:00:00 [facility] Michael HC COMPLETE BLD COUNT 2020-04-03 03:00:[address] [facility] W/AUTO DIFF Michael ESTIMATED GFR 2020-04-03 03:00:00 [facility] Michael ECG 12-LEAD 2020-04-03 02:50:19 [facility] Michael XR CHEST 1 VW PORTABLE 2020-04-02 18:15:00 [facility] Aiden Olivares HC COMPLETE BLD COUNT 2020-04-02 17:36:00 [facility] Aiden Olivares PROTHROMBIN TIME WITH INR 2020-04-02 17:36:00 Paige [facility] Aiden Olivares COMPREHENSIVE METABOLIC 2020-04-02 17:36:00 [facility] PANEL Aiden Olivares TROPONIN 2020-04-02 17:36:00 Rekha Harvey sandy Olivares LIPASE LEVEL 2020-04-02 17:36:00 Rekha Harvey sandy Olivares B NATRIURETIC PEPTIDE 2020-04-02 17:36:00 [facility] Aiden Olivares ESTIMATED GFR 2020-04-02 17:36:00 Rekha Harvey ECG ED PRELIMINARY 2020-04-02 17:29:05 [facility] INTERPRETATION Aiden Olivares ECG 12-LEAD 2020-04-02 17:26:30 Rekha Harvey sandy Olivares Plan of Care Planned Activity Planned Date Details Comments Source Future Scheduled 2022-08-29 Screening for [facility] 09:31:45 malignant neoplasm [facility] colon (procedure) [code = 391546274] Future Scheduled 2022-08-29 Screening for [facility] Test 09:31:45 malignant neoplasm [facility] colon (procedure) [code = 994406444] Future Scheduled 2022-08-29 SHINGLES VACCINES Method ist Test 09:31:45 (1 of 2) [code = Hospital SHINGLES VACCINES (1 of 2)] Future Scheduled 2022-08-29 HEPATITIS B [facility] Test 09:31:45 VACCINES (1 of 3 - Hospital Risk 3-dose series) [code = HEPATITIS B VACCINES (1 of 3 - Risk 3-dose series)] Future Scheduled 2022-08-29 Screening for [facility] Test 09:31:45 malignant neoplasm [facility] of colon (procedure) [code = 133832468] Future Scheduled 2022-08-29 COVID-19 VACCINE (3 Meth odist Test 09:31:45 - Pfizer risk Hospital series) [code = COVID-19 VACCINE (3 - Pfizer risk series)] Future Scheduled 2022-08-29 INFLUENZA VACCINE Method ist Test 09:31:45 [code = INFLUENZA Hospital VACCINE] Future Scheduled 2022-08-29 DIABETIC FOOT EXAM [facility] dist Test 09:31:45 [code = DIABETIC Hospital FOOT EXAM] Future Scheduled 2022-08-29 DIABETES: RETINAL Method [facility] Test 09:31:45 EYE EXAM [code = Hospital DIABETES: RETINAL EYE EXAM] Future Scheduled 2022-08-29 Screening for [facility] 09:31:45 malignant neoplasm Hospital of colon (procedure) [code = 672880612] Future Scheduled 2022-08-29 Screening for [facility] Test 09:31:45 malignant neoplasm [facility] colon (procedure) [code = 675626434] Future Scheduled 2022-04-25 SHINGLES VACCINES Method ist Test 11:24:09 (1 of 2) [code = Hospital SHINGLES VACCINES (1 of 2)] Future Scheduled 2022-04-25 HEPATITIS B [facility] 11:24:09 VACCINES (1 of 3 - [...] RETINAL EYE EXAM] Future Scheduled 2022-04-25 COLONOSCOPY [facility] 11:24:09 SCREENING [code = Hospital COLONOSCOPY SCREENING] Future Scheduled 2021-03-29 COVID-19 VACCINE (3 Meth [...] RETINAL EYE EXAM] Future Scheduled 2021-03-29 COLONOSCOPY [facility] 08:58:26 SCREENING [code = Hospital COLONOSCOPY SCREENING] Future Appointment 2022-09-01 Pritesh Romo MD, Meth odist 09:45:[address] [place] [address]; Hospital [address], [place] [address] Encounters Start End Encounter Admission Attending Care Care Encounter Source Date/Time Date/Time Type Type Clinicians Facility Department ID 2021-10-15 [facility] 1.2.840.1 [id number] Methodi 11:33:00 Encounter Kaleb Fay 38720.1.[address] 3.430.2.7 Hospit a .3.498092 l .8 2021-10-15 [facility] 1.2.840.1 [id number] Methodi 11:33:00 Encounter Kaleb Fay 52420.1.[address] 3.430.2.7 Hospit a .3.266245 l .8 2022-07-29 2022-07-29 Yola Hayden 1.2.840.1 [id number] 2 [id number] Methodi 00:00:00 00:00:[address] 3.430.2.7 Hospit a .3.373516 l .8 2022-07-29 2022-07-29 Orders Nicolette, 1.2.840.1 [id number] 36050 82827 Methodi 00:00:00 00:00:00 Only Yolanda 20146.1.[address] 3.430.2.7 Hospit a .3.144698 l .8 2022-07-05 2022-07-05 Refill [facility], 1.2.840.1 [id number] 2178 Methodi 00:00:00 00:00:[address] [place] 3.430.2.7 Hospit a .3.584256 l .8 2022-07-05 2022-07-05 Refill Sad, 1.2.840.1 [id number] 515445 7687 Methodi 00:00:00 00:00:[address] [place] 3.430.2.7 Hospit a .3.056770 l .8 2022-07-04 2022-07-04 Orders Aislinn, 1.2.840.1 [id number] 2099 067254 Methodi 00:00:00 00:00:00 Only Elaina 88073.1.[address] [place] 3.430.2.7 Hospi ta .3.878109 l .8 2022-06-30 2022-06-30 [facility], 1.2.840.1 [id number] 21 [id number] Methodi 13:00:00 14:53:50 [address].1.[address] Visit Christiano 3.430.2.7 Hospit a .3.189896 l .8 2022-06-30 2022-06-30 Travel 1.2.840.1 1.2.138.103 6788 568486 Methodi 00:00:00 00:00:[address] 3.430.2.7 0.2.7.3.698 Ho spita .3.862849 084.8 l .8 2022-06-30 2022-06-30 [facility] [id number] 6409 [place] 00:00:00 00:00:[address] ANKIT [address] 2022-06-30 2022-06-30 Outpatient JOSEPH, [facility] [id number] 6606 [place] 00:00:00 00:00:00 ANKIT [address] 2022-06-29 2022-06-29 Office Elo, 1.2.840.1 [id number] 7311 Methodi 12:00:00 12:20:16 Visit Lucy 60651.1.[address] 3.430.2.7 Hospit a .3.328080 l .8 2022-06-29 2022-06-29 Outpatient [facility] [id number] 313 [place] 00:00:00 00:00:[address] 2022-06-26 2022-06-26 Refill Maddie, 1.2.840.1 [id number] 2100 [id number] Methodi 00:00:00 00:00:[address]331.1.[address] 3.430.2.7 Hospit a .3.753847 l .8 2022-06-20 2022-06-20 Refill Clarissa, 1.2.840.1 [id number] 983731 4289 Methodi 00:00:00 00:00:00 [address]rit[address]17.1.[address] 3.430.2.7 Hospit a .3.055384 l .8 2022-06-14 2022-06-14 Office Iam Hinkle 1.2.840.1 78114 [id number] Methodi 11:15:00 11:52:04 Visit oLretta Mcgowan 96218.1.[address] 3.430.2.7 Hospit a .3.955424 l .8 2022-06-14 2022-06-14 Travel 1.2.840.1 1.2.180.564 4625 023289 Methodi 00:00:00 00:00:[address] 3.430.2.7 0.2.7.3.698 Ho spita .3.054931 084.8 l .8 2022-06-14 2022-06-14 Outpatient HINKLE, [facility] [id number] 546 [place] 00:00:00 00:00:00 PETER [address] 2022-06-12 2022-06-12 Refill Yue, 1.2.840.1 [id number] 5340 Methodi 00:00:00 00:00:[address] [place] 3.430.2.7 Hospit a .3.791723 l .8 2022-06-06 2022-06-06 Office Younis, 1.2.840.1 [id number] 2099 840343 Methodi 10:40:00 11:33:17 Visit Renetta Loo 88948.1.[address] 3.430.2.7 Hospit a .3.729738 l .8 2022-06-06 2022-06-06 Telephone Joseph, 1.2.840.1 [id number] 989 6393937 Methodi 00:00:00 00:00:[address] Christiano 3.430.2.7 Hospit a .3.556127 l .8 2022-06-06 2022-06-06 Travel 1.2.840.1 1.2.842.620 3917 310601 Methodi 00:00:00 00:00:[address] 3.430.2.7 0.2.7.3.698 Ho spita .3.896800 084.8 l .8 2022-06-06 2022-06-06 Outpatient YOUNIS, [facility] [id number] 033 [place] 00:00:00 00:00:00 RENETTA Sprague [facility] 2022-05-31 2022-05-31 Telephone Joseph, 1.2.840.1 [id number] 981 [id number] Methodi 00:00:00 00:00:[address] Christiano 3.430.2.7 Hospit a .3.842921 l .8 2022-05-18 2022-05-18 Triston Savage, 1.2.840.1 [id number] 428586 7219 Methodi 00:00:00 00:00:00 Only Kym 60187.1.[address] 3.430.2.7 Hospit a .3.661609 l .8 2022-05-17 2022-05-17 Orders Sadhu, 1.2.840.1 [id number] 640533 5670 Methodi 00:00:00 00:00:00 Only Laya 86051.1.[address] [place] 3.430.2.7 Hospit a .3.634348 l .8 2022-05-17 2022-05-17 Orders Savage, 1.2.840.1 [id number] 143753 9864 Methodi 00:00:00 00:00:00 Only Kym 41702.1.[address] 3.430.2.7 Hospit a .3.328664 l .8 2022-05-16 2022-05-16 Refill Sadhu, 1.2.840.1 [id number] 484025 0599 Methodi 00:00:00 00:00:[address] [place] 3.430.2.7 Hospit a .3.826526 l .8 2022-04-30 2022-04-30 Refill Sadhu, 1.2.840.1 [id number] 592694 9860 Methodi 00:00:00 00:00:[address] [place] 3.430.2.7 Hospit a .3.629121 l .8 2022-04-21 2022-04-21 Refill Galati, 1.2.840.1 [id number] 797294 8774 Methodi 00:00:00 00:00:[address] 3.430.2.7 Hospit a .3.358380 l .8 2022-04-21 2022-04-21 Refill Galati, 1.2.840.1 [id number] 448326 8209 Methodi 00:00:00 00:00:[address] 3.430.2.7 Hospit a .3.974155 l .8 2022-04-14 2022-04-14 Telephone Pritesh, 1.2.840.1 [id number] 2099 582563 Methodi 00:00:00 00:00:00 Linda Garcia 40981.1.[address] 3.430.2.7 Hospit a .3.070804 l .8 2022-04-14 2022-04-14 Telephone Pritesh, 1.2.840.1 [id number] 2099 191518 Methodi 00:00:00 00:00:00 Linda Garcia 42700.1.[address] 3.430.2.7 Hospit a .3.458393 l .8 2022-03-30 2022-03-30 Patient Jewel, 1.2.840.1 [id number] 2100 409108 Methodi 00:00:00 00:00:00 Outreach Salome 49000.1.[address] 3.430.2.7 Hospit a .3.732358 l .8 2022-03-30 2022-03-30 Patient Jewel, 1.2.840.1 [id number] 2100 187706 Methodi 00:00:00 00:00:00 Outreach Salome 22096.1.[address] 3.430.2.7 Hospit a .3.807568 l .8 2022-03-29 2022-03-29 Refill Younis, 1.2.840.1 [id number] 2099 262087 Methodi 00:00:00 00:00:00 Renetta Sandra. 41153.1.[address] 3.430.2.7 Hospit a .3.627728 l .8 2022-03-29 2022-03-29 Refill Younis, 1.2.840.1 [id number] 2099 251737 Methodi 00:00:00 00:00:[address] Renetta Flores[address] 87212.1.[address] 3.430.2.7 Hospit a .3.384436 l .8 2022-03-23 2022-03-23 Infusion 1.2.840.1 [id number] 17972 72308 Methodi 10:15:00 10:45:[address] 3.430.2.7 Hospit a .3.024118 l .8 2022-03-23 2022-03-23 Infusion 1.2.840.1 [id number] 33507 53666 Methodi 10:15:00 10:45:[address] 3.430.2.7 Hospit a .3.816272 l .8 2022-03-23 2022-03-23 Telemedici [facility], 1.2.840.1 [id number] 021 4633976 Methodi 09:20:00 09:21:19 ne Laya 51614.1.[address] [place] 3.430.2.7 Hospit a .3.832077 l .8 2022-03-23 2022-03-23 [facility], 1.2.840.1 [id number] 531 7898421 Methodi 09:20:00 09:21:19 ne Laya 53459.1.[address] [place] 3.430.2.7 Hospit a .3.639200 l .8 2022-03-23 2022-03-23 Travel 1.2.840.1 1.2.161.283 0894 079166 Methodi 00:00:00 00:00:[address] 3.430.2.7 0.2.7.3.698 Ho spita .3.872710 084.8 l .8 2022-03-23 2022-03-23 Travel 1.2.840.1 1.2.466.394 1237 537000 Methodi 00:00:00 00:00:[address] 3.430.2.7 0.2.7.3.698 Ho spita .3.957311 084.8 l .8 2022-02-16 2022-03-11 Telephone Paula, 1.2.840.1 [id number] 2 [id number] Methodi 16:00:00 10:54:31 Consult Rayan 07196.1.[address] 3.430.2.7 Hospit a .3.896467 l .8 2022-02-16 2022-03-11 Telephone Paula, 1.2.840.1 [id number] 2 [id number] Methodi 16:00:00 10:54:31 Consult Renee 10485.1.[address] 3.430.2.7 Hospit a .3.107452 l .8 2022-03-10 2022-03-10 Office Ashley, 1.2.840.4 [id number] 56971 Methodi 10:45:00 11:16:41 Visit Iam Mc 93509.1.1 131 [address] 3.430.2.7 Hospit a .3.506200 l .8 2022-03-10 2022-03-10 Office Ashley, 1.2.840.8 [id number] 96662 Methodi 10:45:00 11:16:41 Visit Iam Mc 25900.1.1 131 s t 3.430.2.7 Hospit a .3.392726 l .8 2022-03-10 2022-03-10 Travel 1.2.840.1 1.2.546.426 9347 553211 Methodi 00:00:00 00:00:[address] 3.430.2.7 0.2.7.3.698 Ho spita .3.336766 084.8 l .8 2022-03-10 2022-03-10 Travel 1.2.840.1 1.2.571.608 1173 408176 Methodi 00:00:00 00:00:[address] 3.430.2.7 0.2.7.3.698 Ho spita .3.309444 084.8 l .8 2022-03-09 2022-03-09 Refill Maddie, 1.2.840.1 [id number] 2099 716282 Methodi 00:00:00 00:00:00 Renetta SandraMireille 64025.1.[address] 3.430.2.7 Hospit a .3.200064 l .8 2022-03-09 2022-03-09 Refill Younis, 1.2.840.1 [id number] 2099 177133 Methodi 00:00:00 00:00:00 Renetta Loo 51412.1.[address] 3.430.2.7 Hospit a .3.352805 l .8 2022-03-03 2022-03-03 Office Younis, 1.2.840.1 [id number] 2099 939314 Methodi 10:20:00 11:24:52 Visit Renetta Loo 37876.1.[address] 3.430.2.7 Hospit a .3.304159 l .8 2022-03-03 2022-03-03 Office Younis, 1.2.840.1 [id number] 2099 432664 Methodi 10:20:00 11:24:52 Visit Renetta Loo 43497.1.[address] 3.430.2.7 Hospit a .3.987997 l .8 2022-03-03 2022-03-03 Travel 1.2.840.1 1.2.322.306 6980 551354 Methodi 00:00:00 00:00:[address] 3.430.2.7 0.2.7.3.698 Ho spita .3.155174 084.8 l .8 2022-03-03 2022-03-03 Travel 1.2.840.1 1.2.469.650 5656 581770 Methodi 00:00:00 00:00:[address] 3.430.2.7 0.2.7.3.698 Ho spita .3.992619 084.8 l .8 2022-02-16 2022-02-16 Telephone Pao, 1.2.840.1 [id number] 2099 630171 Methodi 00:00:00 00:00:[address] 3.430.2.7 Hospit a .3.153158 l .8 2022-02-16 2022-02-16 Telephone Pao, 1.2.840.1 [id number] 2100 233458 Methodi 00:00:00 00:00:[address] 3.430.2.7 Hospit a .3.827363 l .8 2022-02-15 2022-02-15 Travel 1.2.840.1 1.2.483.891 7997 269032 Methodi 00:00:00 00:00:[address] 3.430.2.7 0.2.7.3.698 Ho spita .3.386104 084.8 l .8 2022-02-15 2022-02-15 Travel 1.2.840.1 1.2.231.174 2467 316908 Methodi 00:00:00 00:00:[address] 3.430.2.7 0.2.7.3.698 Ho spita .3.190408 084.8 l .8 2022-02-09 2022-02-09 Telephone Yen Desai 1.2.840.8 [id number] 3 [id number] Methodi 00:00:00 00:00:[address] 3.430.2.7 Hospit a .3.092888 l .8 2022-02-09 2022-02-09 Telephone Yen Desai 1.2.840.4 [id number] 4 [id number] Methodi 00:00:00 00:00:[address] 3.430.2.7 Hospit a .3.241340 l .8 2022-01-27 2022-01-27 Patient Jewel, 1.2.840.1 2099 272773 Methodi 00:00:00 00:00:00 Outreach Salome 86326.1.[address] 3.430.2.7 Hospit a .3.648131 l .8 2022-01-27 2022-01-27 Patient Jewel, 1.2.840.1 2099 694952 Methodi 00:00:00 00:00:00 Outreach Salome 64339.1.[address] 3.430.2.7 Hospit a .3.069342 l .8 2022-01-26 2022-01-26 Telemedici Paula, 1.2.840.1 [id number] Methodi 16:20:00 16:35:38 [address]sey [address]9232.1.[address] 3.430.2.7 Hospit a .3.059345 l .8 2022-01-26 2022-01-26 Telemedici Pattiekarla, 1.2.840.1 [id number] Methodi 16:20:00 16:35:38 [address].1.[address] 3.430.2.7 Hospit a .3.273260 l .8 2022-01-17 2022-01-17 Travel 1.2.840.1 1.2.762.142 4163 482680 Methodi 00:00:00 00:00:[address] 3.430.2.7 0.2.7.3.698 Ho spita .3.859137 084.8 l .8 2022-01-17 2022-01-17 Travel 1.2.840.1 1.2.209.773 1210 871631 Methodi 00:00:00 00:00:[address] 3.430.2.7 0.2.7.3.698 Ho spita .3.832632 084.8 l .8 2022-01-14 2022-01-14 Patient Jewel, 1.2.840.1 [id number] 2100 989259 Methodi 00:00:00 00:00:00 Outreach Salome 17839.1.[address] 3.430.2.7 Hospit a .3.080582 l .8 2022-01-14 2022-01-14 Patient Jewel, 1.2.840.1 [id number] 2100 080642 Methodi 00:00:00 00:00:00 Outreach Salome 48287.1.[address] 3.430.2.7 Hospit a .3.926813 l .8 2022-01-13 2022-01-13 Patient Jewel, 1.2.840.1 [id number] 2099 219323 Methodi 00:00:00 00:00:00 Outreach Salome 40423.1.[address] 3.430.2.7 Hospit a .3.164031 l .8 2022-01-13 2022-01-13 Patient Jewel, 1.2.840.1 [id number] 2099 069126 Methodi 00:00:00 00:00:00 Outreach Salome 20398.1.[address] 3.430.2.7 Hospit a .3.738926 l .8 2022-01-12 2022-01-12 Orders Nicolette, 1.2.840.1 [id number] 38652 04214 Methodi 00:00:00 00:00:00 Only Yolanda 13178.1.[address] 3.430.2.7 Hospit a .3.997967 l .8 2022-01-12 2022-01-12 Orders Nicolette, 1.2.840.1 [id number] 62880 Methodi 00:00:00 00:00:00 Only Yolanda 19874.1.[address] 3.430.2.7 Hospit a .3.712531 l .8 2022-01-10 2022-01-10 [facility], 1.2.840.1 [id number] 21 [id number] Methodi 06:11:00 13:47:00 Encounter Rayan 20029.1.[address] 3.430.2.7 Hospit a .3.678007 l .8 2022-01-10 2022-01-10 [facility], 1.2.840.1 [id number] 21 [id number] Methodi 06:11:00 13:47:00 Encounter Rayan 89994.1.[address] 3.430.2.7 Hospit a .3.306912 l .8 2022-01-10 2022-01-10 Surgery [facility], 1.2.840.1 [id number] 766 [id number] Methodi 10:28:00 11:38:[address] 3.430.2.7 Hospit a .3.313348 l .8 2022-01-10 2022-01-10 Surgery [facility], 1.2.840.1 [id number] 864 [id number] Methodi 10:28:00 11:38:[address] 3.430.2.7 Hospit a .3.142592 l .8 2022-01-10 2022-01-10 Travel 1.2.840.1 1.2.154.617 6727 769932 Methodi 00:00:00 00:00:[address] 3.430.2.7 0.2.7.3.698 Ho spita .3.955513 084.8 l .8 2022-01-10 2022-01-10 Travel 1.2.840.1 1.2.234.755 9608 784415 Methodi 00:00:00 00:00:[address] 3.430.2.7 0.2.7.3.698 Ho spita .3.132569 084.8 l .8 2022-01-07 2022-01-07 Travel 1.2.840.1 1.2.173.129 8391 347383 Methodi 00:00:00 00:00:[address] 3.430.2.7 0.2.7.3.698 Ho spita .3.052453 084.8 l .8 2022-01-07 2022-01-07 [facility] 2100 010022 [place] 00:00:00 00:00:00 RAYAN [address] 2022-01-07 2022-01-07 Travel 1.2.840.1 1.2.819.672 5371 203987 Methodi 00:00:00 00:00:[address] 3.430.2.7 0.2.7.3.698 Ho spita .3.216025 084.8 l .8 2022-01-06 2022-01-06 Refill Jason, 1.2.840.1 [id number] 2099 473244 Methodi 00:00:00 00:00:[address] 3.430.2.7 Hospit a .3.378459 l .8 2022-01-06 2022-01-06 Refill Jason, 1.2.840.1 2099 109245 Methodi 00:00:00 00:00:[address] 3.430.2.7 Hospit a .3.346331 l .8 2022-01-05 2022-01-05 [facility]patient [facility] 2100 [id number] [place] 00:00:00 00:00:[address] RENEE [address] 2022-01-05 2022-01-05 Travel 1.2.840.1 1.2.716.109 5231 900434 Methodi 00:00:00 00:00:[address] 3.430.2.7 0.2.7.3.698 Ho spita .3.950701 084.8 l .8 2022-01-05 2022-01-05 Travel 1.2.840.1 1.2.278.078 1486 161457 Methodi 00:00:00 00:00:[address] 3.430.2.7 0.2.7.3.698 Ho spita .3.653093 084.8 l .8 2021-12-31 2021-12-31 Patient Jewel, 1.2.840.1 [id number] 2100 224233 Methodi 00:00:00 00:00:00 Outreach Salome 50380.1.[address] 3.430.2.7 Hospit a .3.622834 l .8 2021-12-31 2021-12-31 Patient Jewel, 1.2.840.1 [id number] 2100 [id number] Methodi 00:00:00 00:00:00 Outreach Salome 55171.1.[address] 3.430.2.7 Hospit a .3.802752 l .8 2021-12-30 2021-12-30 Patient Jewel, 1.2.840.1 [id number] 2100 734876 Methodi 00:00:00 00:00:00 Outreach Salome 05039.1.[address] 3.430.2.7 Hospit a .3.633703 l .8 2021-12-30 2021-12-30 Patient Jewel, 1.2.840.1 2099 534141 Methodi 00:00:00 00:00:00 Outreach Salome 15941.1.[address] 3.430.2.7 Hospit a .3.397398 l .8 2021-12-22 2021-12-23 Office Yousefzai, 1.2.840.1 [id number] 560 [id number] Methodi 13:40:00 09:52:29 Visit Renee 02349.1.[address] 3.430.2.7 Hospit a .3.450901 l .8 2021-12-22 2021-12-23 Office Yousefzai, 1.2.840.1 [id number] 118 [id number] Methodi 13:40:00 09:52:29 Visit Renee 81197.1.[address] 3.430.2.7 Hospit a .3.327620 l .8 2021-12-23 2021-12-23 Orders Yousefzai, 1.2.840.1 [id number] 358 1865302 Methodi 00:00:00 00:00:00 Only Renee 07421.1.[address] 3.430.2.7 Hospit a .3.352534 l .8 2021-12-23 2021-12-23 Orders Yousefzai, 1.2.840.1 [id number] 331 1273143 Methodi 00:00:00 00:00:00 Only Renee 32287.1.[address] 3.430.2.7 Hospit a .3.123582 l .8 2021-12-22 2021-12-22 Office [facility], 1.2.840.1 [id number] 533296 2248 Methodi 15:00:00 15:20:00 Visit Laya 58331.1.[address] [place] 3.430.2.7 Hospit a .3.189634 l .8 2021-12-22 2021-12-22 Office [facility], 1.2.840.1 [id number] 830212 1589 Methodi 15:00:00 15:20:00 Visit Laya 59591.1.[address] [place] 3.430.2.7 Hospit a .3.403888 l .8 2021-12-22 2021-12-22 Travel 1.2.840.1 1.2.017.807 6463 122348 Methodi 00:00:00 00:00:[address] 3.430.2.7 0.2.7.3.698 Ho spita .3.459421 084.8 l .8 2021-12-22 2021-12-22 Travel 1.2.840.1 1.2.654.078 8032 214819 Methodi 00:00:00 00:00:[address] 3.430.2.7 0.2.7.3.698 Ho spita .3.508262 084.8 l .8 2021-12-17 2021-12-17 Patient Jewel, 1.2.840.1 [id number] 2100 948335 Methodi 00:00:00 00:00:00 Outreach Salome 35310.1.[address] 3.430.2.7 Hospit a .3.227464 l .8 2021-12-17 2021-12-17 Patient Jewel, 1.2.840.1 [id number] 2100 372917 Methodi 00:00:00 00:00:00 Outreach Salome 51538.1.[address] 3.430.2.7 Hospit a .3.372914 l .8 2021-12-15 2021-12-15 Refill Sadhu, 1.2.840.1 [id number] 032354 6223 Methodi 00:00:00 00:00:[address] [place] 3.430.2.7 Hospit a .3.456198 l .8 2021-12-15 2021-12-15 Refill Younis, 1.2.840.1 [id number] 2099 056196 Methodi 00:00:00 00:00:[address] Ren[address] 59709.1.[address] 3.430.2.7 Hospit a .3.859409 l .8 2021-12-15 2021-12-15 Refill Sadhu, 1.2.840.1 239232182 355773 4167 Methodi 00:00:00 00:00:[address] [place] 3.430.2.7 Hospit a .3.688921 l .8 2021-12-15 2021-12-15 Refill Younis, 1.2.840.1 [id number] 2099 358755 Methodi 00:00:00 00:00:[address] Ren[address]18.[address] 3.430.2.7 Hospit a .3.883889 l .8 2021-12-10 2021-12-10 Patient Jewel, 1.2.840.1 [id number] 2099 173342 Methodi 00:00:00 00:00:00 Outreach Salome 40673.1.[address] 3.430.2.7 Hospit a .3.528138 l .8 2021-12-10 2021-12-10 Patient Jewel, 1.2.840.1 [id number] 2099 600043 Methodi 00:00:00 00:00:00 Outreach Salome 09865.1.[address] 3.430.2.7 Hospit a .3.444156 l .8 2021-12-06 2021-12-06 Orders Sayago, 1.2.840.1 [id number] 438828 3251 Methodi 00:00:00 00:00:00 Only Kaila 23598.1.[address] 3.430.2.7 Hospit a .3.651331 l .8 2021-12-06 2021-12-06 Orders Sayago, 1.2.840.1 [id number] 772781 7936 Methodi 00:00:00 00:00:00 Only Kaila 29011.1.[address] 3.430.2.7 Hospit a .3.924453 l .8 2021-12-03 2021-12-03 Refill Younis, 1.2.840.1 [id number] 2099 270049 Methodi 00:00:00 00:00:00 [address]72.[address] 3.430.2.7 Hospit a .3.592356 l .8 2021-12-03 2021-12-03 Orders Savage, 1.2.840.1 [id number] 284974 8102 Methodi 00:00:00 00:00:00 Only Kym 30094.1.[address] 3.430.2.7 Hospit a .3.458596 l .8 2021-12-03 2021-12-03 Refill Younis, 1.2.840.1 [id number] 2099 441786 Methodi 00:00:00 00:00:[address]152.1.[address] 3.430.2.7 Hospit a .3.849433 l .8 2021-12-03 2021-12-03 Orders Savage, 1.2.840.1 [id number] 353821 5390 Methodi 00:00:00 00:00:00 Only Kym 00725.1.[address] 3.430.2.7 Hospit a .3.264247 l .8 2021-12-02 2021-12-02 Office Younis, 1.2.840.1 [id number] 2100 252971 Methodi 14:00:00 15:58:42 Visit Renetta SandraMireille 71723.1.[address] 3.430.2.7 Hospit a .3.335279 l .8 2021-12-02 2021-12-02 Office Maddie, 1.2.840.1 [id number] 2099 405540 Methodi 14:00:00 15:58:42 Visit Renetta Loo 58614.1.[address] 3.430.2.7 Hospit a .3.360861 l .8 2021-12-02 2021-12-02 Travel 1.2.840.1 1.2.470.740 9526 960567 Methodi 00:00:00 00:00:[address] 3.430.2.7 0.2.7.3.698 Ho spita .3.834471 084.8 l .8 2021-12-02 2021-12-02 Travel 1.2.840.1 1.2.025.036 4136 230776 Methodi 00:00:00 00:00:[address] 3.430.2.7 0.2.7.3.698 Ho spita .3.136773 084.8 l .8 2021-11-30 2021-11-30 Refill Sad, 1.2.840.1 [id number] 933979 2499 Methodi 00:00:00 00:00:[address] [place] 3.430.2.7 Hospit a .3.355524 l .8 2021-11-30 2021-11-30 Refill [facility], 1.2.840.1 [id number] 039085 3095 Methodi 00:00:00 00:00:[address] [place] 3.430.2.7 Hospit a .3.588557 l .8 2021-11-29 2021-11-29 Office Hinkle, 1.2.840.0 6070185315 88089 13682 Methodi 09:45:00 10:24:16 Visit Iam Mc 89498.1.1 [address] 3.430.2.7 Hospit a .3.765128 l .8 2021-11-29 2021-11-29 Office Ashley, 1.2.840.0 8019578771 28614 21719 Methodi 09:45:00 10:24:16 Visit Iam Mc 47753.1.1 150 s t 3.430.2.7 Hospit a .3.097302 l .8 2021-11-29 2021-11-29 Travel 1.2.840.1 1.2.257.617 0697 520646 Methodi 00:00:00 00:00:[address] 3.430.2.7 0.2.7.3.698 Ho spita .3.951291 084.8 l .8 2021-11-29 2021-11-29 Travel 1.2.840.1 1.2.057.048 2121 808259 Methodi 00:00:00 00:00:[address] 3.430.2.7 0.2.7.3.698 Ho spita .3.779327 084.8 l .8 2021-11-25 2021-11-25 Multidisci Joseph, 1.2.840.1 [id number] 21 [id number] Methodi 13:30:00 14:26:[address] Visit [facility] 3.430.2.7 Hospit a .3.792604 l .8 2021-11-25 2021-11-25 Multidisci Joseph, 1.2.840.1 [id number] 21 [id number] Methodi 13:30:00 14:26:[address] Visit [facility] 3.430.2.7 Hospit a .3.943200 l .8 2021-11-25 2021-11-25 Telephone Nicolette, 1.2.840.1 [id number] 232 [id number] Methodi 00:00:00 00:00:[address] 3.430.2.7 Hospit a .3.665033 l .8 2021-11-25 2021-11-25 Orders Yeh, Selene 1.2.840.1 [id number] 17246 70943 Methodi 00:00:00 00:00:00 Only Ling 01121.1.[address] 3.430.2.7 Hospit a .3.698285 l .8 2021-11-25 2021-11-25 Travel 1.2.840.1 1.2.717.543 2255 004843 Methodi 00:00:00 00:00:[address] 3.430.2.7 0.2.7.3.698 Ho spita .3.472428 084.8 l .8 2021-11-25 2021-11-25 Telephone Nicolette, 1.2.840.1 [id number] 535 0725877 Methodi 00:00:00 00:00:[address] 3.430.2.7 Hospit a .3.530125 l .8 2021-11-25 2021-11-25 Orders Yeh, Selene 1.2.840.1 [id number] 57745 Methodi 00:00:00 00:00:00 Only Ling 07786.1.[address] 3.430.2.7 Hospit a .3.136055 l .8 2021-11-25 2021-11-25 Travel 1.2.840.1 1.2.625.244 8973 837264 Methodi 00:00:00 00:00:[address] 3.430.2.7 0.2.7.3.698 Ho spita .3.060940 084.8 l .8 2021-11-24 2021-11-24 Telephone Camargo, 1.2.840.1 [id number] 21 [id number] Methodi 00:00:00 00:00:[address] 3.430.2.7 Hospit a .3.882459 l .8 2021-11-24 2021-11-24 Orders Camargo, 1.2.840.1 [id number] 2099 258174 Methodi 00:00:00 00:00:00 Only Caryn 24747.1.[address] 3.430.2.7 Hospit a .3.752775 l .8 2021-11-24 2021-11-24 Telephone Camargo, 1.2.840.1 [id number] Methodi 00:00:00 00:00:[address] 3.430.2.7 Hospit a .3.347537 l .8 2021-11-24 2021-11-24 Orders Camargo, 1.2.840.1 [id number] 2099 280458 Methodi 00:00:00 00:00:00 Only Caryn 32863.1.[address] 3.430.2.7 Hospit a .3.157331 l .8 2021-11-23 2021-11-23 Orders Hung, 1.2.840.1 [id number] 24960 Methodi 00:00:00 00:00:00 Only Renee 17904.1.[address] 3.430.2.7 Hospit a .3.185005 l .8 2021-11-23 2021-11-23 Orders Hung, 1.2.840.1 [id number] 11392 Methodi 00:00:00 00:00:00 Only Renee 52327.1.[address] 3.430.2.7 Hospit a .3.428778 l .8 2021-11-19 2021-11-19 Orders Chon, 1.2.840.6 [id number] 73497719 Methodi 00:00:00 00:00:00 Only Mary Jane E [address]883.1.[address] 3.430.2.7 Hospit a .3.236574 l .8 2021-11-19 2021-11-19 Telephone Joseph, 1.2.840.1 [id number] 888 [id number] Methodi 00:00:00 00:00:[address] [facility] 3.430.2.7 Hospit a .3.766327 l .8 2021-11-19 2021-11-19 Orders Chon, 1.2.840.4 [id number] 21 [id number] Methodi 00:00:00 00:00:00 Only Mary Jane Burns 65518.1.[address] 3.430.2.7 Hospit a .3.355069 l .8 2021-11-19 2021-11-19 Telephone Joseph, 1.2.840.1 [id number] 989 8071060 Methodi 00:00:00 00:00:[address] [facility] 3.430.2.7 Hospit a .3.199299 l .8 2021-11-18 2021-11-18 Patient Jewel, 1.2.840.1 [id number] 2099 690190 Methodi 00:00:00 00:00:00 Outreach Salome 84189.1.[address] 3.430.2.7 Hospit a .3.935835 l .8 2021-11-18 2021-11-18 Patient Jewel, 1.2.840.1 [id number] 2099 104709 Methodi 00:00:00 00:00:00 Outreach Salome 77413.1.[address] 3.430.2.7 Hospit a .3.560072 l .8 2021-11-17 2021-11-17 Refill Sadaimee, 1.2.840.1 [id number] 258800 1213 Methodi 00:00:00 00:00:[address] [place] 3.430.2.7 Hospit a .3.304503 l .8 2021-11-17 2021-11-17 Refill Sadhu, 1.2.840.1 [id number] 960217 4900 Methodi 00:00:00 00:00:[address] [place] 3.430.2.7 Hospit a .3.918477 l .8 2021-11-15 2021-11-15 Telephone Hamlet, 1.2.840.1 [id number] 2099 880225 Methodi 00:00:00 00:00:00 Mel R [address]93.1.[address] 3.430.2.7 Hospit a .3.643989 l .8 2021-11-15 2021-11-15 Telephone Hamlet, 1.2.840.1 [id number] 2099 353262 Methodi 00:00:00 00:00:00 Mel R [address]24.1.[address] 3.430.2.7 Hospit a .3.817524 l .8 2021-11-11 2021-11-11 Telephone Sandra, 1.2.840.1 [id number] 2099 911455 Methodi 00:00:00 00:00:[address] 3.430.2.7 Hospit a .3.330633 l .8 2021-11-11 2021-11-11 Orders Sandra, 1.2.840.1 [id number] 031890 9045 Methodi 00:00:00 00:00:00 Only Giovanna 80723.1.[address] 3.430.2.7 Hospit a .3.894239 l .8 2021-11-11 2021-11-11 Telephone Sandra, 1.2.840.1 [id number] 2099 768017 Methodi 00:00:00 00:00:[address] 3.430.2.7 Hospit a .3.343532 l .8 2021-11-11 2021-11-11 Orders Sandra, 1.2.840.1 [id number] 360781 5506 Methodi 00:00:00 00:00:00 Only Giovanna 59940.1.[address] 3.430.2.7 Hospit a .3.039635 l .8 2021-11-08 2021-11-08 Telemedici Kat, 1.2.840.1 [id number] 25941875 Methodi 14:15:00 14:15:00 [address] Aiden [address].1.[address] Pritesh 3.430.2.7 Hospit a .3.915787 l .8 2021-11-08 2021-11-08 Telemedici Kat, 1.2.840.1 [id number] 21 [id number] Methodi 14:15:00 14:15:00 ne Aiden [address]204.1.[address] Pritesh 3.430.2.7 Hospit a .3.891700 l .8 2021-11-04 2021-11-04 Multidisci Joseph, 1.2.840.1 [id number] 44405875 Methodi 14:30:00 16:09:41 pl[address] Ankit 97594.1.[address] Visit [facility] 3.430.2.7 Hospit a .3.048898 l .8 2021-11-04 2021-11-04 Multidisci Joseph, 1.2.840.1 [id number] [id number] Methodi 14:30:00 16:09:[address]kit [address].1.[address] Visit [facility] 3.430.2.7 Hospit a .3.482400 l .8 2021-11-04 2021-11-04 Telephone Sandra, 1.2.840.1 [id number] 2099 203444 Methodi 00:00:00 00:00:[address] 3.430.2.7 Hospit a .3.532102 l .8 2021-11-04 2021-11-04 Travel 1.2.840.1 1.2.857.087 9565 129305 Methodi 00:00:00 00:00:[address] 3.430.2.7 0.2.7.3.698 Ho spita .3.603305 084.8 l .8 2021-11-04 2021-11-04 Telephone Sandra, 1.2.840.1 [id number] 2099999 Methodi 00:00:00 00:00:[address] 3.430.2.7 Hospit a .3.649439 l .8 2021-11-04 2021-11-04 Travel 1.2.840.1 1.2.058.058 6013 149259 Methodi 00:00:00 00:00:[address] 3.430.2.7 0.2.7.3.698 Ho spita .3.657504 084.8 l .8 2021-10-30 2021-10-30 Orders Elo, 1.2.840.1 [id number] Methodi 00:00:00 00:00:00 Only Lucy 92442.1.[address] 3.430.2.7 Hospit a .3.863965 l .8 2021-10-30 2021-10-30 Orders Elo, 1.2.840.1 47627587320990301 Methodi 00:00:00 00:00:00 Only Lucy 08548.1.[address] 3.430.2.7 Hospit a .3.501321 l .8 2021-10-29 2021-10-29 Patient Jewel, 1.2.840.1 [id number] 2099 296794 Methodi 00:00:00 00:00:00 Outreach Salome 82648.1.[address] 3.430.2.7 Hospit a .3.453664 l .8 2021-10-29 2021-10-29 Telephone Elo, 1.2.840.1 [id number] Methodi 00:00:00 00:00:[address] 3.430.2.7 Hospit a .3.310587 l .8 2021-10-29 2021-10-29 Patient Jewel, 1.2.840.1 109129210125651 Methodi 00:00:00 00:00:00 Outreach Salome 37069.1.[address] 3.430.2.7 Hospit a .3.619798 l .8 2021-10-29 2021-10-29 Telephone Elo, 1.2.840.1 7247720842099626 Methodi 00:00:00 00:00:[address] 3.430.2.7 Hospit a .3.264186 l .8 2021-10-28 2021-10-28 Telephone Joseph, 1.2.840.1 [id number] 789 1472497 Methodi 00:00:00 00:00:[address] [facility] 3.430.2.7 Hospit a .3.493783 l .8 2021-10-28 2021-10-28 Patient Jewel, 1.2.840.1 [id number] 2100 539310 Methodi 00:00:00 00:00:00 Outreach Salome 52694.1.[address] 3.430.2.7 Hospit a .3.500564 l .8 2021-10-28 2021-10-28 Patient Laurie, 1.2.840.1 [id number] 189979 8567 Methodi 00:00:00 00:00:00 Outreach Bárbara 50712.1.[address] 3.430.2.7 Hospit a .3.806001 l .8 2021-10-28 2021-10-28 Patient Av Vázquez 1.2.840.1 [id number] Methodi 00:00:00 00:00:[address] 3.430.2.7 Hospit a .3.485726 l .8 2021-10-28 2021-10-28 Telephone Jonna, 1.2.840.1 [id number] 21 [id number] Methodi 00:00:00 00:00:[address] 3.430.2.7 Hospit a .3.075325 l .8 2021-10-28 2021-10-28 Telephone Joseph, 1.2.840.1 [id number] 947 9641057 Methodi 00:00:00 00:00:[address] [facility] 3.430.2.7 Hospit a .3.549173 l .8 2021-10-28 2021-10-28 Patient Jewel, 1.2.840.1 [id number] 2099 531593 Methodi 00:00:00 00:00:00 Outreach Salome 94160.1.[address] 3.430.2.7 Hospit a .3.507726 l .8 2021-10-28 2021-10-28 Patient Laurie, 1.2.840.1 [id number] 776081 6590 Methodi 00:00:00 00:00:00 Outreach Bárbara 68072.1.[address] 3.430.2.7 Hospit a .3.921516 l .8 2021-10-28 2021-10-28 Patient Av Vázquez 1.2.840.1 [id number] Methodi 00:00:00 00:00:[address] 3.430.2.7 Hospit a .3.278465 l .8 2021-10-28 2021-10-28 Telephone Jonna, 1.2.840.1 [id number] [id number] Methodi 00:00:00 00:00:[address] 3.430.2.7 Hospit a .3.261817 l .8 2021-10-15 2021-10-27 [facility]rer, Adriano Igor 1.2.840.1 104 163678 [id number] Methodi 13:56:00 18:06:00 Encounter Kaleb Nguyen 43117.1.[address] Giveon, Eemry 3.430.2.7 Ho Anay Fox .3.322439 l .8 2021-10-15 2021-10-27 [facility] Rehrer, Adriano Igor 1.2.840.1 104 682230 7771588571 Methodi 13:56:00 18:06:00 Encounter Kaleb Nguyen Le 73420.1.[address] Giveon, Emery 3.430.2.7 Ho Seth Foxhroor .3.453623 l .8 2021-10-24 2021-10-24 Refill Yue, 1.2.840.1 [id number] 954496 6645 Methodi 00:00:00 00:00:[address] [place] 3.430.2.7 Hospit a .3.556727 l .8 2021-10-24 2021-10-24 Kallie Turner, 1.2.840.1 [id number] 813317 2939 Methodi 00:00:00 00:00:[address] [place] 3.430.2.7 Hospit a .3.024399 l .8 2021-10-22 2021-10-22 Telephone Adam, 1.2.840.1 [id number] 21 [id number] Methodi 00:00:00 00:00:00 Jacki D [address]6831.1.[address] 3.430.2.7 Hospit a .3.106783 l .8 2021-10-22 2021-10-22 Telephone Adam, 1.2.840.1 [id number] 21 [id number] Methodi 00:00:00 00:00:00 Jacki D 40945.1.[address] 3.430.2.7 Hospit a .3.808215 l .8 2021-10-20 2021-10-20 [facility] 1.2.840.1 [id number] 2 [id number] Methodi 08:32:32 23:59:00 Encounter Ali 43933.1.[address] 3.430.2.7 Hospit a .3.460380 l .8 2021-10-20 [facility] [id number] [facility] [id number] Methodi 08:32:32 23:59:00 Encounter Ali 17509.1.[address] 3.430.2.7 Hospit a .3.052237 l .8 2021-10-19 2021-10-19 [facility]1 [id number] 2 [id number] Methodi 23:59:00 23:59:00 Encounter Ali 78579.1.[address] 3.430.2.7 Hospit a .3.934165 l .8 2021-10-19 2021-10-19 [facility] 1.2.840.1 [id number] 2 [id number] Methodi 23:59:00 23:59:00 Encounter Moy 86387.1.[address] 3.430.2.7 Hospit a .3.429960 l .8 2021-10-15 2021-10-15 Office Youncaleb, 1.2.840.1 [id number] 2099 328594 Methodi 10:20:00 11:47:57 Visit Renetta Loo 80735.1.[address] 3.430.2.7 Hospit a .3.196123 l .8 2021-10-15 2021-10-15 Office Younis, 1.2.840.1 [id number] 2100 057846 Methodi 10:20:00 11:47:57 Visit Renetta Loo 01693.1.[address] 3.430.2.7 Hospit a .3.461375 l .8 2021-10-15 2021-10-15 Patient Jared, 1.2.840.1 [id number] 418348 5765 Methodi 00:00:00 00:00:00 Outreach Rosalia S 00280.1.[address] 3.430.2.7 Hospit a .3.237723 l .8 2021-10-15 2021-10-15 Travel 1.2.840.1 1.2.209.823 8302 645079 Methodi 00:00:00 00:00:[address] 3.430.2.7 0.2.7.3.698 Ho spita .3.477294 084.8 l .8 2021-10-15 2021-10-15 Patient Jared, 1.2.840.1 [id number] 153813 3156 Methodi 00:00:00 00:00:00 Outreach Rosalia S 84671.1.[address] 3.430.2.7 Hospit a .3.122288 l .8 2021-10-15 2021-10-15 Travel 1.2.840.1 1.2.702.407 7579 627977 Methodi 00:00:00 00:00:[address] 3.430.2.7 0.2.7.3.698 Ho spita .3.992620 084.8 l .8 2021-10-14 2021-10-14 Travel 1.2.840.1 1.2.373.513 5411 015121 Methodi 00:00:00 00:00:[address] 3.430.2.7 0.2.7.3.698 Ho spita .3.882520 084.8 l .8 2021-10-14 2021-10-14 Telephone Younis, 1.2.840.1 [id number] Methodi 00:00:00 00:00:[address] Ren[address] Flores[address] 39976.1.[address] 3.430.2.7 Hospit a .3.455918 l .8 2021-10-14 2021-10-14 Orders Savage, 1.2.840.1 [id number] 755650 5411 Methodi 00:00:00 00:00:00 Only Kym 05970.1.[address] 3.430.2.7 Hospit a .3.920687 l .8 2021-10-14 2021-10-14 Travel 1.2.840.1 1.2.873.391 7292 971726 Methodi 00:00:00 00:00:[address] 3.430.2.7 0.2.7.3.698 Ho spita .3.630029 084.8 l .8 2021-10-14 2021-10-14 Telephone Younis, 1.2.840.1 [id number] Methodi 00:00:00 00:00:[address].1.[address] 3.430.2.7 Hospit a .3.257292 l .8 2021-10-14 2021-10-14 Orders Savage, 1.2.840.1 871361489 128783 0286 Methodi 00:00:00 00:00:00 Only Kym 54379.1.[address] 3.430.2.7 Hospit a .3.637437 l .8 2021-09-29 2021-09-29 Refill Cory, 1.2.840.1 083704313 991008 3367 Methodi 00:00:00 00:00:[address] 3.430.2.7 Hospit a .3.588400 l .8 2021-09-29 2021-09-29 Refill Cory, 1.2.840.1 339622271 437788 6460 Methodi 00:00:00 00:00:[address] 3.430.2.7 Hospit a .3.825482 l .8 2021-09-28 2021-09-28 Office [facility], 1.2.840.1 [id number] 290853 5566 Methodi 11:00:00 11:20:00 [facility] [address] [place] 3.430.2.7 Hospit a .3.512605 l .8 2021-09-28 2021-09-28 Office [facility], 1.2.840.1 [id number] 152545 5970 Methodi 11:00:00 11:20:00 [facility] [address] [place] 3.430.2.7 Hospit a .3.233656 l .8 2021-09-28 2021-09-28 Travel 1.2.840.1 1.2.007.028 6759 350849 Methodi 00:00:00 00:00:[address] 3.430.2.7 0.2.7.3.698 Ho spita .3.384558 084.8 l .8 2021-09-28 2021-09-28 Travel 1.2.840.1 1.2.197.918 1458 489603 Methodi 00:00:00 00:00:[address] 3.430.2.7 0.2.7.3.698 Ho spita .3.070179 084.8 l .8 2021-09-23 2021-09-23 Refill Sadhu, 1.2.840.1 [id number] 858332 1263 Methodi 00:00:00 00:00:[address] [place] 3.430.2.7 Hospit a .3.135278 l .8 2021-09-23 2021-09-23 Orders Savage, 1.2.840.1 [id number] 948202 4439 Methodi 00:00:00 00:00:00 Only Kym 58004.1.[address] 3.430.2.7 Hospit a .3.046726 l .8 2021-09-23 2021-09-23 Refill Sadhu, 1.2.840.1 306993557 611575 0574 Methodi 00:00:00 00:00:[address] [place] 3.430.2.7 Hospit a .3.503742 l .8 2021-09-23 2021-09-23 Orders Savage, 1.2.840.1 [id number] 995999 1138 Methodi 00:00:00 00:00:00 Only Kym 08868.1.[address] 3.430.2.7 Hospit a .3.343580 l .8 2021-09-22 2021-09-22 Office Galati, 1.2.840.1 255215572 042840 8985 Methodi 10:30:00 10:45:00 Visit Pritesh Ko 52969.1.[address] 3.430.2.7 Hospit a .3.529728 l .8 2021-09-22 2021-09-22 Office Galati, 1.2.840.1 591991465 372084 8320 Methodi 10:30:00 10:45:00 Visit Pritesh Ko 44267.1.[address] 3.430.2.7 Hospit a .3.705806 l .8 2021-09-22 2021-09-22 Travel 1.2.840.1 1.2.369.520 4185 262332 Methodi 00:00:00 00:00:[address] 3.430.2.7 0.2.7.3.698 Ho spita .3.138704 084.8 l .8 2021-09-22 2021-09-22 Travel 1.2.840.1 1.2.931.822 1780 981814 Methodi 00:00:00 00:00:[address] 3.430.2.7 0.2.7.3.698 Ho spita .3.337330 084.8 l .8 2021-09-14 2021-09-14 [facility], 1.2.840.1 [id number] 652544 5679 Methodi 00:00:00 00:00:[address] [place] 3.430.2.7 Hospit a .3.025561 l .8 2021-09-14 2021-09-14 [facility], 1.2.840.1 [id number] 276207 2026 Methodi 00:00:00 00:00:[address] [place] 3.430.2.7 Hospit a .3.272215 l .8 2021-09-03 2021-09-03 [facility], 1.2.840.1 [id number] 95783 Methodi 09:29:39 23:59:00 Encounter Pritesh S. 25940.1.[address] 3.430.2.7 Hospit a .3.226845 l .8 2021-09-03 2021-09-03 [facility], 1.2.840.1 [id number] 68958 Methodi 09:29:39 23:59:00 Encounter Pritesh S. 58553.1.[address] 3.430.2.7 Hospit a .3.483518 l .8 2021-09-03 2021-09-03 [facility], 1.2.840.1 [id number] 90160 Methodi 09:29:24 23:59:00 Encounter Pritesh Ko [address]1718.1.[address] 3.430.2.7 Hospit a .3.957219 l .8 2021-09-03 2021-09-03 [facility], 1.2.840.1 [id number] 06719 44494 Methodi 09:29:24 23:59:00 Encounter Pritesh Ko 27411.1.[address] 3.430.2.7 Hospit a .3.182447 l .8 2021-09-03 2021-09-03 [facility], 1.2.840.1 [id number] 54223 Methodi 08:19:02 09:28:00 Encounter Pritesh Ko 39740.1.[address] 3.430.2.7 Hospit a .3.363515 l .8 2021-09-03 2021-09-03 [facility], 1.2.840.1 [id number] 88004 Methodi 08:19:02 09:28:00 Encounter Pritesh Ko 48503.1.[address] 3.430.2.7 Hospit a .3.582749 l .8 2021-09-03 2021-09-03 [facility] [id number] [address] [place] [address] 00:00:00 00:00:[address] PRIT[address] 2021-09-03 2021-09-03 Travel 1.2.840.1 1.2.959.460 3661 927401 Methodi 00:00:00 00:00:[address] 3.430.2.7 0.2.7.3.698 Ho spita .3.357430 084.8 l .8 2021-09-03 2021-09-03 Travel 1.2.840.1 1.2.807.928 5977 648082 Methodi 00:00:00 00:00:[address] 3.430.2.7 0.2.7.3.698 Ho spita .3.403450 084.8 l .8 2021-08-31 2021-08-31 Yola Lara 1.2.840.1 [id number] 2099 233939 Methodi 00:00:00 00:00:[address] 3.430.2.7 Hospit a .3.882796 l .8 2021-08-31 2021-08-31 Telephone Marco, 1.2.840.1 [id number] 2099 463403 Methodi 00:00:00 00:00:[address] 3.430.2.7 Hospit a .3.857873 l .8 2021-08-24 2021-08-24 Outpatient [facility] [id number] [address] [place] 00:00:00 00:00:[address] 2021-08-24 2021-08-24 Travel 1.2.840.1 1.2.524.621 7262 371134 Methodi 00:00:00 00:00:[address] 3.430.2.7 0.2.7.3.698 Ho spita .3.183420 084.8 l .8 2021-08-10 2021-08-10 Orders Cory, 1.2.840.1 [id number] 142367 3469 Methodi 00:00:00 00:00:00 Only Margaret 72581.1.[address] 3.430.2.7 Hospit a .3.246600 l .8 2021-08-07 2021-08-07 Refill Coco, 1.2.840.1 [id number] 2100 778691 Methodi 00:00:00 00:00:00 Efren Ng 24094.1.1 804 s t 3.430.2.7 Hospit a .3.630066 l .8 2021-07-30 2021-07-30 Orders Savage, 1.2.840.1 [id number] 680374 9757 Methodi 00:00:00 00:00:00 Only Kym 39928.1.[address] 3.430.2.7 Hospit a .3.295085 l .8 2021-07-21 2021-07-21 Telephone Nery, 1.2.840.1 [id number] 2099 241780 Methodi 09:15:00 09:57:33 Consult Amalia 85392.1.[address] 3.430.2.7 Hospit a .3.050527 l .8 2021-07-21 2021-07-21 Travel 1.2.840.1 1.2.233.902 2792 715222 Methodi 00:00:00 00:00:[address] 3.430.2.7 0.2.7.3.698 Ho spita .3.632777 084.8 l .8 2021-07-14 2021-07-14 Refill Sadhu, 1.2.840.1 [id number] 329352 9790 Methodi 00:00:00 00:00:[address] [place] 3.430.2.7 Hospit a .3.939524 l .8 2021-07-14 2021-07-14 Refill Younis, 1.2.840.1 [id number] 2099 086518 Methodi 00:00:00 00:00:[address] Ren[address] 00271.1.[address] 3.430.2.7 Hospit a .3.971637 l .8 2021-07-08 2021-07-08 Refill Jewel, 1.2.840.1 [id number] 2099 571248 Methodi 00:00:00 00:00:[address] 3.430.2.7 Hospit a .3.898387 l .8 2021-07-08 2021-07-08 Refill Younis, 1.2.840.1 [id number] 2099 140198 Methodi 00:00:00 00:00:[address]30.1.[address] 3.430.2.7 Hospit a .3.017976 l .8 2021-06-18 2021-06-18 Refill Sadhu, 1.2.840.1 [id number] 011715 0645 Methodi 00:00:00 00:00:[address] [place] 3.430.2.7 Hospit a .3.885796 l .8 2021-06-09 2021-06-09 Telemedici Elo, 1.2.840.1 [id number] 371 9719665 Methodi 14:30:00 15:43:14 ne Lucy 95118.1.[address] 3.430.2.7 Hospit a .3.041522 l .8 2021-06-08 2021-06-08 Telephone Elo, 1.2.840.1 [id number] 2100 883532 Methodi 00:00:00 00:00:[address] 3.430.2.7 Hospit a .3.462003 l .8 2021-05-18 2021-05-18 Orders Savage, 1.2.840.1 [id number] 856613 2109 Methodi 00:00:00 00:00:00 Only Kym 89458.1.[address] 3.430.2.7 Hospit a .3.653089 l .8 2021-05-18 2021-05-18 Orders Savage, 1.2.840.1 [id number] 589435 8089 Methodi 00:00:00 00:00:00 Only Kym 03251.1.[address] 3.430.2.7 Hospit a .3.543962 l .8 2021-05-11 2021-05-11 Refill Sadhu, 1.2.840.1 [id number] 639221 1954 Methodi 00:00:00 00:00:[address] [place] 3.430.2.7 Hospit a .3.473017 l .8 2021-05-04 2021-05-04 Refill Sadhu, 1.2.840.1 [id number] 549652 2312 Methodi 00:00:00 00:00:[address] [place] 3.430.2.7 Hospit a .3.928045 l .8 2021-04-20 2021-04-20 Outpatient ELO, [facility] [id number] 059 [place] 00:00:00 00:00:[address]Y [address] 2021-04-14 2021-04-14 Outpatient SADHU, [facility] [id number] 280 [place] 00:00:00 00:00:00 LAYA [address] 2021-03-14 2021-03-14 Refill [facility], 1.2.840.1 [id number] 936247 1551 Methodi 00:00:00 00:00:[address] [place] 3.430.2.7 Hospit a .3.412886 l .8 2021-03-12 2021-03-12 Refill [facility], 1.2.840.1 [id number] 496688 0712 Methodi 00:00:00 00:00:[address] [place] 3.430.2.7 Hospit a .3.976600 l .8 2021-03-09 2021-03-09 Refill [facility], 1.2.840.1 [id number] 096604 1194 Methodi 00:00:00 00:00:[address] 3.430.2.7 Hospit a .3.191120 l .8 2021-02-23 2021-02-23 Orders Savage, 1.2.840.1 453807626 991477 2177 Methodi 00:00:00 00:00:00 Only Kym 23031.1.[address] 3.430.2.7 Hospit a .3.792555 l .8 2021-02-01 2021-02-01 Refill Sad, 1.2.840.1 577449603 400171 4640 Methodi 00:00:00 00:00:[address] [place] 3.430.2.7 Hospit a .3.653740 l .8 2021-02-01 2021-02-01 Orders Savage, 1.2.840.1 [id number] 554008 9870 Methodi 00:00:00 00:00:00 Only Kym 36589.1.[address] 3.430.2.7 Hospit a .3.042078 l .8 2021-02-01 2021-02-01 Orders Savage, 1.2.840.1 [id number] 242572 8584 Methodi 00:00:00 00:00:00 Only Kym 44745.1.[address] 3.430.2.7 Hospit a .3.069185 l .8 2021-01-29 2021-01-29 Orders Savage, 1.2.840.1 782076069 424471 3171 Methodi 00:00:00 00:00:00 Only Kym 51985.1.[address] 3.430.2.7 Hospit a .3.343274 l .8 2021-01-29 2021-01-29 Orders Savage, 1.2.840.1 [id number] 955432 7008 Methodi 00:00:00 00:00:00 Only Kym 24989.1.[address] 3.430.2.7 Hospit a .3.390926 l .8 2020-12-30 2020-12-30 Patient Stephen, 1.2.840.1 [id number] 2100 521648 Methodi 00:00:00 00:00:00 Outreach Jocelynn 47136.1.[address] 3.430.2.7 Hospit a .3.610470 l .8 2020-12-23 2020-12-23 Patient Stephen, 1.2.840.1 [id number] 2100 350626 Methodi 00:00:00 00:00:00 Outreach Jocelynn 43580.1.[address] 3.430.2.7 Hospit a .3.157436 l .8 2020-12-16 2020-12-16 Patient Stephen, 1.2.840.1 [id number] 2100 315268 Methodi 00:00:00 00:00:00 Outreach Jocelynn 91123.1.[address] 3.430.2.7 Hospit a .3.554399 l .8 2020-12-15 2020-12-15 Patient Junaid, 1.2.840.1 [id number] 28337 Methodi 00:00:00 00:00:00 Outreach Renee 49321.1.[address] 3.430.2.7 Hospit a .3.239049 l .8 2020-12-14 2020-12-14 Infusion 1.2.840.1 [id number] 43386 Methodi 11:29:30 11:59:[address] 3.430.2.7 Hospit a .3.470399 l .8 2020-12-14 2020-12-14 Travel 1.2.840.1 1.2.679.632 5573 784733 Methodi 00:00:00 00:00:[address] 3.430.2.7 0.2.7.3.698 Ho spita .3.236881 084.8 l .8 2020-12-09 2020-12-09 Patient Stephen, 1.2.840.1 [id number] 2099 454516 Methodi 00:00:00 00:00:00 Outreach Jocelynn 41428.1.[address] 3.430.2.7 Hospit a .3.125766 l .8 2020-12-03 2020-12-03 Refill Yue, 1.2.840.1 [id number] [id number] 4594 Methodi 00:00:00 00:00:[address] [place] 3.430.2.7 Hospit a .3.249096 l .8 2020-12-02 2020-12-02 Patient Stephen, 1.2.840.1 [id number] 2099 574797 Methodi 00:00:00 00:00:00 Outreach Jocelynn 02581.1.[address] 3.430.2.7 Hospit a .3.141538 l .8 2020-11-27 2020-11-27 Orders Hussein, 1.2.840.1 [id number] 239475 6324 Methodi 00:00:00 00:00:00 Only Kym 79509.1.[address] 3.430.2.7 Hospit a .3.904826 l .8 2020-11-25 2020-11-25 Patient Stephen, 1.2.840.1 [id number] 2099 076370 Methodi 00:00:00 00:00:00 Outreach Jocelynn 75864.1.[address] 3.430.2.7 Hospit a .3.695637 l .8 2020-11-20 2020-11-20 Telephone Shavonne, 1.2.840.1 [id number] 2100 909795 Methodi 00:00:00 00:00:[address] 3.430.2.7 Hospit a .3.918432 l .8 2020-11-19 2020-11-19 [facility] 1.2.840.1 [id number] 862982 1075 Methodi 00:00:00 00:00:00 Only Kaila 19895.1.[address] 3.430.2.7 Hospit a .3.703401 l .8 2020-11-18 2020-11-18 Telemedici [facility], 1.2.840.1 [id number] 600 [id number] Methodi 08:17:31 10:34:48 ne Laya 94781.1.[address] [place] 3.430.2.7 Hospit a .3.926925 l .8 2020-11-18 2020-11-18 Patient Stephen, 1.2.840.1 [id number] 2099 317026 Methodi 00:00:00 00:00:00 Outreach Jocelynn 61839.1.[address] 3.430.2.7 Hospit a .3.522699 l .8 2020-11-11 2020-11-11 Patient Stephen, 1.2.840.1 [id number] 2099 319366 Methodi 00:00:00 00:00:00 Outreach Jocelynn 39504.1.[address] 3.430.2.7 Hospit a .3.077253 l .8 2020-11-10 2020-11-10 Refill [facility], 1.2.840.1 [id number] Methodi 00:00:00 00:00:[address] [place] 3.430.2.7 Hospit a .3.924019 l .8 2020-10-28 2020-10-28 Patient Stephen, 1.2.840.1 [id number] 2100 [id number] Methodi 00:00:00 00:00:00 Outreach Jocelynn 12042.1.[address] 3.430.2.7 Hospit a .3.571103 l .8 2020-10-21 2020-10-21 Patient Stephen, 1.2.840.1 [id number] 2100 [id number] Methodi 00:00:00 00:00:00 Outreach Jocelynn 51826.1.[address] 3.430.2.7 Hospit a .3.200455 l .8 2020-10-20 2020-10-20 Office Elo, 1.2.840.1 [id number] 7230 Methodi 08:37:17 09:13:19 Visit Lucy 78140.1.[address] 3.430.2.7 Hospit a .3.638895 l .8 2020-10-20 2020-10-20 Travel 1.2.840.1 1.2.799.394 1785 [id number] Methodi 00:00:00 00:00:[address] 3.430.2.7 0.2.7.3.698 spita .3.539976 084.8 l .8 2020-10-14 2020-10-14 Patient Stephen, 1.2.840.1 [id number] 2100 [id number] Methodi 00:00:00 00:00:00 Outreach Jocelynn 75664.1.[address] 3.430.2.7 Hospit a .3.200381 l .8 2020-10-07 2020-10-07 Patient Junaid, 1.2.840.1 [id number] 248 Methodi 00:00:00 00:00:00 Outreach Renee 28128.1.[address] 3.430.2.7 Hospit a .3.606976 l .8 2020-10-07 2020-10-07 Patient Stephen, 1.2.840.1 [id number] 2100 [id number] Methodi 00:00:00 00:00:00 Outreach Jocelynn 56220.1.[address] 3.430.2.7 Hospit a .3.096091 l .8 2020-10-05 2020-10-05 Refill Yue, 1.2.840.1 [id number] 8842 Methodi 00:00:00 00:00:[address] [place] 3.430.2.7 Hospit a .3.504674 l .8 2020-09-24 2020-09-24 Infusion Elo, 1.2.840.1 [id number] 90016 Methodi 10:00:24 12:50:[address] 3.430.2.7 Hospit a .3.910905 l .8 2020-09-24 2020-09-24 Travel 1.2.840.1 1.2.146.648 0123 [id number] Methodi 00:00:00 00:00:[address] 3.430.2.7 0.2.7.3.698 Ho spita .3.599389 084.8 l .8 2020-09-23 2020-09-23 Orders Elo, 1.2.840.1 [id number] 3461 Methodi 00:00:00 00:00:00 Only Lucy 43586.1.[address] 3.430.2.7 Hospit a .3.014182 l .8 2020-09-23 2020-09-23 Travel 1.2.840.1 1.2.465.347 0409 [id number] Methodi 00:00:00 00:00:[address] 3.430.2.7 0.2.7.3.698 Ho spita .3.243573 084.8 l .8 2020-09-21 2020-09-21 [facility], 1.2.840.1 [id number] 8574 Methodi 00:00:00 00:00:00 Only Lucy 30763.1.[address] 3.430.2.7 Hospit a .3.574063 l .8 2020-09-18 2020-09-18 [facility] Elo, 1.2.840.1 [id number] Methodi 14:15:22 14:27:25 ne Lucy 88744.1.[address] 3.430.2.7 Hospit a .3.114593 l .8 2020-09-17 2020-09-17 Travel 1.2.840.1 1.2.947.286 4825 [id number] Methodi 00:00:00 00:00:[address] 3.430.2.7 0.2.7.3.698 Ho spita .3.805895 084.8 l .8 2020-09-05 2020-09-05 Refill [facility], 1.2.840.1 [id number] 8530 Methodi 00:00:00 00:00:[address] [place] 3.430.2.7 Hospit a .3.993450 l .8 2020-09-05 2020-09-05 Refill [facility], 1.2.840.1 [id number] 1479 Methodi 00:00:00 00:00:[address] [place] 3.430.2.7 Hospit a .3.101235 l .8 2020-08-25 2020-08-25 [facility], 1.2.840.1 [id number] Methodi 10:41:55 23:59:00 Encounter Efren Hernandez 40629.1.[address] 3.430.2.7 Hospit a .3.302891 l .8 2020-08-25 2020-08-25 Travel 1.2.840.1 1.2.552.638 4387 [id number] Methodi 00:00:00 00:00:[address] 3.430.2.7 0.2.7.3.698 Ho spita .3.443043 084.8 l .8 2020-08-20 2020-08-20 [facility], 1.2.840.1 [id number] 1744 Methodi 00:00:00 00:00:00 Only Starr 64383.1.[address] 3.430.2.7 Hospit a .3.635789 l .8 2020-08-19 2020-08-19 [facility], 1.2.840.1 [id number] 55313 Methodi 13:41:05 23:59:00 Encounter Pritesh Ko 70938.1.[address] 3.430.2.7 Hospit a .3.069175 l .8 2020-08-19 2020-08-19 Office [facility], 1.2.840.1 [id number] 8334 Methodi 15:02:40 15:22:40 Visit Laya 58405.1.[address] [place] 3.430.2.7 Hospit a .3.768144 l .8 2020-08-19 2020-08-19 [facility], 1.2.840.1 [id number] 54068 Methodi 13:00:00 13:40:00 Encounter Pritesh Ko 86353.1.[address] 3.430.2.7 Hospit a .3.776753 l .8 2020-08-19 2020-08-19 [facility], 1.2.840.1 [id number] 01128 Methodi 11:40:00 12:59:00 Encounter Pritesh Ko 31752.1.[address] 3.430.2.7 Hospit a .3.425559 l .8 2020-08-19 2020-08-19 [facility], 1.2.840.1 [id number] 27385 Methodi 10:00:00 11:39:00 Encounter Renetta FloresMireille 91303.1.[address] 3.430.2.7 Hospit a .3.213230 l .8 2020-08-19 2020-08-19 [facility] [id number] 5068 Methodi 07:43:04 07:58:04 Visit Pritesh Ko 19840.1.[address] 3.430.2.7 Hospit a .3.528532 l .8 2020-08-19 2020-08-19 Travel 1.2.840.1 1.2.654.816 8362 [id number] Methodi 00:00:00 00:00:[address] 3.430.2.7 0.2.7.3.698 Ho spita .3.076409 084.8 l .8 2020-08-19 2020-08-19 [facility], [facility] [id number] 283 [place] 00:00:00 00:00:00 LAYA [address] 2020-08-11 2020-08-11 [facility], 1.2.840.1 [id number] 2100 [id number] Methodi 00:00:00 00:00:00 Orders Renetta FloresMireille 71264.1.[address] 3.430.2.7 Hospit a .3.666765 l .8 2020-08-07 2020-08-07 Refill [facility], 1.2.840.1 [id number] 1149 Methodi 00:00:00 00:00:[address] [place] 3.430.2.7 Hospit a .3.113719 l .8 2020-08-05 2020-08-05 Refill [facility], 1.2.840.1 [id number] 8647 Methodi 00:00:00 00:00:[address] [place] 3.430.2.7 Hospit a .3.655153 l .8 2020-08-05 2020-08-05 Orders Savage, 1.2.840.1 [id number] 1312 Methodi 00:00:00 00:00:00 Only Kym 15033.1.[address] 3.430.2.7 Hospit a .3.156367 l .8 2020-08-04 2020-08-04 [facility], 1.2.840.1 [id number] 1443 Methodi 00:00:00 00:00:[address] [place] 3.430.2.7 Hospit a .3.002493 l .8 2020-08-03 2020-08-03 [facility], 1.2.840.1 [id number] 12512 13846 Methodi 11:00:00 23:59:00 Encounter Pritesh Ko 89304.1.[address] 3.430.2.7 Hospit a .3.521724 l .8 2020-08-03 2020-08-03 [facility], 1.2.840.1 [id number] 48344 Methodi 09:17:35 10:59:00 Encounter Pritesh Ko 37051.1.[address] 3.430.2.7 Hospit a .3.143594 l .8 2020-08-03 2020-08-03 [facility], 1.2.840.1 [id number] 63235 03743 Methodi 09:00:00 09:16:00 Encounter Pritesh Ko 08191.1.[address] 3.430.2.7 Hospit a .3.531898 l .8 2020-08-03 2020-08-03 Travel 1.2.840.1 1.2.443.780 9565 [id number] Methodi 00:00:00 00:00:[address] 3.430.2.7 0.2.7.3.698 Ho spita .3.339612 084.8 l .8 2020-08-03 2020-08-03 [facility], 1.2.840.1 [id number] 4239 Methodi 00:00:00 00:00:[address] [place] 3.430.2.7 Hospit a .3.254034 l .8 2020-08-03 2020-08-03 Outpatient [facility], [facility] [id number] [address] [place] [address] 00:00:00 00:00:00 PRITESH [address] 2020-07-28 2020-07-28 Orders Stephan, 1.2.840.1 [id number] Methodi 00:00:00 00:00:00 Only [place] 93004.1.[address] 3.430.2.7 Hospit a .3.322096 l .8 2020-07-20 2020-07-20 Orders Brandon, 1.2.840.1 [id number] 1826 Methodi 00:00:00 00:00:00 Only Starr 62661.1.[address] 3.430.2.7 Hospit a .3.992567 l .8 2020-07-15 2020-07-15 Refill Yue, 1.2.840.1 [id number] 7308 Methodi 00:00:00 00:00:[address] [place] 3.430.2.7 Hospit a .3.134976 l .8 2020-07-06 2020-07-06 Office DANIEL Momin 1.2.840.114 085730 77 12:46:59 13:35:30 Visit Claudio Post AMBULATOR 350.1.13.21 Y 0.2.7.2.686 182.5984643 300 2020-06-08 2020-06-08 Orders Hussein, 1.2.840.1 [id number] 0126 Methodi 00:00:00 00:00:00 Only Kym 82006.1.[address] 3.430.2.7 Hospit a .3.496945 l .8 2020-05-08 2020-05-08 Patient Sobremesana 1.2.840.1 [id number] Methodi 00:00:00 00:00:00 [address]ar [address]12.1.[address] 3.430.2.7 Hospit a .3.687236 l .8 2020-04-29 2020-04-29 Patient Sobremesana 1.2.840.1 [id number] 21 [id number] Methodi 00:00:00 00:00:00 Outreach , Deborah 37016.1.[address] 3.430.2.7 Hospit a .3.343330 l .8 2020-04-22 2020-04-22 Office Elo, 1.2.840.1 [id number] 6597 Methodi 11:06:19 11:37:30 Visit Lucy 74537.1.[address] 3.430.2.7 Hospit a .3.816780 l .8 2020-04-22 2020-04-22 Travel 1.2.840.1 1.2.650.946 9999 [id number] Methodi 00:00:00 00:00:[address] 3.430.2.7 0.2.7.3.698 Ho spita .3.147033 084.8 l .8 2020-04-20 2020-04-20 Patient Benjamin, 1.2.840.1 [id number] 1890 Methodi 00:00:00 00:00:00 Outreach Reny 26373.1.1 [address] t 3.430.2.7 Hospit a .3.034806 l .8 2020-04-17 2020-04-17 Clinical Coco, 1.2.840.1 [id number] Methodi 14:55:17 15:10:17 Support Efren Ng 77540.1.1 810 s t 3.430.2.7 Hospit a .3.012985 l .8 2020-04-17 2020-04-17 Outpatient COCO, [facility] [id number] 30883 [place] 00:00:00 00:00:[address] EFREN [address] 2020-04-09 2020-04-09 Patient Sobabiana 1.2.840.1 [id number] Methodi 00:00:00 00:00:00 Outreach , Deborah 12858.1.[address] 3.430.2.7 Hospit a .3.463887 l .8 2020-04-07 2020-04-07 Patient Ezioana 1.2.840.1 [id number] 21 [id number] Methodi 00:00:00 00:00:[address] 3.430.2.7 Hospit a .3.063203 l .8 2020-04-02 2020-04-04 Emergency Cheng Kohler 1.2.840 .1 [id number] Methodi 20:22:00 13:58:[address] [facility] 3.430.2.7 Hospita .3.240830 l .8 2020-04-02 2020-04-02 Emergency Aiden Harvey 1.2.840.1 [id number] Methodi 11:23:00 16:44:00 Cornelio Norris 99756.1.[address] 3.430.2.7 Hospit a .3.235076 l .8 2020-03-30 2020-03-30 Refill [facility], 1.2.840.1 [id number] 1623 Methodi 00:00:00 00:00:[address] [place] 3.430.2.7 Hospit a .3.817090 l .8 2020-03-26 2020-03-26 Outpatient COCO, [facility] [id number] [place] 00:00:00 00:00:[address] RAFIK [address] 2020-03-24 2020-03-24 Outpatient COCO, [facility] 05135 96094 [place] 00:00:00 00:00:00 RAFIK [address] 2020-03-24 2020-03-24 Outpatient COCO, [facility] 55528 48239 [place] 00:00:00 00:00:00 RAFIK 082 Method i 2020-01-06 2020-01-06 Outpatient [facility], [facility] [id number] [address] [place] [address] 00:00:00 00:00:00 LAYA 183 Method i 2019-11-06 2019-11-06 Outpatient TABITHA, [facility] [id number] 516 [place] 00:00:00 00:00:00 JAMAL [address] 2019-10-21 2019-10-21 Outpatient ELO [facility] [id number] 781 [place] 00:00:00 00:00:00 LUCY 598 Method i 2019-10-21 2019-10-21 Outpatient ELO [facility] [id number] 165 [place] 00:00:00 00:00:00 LUCY 893 Method i 2019-09-30 2019-09-30 Outpatient YUE [facility] [id number] 357 [place] 00:00:00 00:00:00 LAYA 285 Method i 2019-07-17 2019-07-17 Outpatient TABITHA [facility] [id number] 763 [place] 00:00:00 00:00:00 JAMAL 920 Method i 2019-04-26 2019-04-26 Outpatient ELO [facility] [id number] 713 [place] 00:00:00 00:00:00 LUCY 301 Method i 2019-04-26 2019-04-26 Outpatient ELO [facility] [id number] 646 [place] 00:00:00 00:00:00 LUCY 898 Method i 2019-04-26 2019-04-26 Outpatient ELO [facility] [id number] 715 [place] 00:00:00 00:00:00 LUCY [address] Results Test Description Test Time Test Comments Results Result Comments Source Comprehensive metabolic panel 2022-06-08 21:48:00 Test Item Value Reference Range Interpretation Comme nts Glucose (test code = 147 mg/dL 65-99 H Fastin g reference 2345-7) interval For so meone without known d iabetes, a glucosevalue >125 mg/dL indicates that they may havedi abetes and this should be confirmed with afollow-up test . BUN (test code = 3094-0) 29 mg/dL 7-25 H Creatinine (test code = 1.56 mg/dL 0.70-1.35 H 2160-0) eGFR (test code = 48 See_Comment [place] [address]-1) the CKD-EPI 202 1 equation. To ca lculate the new eGFR fr om a previous Creati nine or Cystatin Cresul t, go to https://www.kid odessa.org/ professionals/k doqi/gfr %5Fcalculator [Automated mess age] The system which ge nerated this result tra nsmitted reference range : > OR = 60 mL/min/1.73m 2. The reference range was not used to interpr et this result as normal/abnormal . BUN/creatinine ratio 19 See_Comment [Autom ated message] (test code = 3097-3) The [employer] tem which generated this result transmitted ref erence range: 6 - 22 ( calc). The reference r ermelinda was not used to int erpret this result as normal/abnormal . Sodium (test code = 139 mmol/L 417-443 5610-2) Potassium (test code = 5.0 mmol/L 3.5-5.3 2823-3) Chloride (test code = 105 mmol/L 98-110 2075-0) CO2 (test code = 2027-9) 27 mmol/L 20-32 Calcium (test code = 9.4 mg/dL 8.6-10.3 61262-8) Protein (test code = 6.5 g/dL 6.1-8.1 2885-2) Albumin, S (test code = 4.2 g/dL 3.6-5.1 1751-7) Globulin, total (test 2.3 See_Comment [Auto mated message] code = 75403-7) The system w [employer] generated this result transmitted ref erence range: 1.9 - 3. 7 g/dL (calc). The ref erence range was not u sed to interpret this result as normal/abnor mal. Albumin/globulin ratio 1.8 See_Comment [Aut omated message] (test code = 1759-0) The [employer] tem which generated this result transmitted ref erence range: 1.0 - 2. 5 (calc). The ref erence range was not u sed to interpret this result as normal/abnor mal. Total bilirubin (test 1.1 mg/dL 0.2-1.2 code = 1974-2) Alkaline phosphatase 129 U/L 35-144 (test code = 6768-6) AST (test code = 1920-8) 40 U/L 10-35 H ALT (test code = 1742-6) 51 U/L 9-46 H NILDA (test code = NILDA) FASTING:YES FASTING: YES RAC (test code = RAC) Performing Organization Information: Site ID: FIDE Name: [facility] Address: [address] [place] [phone] Director: Boston Darling Lab Interpretation (test Abnormal code = 50549-9) [facility] [id number] 21:48:00 Test Item Value Reference Interpretation Comments Range PTH (test 58 pg/mL 16-77 Interpretive G uide Intact code = PTH Calcium---- 2731-8) ---- ---Normal Parathyroid Nor mal NormalHypoparat hyroidism Low or Low Normal LowHyperparathy roidism Primary Normal or High High Secondary High Normal or Low Tertiary High HighNon-Parathy roid Hypercalcemia L ow or Low Normal High NILDA (test FASTING:YES code = FASTING: YES NILDA) RAC (test Performing code = Organization RAC) Information: Site ID: FIDE Name: [facility] Address: [address] [place] [phone] Director: Boston Darling [facility]osph[facility] [id number] 21:48:00 Test Item Value Reference Range Interpretation Comments Phosphorus (test code 3.7 mg/dL 2.1-4.3 = 2777-1) NILDA (test code = NILDA) FASTING:YES FASTING: YES RAC (test code = RAC) Performing Organization Information: Site ID: Sandra Name: [facility] Address: [address] [place] [phone] Director: Boston Darling [facility] with platelet and [id number] 21:48:00 Test Item Value Reference Interpretation Comments Range WBC (test code = 7.8 See_Comment [Automated message] 6990-2) The system [employer] generated this result transmitted ref erence range: 3.8 - 10 .8 Thousand/uL. Th e reference range was not used to int erpret this result as normal/abnormal . RBC (test code = 4.91 See_Comment [Automated message] 789-8) The system whic h generated this result transmitted ref erence range: 4.20 - 5 .80 Million/uL. The reference range was not used to int erpret this result as normal/abnormal . HGB (test code = 15.9 g/dL 13.2-17.1 718-7) HCT (test code = 45.2 % 38.5-50.0 4544-3) MCV (test code = 92.1 fL 80.0-100.0 787-2) MCH (test code = 32.4 pg 27.0-33.0 785-6) MCHC (test code = 35.2 g/dL 32.0-36.0 786-4) RDW (test code = 12.6 % 11.0-15.0 788-0) Platelet count 130 See_Comment L [Automated m essage] (test code = 777-3) The syst em which generated this result transmitted ref erence range: 140 - 40 0 Thousand/uL. Th e reference range was not used to int erpret this result as normal/abnormal . MPV (test code = 10.2 fL 7.5-12.5 776-5) Neutrophils, 5725 See_Comment [Automated [employer] ([employer] sawyer] absolute (test code The syst em which = 751-8) generated this result transmitted ref erence range: 1,500 - 7,800 cells/uL. The reference range was not used to int erpret this result as normal/abnormal . Lymphocytes, 1420 See_Comment [Automated mes sawyer] absolute (test code The syst em which = 731-0) generated this result transmitted ref erence range: 850 - 3, 900 cells/uL. The reference range was not used to int erpret this result as normal/abnormal . Monocytes, absolute 421 See_Comment [Automa anthony message] (test code = 742-7) The syst em which generated this result transmitted ref erence range: 200 - 95 0 cells/uL. The reference range was not used to int erpret this result as normal/abnormal . Eosinophils, 195 See_Comment [Automated [employer] ([employer]) sawyer] absolute (test code The syst em which = 711-2) generated this result transmitted ref erence range: 15 - 500 cells/uL. The reference range was not used to int erpret this result as normal/abnormal . Basophils, absolute 39 See_Comment [Automa anthony message] (test code = 704-7) The syst em which generated this result transmitted ref erence range: 0 - 200 cells/uL. The reference range was not used to int erpret this result as normal/abnormal . Neutrophils (test 73.4 % code = 770-8) Lymphocytes (test 18.2 % code = 736-9) Monocytes (test 5.4 % code = 5905-5) Eosinophils (test 2.5 % code = 713-8) Basophils + RC 0.5 % (test code = 706-2) Nucleated RBC (test Review o f peripheral code = 8251-1) smear confirmsautomat ed results. NILDA (test code = FASTING:YES NILDA) FASTING: YES RAC (test code = Performing RAC) Organization Information: Site ID: RGA Name: [facility] Address: [address] [place] [phone] Director: [place] Darling Lab Interpretation Abnormal (test code = 49803-1) [facility] automated with [id number] 21:48:00 Test Item Value Reference Range Interpretation Comments Color, UA (test code YELLOW YELLOW = 5778-6) Appearance (test CLEAR CLEAR code = 5767-9) Specific gravity, 1.036 1.001-1.035 H urine (test code = 5811-5) pH, urine (test code 7.0 5.0-8.0 = 5803-2) Glucose, urine (test 3+ NEGATIVE A code = 52023-5) Bilirubin, UA (test NEGATIVE NEGATIVE code = 5770-3) Ketones, UA (test NEGATIVE NEGATIVE code = 2514-8) Occult blood, urine NEGATIVE NEGATIVE (test code = 5794-3) Protein, UA (test NEGATIVE NEGATIVE code = 83484-6) Nitrite, UA (test NEGATIVE NEGATIVE code = [...] code = NONE SEEN See_Comment [Autom ated 51751-0) message] The system which generated this result transmitted reference range : < OR = 2 /HPF. The reference range was not used to interpr et this result as normal/abnormal . Squamous epithelial NONE SEEN See_Comment [Automa anthony cells, UA (test code message ] The = 50649-7) system which generated this result transmitted reference [...] = Performing RAC) Organization Information: Site ID: [facility] Name: [facility] Address: [address] [place] [phone] Director: [place] Darling Lab Interpretation Abnormal (test code = 28258-7) [facility] LakeCreatinine level, urine, [id number] 21:48:00 Test Item Value Reference Range Interpretation Comments Creatinine, urine 87 mg/dL 20-320 (mg/dL) (test code = 2161-8) NILDA (test code = FASTING:YES FASTING: YES NILDA) RAC (test code = Performing Organization RAC) Information: Site ID: [facility] Name: [facility] Address: [address] [place] [phone] Director: Boston Darling [facility] LakeProtein, urine, [id number] 21:48:00 Test Item Value Reference Range Interpretation Comments Protein, urine 8 mg/dL 5-25 random (test code = 2888-6) NILDA (test code = FASTING:YES FASTING: YES NILDA) RAC (test code = Performing Organization RAC) Information: Site ID: [facility] Name: [facility] Address: [address] [place] [phone] Director: Boston Darling [facility] LakeFK506 Tacrolimus level, [id number] 21:48:00 Test Item Value Reference Range Interpretation Comments Tacrolimus, 5.3 mcg/L No definitive highly therapeutic or toxic sensitive, ranges have LC/MS/MS beenestablished . (test code = [place] [address]12[address]-3) levels are influencedby ty pe of transplant, pat ient response, time post-transplant , co-administrati on of other drugs, an d drug formulation. Th e following troug h range is a suggested guideline: 5.0- 20.0 mcg/L. This master t was developed and i ts analytical perf ormance characteristics have been determined by [employer]. It has not been cl eared or approved by theA. This assay has been validated pursu ant to the CLIA regula tions and is used for clinical purpos es. NILDA (test FASTING:YES code = NILDA) FASTING: YES RAC (test Performing code = RAC) Organization Information: Site ID: IG [facility]: [facility] Address: [address] [place] [address] Director: Dr. [place] Darling [facility] LakeLipid [id number] 22:48:00 Test Item Value Reference Range Interpretation Comments Cholesterol, total 94 mg/dL <=200 (test code = 2093-3) HDL cholesterol 45 mg/dL See_Comment [Automated (test code = 2085-9) message ] The system which generated this result transmitted reference range : > OR = 40. The reference range was not used to interpret this result as normal/abnormal . Triglycerides (test 116 mg/dL <=150 code = 2571-8) LDL cholesterol 29 mg/dL (calc) Reference ra nge: calculated (test <100 Desira ble code = 59562-0) range <100 m g/dL for primary prevention; <70 mg/dL for patients with C HD or diabetic patients with > or = 2 CHD risk factors. LDL-C is now calculated using the Kimberly calculation, which is a validated novel method huongin g better accuracy than the Friedewald equation in the estimation of LDL-C. Wale S S et al. SREEKANTH. 2013;310(19): 3879-0357 (http://educati on .[employer] .com/faq/WDH963 ) Cholesterol/HDL 2.1 See_Comment [Automated ratio (test code = message] The 9830-1) system which generated this result transmitted reference range : <5.0 (calc). Th e reference range was not used to interpret this result as normal/abnormal . Non-HDL cholesterol 49 See_Comment For sharon ents with (test code = diabetes plus 1 89823-6) major ASCVD ris k factor, treatin g to a non-HDL-C goal of <100 mg/dL (LDL-C of <70 mg/dL) is considered a therapeutic option. [Automated message] The system which generated this result transmitted reference range : <130 mg/dL (calc). The reference range was not used to interpret this result as normal/abnormal . NILDA (test code = FASTING:YESAN NILDA) UPDATE OR CORRECTION HAS BEEN MADE TO NAME MULTIPLE COLLE FASTING: YES RAC (test code = Performing RAC) Organization Information: Site ID: [facility]: [facility] Address: [address] [place] [address] Director[facility] [id number] 22:48:00 Test Item Value Reference Range Interpretation Comments Amylase (test code = 43 U/L 1798-8) NILDA (test code = FASTING:YESAN UPDATE OR NILDA) CORRECTION HAS BEEN MADE TO NAME MULTIPLE COLLE FASTING: YES RAC (test code = Performing Organization RAC) Information: Site ID: [facility]: [facility] Address: [address] [place] [id number] Director: [facility] HospitalHemoglobin [id number] 22:48:00 Test Item Value Reference Interpretation Comments Range Hemoglobin A1C 6.2 See_Comment H For someone w ithout (test code = known diabetes, a 4548-4) hemoglobin A1c value between 5.7% an d 6.4% is consist ent withprediabetes and should be confi rmed with a follow-u p test. For someo ne with known diab etes, a value <7%indicates that their diabetes is well controlled . Q2cljuzzec shou ld be individualized based on duration [...] RAC) Organization Information: Site ID: A [facility] Address: [address] [place], [place] [address] Director: [place] Darling Lab Interpretation Abnormal (test code = 43920-9) [facility] [id number] 22:48:00 Test Item Value Reference Range Interpretation Comments Lipase (test code = 34 U/L 0-3) NILDA (test code = FASTING:YESAN UPDATE OR NILDA) CORRECTION HAS BEEN MADE TO NAME MULTIPLE COLLE FASTING: YES RAC (test code = Performing Organization RAC) Information: Site ID: [facility] Name: [facility] Address: [address] [place] [address] Director: [place] Darling [facility] LakeT, [id number] 22:48:00 Test Item Value Reference Range Interpretation Comments T4, free (test code 1.6 ng/dL 0.8-1.8 = 3024-7) NILDA (test code = FASTING:YESAN UPDATE OR NILDA) CORRECTION HAS BEEN MADE TO NAME MULTIPLE COLLE FASTING: YES RAC (test code = Performing Organization RAC) Information: Site ID: [facility] Name: [facility] Address: [address] [place] [phone] Director: [place] Darling [facility] LakeThyroid stimulating [id number] 22:48:00 Test Item Value Reference Range Interpretation Comments TSH (test 1.03 See_Comment [Automated mes sawyer] code = The system ic h 3016-3) generated this result transmit anthony reference range : 0.40 - 4.50 mIU /L. The reference r ermelinda was not used to interpret this result as normal/abnormal . NILDA (test FASTING:YESAN UPDATE code = NILDA) OR CORRECTION HAS BEEN MADE TO NAME MULTIPLE COLLE FASTING: YES RAC (test Performing code = RAC) Organization Information: Site ID: [facility] Name: [facility] Address: [address] [place] [address] Director: [facility] HospitalVit[facility] D 25 hydroxy [id number] 22:48:00 Test Item Value Reference Range Interpretation [...] please refer to http://educatio n.Q uestDiagnostics .co m/faq/ZNU549 (T his link is being provided for informational/e [place] ational purpose s only.) NILDA (test code = FASTING:YESAN UPDATE NILDA) OR CORRECTION HAS BEEN MADE TO NAME MULTIPLE COLLE FASTING: YES RAC (test code = Performing RAC) Organization Information: Site ID: [facility] Name: [facility] Address: [address] [place] [phone] Director: [facility] HospitalAlbumin with creatinine and ratio, random [id number] 22:48:00 Test Item Value Reference Range Interpretation Comments Creatinine, 101 mg/dL 20-320 urine (mg/dL) (test code = 2161-8) Microalbumin 0.3 mg/dL See Note: Reference Range : , urine Reference Range Not (test code = established 49902-5) Microalbumin 3 See_Comment The ADA define s /creatinine abnormalities i n ratio (test albuminexcretio n as code = follows: Albumi rodolfo 9318-7) Category Result (mcg/mg creatinine) Nor mal to Mildly increase d <30Moderately i ncreased 30-299 Severely increased > OR = 300 The ADA recomme nds that at least two of threespecimens collected withi n a 3-6 month period be abnormal before consider ing a patient to bewi thin a diagnostic alejandra ivon. [Automated mess age] The system which ge nerated this result tra nsmitted reference range : <30 mcg/mg creat. T he reference range was not used to interpr et this result as normal/abnormal . NILDA (test FASTING:YESAN code = NILDA) UPDATE OR CORRECTION HAS BEEN MADE TO NAME MULTIPLE COLLE FASTING: YES RAC (test Performing code = RAC) Organization Information: Site ID: [facility]GA Name: [facility] Address: [address] [place] [phone] Director: [place] Darling [facility] Lake[facility]id [id number] 22:48:00 Test Item Value Reference Range Interpretation Comments Cholesterol, total 94 mg/dL <=200 (test code = 2093-3) HDL cholesterol 45 mg/dL See_Comment [Automated (test code = 2084-) message ] The system which generated this result transmitted reference range : > OR = 40. The reference range was not used to interpret this result as normal/abnormal . Triglycerides (test 116 mg/dL <=150 code = 2571-8) LDL cholesterol 29 mg/dL (calc) Reference ra nge: calculated (test <100 Desira ble code = 13063-7) range <100 m g/dL for primary prevention; <70 mg/dL for patients with C HD or diabetic patients with > or = 2 CHD risk factors. LDL-C is now calculated using the Wale-Adalid calculation, which is a validated novel method huongin g better accuracy than the Friedewald equation in the estimation of LDL-C. Wale S S et al. SREEKANTH. 2013;310(19): 3119-1132 (http://educati on .SpotplexDiagnosti Global Axcess .com/faq/VUK912 ) Cholesterol/HDL 2.1 See_Comment [Automated ratio (test code = message] The 9830-1) system which generated this result transmitted reference range : <5.0 (calc). Th e reference range was not used to interpret this result as normal/abnormal . Non-HDL cholesterol 49 See_Comment For sharon ents with (test code = diabetes plus 1 99277-7) major ASCVD ris k factor, treatin g to a non-HDL-C goal of <100 mg/dL (LDL-C of <70 mg/dL) is considered a therapeutic option. [Automated message] The system which generated this result transmitted reference range : <130 mg/dL (calc). The reference range was not used to interpret this result as normal/abnormal . NILDA (test code = FASTING:YESAN NILDA) UPDATE OR CORRECTION HAS BEEN MADE TO NAME MULTIPLE COLLE FASTING: YES RAC (test code = Performing RAC) Organization Information: Site ID: A [facility]: [facility] Address: [address] [place] [address] Director: [place] Apoorva WeaverPhongGenesis HospitalAmylase [id number] 22:48:00 Test Item Value Reference Range Interpretation Comments Amylase (test code = 43 U/L 101 1798-8) NILDA (test code = FASTING:YESAN UPDATE OR NILDA) CORRECTION HAS BEEN MADE TO NAME MULTIPLE COLLE FASTING: YES RAC (test code = Performing Organization RAC) Information: Site ID: [facility] Name: [facility] Address: [address] [place] [address] Director: [place] Guerin PhongGenesis HospitalHemoglobin [id number] 22:48:00 Test Item Value Reference Interpretation Comments Range Hemoglobin A1C 6.2 See_Comment H For someone w ithout (test code = known diabetes, a 4548-4) hemoglobin A1c value between 5.7% an d 6.4% is consist ent withprediabetes and should be confi rmed with a follow-u p test. For someo ne with known diab etes, a value <7%indicates that their diabetes is well controlled . O4qyvzvhfc shou ld be individualized based on duration [...] RAC) Organization Information: Site ID: [facility] Address: [address] [place] [address] Director: [place] Darling Lab Interpretation Abnormal (test code = 68163-0) [facility] Lake[facility] [id number] 22:48:00 Test Item Value Reference Range Interpretation Comments Lipase (test code = 34 U/L 7-60 3040-3) NILDA (test code = FASTING:YESAN UPDATE OR NILDA) CORRECTION HAS BEEN MADE TO NAME MULTIPLE COLLE FASTING: YES RAC (test code = Performing Organization RAC) Information: Site ID: [facility] Name: [facility] Address: [address] [place] [address] Director: [place] Darling [facility] LakeT4, [id number] 22:48:00 Test Item Value Reference Range Interpretation Comments T4, free (test code 1.6 ng/dL 0.8-1.8 = 3024-7) NILDA (test code = FASTING:YESAN UPDATE OR NILDA) CORRECTION HAS BEEN MADE TO NAME MULTIPLE COLLE FASTING: YES RAC (test code = Performing Organization RAC) Information: Site ID: [facility] Name: [facility] Address: [address] [place] [address] Director: [place] Darling [facility] LakeThyroid stimulating [id number] 22:48:00 Test Item Value Reference Range Interpretation [...] code = RAC) Organization Information: Site ID: [facility] Name: [facility] Address: [address] [place] [address] Director: [facility] HospitalVitamin D 25 hydroxy [id number] 22:48:00 Test Item Value Reference Range Interpretation [...] please refer to http://educatio n.Q uestDiagnostics .co m/faq/YEH726 (T his link is being provided for informational/e [place] ational purpose s only.) NILDA (test code = FASTING:YESAN UPDATE NILDA) OR CORRECTION HAS BEEN MADE TO NAME MULTIPLE COLLE FASTING: YES RAC (test code = Performing RAC) Organization Information: Site ID: [facility]GA Name: [facility] Address: [address] [place] [phone] Director: [facility] HospitalAlbumin with creatinine and ratio, random [id number] 22:48:00 Test Item Value Reference Range Interpretation Comments Creatinine, 101 mg/dL 20-320 urine (mg/dL) (test code = 2161-8) Microalbumin 0.3 mg/dL See Note: Reference Range : , urine Reference Range Not (test code = established 01862-2) Microalbumin 3 See_Comment The ADA define s [...] patient to bewi thin a diagnostic alejandra ivon. [Automated mess age] The system which ge nerated this result tra nsmitted reference range : <30 mcg/mg creat. T he reference range was not used to interpr et this result as normal/abnormal . NILDA (test FASTING:YESAN code = NILDA) UPDATE OR CORRECTION HAS BEEN MADE TO NAME MULTIPLE COLLE FASTING: YES RAC (test Performing code = RAC) Organization Information: Site ID: [facility] Name: [facility] Address: [address] [place] [phone] Director: [place] Darling [facility] metabolic [id number] 21:28:00 Test Item Value Reference Interpretation Comments [...] [place] [address]-4) the CKD-EPI 202 1 equation. To calculate the n ew eGFR from a pre vious Creatinine or Cystatin Cresul t, go to https://www.kid odessa.o rg/professional s/kdo qi/gfr%5Fcalcul ator [Automated mess age] The system whic h [...] . Sodium (test code = 140 mmol/L 673-064 8196-2) Potassium (test 4.2 mmol/L 3.5-5.3 code = 2823-3) Chloride (test code 104 mmol/L 98-110 = 2075-0) CO2 (test code = 32 mmol/L 20-32 2027-9) Calcium (test code 9.4 mg/dL 8.6-10.3 = 63893-6) Protein (test code 6.7 g/dL 6.1-8.1 = 2885-2) Albumin, S (test 4.3 g/dL 3.6-5.1 code = 1751-7) Globulin, total 2.4 See_Comment [Automated message] (test code = The [place]ic h 79670-4) generated this result transmit anthony reference range : 1.9 - 3.7 g/dL (kiki c). The reference r ermelinda was not used to interpret this result as normal/abnormal . Albumin/globulin 1.8 See_Comment [Automated message] ratio (test code = The syste m which 1759-0) generated this result transmit anthony reference range : 1.0 - 2.5 (calc). T he reference range was not used to interpret this result as normal/abnormal . Total bilirubin 1.3 mg/dL 0.2-1.2 H (test code = 1975-2) Alkaline 105 U/L 35-144 phosphatase (test code = 6768-6) AST (test code = 43 U/L 10-35 H 1920-8) ALT (test code = 62 U/L 9-46 H 1742-6) RAC (test code = Performing RAC) Organization Information: Site ID: [facility] Name: [facility] Lab Address: [address] [place] [phone] Director: [place] Darling Lab Interpretation Abnormal (test code = 93263-5) [facility] [id number] 21:28:00 Test Item Value Reference Interpretation Comments [...] code = Organization RAC) Information: Site ID: [facility] Name: [facility] Address: [facility] [place] [address] Director: [facility] HospitalPhosphorus [id number] 21:28:00 Test Item Value Reference Range Interpretation Comments Phosphorus (test code 4.0 mg/dL 2.1-4.3 = 2777-1) RAC (test code = RAC) Performing Organization Information: Site ID: [facility] Name: [facility] Address: [address] [place] [address] Director: [facility] with platelet and [id number] 21:28:00 Test Item Value Reference Range Interpretation Comments WBC (test code = 5.6 See_Comment [Automated 9490-2) message] The system which generated this result transmitted reference range : 3.8 - 10.8 Thousand/uL. Th e reference range was not used to interpret this result as normal/abnormal . RBC (test code = 5.03 See_Comment [Automated 939-8) message] The system which generated this result [...] RAC) Organization Information: Site ID: RGA Name: [facility] Lab Address: [address] [place] [phone] Director: [place] Darling Lab Interpretation Abnormal (test code = 66518-7) [facility]tonEurld[facility]VR268 Tacrolimus level, [id number] 21:28:00 Test Item Value Reference Interpretation Comments Range Tacrolimus, highly 4.5 mcg/L L No defini tive sensitive, LC/MS/MS therapeu tic or toxic (test code = ranges have 10211-2) beenestablished . Optimal blood d rug levels are influencedby ty pe of transplant, pat ient response, time post-transplant , co-administrati on of other drugs, an d drug formulatio n. The following t rough range is a sugg ested guideline: 5.0- 20.0 mcg/L. This master t was developed and i ts analytical performance characteristics have been determined by [employer]. It has not been cleared or appr nikhil by theFDA. This assay has been validated pursu ant to the CLIA regulations and is used for clinic al purposes. RAC (test code = Performing RAC) Organization Information: Site ID: IG Name: [facility] Lab Address: [address] [place] [address] Director: Dr. [place] Darling Lab Interpretation Abnormal (test code = 76764-5) [facility] [id number] 17:20:00 Test Item Value Reference Range Interpretation Comments POC glucose (test 116 mg/dL 65-99 H J2Ee Android Developer N darvin: [place] code = 99577-8) ConnertriceFilomena misha ID: [id number] Lab Interpretation Abnormal (test code = 89273-7) [facility] [id number] 17:20:00 Test Item Value Reference Range Interpretation Comments POC glucose (test 116 mg/dL 65-99 H J2Ee Android Developer N darvin: [place] code = 06276-3) ConnertriceFilomena misha ID: [id number] Lab Interpretation Abnormal (test code = 90224-3) [facility] [id number] 13:49:00 Test Item Value Reference Range Interpretation Comments POC sodium (test code = 143 mmol/L 430-140 0603-0) POC potassium (test 3.9 mmol/L 3.5-5.0 code = 6298-4) POC chloride (test code 106 mmol/L 99-109 = 2069-3) POC CO2 (test code = 23 mmol/L 24-31 L 59676-9) POC glucose (test code 122 mg/dL 65-99 H = 2339-0) POC BUN (test code = 21 mg/dL 8-24 6299-2) POC creatinine (test 1.2 mg/dl 0.7-1.2 code = 77781-5) POC hematocrit (test 43 % 41-51 code = 4544-3) POC anion gap (test 18 mmol/L 8-20 J2Ee Android Developer Name: code = [id number]) Isac Coello Yael ID: [id number] Lab Interpretation Abnormal (test code = 35654-7) [facility] [id number] 13:49:00 Test Item Value Reference Range Interpretation Comments Estimated GFR (test 61 mL/min/1.73 m2 Caterg ory Units code = 91583-3) Interpretati onG1 >=90 Normal or highG 2 60-89 Mildly decrease dG3a 45-59 Mildly to moder ately rsksethqgZ8j 30 -44 Moderately to s everely decreasedG4 15- 29 Severely decreasedG5 <15 Kidney failureThe eGFR was calculated usin g the Chronic Kidney Disease Epidemiology Co llaboration (CKD-EPI) equat ion. Interpretation is based on recommendations of the National Kidney Foundation-Kidn ey Disease Outcomes Qualit y Initiative (NKF-KDOQI) pub lished in 2014. [facility] [id number] 13:49:00 Test Item Value Reference Range Interpretation Comments POC sodium (test code = 143 mmol/L 818-706 0089-0) POC potassium (test 3.9 mmol/L 3.5-5.0 code = 6298-4) POC chloride (test code 106 mmol/L 99-109 = 2069-3) POC CO2 (test code = 23 mmol/L 24-31 L 33298-2) POC glucose (test code 122 mg/dL 65-99 H = 2339-0) POC BUN (test code = 21 mg/dL 8-24 6299-2) POC creatinine (test 1.2 mg/dl 0.7-1.2 code = 01198-3) POC hematocrit (test 43 % 41-51 code = 4544-3) POC anion gap (test 18 mmol/L 8-20 J2Ee Android Developer Name: code = [id number]) Isac Coello Yael ID: [id number] Lab Interpretation Abnormal (test code = 91476-4) [facility] [id number] 13:49:00 Test Item Value Reference Range Interpretation Comments Estimated GFR (test 61 mL/min/1.73 m2 Caterg ory Units code = 87591-0) Interpretati onG1 >=90 Normal or highG 2 60-89 Mildly decrease dG3a 45-59 Mildly to moder ately nqrnbesmxC5p 30 -44 Moderately to s everely decreasedG4 15- 29 Severely decreasedG5 <15 Kidney failureThe eGFR was calculated alexis g the Chronic Kidney Disease Epidemiology Co llaboration (CKD-EPI) equat ion. Interpretation is based on recommendations of the National Kidney Foundation-Kidn ey Disease Outcomes Qualit y Initiative (NKF-KDOQI) pub lished in 2014. [facility]uoaneFART-DgI-6 (COVID-19) RNA [Presence] in Respiratory specimen by RUDDY with probe [id number] 09:59:59 Test Item Value Reference Range Interpretation Comments SARS-CoV-2 (COVID-19) RNA Not detected [Presence] in Respiratory specimen by RUDDY with probe detection (test code = 59474-2) Whether patient is employed in a Unknown healthcare setting (test code = 36848-6) Whether the patient has symptoms Unknown related to condition of interest (test code = 85801-7) Whether the patient was Unknown hospitalized for condition of interest (test code = 58778-5) Whether the patient was admitted Unknown to intensive care unit (ICU) for condition of interest (test code = 78386-2) Whether patient resides in a Unknown congregate care setting (test code = 29861-0) status (test code = Unknown 69618-6) Date and time of symptom onset Unknown (test code = 39395-9) ILEANA WILDE IVANMichael 12 [id number] 04:04:53 Test Item Value Reference Range Interpretation Comments Ventricular rate 61 (test code = 253) Atrial rate (test 61 code = 255) CT interval (test 166 code = 266) QRSD [...] no longer present-Questionable change in QRS axis- [facility] LakeUrinalysis, automated with qaqdkbmbvf0378-93-67 15:56:00 Test Item Value Reference Range Interpretation Comments Color, UA (test code YELLOW YELLOW = 5778-6) Appearance (test CLEAR CLEAR code = 5767-9) Specific gravity, 1.042 1.001-1.035 H urine (test code = 5811-5) pH, urine (test code 6.5 5.0-8.0 = 5803-2) Glucose, urine (test 3+ NEGATIVE A code = 24173-3) Bilirubin, UA (test NEGATIVE NEGATIVE code = 5770-3) Ketones, UA (test NEGATIVE NEGATIVE code = 2514-8) Occult blood, urine NEGATIVE NEGATIVE (test code = 5794-3) Protein, UA (test NEGATIVE NEGATIVE code = 42819-1) Nitrite, UA (test NEGATIVE NEGATIVE code = [...] code = NONE SEEN See_Comment [Autom ated 33706-7) message] The system which generated this result transmitted reference range : < OR = 2 /HPF. The reference range was not used to interpr et this result as normal/abnormal . Squamous epithelial NONE SEEN See_Comment [Automa anthony cells, UA (test code message ] The = 68794-4) system which generated this result transmitted reference [...] = Performing RAC) Organization Information: Site ID: [facility] Name: [facility] Lab Address: [address] [place] [phone] Director: [place] Darling Lab Interpretation Abnormal (test code = 06282-0) [facility] protein/creatinine ratio, [id number] 15:56:00 Test Item Value Reference Range Interpretation [...] Performing = RAC) Organization Information: Site ID: RGA Name: [facility] Lab Address: [address] [place] [address] Director[facility]/creatinine ratio, [id number] 15:56:00 Test Item Value Reference Range Interpretation [...] RAC) Organization Information: Site ID: A Name: [facility] Lab Address: [address] [place], [place] [id number] Director: [place] [facility] CenterCv stress [id number] 10:05:41 Test Item Value Reference Range Interpretation Comments Resting HR (test code 54 = 2662059718) Resting BP (test code 91&65 = 2340560012) Peak MET Achieved 1 (test code = 1682167499) Protocol Name (test DOBU/ECHO- code = 7944646414) Time in Exercise 00:12:20 Phase (test code = 0906529046) Max Systolic BP (test 113 code = 9155373099) Max Diastolic BP 70 (test code = 5616514291) Max Heart Rate (test 169 code = 3230243173) Max Predicted Heart 152 Rate (test code = 8449649894) Target HR Formula (220 - Age)*100% (test code = 5202435691) Test Indication (test a fib code = 5418019806) Arrhy During Ex (test code = 9647600170) ECG Interp Before EX (test code = 8212375139) ECG Interp During Ex (test code = 5819515555) Ex Summary Comment (test code = 9497354974) Overall HR Response to Exercise (test code = 4340870426) Overall BP Response To Exercise (test code = 5198451331) Reason for Protocol Complete Termination (test code = 4050411561) Stress Test -Waveform interpreted in Impression (test code report associated with = 4667661431) image study. No interpretation is provided as part of this Stress ECG report.-Electronically Signed By Evens PENDLETON, Cas Richardson ([id number]), associate entertainment editor Aurea Casey ([id number]) on 10/25/2021 5:05:37 AM [facility] stress [id number] 10:05:41 Test Item Value Reference Range Interpretation Comments Resting HR (test code 54 = 5853607053) Resting BP (test code 91&65 = 0750015176) Peak MET Achieved 1.0 (test code = 0999801523) Protocol Name (test DOBU/ECHO- code = 2935026700) Time in Exercise 00:12:20 Phase (test code = 8742698526) Max Systolic BP (test 113 code = 9507866269) Max Diastolic BP 70 (test code = 2217973707) Max Heart Rate (test 169 code = 3612700908) Max Predicted Heart 152 Rate (test code = 3123063055) Target HR Formula (220 - Age)*100% (test code = 6555337876) Test Indication (test a fib code = 8159667533) Arrhy During Ex (test code = 1667884827) ECG Interp Before EX (test code = 6107776736) ECG Interp During Ex (test code = 0269774038) Ex Summary Comment (test code = 9002683300) Overall HR Response to Exercise (test code = 0876321087) Overall BP Response To Exercise (test code = 0519873597) Reason for Protocol Complete Termination (test code = 5229464635) Stress Test -Waveform interpreted in Impression (test code report associated with = 5226483752) image study. No interpretation is provided as part of this Stress ECG report.-Electronically Signed By Cas Horner MD ([id number]), associate entertainment editor Aurea Casey (111) on 10/25/2021 5:05:37 AM [facility] [id number] 22:08:00 Test Item Value Reference Range Interpretation Comments Urine culture (test SEE COMMENT Bacteriu [facility]inai screen code = 5345439) negative. [facility] lszfriv6110-01-02 22:08:00 Test Item Value Reference Range Interpretation Comments Urine culture (test SEE COMMENT Bacteriu sinai screen code = 6414305) negative. [facility] RNA [Presence] in Respiratory specimen by RUDDY with probe efykwllwx6220-20-18 20:45:04 Test Item Value Reference Range Interpretation Comments SARS-CoV-2 (COVID-19) RNA Not detected [Presence] in Respiratory specimen by RUDDY with probe detection (test code = 71287-3) Whether patient is employed in a Unknown healthcare setting (test code = 20526-3) Whether the patient has symptoms Unknown related to condition of interest (test code = 65515-9) Whether the patient was Unknown hospitalized for condition of interest (test code = 08088-4) Whether the patient was admitted Unknown to intensive care unit (ICU) for condition of interest (test code = 17886-9) Whether patient resides in a Unknown congregate care setting (test code = 88731-9) status (test code = Unknown 11418-2) Date and time of symptom onset Unknown (test code = 98153-0) [facility] Preliminary Interpretation - Not an [id number] 20:21:52 Test Item Value Reference Range Interpretation Comments NILDA (test code = NILDA) Adriano Cox DO 10/17/2021 11:25 [facility] ED Preliminary Interpretation - Not an OrderPerformed by: Adriano Cox DOAuthorized by: Adriano Cox DO ECG reviewed by ED Physician in the absence of a web merchandiser: yes Previous ECG: Previous ECG: UnavailableInterpretat ion: Interpretation: abnormal Rate: ECG rate: 116 ECG rate assessment: tachycardic Rhythm: Rhythm: atrial fibrillation Rhythm comment: RVREctopy: Ectopy: PVCs QRS: QRS axis: Normal QRS intervals: NormalConduction: Conduction: normal ST segments: ST segments: NormalT waves: T waves: non-specific Lab Interpretation Abnormal (test code = 06699-3) [facility] ED Preliminary Interpretation - Not an [id number] 20:21:52 Test Item Value Reference Range Interpretation Comments NILDA (test code = NILDA) Adriano Cox DO 10/17/2021 11:25 [facility] ED Preliminary Interpretation - Not an OrderPerformed by: Adriano Cox DOAuthorized by: Adriano Cox DO ECG reviewed by ED Physician in the absence of a web merchandiser: yes Previous ECG: Previous ECG: UnavailableInterpretat ion: Interpretation: abnormal Rate: ECG rate: 116 ECG rate assessment: tachycardic Rhythm: Rhythm: atrial fibrillation Rhythm comment: RVREctopy: Ectopy: PVCs QRS: QRS axis: Normal QRS intervals: NormalConduction: Conduction: normal ST segments: ST segments: NormalT waves: T waves: non-specific Lab Interpretation Abnormal (test code = 43421-8) [facility] [id number] 21:26:00 Test Item Value Reference Interpretation Comments Range Glucose (test code 167 mg/dL 65-99 H Fasting reference = 2345-7) interval For so meone without known diabetes, a glucosevalue >1 25 mg/dL indicates that they may havediabetes an d this should be confirmed with afollow-up test . BUN (test code = 21 mg/dL 7-25 3094-0) Creatinine (test 1.03 mg/dL 0.70-1.25 For patient s >49 code = 2160-0) years of age, the reference limit for Creatinine is approximately 1 3% higher for peopleidentifie d as -Malena n. EGFR Non-Afr. See_Comment [Automated me ssage] Samoan (test code The syst em which = 2775) generated this result transmit anthony reference range : > OR = 60 mL/min/1.73m2. The reference range was not used to interpret this result as normal/abnormal . EGFR See_Comment [Automated mes sawyer] Samoan (test code The syst em which = 2774) generated this result transmit anthony reference range : > OR = 60 mL/min/1.73m2. The reference range was not used to interpret this result as normal/abnormal . BUN/creatinine NOT APPLICABLE See_Comment [Automated message] ratio (test code = The [employer] [facility] which 3097-3) generated this result transmit anthony reference range : 6 - 22 (calc). The reference range was not used to interpret this result as normal/abnormal . Sodium (test code = 140 mmol/L 676-857 5918-2) Potassium (test 4.1 mmol/L 3.5-5.3 code = 2823-3) Chloride (test code 104 mmol/L 98-110 = 2075-0) CO2 (test code = 29 mmol/L 20-32 8-9) Calcium (test code 9.2 mg/dL 8.6-10.3 = 40081-6) Protein (test code 7.0 g/dL 6.1-8.1 = 2885-2) Albumin, S (test 4.4 g/dL 3.6-5.1 code = 1751-7) Globulin, total See_Comment [Automated message] (test code = The system [facility] h 960[address]-8) generated this result transmit anthony reference range : 1.9 - 3.7 g/dL (kiki c). The reference r ermelinda was not used to interpret this result as normal/abnormal . Albumin/globulin See_Comment [Automated message] ratio (test code = [facility] [employer] [facility] which 1759-0) generated this result transmit anthony reference range : 1.0 - 2.5 (calc). T he reference range was not used to interpret this result as normal/abnormal . Total bilirubin 1.0 mg/dL 0.2-1.2 (test code = 1975-2) Alkaline 103 U/L 35-144 phosphatase (test code = 6768-6) AST (test code = 24 U/L 10-35 1920-8) ALT (test code = 36 U/L 9-46 1742-6) NILDA (test code = FASTING:YES NILDA) FASTING: YES RAC (test code = Performing RAC) Organization Information: Site ID: RGA Name: [facility] Address: [address] [place] [phone] Director: Boston Darling Lab Interpretation Abnormal (test code = 54544-9) [facility] [id number] 21:26:00 Test Item Value Reference Interpretation Comments Range Cholesterol, total 109 mg/dL <200 (test code = 2093-3) HDL cholesterol 42 mg/dL See_Comment [Automated (test code = 2084-9) message ] The system which generated this [...] calculated (test <100 Desira ble code = 08247-6) range <100 m g/dL for primary prevention; <70 mg/dL for patie nts with CHD or diabetic patien ts with > or = 2 C HD risk factors. L DL-C is now calculat ed using the Wale-[place] calculation, wh ich is a validated novel method providing clifton r accuracy than t he Friedewald equa tion in the estimati on of LDL-C. Vilma n SS et al. SREEKANTH. 2013;310(19): 7288-1544 (http://educati on.Q DreamFunded .DangDang.com /faq/ZVI192) Cholesterol/HDL See_Comment [Automated ratio (test code = message] The system 9830-1) which generated this result transmitted reference range : <5.0 (calc). Th e reference range was not used to interpret this result as normal/abnormal . Non-HDL cholesterol See_Comment For sharon ents with (test code = diabetes plus 1 37049-3) major ASCVD ris k factor, treatin g to a non-HDL-C goa l of <100 mg/dL (LDL -C of <70 mg/dL) i s considered a therapeutic opt ion. [Automated mess age] The system [employer] generated this result transmit anthony reference range : <130 mg/dL (kiki c). The reference r ermelinda was not used to interpret this result as normal/abnormal . NILDA (test code = FASTING:YES NILDA) FASTING: YES RAC (test code = Performing RAC) Organization Information: Site ID: RGA [facility]: [facility] Address: [address] [place] [phone] Director: [place] Darling Lab Interpretation Abnormal (test code = 84609-1) [facility] Lake[facility] [id number] 21:26:00 Test Item Value Reference Range Interpretation Comments Amylase (test code = 52 U/L 1798-8) NILDA (test code = FASTING:YES FASTING: YES NILDA) RAC (test code = Performing Organization RAC) Information: Site ID: RGA [facility] Address: [address] [place] [phone] Director: Boston Darling [facility] LakeHemoglobin [id number] 21:26:00 Test Item Value Reference Interpretation Comments Range Hemoglobin A1C See_Comment H For someone w stephout (test code = known diabetes, a 4548-4) hemoglobin A1c value between 5.7% an d 6.4% is consist ent withprediabetes and should be confi rmed with a follow-u p test. For someo ne with known diab etes, a value <7%indicates that their diabetes is well controlled . T5hnerpwuk shou ld be individualized based on duration [...] RAC) Organization Information: Site ID: FIDE [facility]: [facility] Address: [address] [place] [address] Director: [place] Darling Lab Interpretation Abnormal (test code = 02313-2) [facility] [id number] 21:26:00 Test Item Value Reference Range Interpretation Comments Lipase (test code = 45 U/L 7-60 3040-3) NILDA (test code = FASTING:YES FASTING: YES NILDA) RAC (test code = Performing Organization RAC) Information: Site ID: RGA Name: [facility] Address: [address] [place] [address] Director: [place] Darling [place] [address], [id number] 21:26:00 Test Item Value Reference Range Interpretation Comments T4, free (test code 1.1 ng/dL 0.8-1.8 = 3024-7) NILDA (test code = FASTING:YES FASTING: YES NILDA) RAC (test code = Performing Organization RAC) Information: Site ID: A Name: [facility] Address: [address] [place] [address] Director: Boston Darling [facility] LakeThyroid stimulating [id number] 21:26:00 Test Item Value Reference Range Interpretation [...] RAC) Organization Information: Site ID: RGA Name: [facility] Address: [address] [place] [phone] Director: [place] Darling Lab Interpretation Abnormal (test code = 73505-9) [facility] with platelet and [id number] 21:26:00 Test Item Value Reference Range Interpretation Comments WBC (test code = See_Comment [Automated 7590-2) message] The system which generated this result transmitted reference range : 3.8 - 10.8 Thousand/uL. Th e reference range was not used to interpret this result as normal/abnormal . RBC (test code = See_Comment [Automated 789-8) message] The system which generated this result [...] = Performing RAC) Organization Information: Site ID: [facility] Name: [facility] Address: [address] [place] [phone] Director: [place] Darling Lab Interpretation Abnormal (test code = 73299-8) [facility] LakeVitamin D 25 hydroxy [id number] 21:26:00 Test Item Value Reference Range Interpretation Comments Vitamin D, 51 ng/mL 30-100 Vitamin D Statu s 25-hydroxy (test 25-OH Vitam in D: code = 1989-3) Deficiency: < 20 ng/mLInsufficie ncy : 20 [...] please refer to http://educatio n.Q uestDiagnostics .co m/faq/DMD235 (T his link is being provided for informational/e [place] ational purpose s only.) NILDA (test code = FASTING:YES FASTING: NILDA) YES RAC (test code = Performing RAC) Organization Information: Site ID: [facility] Name: [facility] Address: [address] [place] [phone] Director: Boston Darling [facility] LakeMicroalbumin / creatinine urine [id number] 21:26:00 Test Item Value Reference Interpretation Comments Range Creatinine, urine 61 mg/dL 20-320 (mg/dL) (test code = 2161-8) Microalbumin, urine 1.8 mg/dL See Note: Referenc e Range: (test code = Reference Range Not 26666-2) established Microalbumin/creati See_Comment H The ADA defines [...] RAC) Organization Information: Site ID: RGA [facility]: [facility] Address: [address] [place] [phone] Director: [place] Darling Lab Interpretation Abnormal (test code = 01883-6) [facility] specific [id number] 06:35:00 Test Item Value Reference Range Interpretation Comments PSA (test 0.5 ng/mL See_Comment The total PSA v alue code = from this assay system 2857-1) is standardized against the WHO standar d. The test result john l be approximately 2 0% lower when compared t o the equimolar-stand ardized total PSA (Olivera ADAPTIX [place]). Benjy rison of serial PSA resu lts should be inter preted with this fact in mind. This test was p erformed using the Boqii ns chemiluminescen t method. Values obtained from [...] code = RAC) Organization Information: Site ID: FIDE Name: [facility] Address: [address] [place] [phone] Director: Boston Darling [facility] stress [id number] 10:38:01 Test Item Value Reference Range Interpretation Comments Resting HR (test code = 0582525575) Resting BP (test code 125&58 = 4517262932) Peak MET Achieved (test code = 3751193954) Protocol Name (test DOBUT/ECHO code = 7406528035) Time in Exercise 00:08:40 Phase (test code = 8094457982) Max Systolic BP (test code = 4983642586) Max Diastolic BP (test code = 8778018041) Max Heart Rate (test code = 4361417559) Max Predicted Heart Rate (test code = 3345951702) Target HR Formula (220 - Age)*100% (test code = 1807973991) Test Indication (test A.S code = 8320526015) Arrhy During Ex (test code = 7095859239) ECG Interp Before EX (test code = 2913886770) ECG Interp During Ex (test code = 6470123325) Ex Summary Comment (test code = 3717063476) Overall HR Response to Exercise (test code = 8162188837) Overall BP Response To Exercise (test code = 4184555143) Reason for Protocol Complete Termination (test code = 6470168301) Stress Test Waveform interpreted in Impression (test code report associated with = 2668547357) image study. No interpretation is provided as part of this Stress ECG report.-Electronically Signed By Clem Castro MD ([id number]), associate entertainment editor Aurea Casey ([id number]) on 08/20/2020 5:37:57 AM [facility] IgG+IgM Ab [Presence] in Serum or Plasma by [id number] 18:46:00 Test Item Value Reference Range Interpretation Comments SARS-CoV-2 (COVID-19) IgG+IgM Ab Not detected [Presence] in Serum or Plasma by Immunoassay (test code = 67582-5) [facility]) IgG Ab [Presence] in Serum or Plasma by Tvrpvrpqevp8640-10-12 18:46:00 Test Item Value Reference Range Interpretation Comments SARS-CoV-2 (COVID-19) IgG Ab Not detected [Presence] in Serum or Plasma by Immunoassay (test code = 29348-2) ILEANA WILDE WESTECG 12 [id number] 22:32:37 Test Item Value Reference Range Interpretation Comments Ventricular rate (test code = 253) Atrial rate (test code = 255) CT interval (test code = 266) QRSD interval [...] longer present-premature supraventricular complexes are now present- Rekha Pavon-CoV-2 (COVID-19) RNA [Presence] in Respiratory specimen by RUDDY with probe [id number] 04:51:37 Test Item Value Reference Range Interpretation Comments SARS-CoV-2 (COVID-19) RNA Not detected Not-Detected [Presence] in Respiratory specimen by RUDDY with probe detection (test code = 33167-4) ILEANA RAMOSSARS-CoV-2 (COVID-19) IgG+IgM Ab [Presence] in Serum or Plasma by [id number] 06:44:00 Test Item Value Reference Range Interpretation Comments SARS-CoV-2 (COVID-19) IgG+IgM Ab Not detected [Presence] in Serum or Plasma by Immunoassay (test code = 17182-7) ILEANA WILDE SNNDNUWF-JiD-7 (COVID-19) IgG Ab [Presence] in Serum or Plasma by [id number] 06:44:00 Test Item Value Reference Range Interpretation Comments SARS-CoV-2 (COVID-19) IgG Ab Not detected [Presence] in Serum or Plasma by Immunoassay (test code = 73475-3) ILEANA RAMOS
[2022-08-30] MEDS ORDERED: NITROGLYCERIN 0.4 MG/TAB SL ONE (18:14)
[2022-08-30 18:22] LABS: Hematocrit 41.3 % (39.6-49.0); Lymphocytes % 13.6 % (15.3-44.8); MCV 90.6 fL (80-100); RBC Red Blood Cell Count 4.56 M/uL (4.33-5.43)
[2022-08-30 18:40] LABS: Albumin 3.9 g/dL (3.4-5.0); Bilirubin Direct 0.3 mg/dL (0-0.2); Bilirubin Indirect, Calculated 0.8 mg/dL (0.2-0.8); Bilirubin Total 1.1 mg/dL (0.2-1.0); Magnesium 1.8 mg/dL (1.6-2.4); Potassium 4.3 mEq/L (3.5-5.1); Protein, Total 7.3 g/dL (6.4-8.2); Troponin High Sensitivity 22.5 pg/mL (<58.9)
[2022-08-30] MEDS ORDERED: NA CHLORIDE 0.9% 500 ML ONE (18:47)
--- NOTE | 2022-08-30 19:05 | RAD REPORT ---
[facility] CLINICAL HISTORY: CHEST PAIN COMPARISON: Chest Single View dated 10/14/2021; Chest Single View dated 09/18/2020; CHEST SINGLE VIEW dated 09/16/2011; CHEST SINGLE VIEW dated 08/22/2011 TECHNIQUE: Portable AP view of the chest. FINDINGS: The lungs are clear. No pneumothorax or effusion. The cardiomediastinal contours are unre markable. IMPRESSION: No acute cardiopulmonary process.
[2022-08-30] MEDS ORDERED: CEFTRIAXONE 1000 MG/VIAL ONE (20:02)
--- NOTE | 2022-08-30 20:23 | EDPHYS ---
Physician Documentation [facility] Name: Bay Montano Age: 67 yrs Sex: Male : 1955 Arrival Date: 08/30/2022 Time: 17:39 Bed 3 Private MD: ED Physician Richard Coats HPI: 08/30 21:05 This 67 yrs old Male presents to ER via EMS with complaints of Chest pain. rt 21:05 Patient with history of aortic stenosis, coronary disease presents to the ED with a rt mild chest pain, substernal starting about 1 PM. Was worse with deep inspiration. Patient was packing boxes when it occurred. He denies other exertional symptoms. Patient states that the pain somewhat worsened at about 3 but then significantly improved only slight pain at the time of arrival to the ED. Denies other acute complaints this time. Symptoms are mild in severity, aching nature, nonradiating, no other aggravating alleviating factors.. Historical: - Allergies: 17:47 Iodine; mb9 17:47 Latex, Natural Rubber; mb9 - Home Meds: 17:47 atorvastatin 40 mg oral tablet once [Active]; Amiodarone 50 mg Oral [Active]; Eliquis mb9 oral [Active]; Entresto 24-26 mg oral tablet once [Active]; tacrolimus 0.5 mg oral Capsule, ER 24 hr daily [Active]; furosemide 40 mg/4 mL Oral solution daily [Active]; levothyroxine oral [Active]; - PMHx: 17:47 Aortic Stenosis; Atrial fibrillation; CHF; diabetes mellitus; Hypertensive disorder; mb9 Hypothyroidism; - PSHx: 17:47 Coronary artery bypass graft; defibulator; eye implants to prevent glaucoma- durysta; mb9 kidney transplant; liver transplant; Cholecystectomy; - Immunization history:: Adult Immunizations up to date. - Social history:: Smoking status: Patient denies any tobacco usage or history of. - Family history:: not pertinent. ROS: 21:05 Constitutional: Negative for fever, chills, and weight loss, Neck: Negative for injury, rt pain, and swelling, Respiratory: Negative for shortness of breath, cough, wheezing, and pleuritic chest pain, Abdomen/GI: Negative for abdominal pain, nausea, vomiting, diarrhea, and constipation, MS/Extremity: Negative for injury and deformity, Skin: Negative for injury, rash, and discoloration, Neuro: Negative for headache, weakness, numbness, tingling, and seizure, Psych: Negative for depression, anxiety, suicide ideation, homicidal ideation, and hallucinations. 21:05 Cardiovascular: Positive for chest pain, Negative for edema. Exam: 21:05 Constitutional: This is a well developed, well nourished patient who is awake, alert, rt and in no acute distress. Head/Face: Normocephalic, atraumatic. Chest/axilla: Normal chest wall appearance and motion. Nontender with no deformity. No lesions are appreciated. Cardiovascular: Regular rate and rhythm with a normal S1 and S2. No gallops, murmurs, or rubs. Normal PMI, no JVD. No pulse deficits. Respiratory: Lungs have equal breath sounds bilaterally, clear to auscultation and percussion. No rales, rhonchi or wheezes noted. No increased work of breathing, no retractions or nasal flaring. Abdomen/GI: Soft, non-tender, with normal bowel sounds. No distension or tympany. No guarding or rebound. No evidence of tenderness throughout. Skin: Warm, dry with normal turgor. Normal color with no rashes, no lesions, and no evidence of cellulitis. MS/ Extremity: Pulses equal, no cyanosis. Neurovascular intact. Full, normal range of motion. Neuro: Awake and alert, GCS 15, oriented to person, place, time, and situation. Cranial nerves II-XII grossly intact. Motor strength 5/5 in all extremities. Sensory grossly intact. Cerebellar exam normal. Normal gait. Psych: Awake, alert, with orientation to person, place and time. Behavior, mood, and affect are within normal limits. 21:05 ECG was reviewed by the Attending Physician. Vital Signs: 17:45 BP 117 / 67; Pulse 62; Resp 18; Temp 97.7(O); Pulse Ox 100% on R/A; Weight 92.99 kg; mb9 Height 5 ft. 11 in. ; Pain 6/10; 19:07 BP 107 / 48; Pulse 57; Resp 18; Pulse Ox 97% on R/A; mb9 19:30 BP 98 / 62; Pulse 55; Resp 18; Pulse Ox 98% on R/A; mb9 20:18 BP 111 / 66; Pulse 56; Resp 18; Pulse Ox 100% on R/A; mb9 17:45 Body Mass Index 28.59 (92.99 kg, 180.34 cm) mb9 17:45 Pain Scale: Adult mb9 MDM: 17:47 Patient medically screened. rt 21:05 Differential diagnosis: Acute coronary syndrome, pneumonia, pneumothorax, TAD. HEART rt Score: History: Moderately Suspicious (1), ECG: Non specific repolarization disturbance / LBTB / PM (1), Age: > or = 65 years (2), Risk Factors: > or = 3 Risk factors for atherosclerotic disease (2), Troponin: < or = 1 x Normal Limit (0), Total Score = 6. The patient was not given aspirin in the Emergency Department. Patient reports taking aspirin within the past 24 hours. Data reviewed: vital signs, lab test result(s), EKG, radiologic studies. Consideration of Admission/Observation Escalation of care including admission/observation considered. Given history, description of pain, heart score, recommended the patient stay in the hospital to be admitted, stating that there was the safest option given his history and that a negative work-up in the ED does not completely exclude this being a cardiac etiology. The patient understands this, has good insight into his disease process. He states that he strongly wishes to go home as the symptoms have resolved in the ED. Discussed obtaining repeat troponin with the patient, he agrees to do so, was unchanged on repeat. Patient to follow-up as an outpatient. He understands that he return anytime for changes mind if he develops worsening symptoms. Patient verbalized understanding is comfortable with this plan.. I considered the following discharge prescriptions or medication management in the emergency department Medications were administered in the Emergency Department. See MAR. Independent interpretation of the following test(s) in the Emergency Department X-Ray: My interpretation is No consolidation seen on interpretation of the x-ray image. Care significantly affected by the following chronic conditions: Coronary artery disease. Counseling: I had a detailed discussion with the patient and/or guardian regarding: the historical points, exam findings, and any diagnostic results supporting the discharge/admit diagnosis, lab results, radiology results, the need for outpatient follow up, to return to the emergency department if symptoms worsen or persist or if there are any questions or concerns that arise at home. Response to treatment: the patient's symptoms have resolved after treatment. 08/30 18:03 Order name: Basic Metabolic Panel; Complete Time: 19:00 rt 08/30 18:03 Order name: CBC with Diff; Complete Time: 19:00 rt 08/30 18:03 Order name: LFT's; Complete Time: 19:00 rt 08/30 18:03 Order name: Magnesium; Complete Time: 19:00 rt 08/30 18:03 Order name: NT PRO-BNP; Complete Time: 19:00 rt 08/30 18:03 Order name: Troponin HS; Complete Time: 19:00 rt 08/30 19:46 Order name: Troponin High Sensitivity; Complete Time: 20:16 ll3 08/30 18:03 Order name: XRAY Chest (1 view); Complete Time: 19:12 rt 08/30 18:03 Order name: EKG; Complete Time: 18:04 rt 08/30 18:03 Order name: Cardiac monitoring; Complete Time: 18:04 rt 08/30 18:03 Order name: EKG - Nurse/Tech; Complete Time: 18:04 rt 08/30 18:03 Order name: IV Saline Lock; Complete Time: 18:04 rt 08/30 18:03 Order name: Labs collected and sent; Complete Time: 18:04 rt 08/30 18:03 Order name: O2 Per Protocol; Complete Time: 18:04 rt 08/30 18:03 Order name: O2 Sat Monitoring; Complete Time: 18:04 rt EC:05 Rate is 60 beats/min. Rhythm is regular, Normal Sinus Rhythm with No ectopy. QRS [place] rt is Normal. [place] interval is normal. QRS interval is normal. QT interval is normal. No Q waves. Clinical impression: NSR w/ Non-specific ST/T Changes. Administered Medications: 18:06 Drug: Nitroglycerin Sublingual 0.4 mg Route: Sublingual; mb9 18:45 Follow up: Response: Blood pressure is lowered mb9 18:44 Drug: NS 0.9% IV 500 ml Route: IV; Rate: bolus; Site: left forearm; mb9 19:30 Follow up: Response: No adverse reaction; IV Status: Completed infusion mb9 Disposition Summary: 08/30/22 20:22 Discharge Ordered Location: Home rt Condition: Stable rt Diagnosis - Chest pain, unspecified rt Followup: rt - With: Private Physician - When: 1 - 2 days - Reason: Followup: rt - With: Emergency Department - When: - Reason: Worsening of condition Discharge Instructions: - Discharge Summary Sheet rt - Nonspecific Chest Pain, Adult rt Forms: - Medication Reconciliation Form rt - Thank You Letter rt - Antibiotic Education rt - Prescription Opioid Use rt - [email or web address] rt Signatures: Dispatcher [employer] Twyla Lacy RN RN mb9 Richard Coats MD MD rt
--- NOTE | 2022-08-30 20:23 | ER ---
Nurse's Notes [facility] Name: Bay Montano Age: 67 yrs Sex: Male : 1955 Arrival Date: 08/30/2022 Time: 17:39 Bed 3 Private MD: Diagnosis: Chest pain, unspecified Presentation: 08/30 17:45 Chief complaint: EMS states: "Toned out for chest pain that started at 1300 today ang mb9 got worse at 1600. Pain is worse with inspiration. Administer 324 mg of Aspirin in route. BGL 122.". Coronavirus screen: Vaccine status: Patient reports receiving the 2nd dose of the covid vaccine. Ebola Screen: No symptoms or risks identified at this time. Initial Sepsis Screen: Does the patient meet any 2 criteria? No. Patient's initial sepsis screen is negative. Does the patient have a suspected source of infection? No. Patient's initial sepsis screen is negative. Risk Assessment: Do you want to hurt yourself or someone else? Patient reports no desire to harm self or others. Onset of symptoms was August 30, 2022. 17:45 Method Of Arrival: EMS: [facility] mb9 17:45 Acuity: ELIO 3 mb9 Triage Assessment: 17:52 General: Appears in no apparent distress. Behavior is calm, cooperative. Pain: mb9 Complains of pain in chest Quality of pain is described as throbbing, Pain began suddenly. Neuro: Cunningham Agitation-Sedation Scale (RASS): 0 - Alert and Calm Level of Consciousness is awake, alert, obeys commands, Oriented to person, place, time, situation, Appropriate for age. Cardiovascular: Heart tones S1 S2 present Patient's skin is warm and dry. Rhythm is regular. Respiratory: Airway is patent Respiratory effort is even, unlabored, Respiratory pattern is regular, symmetrical, Breath sounds are clear bilaterally. GI: Abdomen is round non-distended, Bowel sounds present X 4 quads. Abd is soft and non tender X 4 quads. Reports nausea. Derm: Skin is pink, warm \\T\\ dry. Musculoskeletal: Range of motion: intact in all extremities. Historical: - Allergies: 17:47 Iodine; mb9 17:47 Latex, Natural Rubber; mb9 - Home Meds: 17:47 atorvastatin 40 mg oral tablet once [Active]; Amiodarone 50 mg Oral [Active]; Eliquis mb9 oral [Active]; Entresto 24-26 mg oral tablet once [Active]; tacrolimus 0.5 mg oral Capsule, ER 24 hr daily [Active]; furosemide 40 mg/4 mL Oral solution daily [Active]; levothyroxine oral [Active]; - PMHx: 17:47 Aortic Stenosis; Atrial fibrillation; CHF; diabetes mellitus; Hypertensive disorder; mb9 Hypothyroidism; - PSHx: 17:47 Coronary artery bypass graft; defibulator; eye implants to prevent glaucoma- durysta; mb9 kidney transplant; liver transplant; Cholecystectomy; - Immunization history:: Adult Immunizations up to date. - Social history:: Smoking status: Patient denies any tobacco usage or history of. - Family history:: not pertinent. Screenin:51 [facility] ED Fall Risk Assessment (Adult) History of falling in the last 3 months, mb9 including since admission No falls in past 3 months (0 pts) Confusion or Disorientation No (0 pts) Intoxicated or Sedated No (0 pts) Impaired Gait No (0 pts) Mobility Assist Device Used No (0 pt) Altered Elimination No (0 pt) Score/Fall Risk Level 0 - 2 = Low Risk Oriented to surroundings, Maintained a safe environment, Educated pt \\T\\ family on fall prevention, incl call for assistance when getting out of bed. Abuse screen: Denies threats or abuse. Nutritional screening: No deficits noted. Tuberculosis screening: No symptoms or risk factors identified. Assessment: 18:41 Reassessment: ERP notified of pts BP of 82/53. VO for 500 mLs of NS. mb9 19:30 Reassessment: Patient and/or family updated on plan of care and expected duration. Pain mb9 level reassessed. Patient is alert, oriented x 3, equal unlabored respirations, skin warm/dry/pink. Patient states feeling better. Patient states symptoms have improved. Vital Signs: 17:45 BP 117 / 67; Pulse 62; Resp 18; Temp 97.7(O); Pulse Ox 100% on R/A; Weight 92.99 kg; mb9 Height 5 ft. 11 in. ; Pain 6/10; 19:07 BP 107 / 48; Pulse 57; Resp 18; Pulse Ox 97% on R/A; mb9 19:30 BP 98 / 62; Pulse 55; Resp 18; Pulse Ox 98% on R/A; mb9 20:18 BP 111 / 66; Pulse 56; Resp 18; Pulse Ox 100% on R/A; mb9 17:45 Body Mass Index 28.59 (92.99 kg, 180.34 cm) mb9 17:45 Pain Scale: Adult mb9 ED Course: 17:45 Patient arrived in ED. em1 17:45 Twyla Garcia, BARRY is Primary Nurse. mb9 17:45 Richard Coats MD is Attending Physician. rt 17:45 Arm band placed on. mb9 17:47 Triage completed. mb9 17:53 Placed in gown. Bed in low position. Call light in reach. Side rails up X 1. Client mb9 placed on continuous cardiac and pulse oximetry monitoring. NIBP monitoring applied. quality assurance monitor chassis on. 17:53 No provider procedures requiring assistance completed. mb9 17:53 Inserted saline lock: 20 gauge in left forearm, using aseptic technique. Blood zm collected. 17:54 EKG done, by ED staff, reviewed by Richard Coats MD. zm 18:04 Basic Metabolic Panel Sent. mb9 18:04 CBC with Diff Sent. mb9 18:04 LFT's Sent. mb9 18:04 Magnesium Sent. mb9 18:04 NT PRO-BNP Sent. mb9 18:04 Troponin HS Sent. mb9 19:01 XRAY Chest (1 view) In Process Unspecified. EDMS 20:28 IV discontinued, intact, bleeding controlled, No redness/swelling at site. Pressure mb9 dressing applied. Administered Medications: 18:06 Drug: Nitroglycerin Sublingual 0.4 mg Route: Sublingual; mb9 18:45 Follow up: Response: Blood pressure is lowered mb9 18:44 Drug: NS 0.9% IV 500 ml Route: IV; Rate: bolus; Site: left forearm; mb9 19:30 Follow up: Response: No adverse reaction; IV Status: Completed infusion mb9 Outcome: 20:22 Discharge ordered by . rt 20:28 Discharged to home ambulatory. mb9 20:28 Condition: stable 20:28 Discharge instructions given to patient, Instructed on discharge instructions, follow up and referral plans. Demonstrated understanding of instructions, follow-up care. 20:28 Patient left the ED. mb9 Signatures: Dispatcher [employer] EDMS Matt Mitchell emLissa Breaux Mary Beth, RN RN mb9 Richard Coats MD MD rt Corrections: (The following items were deleted from the chart) 18:45 17:53 Inserted saline lock: 20 gauge in left antecubital area, using aseptic technique. gee Blood collected. gee
[2022-08-30 20:44] VITALS: TEMP 97.7
[2022-08-30 20:57] VITALS: BP 111/66; O2SAT 100
--- NOTE | 2022-08-31 12:30 | EKG ---
Test Date: 2022-08-30 Test Time: 17:51:39 Sales Leader: SUMA MEASUREMENT RESULTS: Intervals: Rate: 60 MS: 150 QRSD: 112 QT: 470 QTc: 470 [place]: P: 59 MS: 150 QRS: 40 T: 112 INTERPRETIVE STATEMENTS: Normal sinus rhythm ST & T wave abnormality, consider lateral ischemia Abnormal ECG Compared to ECG 10/14/2021 08:21:36 ST (T wave) deviation now present Possible ischemia now present Atrial fibrillation no longer present Myocardial infarct finding no longer present Prolonged QT interval no longer present Electronically Signed On 08-31-22 12:29:15 CDT by Kayden Morales
== END 2022-08-30 20:28 | disposition home or self-care (01) ==
LOC: ER 17:39
DX: R07.9 Chest pain, unspecified (principal); I10 Essential (primary) hypertension; I50.9 Heart failure, unspecified; I48.91 Unspecified atrial fibrillation; E11.9 Type 2 diabetes mellitus without complications; Z95.1 Presence of aortocoronary bypass graft; Z94.0 Kidney transplant status; Z94.4 Liver transplant status; Z91.040 Latex allergy status; Z91.048 Other nonmedicinal substance allergy status; Z79.01 Long term (current) use of anticoagulants
CPT/HCPCS: 93005; 85025; 80048; 36415; 83735; 80076; 84484 ×2; 83880; 71045; 96360; 99285; J7040; J0696